=== PATIENT | female | born 1950 | race Hispanic/Latino ===

== ENCOUNTER 2019-07-20 01:46 | Inpatient (IN) | payer MEDICARE, SELFPAY ==
[2019-07-20] VITALS (17 sets, daily range): BP systolic 130–185; BP diastolic 57–102; PULSE 70–93; RESP 15–21; TEMP 36.7–37.7; O2SAT 92–99; BMI 36.1; BMI 34.7
--- NOTE | 2019-07-20 01:54 | ED.RN ---
CALLED FOR EKG PER RN REQUEST, PULLED OLD EKGS FOR
--- NOTE | 2019-07-20 01:58 | EKG12_ITS ---
Test Reason : SOB Blood Pressure : / mmHG Vent. Rate : 086 BPM Atrial Rate : 086 BPM P-R Int : 244 ms QRS Dur : 134 ms QT Int : 394 ms P-R-T Axes : 054 141 067 degrees QTc Int : 471 ms Sinus rhythm with 1st degree A-V block Right bundle branch block Left posterior fascicular block Bifascicular block ST elevation consider inferior injury or acute infarct Consider right ventricular involvement in acute inferior infarct Abnormal ECG Confirmed by SUHAS MACIEL, DANNA ([id number]), editor in chief newspaper SHY GRIFFIN ([id number]) on 07/24/2019 10:26:25 AM Referred By: LEIDY Confirmed By:DANNA DAI MD
--- NOTE | 2019-07-20 01:59 | RAD_ITS ---
STUDY: X-RAY CHEST REASON FOR EXAM: Female, 68 years old. SOB TECHNIQUE: Frontal and lateral views of the chest. COMPARISON: 04/14/2015 FINDINGS: Dual-chamber pacemaker on the left. Median sternotomy wires. 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 There is no demonstrated pleural abnormality. Normal size heart. Normal mediastinum and zakiya. Normal visualized pulmonary arteries. Normal visualized aortic arch and descending thoracic aorta. Normal visualized thoracic spine. Normal visualized ribs, clavicles, and shoulders. There is no demonstrated abnormality of the visualized soft tissue structures of the upper abdomen. 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 Electronically Signed: Juan Smith MD at 2:40 EDT Tel , Service support ,
[2019-07-20] MEDS: Ipratropium/Albuterol Sulfate 3 ML AMPUL.NEB INHALATION ×4 (02:04→19:10)
--- NOTE | 2019-07-20 02:06 | ED.DCSUM_ITS ---
History of Present Illness Chief Complaint: Shortness of Breath Informant: Patient Onset: Yesterday Context: Gradual Onset Timing: Continuous Narrative: Patient is a 68-year-old female presented with shortness of breath. She denies any associated chest pain. She states she has been feeling short of breath in the past 2 days. Is worse when she lies down or exerts herself. She feels that she has had the flu for the past few days as well with body aches and a cough. She denies any fever or rash. She denies any swelling of her extremities. She denies any abdominal pain, nausea or vomiting. Patient has a fistula but has not started dialysis yet. She still makes urine. She denies any other complaints at this time. She states she been compliant with her medications. She does not wear oxygen at baseline. Past Medical History - Allergies and Home Meds Allergies/Adverse Reactions: Allergies Penicillins Allergy (Verified 04/14/15 05:35) Rash Primary Care Physician: Ana Cristina Courtney [NON-STAFF] - Past Medical History: - - End-stage renal disease, congestive heart failure, coronary artery disease, hypertension, diabetes Surgical History: pacemaker implantation - Medtronic, - - Unclear Smoking Status: Former smoker - Family History Maternal Family History: Reports: Unknown, - Review of Systems All systems negative except as indicated General: Reports: Malaise Respiratory: Reports: Dyspnea, Cough, Dyspnea on exertion, Orthopnea Physical Exam Vital Signs/Narrative: Vital Signs Temp Pulse Resp BP Pulse Ox 07/20/19 01:47 99.2 F H 86 16 160/102 H 92 Inital Vital Signs reviewed: Yes General: Well nourished, Well developed, No Acute Distress Head: Normocephalic, Atraumatic Eyes: Perrl, EOMI ENT: Moist mucous membranes, No rhinorrhea Neck: Supple, Nontender, No JVD Cardiovascular: Regular rate, Regular rhythm, No murmurs Respiratory: No distress, CTA bilaterally, Chest nontender, Decreased Air Movement Abdomen: Soft, Nontender, Nondistended, Normal bowel sounds Back: Nontender, Normal Inspection Extremities: Nontender, No edema Skin: Normal color, No rash Neurological: Alert, Oriented x3, Cranial nerves II-XII grossly intact, Normal Strength, Normal Sensation Psychological: Normal affect, Normal Mood Diagnostic/Tx/Re-eval Chest X-Ray - ED: 2 View, Read by ED Physician, Read by Radiologist, Right Infiltrate Clinical Impression(s) from Imaging Studies Chest X-Ray 07/20/19 01:59 IMPRESSION: 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 Electronically Signed: Juan Smith MD at 2:40 EDT Tel , Service support , Laboratory Data 07/20/19 07/20/19 02:05 02:05 WBC 11.6 H RBC 4.00 L Hgb 10.9 L Hct 34.5 L MCV 86.3 MCH 27.3 MCHC 31.6 L RDW Std Deviation 43.4 RDW Coeff of Robyn 13.8 Plt Count 286 MPV 10.1 Immature Gran % (Auto) 0.400 Neut % (Auto) 76.6 H Lymph % (Auto) 12.9 L [place] % (Auto) 9.0 Eos % (Auto) 0.8 Baso % (Auto) 0.3 Absolute Neuts (auto) 8.9 H Absolute Lymphs (auto) 1.49 Nucleated RBC % 0 Sodium 136 Potassium 4.8 Chloride 103 Carbon Dioxide 24.0 Anion Gap 9 BUN 54 H Creatinine 3.42 H Estim Creat Clear Calc 18.65 Est GFR (MDRD) Af Amer 17 L Est GFR (MDRD) Non-Af 14 L BUN/Creatinine Ratio 15.8 Glucose 189 H Calcium 9.0 Troponin I < 0.015 - Rhythm Strip Rhythm Strip: Sinus Rhythm Rate: 86 Ectopy: None - EKG Initial EKG Interpretation: Sinus Rhythm, RBBB, - - Sinus rhythm with first-degree AV block at a rate of 86 VT interval 244 QRS 134 QT/QTc 394/471 Right axis deviation Right bundle branch block as well as left posterior fascicular block Nonspecific T wave inversions in V1 and V2 Compared to prior EKG on 04/14/2015 patient has new AV block, right bundle branch block and LPFB as well as new T wave inversions in V1 and V2 - Medical Decision Making Patient is evaluated for worsening shortness of breath as well as fatigue. Symptoms been worse over the past 4 days. Patient is requiring oxygen for EMS and is on 3 L upon arrival. She does not wear oxygen at baseline. Clinically patient does not have any signs or symptoms consistent with fluid overload. She does have some diminished breath sounds and she is given a DuoNeb. Chest x-ray does show right basilar and left midlung alveolar disease. Given patient's clinical presentation this is suspicious for acute pneumonia. Patient is acutely hypoxic and is a goes down to 87% with ambulation on room air. She is symptomatic during this. Patient's creatinine is elevated at 3.42. She does have end-stage renal disease and the most recent creatinine I have to compare to is from 2015 which is around 2. Is not clear if this is acute on chronic renal insufficiency or just a progression of her chronic renal insufficiency. Because of patient's history of CHF, she is not bolus to the emergency room but she will be started on maintenance fluids per medicine. Patient is admitted to the general medical floor for further treatment. She started on Rocephin and azithromycin for pneumonia. Her flu swab is negative. She has only a mild leukocytosis. I do not suspect sepsis at this time. ED Disposition - Plan for ED Patient: Disposition: Acute Care Hospital [facility] Diagnosis: Community acquired pneumonia, Acute respiratory failure with hypoxia, Chronic renal insufficiency Referrals: Ana Cristina Courtney [NON-STAFF] -
[2019-07-20 02:12] LABS: Absolute Lymphocyte Count 1.49 X10^3/uL (0.83-4.51); Absolute Neutrophil Count 8.9 X10^3/uL (2.0-7.7); Basophil# 0.04 X10^3/uL; Basophil% 0.3 % (0-1); Eosinophil# 0.09 X10^3/uL; Eosinophils% 0.8 % (0-5); Hematocrit 34.5 % (37-47); Hemoglobin 10.9 g/dL (12.0-15.0); Lymphocyte # 1.49 X10^3/ul (4.0); Lymphocyte % 12.9 % (19-41); Mean Corp Hgb Conc 31.6 g/dL (32-36); Mean Corpuscular Hgb 27.3 pg (27.0-32.0); Mean Corpuscular Volume 86.3 fL (81-99); Mean Platelet Vol. 10.1 fl (6.2-12.0); Monocyte# 1.04 X10^3/uL; NRBC Flagged by Analyzer 0 % (0-5); Neutrophil # 8.85 X10^3/uL (2.7-7.7); Neutrophil % 76.6 % (47-70); Platelet Count 286 K/mm3 (150-450); RBC Distribution Width CV 13.8 % (11.6-14.6); RBC Distribution Width SD 43.4 fl (35.1-43.9); White Blood Count 11.6 K/mm3 (4.4-11.0)
[2019-07-20 02:32] LABS: Anion Gap 9 (5-15); BUN 54 mg/dL (7-18); BUN/Creat Ratio 15.8 RATIO (10-20); Chloride 103 mmol/L (98-107); Creatinine, Serum 3.42 mg/dL (0.55-1.02); EST Glomerular Filtration Rate 14 mL/min (>60); Est Glom Filt Rate - Afr Amer 17 mL/min (>60); Estimated Creatinine Clearance 18.65 ml/min; Glucose 189 mg/dL (74-106); Potassium 4.8 mmol/L (3.5-5.1); Sodium Level 136 mmol/L (136-145)
--- NOTE | 2019-07-20 03:15 | HP.PCM_ITS ---
Problem List (1) Community acquired pneumonia Status: Acute (2) Diabetes mellitus Status: Chronic (3) Artificial cardiac pacemaker Status: Chronic (4) Leukocytosis Status: Acute (5) Diabetes mellitus 2 Status: Chronic (6) Hypertension Status: Chronic (7) CHF (congestive heart failure) Status: Chronic History of Present Illness Date of Admission: 07/20/19 Chief Complaint: short of breath The patient is a 68 year old F with a significant history of end-stage renal disease yet to begin dialysis; hypertension; diabetes mellitus; congestive heart failure; valvular repair; permanent pacemaker and who currently lives at a longterm presenting to the emergency department with 1 day history of shortness of breath. She describes her shortness of breath as unable to lie flat. Associated with her symptoms is paroxysmal nocturnal dyspnea. Also patient reports flulike symptoms that started 4 days ago. She describes flulike symptoms as productive cough; anorexia; malaise; weakness chills and rigor. Her cough is productive for green sputum. She reported that while at the emergency department she had some hemoptysis. The squad placed placed patient on 3 L oxygen by nasal cannula before bringing her to the emergency department. While at the emergency department and with the nasal cannula off patient's oxygen saturation was 86%. At the emergency department her troponin was negative. EKG showed right axis deviation; first-degree AV block and right bundle branch block. Chest x-ray was remarkable for right basilar and left midlung alveolar disease. Past Medical History Past Medical History (Chronic Problems): Chronic Problems Diabetes mellitus (Chronic) Artificial cardiac pacemaker (Chronic) Cardiac conduction disorder (Chronic) CHF (congestive heart failure) (Chronic) Diabetes mellitus 2 (Chronic) Hypertension (Chronic) Chronic renal insufficiency (Chronic) Chronic kidney disease stage III (Chronic) Allergies Penicillins Allergy (Verified 04/14/15 05:35) Rash Home Medications: Ambulatory Orders Medication Instructions Recorded Ferrous Sulfate 325 mg PO BIDCM 04/06/15 Glimepiride [Amaryl] 2 mg PO DAILY 04/06/15 Insulin Glargine,Hum.rec.anlog 15 unit SQ QHS 04/06/15 [Lantus] Losartan Potassium [Cozaar] 50 mg PO DAILY 04/06/15 Hydrochlorothiazide [Hctz] 25 mg PO DAILY 04/14/15 Surgical History: cholecystectomy, pacemaker implantation - Medtronic, - Lives: - - Lives at a longterm Smoking Status: Former smoker Alcohol: Occasional - *Family History Maternal History Items: Diabetes Paternal History Items: Heart Disease Review of Systems Constitutional: Reports: Chills, Fever - Subjective. Denies: Weight Change HEENT: Denies: Head Aches, Sinus Congestion, Sinus Drainage Cardiovascular: Reports: Orthopnea, Palpitations. Denies: Chest Pain Respiratory: Reports: Cough, Shortness of Breath, Sputum production Gastrointestinal: Denies: Abdominal Pain, Nausea, Vomiting Genitourinary: Denies: Dysuria Musculoskeletal: Denies: Joint Pain, Joint Tenderness Skin: Denies: Rash, Wounds Neurological: Denies: Numbness, Tingling, Focal weakness Psychiatric: Denies: Anxiety, Depression, Homicidal Ideations, Suicidal Ideations Hematologic/ Lymphatic: Denies: Easy Bruising, Easy Bleeding VTE Information - Inpt Only VTE Present on Admission: No VTE Mechan Device Prophylaxis: None VTE Pharm Prophylaxis ordered?: Yes Patient Problems: Active and Suspected Problems Community acquired pneumonia (Acute) - Physical Exam General: Alert, Oriented x3, Cooperative HEENT: Atraumatic, PERRLA, EOMI, Normocephalic Neck: Supple, No JVD, Negative Carotid Bruits, - - Bruit and thrill at dialysis access site of right antecubital area Lungs: Clear to auscultation, Normal air movement Cardiovascular: Regular rate, Normal S1, Normal S2, No murmurs Abdomen: Bowel Sounds Present, Soft, Non Tender Extremities: No edema, Capillary Refill Less than 3 Seconds Skin: No rashes, No breakdown Musculoskeletal: No Tenderness to Palpation of Joints or Extremities Neurological: Cranial nerves II-XII grossly intact Psych/Mental Status: Normal Affect, Appropriate Vital Signs Temp Pulse Resp BP Pulse Ox 99.2 F H 70 15 184/65 H 92 07/20/19 01:47 07/20/19 02:47 07/20/19 02:47 07/20/19 02:47 07/20/19 02:47 Oxygen Flow Rate (L/min) 3 Oxygen Delivery Method Room Air Weight: 73 kg Body Mass Index (BMI) 36.1 Finger Stick Blood Glucose 14 Microbiology Past 72 Hours 07/20/19 02:05 Influenza Types A,B Direct FA ([facility]) - Final Mucosa - Nasopharyngeal Laboratory Tests Past 24 Hrs 07/20/19 07/20/19 02:05 02:05 WBC 11.6 H RBC 4.00 L Hgb 10.9 L Hct 34.5 L MCV 86.3 MCH 27.3 MCHC 31.6 L RDW Std Deviation 43.4 RDW Coeff of Robyn 13.8 Plt Count 286 MPV 10.1 Immature Gran % (Auto) 0.400 Neut % (Auto) 76.6 H Lymph % (Auto) 12.9 L [place] % (Auto) 9.0 Eos % (Auto) 0.8 Baso % (Auto) 0.3 Absolute Neuts (auto) 8.9 H Absolute Lymphs (auto) 1.49 Nucleated RBC % 0 Sodium 136 Potassium 4.8 Chloride 103 Carbon Dioxide 24.0 Anion Gap 9 BUN 54 H Creatinine 3.42 H Estim Creat Clear Calc 18.65 Est GFR (MDRD) Af Amer 17 L Est GFR (MDRD) Non-Af 14 L BUN/Creatinine Ratio 15.8 Glucose 189 H Calcium 9.0 Troponin I < 0.015 Assessment/Plan All Active Problems Community acquired pneumonia (Acute) Leukocytosis (Acute) The patient is a 68 year old F with a significant history of end-stage renal disease yet to begin dialysis; hypertension; diabetes mellitus; congestive heart failure; valvular repair; permanent pacemaker and currently living at the longterm presenting to the emergency department with orthopnea; PND; subjective fever; chills; rigors; productive cough; hemoptysis; and found to be hypoxic; has mild leukocytosis and with radiographic evidence of lateral opacities consistent with probable community-acquired pneumonia. Community acquired pneumonia Heart failure is less likely as patient is not edematous. 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 Chest x-ray was independently reviewed. I agree with radiologist interpretation. Respiratory Gram stain and culture ordered Antibiotics: Ceftriaxone and azithromycin was ordered in the emergency department. We will continue patient on ceftriaxone 1 g every 12 hours; and azithromycin 500 mg IV daily. DuoNeb scheduled. Albuterol as needed Legionella antigen screen and Strep antigen ordered Chest physiotherapy ordered Mucinex ordered Trend CBC and BMP End-stage renal disease On presentation her creatinine was 3.42. Review of records from [facility] shows that this is within her baseline. Of notes within the last 6 months patient creatinine has ranged from 3.40-4.10. 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 Dialysis access Shunt/grafts is in her right antecubital fossa. However patient has not begun dialysis. Hypertension Patient reports that in the last 2 days she has not taken her Blood pressure medications because she has anorexia and typically she takes her medication with food. Since she is not in [facility] (but has stable CKD) we will continue patient on a home hydrochlorthiazide and Cozaar. Of note with her end-stage renal disease in the long-term her hydrochlorothiazide may have to be changed to probable chlorthalidone. PRN hydralazine ordered Trend blood pressure and adjust blood pressure medications. Diabetes mellitus On presentation her blood glucose was slightly outside goal. Continue correction scale insulin. De-escalate basal insulin for now. Accu-Chek QA CHS make necessary adjustments to blood glucose regimen as necessary. DVT Prophylaxis Subcutaneous Lovenox Code Visit Inpatient E&M: 21629 Init Hosp L3
[2019-07-20] MEDS: Ceftriaxone 1 GM/50 ML BAG IV ×3 (03:20→22:19)
[2019-07-20] MEDS: hydrALAZINE 20 MG/ML Vial 10 MG IV (05:28)
[2019-07-20] MEDS: Insulin Lispro 100 UNIT/ML INSULN.PEN SC ×4 (06:58→22:22)
[2019-07-20 07:06] LABS: Bedside Glucose 249 mg/dL (70-110)
[2019-07-20] MEDS: hydroCHLOROthiazide 25 MG Tablet PO (07:22)
[2019-07-20] MEDS: Ferrous Sulfate 325 MG Tablet PO ×2 (07:22→17:09)
[2019-07-20] MEDS: Losartan Potassium 50 MG Tablet PO (07:22)
[2019-07-20] MEDS: guaiFENesin 1,200 MG Tablet 1200 MG PO ×2 (07:23→22:19)
--- NOTE | 2019-07-20 09:40 | PN_ITS ---
Patient Problems: Active and Suspected Problems Community acquired pneumonia (Acute) Subjective: Patient has chronic heart disease with mitral valve regurgitation/prolapse status post valvular repair, cardiac conduction disorder status post pacemaker and congestive heart failure and CKD stage IV. Admitted with acute hypoxic resp iratory insufficiency secondary to pneumonia Patient has productive cough, chills and Rigor and weakness. Patient pulse ox was 86% on room air.. Vitals/I&O's: Vital Signs Temp Pulse Resp BP Pulse Ox 98.8 F 93 20 H 168/74 H 99 07/20/19 04:27 07/20/19 08:06 07/20/19 08:06 07/20/19 08:06 07/20/19 08:06 Oxygen Flow Rate (L/min) 3 Oxygen Delivery Method Nasal Cannula Weight: 154 lb 12.232 oz Body Mass Index (BMI) 34.7 Finger Stick Blood Glucose 14 Intake and Output for Last 24 Hours 07/18/19 07/19/19 07/20/19 23:59 23:59 23:59 Intake Total 305 / 305 Balance 305 / 305 General: Alert, Oriented x3, Cooperative HEENT: Atraumatic, PERRLA, EOMI, Normocephalic Neck: Supple, No JVD, Negative Carotid Bruits Lungs: No rhonchi, No rales, Diminished - Air entry diminished in bilateral lung bases., Wheezes Cardiovascular: Regular rate, Regular Rhythm, Normal S1, Normal S2, Murmur - Systolic murmur present over left lower sternal border and mitral region. Abdomen: Bowel Sounds Present, Soft, Non Tender, Non-Distended Extremities: No edema, Capillary Refill Less than 3 Seconds Skin: No rashes, No breakdown Musculoskeletal: No Tenderness to Palpation of Joints or Extremities, Arthritic Changes Neurological: Cranial nerves II-XII grossly intact Psych/Mental Status: Normal Affect, Appropriate Microbiology Past 72 Hours 07/20/19 02:05 Mucosa - Nasopharyngeal Influenza Types A,B Direct FA ([facility]) - Final Laboratory Results 07/20/19 02:05: WBC 11.6 H, RBC 4.00 L, Hgb 10.9 L, Hct 34.5 L, MCV 86.3, MCH 27.3, MCHC 31.6 L, RDW Std Deviation 43.4, RDW Coeff of Robyn 13.8, Plt Count 286, MPV 10.1, Immature Gran % (Auto) 0.400, Neut % (Auto) 76.6 H, Lymph % (Auto) 12.9 L, [place] % (Auto) 9.0, Eos % (Auto) 0.8, Baso % (Auto) 0.3, Absolute Neuts (auto) 8.9 H, Absolute Lymphs (auto) 1.49, Nucleated RBC % 0 07/20/19 02:05: Sodium 136, Potassium 4.8, Chloride 103, Carbon Dioxide 24.0, Anion Gap 9, BUN 54 H, Creatinine 3.42 H, Estim Creat Clear Calc 18.65, Est GFR (MDRD) Af Amer 17 L, Est GFR (MDRD) Non-Af 14 L, BUN/Creatinine Ratio 15.8, Glucose 189 H, Calcium 9.0, Troponin I < 0.015 07/20/19 06:35: POC Glucose 249 H Current Medications Acetaminophen (Tylenol) 650 mg PO Q6H PRN PRN PRN Reason: Mild Pain (1-3)/Temp > 100.7 F Albuterol Sulfate (Ventolin Aerosols) 2.5 mg INHALATION Q2H PRN PRN PRN Reason: SHORTNESS OF BREATH Albuterol/Ipratropium (Duoneb) 3 ml INHALATION Q6H.RT [facility] Last Admin: 07/20/19 07:25 Dose: 3 ml Documented by: Benzonatate (Tessalon Perle) 100 mg PO 4X/DAY PRN PRN PRN Reason: COUGH Dextrose (D50w Syringe) 0 gm IV X1 PRN; Protocol PRN Reason: Hypoglycemia Enoxaparin Sodium (Lovenox) 30 mg SC DAILY@1000 [facility] Ferrous Sulfate (Ferrous Sulfate) [facility] Last Admin: 07/20/19 07:22 Dose: 325 mg Documented by: Glucagon () 1 mg IM .X1 PRN PRN Reason: Hypoglycemia Guaifenesin (Mucinex) 1,200 mg PO BID [facility] Last Admin: 07/20/19 07:23 Dose: 1,200 mg Documented by: Hydralazine HCl (Apresoline Iv) 10 mg IV Q4H PRN PRN PRN Reason: SBP > 160 Last Admin: 07/20/19 05:28 Dose: 10 mg Documented by: Hydralazine HCl (Apresoline) 50 mg PO TID [facility] Hydrochlorothiazide (Hctz) 25 mg PO DAILY [facility] Last Admin: 07/20/19 07:22 Dose: 25 mg Documented by: Azithromycin 500 mg/ Dextrose 255 mls @ 250 mls/hr IV Q24@2200 [facility] Stop: 07/23/19 23:02 Ceftriaxone Sodium (Rocephin) 1 gm in 50 mls @ 100 mls/hr IV Q12 [facility] Insulin Glargine (Lantus (Bk)) 18 units SC QHS [facility] Insulin Human Lispro (Humalog Kwikpen ([facility])) 0 unit SC ACHS [facility]; Protocol Last Admin: 07/20/19 06:58 Dose: 4 u Documented by: Losartan Potassium (Cozaar) 50 mg PO DAILY [facility] Last Admin: 07/20/19 07:22 Dose: 50 mg Documented by: Melatonin (Melatonin) 3 mg PO QHS PRN PRN PRN Reason: INSOMNIA Ondansetron HCl (Zofran) 4 mg IV Q8H PRN PRN PRN Reason: NAUSEA/VOMITING STROKE Vital Signs/Narrative: Vital Signs Pulse Resp BP Pulse Ox 07/20/19 08:06 93 20 H 168/74 H 99 07/20/19 07:25 87 18 95 Medical Necessity - Tobacco Use Smoking Status: Former smoker Assessment/Plan All Active Problems Community acquired pneumonia (Acute) Leukocytosis (Acute) The patient is a 68 year old F with a significant history of hypertension; diabetes mellitus; congestive heart failure; mitral valve regurgitation status post valvular repair; permanent pacemaker and CKD stage IV was admitted with subjective fever; productive cough, postnasal drip; hemoptysis and found to be hypoxic; has mild leukocytosis and with radiographic evidence of lateral opacities consistent with probable community-acquired pneumonia. Community acquired pneumonia: Chest x-ray was remarkable for right basilar and left midlung alveolar disease. Patient is on IV Rocephin and Zithromax. blood cultures x2 ordered. Respiratory panel is pending. On DuoNeb, albuterol as needed, Mucinex and chest physiotherapy. Legionella and strep antigens are ordered. Cardiac disease: Valvular heart disease, MR/mitral valve repair, cardiac conduction disorder status post pacemaker, congestive heart failure: EKG showed right axis deviation; first-degree AV block and right bundle branch block. Patient follows instruction assistant principal in Dr. Kwaku Sánchez. Patient cardiac medications continued CKD stage IV On presentation her creatinine was 3.42. Review of records from [facility] shows that this is within her baseline. Of notes within the last 6 months patient creatinine has ranged from 3.40-4.10. 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 Dialysis access Shunt/grafts is in her right antecubital fossa. However patient has not begun dialysis. Hypertension Elevated: Blood pressure 185/80. Most probably due to noncompliance from anorexia. Home medications HCTZ and Cozaar continued as she is stable CKD. Hydrocephaly 50 mg p.o. 3 times daily and IV hydralazine as needed for systolic blood pressure more than 180. Trend blood pressure and adjust blood pressure medications. Diabetes mellitus, type II Glucose 249 in Accu-Chek and 189 BMP. Accu-Chek before meals and at bedtime and cover with Humalog sliding scale. 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 Code Visit Inpatient E&M: 44277 Subs Hosp L3
[2019-07-20] MEDS: Enoxaparin 30 MG/0.3 ML Syringe SC (10:24)
[2019-07-20 11:16] LABS: Bedside Glucose 173 mg/dL (70-110)
--- NOTE | 2019-07-20 11:40 | CASEMGMT ---
RN CM Assessment Introduced role of RN CM to patient.? Patient is alert, oriented and able?to participate in RN CM Assessment. ?Care providers, pharmacy, and demographics verified. Presentation: SOB. Alpha like she had Flu for past few days w/body aches and cough. Admit Dx: CAP Re-Admit: No Barriers/Issues: None. Patient appears short with responses during assessment. Patient lives at a nursing home called [facility]. Has a Fistula but has not started HD yet. PCP: Remigio Parks Specialists: Nephro- Dr Ford in [place] Preferred Pharmacy: [facility] Insurance: [employer] [facility] Rx Benefit:?Yes ?LNOK: Friend Adrienne Echavarria LW/HPOA: None on file at [facility] Living Arrangements:?Lives alone at a nursing home, no steps to enter. ADL?s: Independent with ambulation and ADLs Transportation: Patient drives DME: [employer] HHC: None SNF: None Goal: Home and does not think will have any needs. Denies any questions, concerns, or issues with DC planning at this time. Provided In Network List for DME if Home O2 is required at DC. Aware CM remains available for any emerging needs. DC PLAN: Home with possible Home O2. JHONY Sigala
[2019-07-20] MEDS: Nepro with Carbsteady 237 ML Liquid 120 ML PO ×2 (12:41→17:06)
--- NOTE | 2019-07-20 13:57 | CASEMGMT ---
Addendum entered by Paige Amaral 07/20/19 14:13: SW received message from Yudelka Harrell at [facility] requesting update on pt. SW placed a call to Yudelka and left her a message regarding pt's admission to [facility]. Original Note: Social Work Note SW updated by RN DREW Antonio that pt resides at [facility]. SW met with pt as pt is from retirement. SW introduced self and role at [facility]. Pt is alert and orientated x3. Pt confirms that she resides at [facility] and has been there for about a month. Pt states she is fine to return there once discharged from the hospital and denied additional needs or concerns at this time. Paige Amaral FULFILLMENT COORDINATOR, LOSS CLAIM CLERK
[2019-07-20] MEDS: hydrALAZINE 50 MG Tablet PO ×2 (14:00→22:27)
[2019-07-20 16:26] LABS: Bedside Glucose 181 mg/dL (70-110)
[2019-07-20] MEDS: Acetaminophen 325 MG Tablet 650 MG PO (19:07)
[2019-07-20] MEDS: 0.9% Saline Lock 10 ML Syringe IV ×2 (20:14→22:20)
[2019-07-20 22:31] LABS: Bedside Glucose 294 mg/dL (70-110)
[2019-07-21] VITALS (14 sets, daily range): BP systolic 135–157; BP diastolic 62–88; PULSE 74–105; RESP 18–20; TEMP 36.6–37; O2SAT 92–98
[2019-07-21] MEDS: Ipratropium/Albuterol Sulfate 3 ML AMPUL.NEB INHALATION ×4 (00:36→19:45)
[2019-07-21 06:04] LABS: Absolute Lymphocyte Count 1.85 X10^3/uL (0.83-4.51); Absolute Neutrophil Count 7.1 X10^3/uL (2.0-7.7); Basophil# 0.03 X10^3/uL; Basophil% 0.3 % (0-1); Eosinophil# 0.29 X10^3/uL; Eosinophils% 2.8 % (0-5); Hematocrit 30.5 % (37-47); Hemoglobin 9.6 g/dL (12.0-15.0); Lymphocyte # 1.85 X10^3/ul (4.0); Lymphocyte % 18.1 % (19-41); Mean Corp Hgb Conc 31.5 g/dL (32-36); Mean Corpuscular Hgb 27.1 pg (27.0-32.0); Mean Corpuscular Volume 86.2 fL (81-99); Mean Platelet Vol. 10.2 fl (6.2-12.0); Monocyte# 0.91 X10^3/uL; Monocyte% 8.9 % (0-10); NRBC Flagged by Analyzer 0 % (0-5); Neutrophil % 69.6 % (47-70); Platelet Count 239 K/mm3 (150-450); RBC Distribution Width CV 13.9 % (11.6-14.6); RBC Distribution Width SD 43.7 fl (35.1-43.9); Red Blood Count 3.54 M/mm3 (4.2-5.4); White Blood Count 10.2 K/mm3 (4.4-11.0)
[2019-07-21 06:23] LABS: Anion Gap 10 (5-15); BUN 63 mg/dL (7-18); BUN/Creat Ratio 17.2 RATIO (10-20); Calcium,Total 8.6 mg/dL (8.5-10.1); Chloride 102 mmol/L (98-107); Creatinine, Serum 3.67 mg/dL (0.55-1.02); EST Glomerular Filtration Rate 13 mL/min (>60); Est Glom Filt Rate - Afr Amer 16 mL/min (>60); Estimated Creatinine Clearance 16.71 ml/min; Glucose 96 mg/dL (74-106); Potassium 3.9 mmol/L (3.5-5.1); Sodium Level 136 mmol/L (136-145)
[2019-07-21] MEDS: hydrALAZINE 50 MG Tablet PO ×3 (07:02→22:04)
[2019-07-21 07:15] LABS: Bedside Glucose 87 mg/dL (70-110)
[2019-07-21] MEDS: hydroCHLOROthiazide 25 MG Tablet PO (07:59)
[2019-07-21] MEDS: Acetaminophen 325 MG Tablet 650 MG PO (07:59)
[2019-07-21] MEDS: Ferrous Sulfate 325 MG Tablet PO ×2 (07:59→16:27)
[2019-07-21] MEDS: guaiFENesin 1,200 MG Tablet 1200 MG PO ×2 (07:59→22:02)
--- NOTE | 2019-07-21 08:36 | PCM.PN.HOSP ---
Patient Problems: Active and Suspected Problems Community acquired pneumonia (Acute) Subjective: Seen and examined. Patient shortness of breath is better but still short of breath on exertion. No fever or chills. No tachycardia. Pulse ox 94% on room air. Vitals/I&O's: Vital Signs Temp Pulse Resp BP Pulse Ox 97.9 F 80 18 157/69 H 94 07/21/19 07:00 07/21/19 07:02 07/21/19 07:00 07/21/19 07:02 07/21/19 07:45 Oxygen Flow Rate (L/min) 1 Oxygen Delivery Method Room Air Weight: 154 lb 12.232 oz Body Mass Index (BMI) 34.7 Finger Stick Blood Glucose 14 Intake and Output for Last 24 Hours 07/19/19 07/20/19 07/21/19 23:59 23:59 23:59 Intake Total 355 / 835 930 / 930 Output Total 150 / 725 1200 / 1200 Balance 205 / 110 -270 / -270 General: Alert, Oriented x3, Cooperative HEENT: Atraumatic, PERRLA, EOMI, Normocephalic Neck: Supple, No JVD, Negative Carotid Bruits Lungs: No wheeze, No rales, Diminished, Rhonchi Cardiovascular: Regular rate, Regular Rhythm, Normal S1, Normal S2, No murmurs Abdomen: Bowel Sounds Present, Soft, Non Tender, Non-Distended Extremities: No edema, Capillary Refill Less than 3 Seconds Skin: No rashes, No breakdown Musculoskeletal: No Tenderness to Palpation of Joints or Extremities Neurological: Cranial nerves II-XII grossly intact Psych/Mental Status: Normal Affect, Appropriate Microbiology Past 72 Hours 07/20/19 09:30 Sputum, Expectorated/Coughed Gram Stain - Final 07/20/19 06:55 Urine, Clean Catch Streptococcus pneumoniae Antigen (M - Final 07/20/19 06:55 Urine, Clean Catch Legionella Antigen - Final 07/20/19 05:19 Mucosa - Nasopharyngeal Respiratory Panel (PCR) - Final Rhinovirus 07/20/19 02:05 Mucosa - Nasopharyngeal Influenza Types A,B Direct FA ([facility]) - Final Laboratory Results 07/20/19 11:05: POC Glucose 173 H 07/20/19 16:09: POC Glucose 181 H 07/20/19 22:17: POC Glucose 294 H 07/21/19 05:55: WBC 10.2, RBC 3.54 L, Hgb 9.6 L, Hct 30.5 L, MCV 86.2, MCH 27.1, MCHC 31.5 L, RDW Std Deviation 43.7, RDW Coeff of Robyn 13.9, Plt Count 239, MPV 10.2, Immature Gran % (Auto) 0.300, Neut % (Auto) 69.6, Lymph % (Auto) 18.1 L, Garvin % (Auto) 8.9, Eos % (Auto) 2.8, Baso % (Auto) 0.3, Absolute Neuts (auto) 7.1, Absolute Lymphs (auto) 1.85, Nucleated RBC % 0 07/21/19 05:55: Sodium 136, Potassium 3.9, Chloride 102, Carbon Dioxide 24.0, Anion Gap 10, BUN 63 H, Creatinine 3.67 H, Estim Creat Clear Calc 16.71, Est GFR (MDRD) Af Amer 16 L, Est GFR (MDRD) Non-Af 13 L, BUN/Creatinine Ratio 17.2, Glucose 96, Calcium 8.6 07/21/19 07:00: POC Glucose 87 Current Medications Acetaminophen (Tylenol) 650 mg PO Q6H PRN PRN PRN Reason: Mild Pain (1-3)/Temp > 100.7 F Last Admin: 07/21/19 07:59 Dose: 650 mg Documented by: Albuterol Sulfate (Ventolin Aerosols) 2.5 mg INHALATION Q2H PRN PRN PRN Reason: SHORTNESS OF BREATH Albuterol/Ipratropium (Duoneb) 3 ml INHALATION Q6H.RT [facility] Last Admin: 07/21/19 07:18 Dose: 3 ml Documented by: Benzonatate (Tessalon Perle) 100 mg PO 4X/DAY PRN PRN PRN Reason: COUGH Dextrose (D50w Syringe) 0 gm IV X1 PRN; Protocol PRN Reason: Hypoglycemia Enoxaparin Sodium (Lovenox) 30 mg SC DAILY@1000 [facility] Last Admin: 07/20/19 10:24 Dose: 30 mg Documented by: Ferrous Sulfate (Ferrous Sulfate) 325 mg PO BIDCM [facility] Last Admin: 07/21/19 07:59 Dose: 325 mg Documented by: Glucagon () 1 mg IM .X1 PRN PRN Reason: Hypoglycemia Guaifenesin (Mucinex) 1,200 mg PO BID [facility] Last Admin: 07/21/19 07:59 Dose: 1,200 mg Documented by: Hydralazine HCl (Apresoline Iv) 10 mg IV Q4H PRN PRN PRN Reason: SBP > 160 Last Admin: 07/20/19 05:28 Dose: 10 mg Documented by: Hydralazine HCl (Apresoline) 50 mg PO TID [facility] Last Admin: 07/21/19 07:02 Dose: 50 mg Documented by: Hydrochlorothiazide (Hctz) 25 mg PO DAILY [facility] Last Admin: 07/21/19 07:59 Dose: 25 mg Documented by: Azithromycin 500 mg/ Dextrose 255 mls @ 250 mls/hr IV Q24@2200 [facility] Stop: 07/23/19 23:02 Ceftriaxone Sodium (Rocephin) 1 gm in 50 mls @ 100 mls/hr IV Q12 [facility] Last Infusion: 07/21/19 00:16 Dose: Infused Documented by: Sodium Chloride () 250 mls @ 15 mls/hr IV .[id number] PRN PRN Reason: Saline Flush Insulin Glargine (Lantus (Bkc)) 18 units SC QHS [facility] Last Admin: 07/20/19 22:21 Dose: 18 units Documented by: Insulin Human Lispro (Humalog Kwikpen (Bkc)) 0 unit SC [facility]; Protocol Last Admin: 07/21/19 07:02 Dose: Not Given Documented by: Losartan Potassium (Cozaar) 50 mg PO DAILY [facility] Last Admin: 07/20/19 07:22 Dose: 50 mg Documented by: Melatonin (Melatonin) 3 mg PO QHS PRN PRN PRN Reason: INSOMNIA Ondansetron HCl (Zofran) 4 mg IV Q8H PRN PRN PRN Reason: NAUSEA/VOMITING Sodium Chloride () 5 - 15 ml IV UD PRN PRN Reason: SALINE FLUSH Last Admin: 07/20/19 22:20 Dose: 10 ml Documented by: STROKE Vital Signs/Narrative: Vital Signs Temp Pulse Resp BP Pulse Ox 07/21/19 07:45 94 07/21/19 07:02 80 157/69 H 07/21/19 07:00 97.9 F 80 18 157/69 H 98 Medical Necessity - Tobacco Use Smoking Status: Former smoker Assessment/Plan All Active Problems Community acquired pneumonia (Acute) Leukocytosis (Acute) The patient is a 68 year old F with a significant history of hypertension; diabetes mellitus; congestive heart failure; mitral valve regurgitation status post valvular repair; permanent pacemaker and CKD stage IV was admitted with subjective fever; productive cough, postnasal drip; hemoptysis and found to be hypoxic; has mild leukocytosis and with radiographic evidence of lateral opacities consistent with probable community-acquired pneumonia. Community acquired pneumonia possible bacterial superimposed on rhinovirus viral infection: Chest x-ray was remarkable for right basilar and left midlung alveolar disease. Patient is on IV Rocephin and Zithromax. blood cultures x2 ordered. Respiratory panel is pending. On DuoNeb, albuterol as needed, Mucinex and chest physiotherapy. Legionella and strep antigens are negative. Respiratory panel is positive for rhinovirus prelim Gram stain showed appears normal respiratory angela. Cardiac disease: Valvular heart disease, MR/mitral valve repair, cardiac conduction disorder status post pacemaker, congestive heart failure: EKG showed right axis deviation; first-degree AV block and right bundle branch block. Patient follows hydrometeorologist in [place], Dr. Ames. Patient cardiac medications continued CKD stage IV On presentation her creatinine was 3.42. BUN/creatinine 63/3.67. Review of records from [facility] shows that this is within her baseline. Of notes within the last 6 months patient creatinine has ranged from 3.40-4.10. She follows up with motion picture equipment machinist at [place]. Dialysis access Shunt/grafts is in her right antecubital fossa. However patient has not begun dialysis. Hold HCTZ and Cozaar. Repeat BMP tomorrow a.m. Hypertension Elevated: Blood pressure 185/80. Most probably due to noncompliance from anorexia. Home medications HCTZ and Cozaar continued as she is stable CKD. Hydrocephaly 50 mg p.o. 3 times daily and IV hydralazine as needed for systolic blood pressure more than 180. Trend blood pressure and adjust blood pressure medications. Diabetes mellitus, type II : Accu-Chek before meals and at bedtime and cover with Humalog sliding scale. Started on Humalog 8 units subcutaneous 3 times daily before meals. Morning glucose was 87 therefore Lantus insulin split to 10 units of cutaneous twice daily. 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 Microbiology Past 72 Hours 07/20/19 09:30 Sputum, Expectorated/Coughed Gram Stain - Final 07/20/19 09:30 Sputum, Expectorated/Coughed Respiratory Culture - Preliminary Appears to be normal respiratory angela. Further studies to follow. 07/20/19 06:55 Urine, Clean Catch Streptococcus pneumoniae Antigen (M - Final 07/20/19 06:55 Urine, Clean Catch Legionella Antigen - Final 07/20/19 05:19 Mucosa - Nasopharyngeal Respiratory Panel (PCR) - Final Rhinovirus 07/20/19 02:05 Mucosa - Nasopharyngeal Influenza Types A,B Direct FA ([facility]) - Final Laboratory Results 07/20/19 16:09: POC Glucose 181 H 07/20/19 22:17: POC Glucose 294 H 07/21/19 05:55: WBC 10.2, RBC 3.54 L, Hgb 9.6 L, Hct 30.5 L, MCV 86.2, MCH 27.1, MCHC 31.5 L, RDW Std Deviation 43.7, RDW Coeff of Robyn 13.9, Plt Count 239, MPV 10.2, Immature Gran % (Auto) 0.300, Neut % (Auto) 69.6, Lymph % (Auto) 18.1 L, Garvin % (Auto) 8.9, Eos % (Auto) 2.8, Baso % (Auto) 0.3, Absolute Neuts (auto) 7.1, Absolute Lymphs (auto) 1.85, Nucleated RBC % 0 07/21/19 05:55: Sodium 136, Potassium 3.9, Chloride 102, Carbon Dioxide 24.0, Anion Gap 10, BUN 63 H, Creatinine 3.67 H, Estim Creat Clear Calc 16.71, Est GFR (MDRD) Af Amer 16 L, Est GFR (MDRD) Non-Af 13 L, BUN/Creatinine Ratio 17.2, Glucose 96, Calcium 8.6 07/21/19 07:00: POC Glucose 87 07/21/19 10:27: POC Glucose 239 H Code Visit Inpatient E&M: 14875 Subs Hosp L3
[2019-07-21] MEDS: 0.9% Saline Lock 10 ML Syringe IV ×3 (10:16→22:02)
[2019-07-21] MEDS: Enoxaparin 30 MG/0.3 ML Syringe SC (10:17)
[2019-07-21] MEDS: Losartan Potassium 50 MG Tablet PO (10:19)
[2019-07-21] MEDS: Ceftriaxone 1 GM/50 ML BAG IV ×2 (10:20→23:03)
[2019-07-21] MEDS: Nepro with Carbsteady 237 ML Liquid 120 ML PO ×3 (10:21→16:28)
[2019-07-21] MEDS: Insulin Lispro 100 UNIT/ML INSULN.PEN SC ×3 (10:28→22:09)
[2019-07-21 10:36] LABS: Bedside Glucose 239 mg/dL (70-110)
[2019-07-21] MEDS: Insulin Lispro 100 UNIT/ML INSULN.PEN 8 UNIT SC (16:24)
[2019-07-21 16:25] LABS: Bedside Glucose 216 mg/dL (70-110)
[2019-07-21 22:15] LABS: Bedside Glucose 179 mg/dL (70-110)
[2019-07-22] VITALS (8 sets, daily range): BP systolic 139–151; BP diastolic 55–69; PULSE 90–98; RESP 18–20; TEMP 36.7–37; O2SAT 88–95
[2019-07-22] MEDS: Ipratropium/Albuterol Sulfate 3 ML AMPUL.NEB INHALATION ×3 (00:05→13:55)
--- NOTE | 2019-07-22 00:05 | CPS ---
placed pt on oxygen at 2 lpm nasal cannula
[2019-07-22] MEDS: hydrALAZINE 50 MG Tablet PO ×2 (05:26→14:20)
[2019-07-22] MEDS: Benzonatate 100 MG Capsule PO ×2 (06:29→14:20)
[2019-07-22 06:31] LABS: Bedside Glucose 126 mg/dL (70-110)
[2019-07-22] MEDS: Insulin Lispro 100 UNIT/ML INSULN.PEN 8 UNIT SC ×2 (06:35→11:27)
[2019-07-22 06:44] LABS: Anion Gap 10 (5-15); BUN 62 mg/dL (7-18); Calcium,Total 8.8 mg/dL (8.5-10.1); Chloride 101 mmol/L (98-107); Creatinine, Serum 3.65 mg/dL (0.55-1.02); EST Glomerular Filtration Rate 13 mL/min (>60); Est Glom Filt Rate - Afr Amer 16 mL/min (>60); Glucose 136 mg/dL (74-106); Potassium 3.9 mmol/L (3.5-5.1); Sodium Level 134 mmol/L (136-145)
[2019-07-22] MEDS: Ferrous Sulfate 325 MG Tablet PO (08:03)
[2019-07-22] MEDS: Nepro with Carbsteady 237 ML Liquid 120 ML PO ×2 (08:03→11:26)
[2019-07-22] MEDS: Enoxaparin 30 MG/0.3 ML Syringe SC (08:04)
[2019-07-22] MEDS: guaiFENesin 1,200 MG Tablet 1200 MG PO (08:04)
[2019-07-22] MEDS: Ceftriaxone 1 GM/50 ML BAG IV (09:45)
--- NOTE | 2019-07-22 10:06 | PCM.DC ---
- Discharge Diagnoses Current Active Problems: Current Active and Chronic Problems Community acquired pneumonia (Acute) Chronic renal insufficiency (Chronic) You will use the following diet at home:: Calorie/Carbohydrate Controlled (specify 1200, 1400, etc) - 1600 ADA diet, Cardiac Your food should be the consistency of: Regular Discharge Activity: May Not Drive Weight Bearing Status: Weight bearing as tolerated Call your doctor if you observe: Fever of 101 or Higher, Inability to urinate, Inability to have a bowel movement, Shortness of breath, Swelling in the ankles, Chest pain, Prolonged hiccoughing, Increased palpitations (irregular heartbeat), Calf discomfort, Uncontrolled pain Allergies/Adverse Reactions: Allergies Penicillins Allergy (Verified 04/14/15 05:35) Rash Medications to take at Discharge Losartan Potassium [Cozaar] 50 mg PO DAILY 04/06/15 Albuterol Sulfate [Albuterol Sulfate Hfa] 18 gm IH 4X/DAY PRN PRN #1 hfa.aer.ad 07/22/19 Benzonatate [Tessalon Perle] 100 mg PO TID PRN PRN #30 cap 07/22/19 Ferrous Sulfate 325 mg PO DAILY #30 tab 07/22/19 Guaifenesin [Mucinex] 1,200 mg PO BID #14 tab 07/22/19 Hydrochlorothiazide [Hctz] 12.5 mg PO DAILY #0 07/22/19 Insulin Aspart [Novolog Flexpen] 10 units SUBCUT TIDCM #0 07/22/19 Insulin Glargine,Hum.rec.anlog [Lantus] 22 unit SQ BREAKFAST #0 07/22/19 Insulin Lispro [Humalog KwikPen] See Protocol [facility] ACHS insuln.pen 07/22/19 Levofloxacin [Levaquin] 500 mg PO Q48H #3 tab 07/22/19 hydrALAZINE [Apresoline] 50 mg PO TID #120 tab 07/22/19 The following prescriptions were given: Albuterol Sulfate [Albuterol Sulfate Hfa] 18 gm IH 4X/DAY PRN PRN #1 hfa.aer.ad PRN Reason: Sob &/Or Wheezing Prescription Printed hydrALAZINE [Apresoline] 50 mg PO TID #120 tab Transmission Status: Pending to [facility]30 Ferrous Sulfate 325 mg PO DAILY #30 tab Transmission Status: Pending to [facility] #30 Levofloxacin [Levaquin] 500 mg PO Q48H #3 tab Transmission Status: Pending to [facility]30 Guaifenesin [Mucinex] 1,200 mg PO BID #14 tab Transmission Status: Pending to [facility]30 Benzonatate [Tessalon Perle] 100 mg PO TID PRN PRN #30 cap PRN Reason: COUGH Transmission Status: Pending to [facility]30 Primary Care Physician: Ana Cristina Courtney [NON-STAFF] - Please follow up with your Primary Care Physician in: in 1-2 week Test Results: Test results from this visit will be discussed in further detail at your follow-up appointment, if applicable.
--- NOTE | 2019-07-22 10:07 | DS.PCM_ITS ---
Discharge Date and Diagnosis - Problem List Patient Problems: Active and Suspected Problems Community acquired pneumonia (Acute) Date of Admission: 07/20/19 Date of Discharge: 07/22/19 - Primary Discharge Diagnosis Active and Suspected Problems Community acquired pneumonia (Acute) - Secondary Discharge Diagnosis Chronic Problems Diabetes mellitus (Chronic) Artificial cardiac pacemaker (Chronic) Cardiac conduction disorder (Chronic) CHF (congestive heart failure) (Chronic) Diabetes mellitus 2 (Chronic) Hypertension (Chronic) Chronic renal insufficiency (Chronic) Chronic kidney disease stage III (Chronic) Hospital Course and Treatment Summary of Care Provided: [] The patient is a 68 year old F with a significant history of hypertension; diabetes mellitus; congestive heart failure; mitral valve regurgitation status post valvular repair; permanent pacemaker and CKD stage IV was admitted with subjective fever; productive cough, postnasal drip; hemoptysis and found to be hypoxic; has mild leukocytosis and with radiographic evidence of lateral opacities consistent with probable community-acquired pneumonia. Community acquired pneumonia possible bacterial superimposed on rhinovirus viral infection: Chest x-ray was remarkable for right basilar and left midlung alveolar disease. Patient is on IV Rocephin and Zithromax. blood cultures x2 negative for more than 48 hours. On DuoNeb, albuterol as needed, Mucinex and chest physiotherapy. Legionella and strep antigens are negative. Respiratory panel is positive for rhinovirus prelim Gram stain showed appears normal respiratory angela. Patient is being discharged on Levaquin 500 mg every 48 hour for 6 more days. Prescription also given for Mucinex, Tessalon Perles, ferrous sulfate and albuterol inhaler as needed for shortness of breath. Cardiac disease: Valvular heart disease, MR/mitral valve repair, cardiac conduction disorder status post pacemaker, congestive heart failure: EKG showed right axis deviation; first-degree AV block and right bundle branch block. Patient follows clinical staff anesthesiologist in [place], Dr. Ames. Patient cardiac medications continued CKD stage IV On presentation her creatinine was 3.42. BUN/creatinine 63/3.67. Review of records from [facility] shows that this is within her baseline. Of notes within the last 6 months patient creatinine has ranged from 3.40-4.10. She follows up with golf club head inspector at [place]. Dialysis access Shunt/grafts is in her right antecubital fossa. However patient has not begun dialysis. Kidney function is stable. BUN/creatinine 62/3.65. Resume HCTZ on lower dose 12.5 mg daily as the patient has lower extremity edema and Cozaar 50 mill grams daily. Hypertension Elevated: Blood pressure 185/80. Most probably due to noncompliance from anorexia. Home medications HCTZ and Cozaar continued as she is stable CKD. Hydrocephaly 50 mg p.o. 3 times daily and IV hydralazine as needed for systolic blood pressure more than 180. Trend blood pressure and adjust blood pressure medications. Prescription given for hydralazine 50 mg 3 times daily. Diabetes mellitus, type II : Accu-Chek before meals and at bedtime and cover with Humalog sliding scale. Lantus insulin was changed to 22 units subcu at breakfast and Humalog insulin increased to 10 units grams 3 times meal. DVT Prophylaxis Subcutaneous Lovenox Discharge medication reconciliation done. Discharge follow-up instructions completed. Discharge process discussed with the patient and all questions were answered to patient's satisfaction. Patient to continue incentive spirometry and acapella at home, follow with PCP in 1 week; if needed, PCP can refer to logistics planner for PFT. Total time spent, exact 35 minutes on discharge meds reconciliation, examination, review of imaging and blood test and discussion with the patient on follow-up instructions. Patient Problems: Active and Suspected Problems Community acquired pneumonia (Acute) Subjective: Seen and examined. Patient shortness of breath is much better. No chest pain. No fever. - Physical Exam Vitals/I&O's: Vital Signs Temp Pulse Resp BP Pulse Ox 98.0 F 91 18 151/69 H 93 07/22/19 08:05 07/22/19 08:05 07/22/19 08:05 07/22/19 08:05 07/22/19 08:05 Oxygen Flow Rate (L/min) 1 Oxygen Delivery Method Room Air Weight: 154 lb 12.232 oz Body Mass Index (BMI) 34.7 Finger Stick Blood Glucose 14 Intake and Output for Last 24 Hours 07/20/19 07/21/19 07/22/19 23:59 23:59 23:59 Intake Total 355 / 835 1285 / 1535 450 / 450 Output Total 150 / 725 1400 / 1400 300 / 300 Balance 205 / 110 -115 / 135 150 / 150 General: Alert, Oriented x3, Cooperative HEENT: Atraumatic, PERRLA, EOMI, Normocephalic Neck: Supple, No JVD, Negative Carotid Bruits Lungs: No rhonchi, No rales, Diminished - Air entry diminished in bilateral lung bases, Wheezes - Mild expiratory wheezing present Cardiovascular: Regular rate, Regular Rhythm, Normal S1, Normal S2, No murmurs Abdomen: Bowel Sounds Present, Soft, Non Tender, Non-Distended Extremities: Capillary Refill Less than 3 Seconds, Edema Skin: No rashes, No breakdown Musculoskeletal: No Tenderness to Palpation of Joints or Extremities, Arthritic Changes Neurological: Cranial nerves II-XII grossly intact, Deep Tendon Reflexes 2+/4 and Symmetrical, Neuro grossly intact, Motor Exam 5/5 strength throughout Psych/Mental Status: Normal Affect, Appropriate Microbiology Past 72 Hours 07/20/19 09:30 Sputum, Expectorated/Coughed Gram Stain - Final 07/20/19 09:30 Sputum, Expectorated/Coughed Respiratory Culture - Final 07/20/19 06:55 Urine, Clean Catch Streptococcus pneumoniae Antigen (M - Final 07/20/19 06:55 Urine, Clean Catch Legionella Antigen - Final 07/20/19 05:19 Mucosa - Nasopharyngeal Respiratory Panel (PCR) - Final Rhinovirus 07/20/19 02:05 Mucosa - Nasopharyngeal Influenza Types A,B Direct FA ([facility]) - Final Laboratory Results 07/21/19 10:27: POC Glucose 239 H 07/21/19 16:20: POC Glucose 216 H 07/21/19 22:08: POC Glucose 179 H 07/22/19 05:50: Sodium 134 L, Potassium 3.9, Chloride 101, Carbon Dioxide 23.0, Anion Gap 10, BUN 62 H, Creatinine 3.65 H, Estim Creat Clear Calc 16.80, Est GFR (MDRD) Af Amer 16 L, Est GFR (MDRD) Non-Af 13 L, BUN/Creatinine Ratio 17.0, Glucose 136 H, Calcium 8.8 07/22/19 06:23: POC Glucose 126 H Current Medications Acetaminophen (Tylenol) 650 mg PO Q6H PRN PRN PRN Reason: Mild Pain (1-3)/Temp > 100.7 F Last Admin: 07/21/19 07:59 Dose: 650 mg Documented by: Albuterol Sulfate (Ventolin Aerosols) 2.5 mg INHALATION Q2H PRN PRN PRN Reason: SHORTNESS OF BREATH Albuterol/Ipratropium (Duoneb) 3 ml INHALATION Q6H.RT [facility] Last Admin: 07/22/19 00:05 Dose: 3 ml Documented by: Benzonatate (Tessalon Perle) 100 mg PO 4X/DAY PRN PRN PRN Reason: COUGH Last Admin: 07/22/19 06:29 Dose: 100 mg Documented by: Dextrose (D50w Syringe) 0 gm IV X1 PRN; Protocol PRN Reason: Hypoglycemia Enoxaparin Sodium (Lovenox) 30 mg SC DAILY@1000 [facility] Last Admin: 07/22/19 08:04 Dose: 30 mg Documented by: Ferrous Sulfate (Ferrous Sulfate) 325 mg PO BIDCM [facility] Last Admin: 07/22/19 08:03 Dose: 325 mg Documented by: Glucagon () 1 mg IM .X1 PRN PRN Reason: Hypoglycemia Guaifenesin (Mucinex) 1,200 mg PO BID [facility] Last Admin: 07/22/19 08:04 Dose: 1,200 mg Documented by: Hydralazine HCl (Apresoline Iv) 10 mg IV Q4H PRN PRN PRN Reason: SBP > 160 Last Admin: 07/20/19 05:28 Dose: 10 mg Documented by: Hydralazine HCl (Apresoline) 50 mg PO TID [facility] Last Admin: 07/22/19 05:26 Dose: 50 mg Documented by: Azithromycin 500 mg/ Dextrose 255 mls @ 250 mls/hr IV Q24@2200 [facility] Stop: 07/23/19 23:02 Last Infusion: 07/21/19 22:56 Dose: Infused Documented by: Ceftriaxone Sodium (Rocephin) 1 gm in 50 mls @ 100 mls/hr IV Q12 [facility] Last Admin: 07/22/19 09:45 Dose: 100 mls/hr Documented by: Sodium Chloride () 250 mls @ 15 mls/hr IV .[id number] PRN PRN Reason: Saline Flush Insulin Glargine (Lantus (Bkc)) 10 units SC BID [facility] Last Admin: 07/22/19 07:58 Dose: 10 u Documented by: Insulin Human Lispro (Humalog Kwikpen (Bkc)) 0 unit SC ACHS [facility]; Protocol Last Admin: 07/22/19 06:25 Dose: Not Given Documented by: Insulin Human Lispro (Humalog Kwikpen (Bkc)) 8 unit SC [facility] Last Admin: 07/22/19 06:35 Dose: 8 units Documented by: Melatonin (Melatonin) 3 mg PO QHS PRN PRN PRN Reason: INSOMNIA Ondansetron HCl (Zofran) 4 mg IV Q8H PRN PRN PRN Reason: NAUSEA/VOMITING Sodium Chloride () 5 - 15 ml IV UD PRN PRN Reason: SALINE FLUSH Last Admin: 07/21/19 22:02 Dose: 10 ml Documented by: Discharge Activity: May Not Drive Weight Bearing Status: Weight bearing as tolerated Call your doctor if you observe: Fever of 101 or Higher, Inability to urinate, Inability to have a bowel movement, Shortness of breath, Swelling in the ankles, Chest pain, Prolonged hiccoughing, Increased palpitations (irregular heartbeat), Calf discomfort, Uncontrolled pain Home Medications: Medications to take at Discharge Losartan Potassium [Cozaar] 50 mg PO DAILY 04/06/15 Albuterol Sulfate [Albuterol Sulfate Hfa] 18 gm IH 4X/DAY PRN PRN #1 hfa.aer.ad 07/22/19 Benzonatate [Tessalon Perle] 100 mg PO TID PRN PRN #30 cap 07/22/19 Ferrous Sulfate 325 mg PO DAILY #30 tab 07/22/19 Guaifenesin [Mucinex] 1,200 mg PO BID #14 tab 07/22/19 Hydrochlorothiazide [Hctz] 12.5 mg PO DAILY #0 07/22/19 Insulin Aspart [Novolog Flexpen] 10 units SUBCUT TIDCM #0 07/22/19 Insulin Glargine,Hum.rec.anlog [Lantus] 22 unit SQ BREAKFAST #0 07/22/19 Insulin Lispro [Humalog KwikPen] See Protocol [facility] ACHS insuln.pen 07/22/19 Levofloxacin [Levaquin] 500 mg PO Q48H #3 tab 07/22/19 hydrALAZINE [Apresoline] 50 mg PO TID #120 tab 07/22/19 Following Prescrptions Were Given to Patient: Albuterol Sulfate [Albuterol Sulfate Hfa] 18 gm IH 4X/DAY PRN PRN #1 hfa.aer.ad PRN Reason: Sob &/Or Wheezing Prescription Printed hydrALAZINE [Apresoline] 50 mg PO TID #120 tab Transmission Status: Pending to [facility]30 Ferrous Sulfate 325 mg PO DAILY #30 tab Transmission Status: Pending to [facility]30 Levofloxacin [Levaquin] 500 mg PO Q48H #3 tab Transmission Status: Pending to [facility]30 Guaifenesin [Mucinex] 1,200 mg PO BID #14 tab Transmission Status: Pending to [facility]30 Benzonatate [Tessalon Perle] 100 mg PO TID PRN PRN #30 cap PRN Reason: COUGH Transmission Status: Pending to [facility]30 Primary Care Physician: Ana Cristina Courtney [NON-STAFF] - Please follow up with your Primary Care Physician in: in 1-2 week Medical Necessity - Tobacco Use Smoking Status: Former smoker Meaningful Use Info Meaningful Use Diagnoses (Choose all that apply): None applicable Code Visit Inpatient E&M: 88761 Disch Hosp
--- NOTE | 2019-07-22 10:45 | CASEMGMT ---
Social Work Note Pt is discharging today. JACEK placed a call to Yudelka Harrell at [facility] and left her a message that pt is being discharged today. JACEK faxed discharge paperwork to Yudelka. Paige Amaral DRUG SAFETY SCIENTIST, TICKET PRINTER
[2019-07-22] MEDS: Insulin Lispro 100 UNIT/ML INSULN.PEN SC (11:26)
[2019-07-22 11:35] LABS: Bedside Glucose 192 mg/dL (70-110)
== END 2019-07-22 14:35 | disposition home or self-care (01) | DRG 194 ==
LOC: ED 03:51 → MS3 04:21
PROVIDERS: Admitting Provider Hospitalist; Emergency Provider Emergency Medicine; Family Provider Internal Medicine; PCP Internal Medicine; Visit Provider Internal Medicine
DX: J18.9 Pneumonia, unspecified organism (principal); I13.0 Hypertensive heart and chronic kidney disease with heart failure and stage 1 through stage 4 chronic kidney disease, or unspecified chronic kidney disease; R04.2 Hemoptysis; N18.4 Chronic kidney disease, stage 4 (severe); E11.22 Type 2 diabetes mellitus with diabetic chronic kidney disease; I50.9 Heart failure, unspecified; I45.9 Conduction disorder, unspecified; R06.89 Other abnormalities of breathing; R09.02 Hypoxemia; B97.89 Other viral agents as the cause of diseases classified elsewhere; Z87.891 Personal history of nicotine dependence; Z95.0 Presence of cardiac pacemaker; Z79.4 Long term (current) use of insulin
CPT/HCPCS: 36415; 71046; 80048; 82962; 84484; 85025; 87040; 87070; 87205; 87449; 87633; 87804; 93005; 94640; 94667; 94668; 97162; 97166; 97535; 97802; 99285; J7040; J7050; A4216

== ENCOUNTER 2019-09-10 04:17 | Emergency (ER) | payer MEDICARE, SELFPAY ==
[2019-07-20 04:26] VITALS: BMI 34.7
[2019-09-10 04:19] VITALS: BP 121/92; PULSE 67; RESP 20; TEMP 36.8; O2SAT 97; BMI 37.1
[2019-09-10 04:24] VITALS: O2SAT 97
--- NOTE | 2019-09-10 04:28 | RAD_ITS ---
STUDY: X-RAY CHEST REASON FOR EXAM: Female, 68 years old. Shortness of breath, history of COPD TECHNIQUE: PA and lateral views of the chest. COMPARISON: 07/20/2019 FINDINGS: There is a multilead permanent pacemaker. There are superimposed monitor leads. There is hyperinflation of the lungs consistent with chronic obstructive lung disease (COPD). Interval resolution of prior left perihilar platelike densities and opacification. Continued opacification in the right perihilar and basilar parenchyma. Stable blunting of the right costophrenic angle. Sternal cerclage wires are present from a prior sternotomy and valve repair. Normal mediastinum and zakiya. Normal visualized pulmonary arteries. Normal visualized aortic arch and descending thoracic aorta. There are diffuse degenerative changes of the visualized thoracic spine. Stable deformity left lower hemithorax. There is no demonstrated abnormality of the visualized soft tissue structures of the upper abdomen. RAD/Chest PA and Lateral IMPRESSION: Stable COPD, likely chronic opacification right costophrenic angle. Stable interstitial density and opacification in the right lung and perihilar parenchyma, recurrent acute or chronic changes possible. Resolution of previous left sided airspace disease. Electronically Signed: Lara De Paz MD at 5:38 EST , Service support ,
--- NOTE | 2019-09-10 04:29 | EKG12_ITS ---
Test Reason : SOB Blood Pressure : / mmHG Vent. Rate : 060 BPM Atrial Rate : 061 BPM P-R Int : 336 ms QRS Dur : 108 ms QT Int : 466 ms P-R-T Axes : 000 110 073 degrees QTc Int : 466 ms Atrial-paced rhythm with prolonged AV conduction Incomplete right bundle branch block Right ventricular hypertrophy Abnormal ECG Confirmed by HELEN MACIEL, KENYA ([id number]), editor index YAKOV JACOBSON ([id number]) on 09/16/2019 11:36:49 AM Referred By: HOSEA Confirmed By:ELEN CERVANTES MD
[2019-09-10] MEDS: Ipratropium/Albuterol Sulfate 3 ML AMPUL.NEB INHALATION (04:36)
[2019-09-10 04:37] VITALS: PULSE 60; RESP 19
[2019-09-10 04:37] LABS: Absolute Lymphocyte Count 2.14 X10^3/uL (0.83-4.51); Absolute Neutrophil Count 7.7 X10^3/uL (2.0-7.7); Basophil# 0.05 X10^3/uL; Basophil% 0.5 % (0-1); Eosinophil# 0.33 X10^3/uL; Hematocrit 30.9 % (37-47); Hemoglobin 9.8 g/dL (12.0-15.0); Lymphocyte # 2.14 X10^3/ul (4.0); Lymphocyte % 19.3 % (19-41); Mean Corp Hgb Conc 31.7 g/dL (32-36); Mean Corpuscular Hgb 26.9 pg (27.0-32.0); Mean Corpuscular Volume 84.9 fL (81-99); Mean Platelet Vol. 10.3 fl (6.2-12.0); Monocyte# 0.78 X10^3/uL; Monocyte% 7.1 % (0-10); NRBC Flagged by Analyzer 0 % (0-5); Neutrophil # 7.72 X10^3/uL (2.7-7.7); Neutrophil % 69.7 % (47-70); Platelet Count 279 K/mm3 (150-450); RBC Distribution Width CV 14.4 % (11.6-14.6); RBC Distribution Width SD 44.7 fl (35.1-43.9); Red Blood Count 3.64 M/mm3 (4.2-5.4); White Blood Count 11.1 K/mm3 (4.4-11.0)
[2019-09-10 04:43] LABS: International Normalized Ratio 1.1; Partial Thromboplast Time 30.9 Seconds (24.1-36.2); Prothrombin Time (Protime)PT. 14.1 SECONDS (11.7-14.9)
--- NOTE | 2019-09-10 04:44 | ED.DCSUM_ITS ---
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 Symptoms have been present for 2 days. She denies any constitutional symptoms such as fever cough myalgia rhinorrhea. She notes she has a history of end-stage renal disease and has a fistula but has not yet started dialysis. She had surgery approximately 2 weeks ago. She states that typically she is able to lay flat but has not been able to do so for the past 2 days. She states that in June she was admitted to the hospital with viral pneumonia and states that her symptoms today feel very similar. However at that time she endorsed cough fever etc. She denies any chest pain or new back pain. No leg swelling. She has a history of mitral valve repair, congestive heart failure, pacemaker, and a remote smoking history. Past Medical History - Allergies and Home Meds Allergies/Adverse Reactions: Allergies Penicillins Allergy (Verified 09/10/19 04:18) Rash Primary Care Physician: Remigio Parks MD [Primary Care Provider] - Surgical History: cholecystectomy, pacemaker implantation - [employer], - Smoking Status: Former smoker - Family History Paternal Family History: Reports: Heart Disease Maternal Family History: Reports: Diabetes Review of Systems General: Denies: Chills, Fever, Sweats Eyes: Denies: Visual changes - bilaterally, Diplopia ENT: Denies: Rhinorrhea, Sore throat Cardiovascular: Denies: Chest pain, Palpitations Respiratory: Reports: Dyspnea, Dyspnea on exertion, Orthopnea. Denies: Cough, Sputum, Paroxysmal nocturnal dyspnea Gastrointestinal: Denies: Abdominal pain, Nausea, Vomiting, Diarrhea, Melena, Hematochezia Genitourinary: Denies: Dysuria, Hematuria, Frequency Musculoskeletal: Denies: Back pain, Extremity Pain Skin: Denies: Rash, Wounds Neurological: Denies: Headache, Weakness, Numbness Physical Exam Vital Signs/Narrative: Vital Signs Temp Pulse Resp BP Pulse Ox 09/10/19 04:37 60 19 H 09/10/19 04:19 98.3 F 67 20 H 121/92 H 97 Inital Vital Signs reviewed: Yes General: Well nourished, Well developed, No Acute Distress Head: Normocephalic, Atraumatic Eyes: Perrl, EOMI ENT: Moist mucous membranes, No rhinorrhea Neck: Supple, Nontender Cardiovascular: Regular rate, Regular rhythm, No murmurs Respiratory: No distress, CTA bilaterally, Chest nontender, - - Patient appears tachypneic but lung sounds are clear Abdomen: Soft, Nontender, Nondistended, Normal bowel sounds Back: Nontender, Normal Inspection Extremities: Nontender, No edema Skin: Normal color, No rash Neurological: Alert, Oriented x3, Cranial nerves II-XII grossly intact, Normal Strength, Normal Sensation Psychological: Normal affect, Normal Mood Diagnostic/Tx/Re-eval - Medical Decision Making Basic labs showed a white count of 11. Slightly anemic which is chronic for her. Creatinine at 4 again chronic. Troponin is negative. Chest x-ray shows chronic changes. Patient received a DuoNeb. She was able to ambulate to the bathroom with a heart rate in the 60s pulse ox at 98 without stopping traveling approximately 30 feet. She was not dyspneic when she got to the bathroom. She was able to ambulate back. I went and reexamined the patient and she is laying flat on her back watching videos on her phone. She is no longer tachypneic. Patient states she does feel better after the breathing treatment. At this point I will write for the patient have an albuterol MDI with spacer. I do not believe this pulmonary embolism. She is not tachycardic, tachypeanic, hypoxic, or having any pain. There is no evidence of right heart strain. I do not believe this is ACS. Her EKG does not demonstrate it in her troponin despite 2 days of symptoms is negative. No evidence of a widened mediastinum. Strong pulses in the upper and lower extremities symmetrically equal. Patient will fo llow up with her doctors return if worsening or concerns she is comfortable with this plan. ED Disposition - Plan for ED Patient: Disposition: Home or Assisted Living Diagnosis: Dyspnea Instructions: ED Dyspnea Prescriptions: Albuterol Inhaler [Ventolin Hfa] 2 puff INHALATION Q4H PRN PRN #1 inhaler PRN Reason: Wheezing Transmission Status: Pending to [facility] Referrals: Remigio Parks MD [Primary Care Provider] - 3-5 Days if not improving
[2019-09-10 04:57] LABS: ALB/GLOB Ratio 0.7 RATIO (0.9-2.4); AST(SGOT) 11 U/L (15-37); Alanine Aminotransfer ALT/SGPT 13 U/L (13-56); Albumin, Serum 3.2 g/dL (3.2-5.0); Alkaline Phosphatase 70 U/L (45-117); Anion Gap 9 (5-15); BUN 75 mg/dL (7-18); BUN/Creat Ratio 18.5 RATIO (10-20); Calcium,Total 8.2 mg/dL (8.5-10.1); Chloride 103 mmol/L (98-107); Creatinine, Serum 4.05 mg/dL (0.55-1.02); EST Glomerular Filtration Rate 12 mL/min (>60); Est Glom Filt Rate - Afr Amer 14 mL/min (>60); Estimated Creatinine Clearance 16.22 ml/min; Globulin 4.3 g/dL (2.2-4.2); Glucose 198 mg/dL (74-106); Protein, Total 7.5 g/dL (6.4-8.2); Sodium Level 135 mmol/L (136-145)
[2019-09-10 04:58] LABS: Lactic Acid 0.9 mmol/L (0.4-1.9)
[2019-09-10 05:55] VITALS: O2SAT 98
[2019-09-10 05:56] VITALS: BP 141/86; PULSE 64; RESP 18; O2SAT 98
== END 2019-09-10 05:58 | disposition home or self-care (01) ==
PROVIDERS: Emergency Provider Emergency Medicine; Family Provider Internal Medicine; PCP Internal Medicine
DX: R06.02 Shortness of breath (principal); N18.6 End stage renal disease; I50.9 Heart failure, unspecified; Z95.0 Presence of cardiac pacemaker; Z79.899 Other long term (current) drug therapy; Z87.891 Personal history of nicotine dependence
CPT/HCPCS: 36415; 71046; 80053; 83605; 84484; 85025; 85610; 85730; 87040; 93005; 94640; 99285; A4216

== ENCOUNTER 2020-05-20 13:30 | Emergency (ER) | payer MEDICARE, MEDICAID, SELFPAY ==
[2020-05-20 13:31] VITALS: BP 184/78; PULSE 64; RESP 16; TEMP 37.3; O2SAT 99; BMI 32.5
--- NOTE | 2020-05-20 13:52 | RAD_ITS ---
STUDY: X-RAY CHEST REASON FOR EXAM: Female, 69 years old. FEVER, COUGH TECHNIQUE: Single AP portable view of the chest. COMPARISON: 09/10/2019 FINDINGS: Left subclavian dual-lead pacemaker which is unchanged. Status post median sternotomy. The lungs are clear and expanded. There is no demonstrated pleural abnormality. Normal size heart. Normal mediastinum and zakiya. Normal visualized pulmonary arteries. Normal visualized aortic arch and descending thoracic aorta. Normal visualized thoracic spine. Normal visualized ribs, clavicles, and shoulders. There is no demonstrated abnormality of the visualized soft tissue structures of the upper abdomen. RAD/Chest 1 View (Portable) IMPRESSION: No active disease. Electronically Signed: Xiang Miner MD at 15:07 EDT Tel , Service support ,
[2020-05-20 14:36] LABS: Absolute Lymphocyte Count 1.37 X10^3/uL (0.83-4.51); Absolute Neutrophil Count 3.7 X10^3/uL (2.0-7.7); Basophil# 0.01 X10^3/uL; Basophil% 0.2 % (0-1); Eosinophil# 0.03 X10^3/uL; Eosinophils% 0.5 % (0-5); Hematocrit 30.1 % (37-47); Hemoglobin 9.5 g/dL (12.0-15.0); Lymphocyte # 1.37 X10^3/ul (4.0); Lymphocyte % 24.7 % (19-41); Mean Corp Hgb Conc 31.6 g/dL (32-36); Mean Corpuscular Hgb 26.7 pg (27.0-32.0); Mean Corpuscular Volume 84.6 fL (81-99); Mean Platelet Vol. 10.9 fl (6.2-12.0); Monocyte# 0.47 X10^3/uL; Monocyte% 8.5 % (0-10); NRBC Flagged by Analyzer 0 % (0-5); Neutrophil # 3.65 X10^3/uL (2.7-7.7); Neutrophil % 65.7 % (47-70); Platelet Count 210 K/mm3 (150-450); RBC Distribution Width CV 14.5 % (11.6-14.6); Red Blood Count 3.56 M/mm3 (4.2-5.4); White Blood Count 5.6 K/mm3 (4.4-11.0)
[2020-05-20] MEDS: 0.9% Normal Saline 1,000 ML 150 ML IV (14:43)
[2020-05-20 15:27] VITALS: BP 202/83; PULSE 64; RESP 18; TEMP 36.9; O2SAT 99
[2020-05-20 16:04] LABS: Anion Gap 9 (5-15); BUN 71 mg/dL (7-18); BUN/Creat Ratio 15.1 RATIO (10-20); Calcium,Total 8.1 mg/dL (8.5-10.1); Chloride 105 mmol/L (98-107); Creatinine, Serum 4.69 mg/dL (0.55-1.02); EST Glomerular Filtration Rate 10 mL/min (>60); Est Glom Filt Rate - Afr Amer 12 mL/min (>60); Estimated Creatinine Clearance 12.11 ml/min; Glucose 183 mg/dL (74-106); Sodium Level 136 mmol/L (136-145)
[2020-05-20 17:10] LABS: Mucous, Urine 0 SEEN /hpf (<or=2+); Red Blood Cells-Urine 0 SEEN /hpf (0-5); Squamous Epithelial Cells - UA 0 SEEN /hpf (5-10)
[2020-05-20 17:27] LABS: Color, Urine Yellow (Yellow); Glucose, Dipstick 50 mg/dl (Normal); Ketone-Dipstick Negative (Negative); Leukocyte Esterase-Dipstick Negative /ul (Negative); Nitrite-Dipstick Negative (Negative); Occult Blood-Urine 10 /ul (Negative); Protein-Dipstick 500 mg/dl (Negative); Specific Gravity, Urine 1.015 (1.002-1.030); Urine Bilirubin Dipstick Negative (Negative); Urine Clarity Sl. Cloudy (Clear); Urine Urobilinogen Normal (Normal)
[2020-05-20 17:55] LABS: Bacteria 1+ /hpf (None Seen); White Blood Cells 0-5 SEEN /hpf (0-5)
--- NOTE | 2020-05-20 17:59 | ED.DCSUM_ITS ---
- ER Visit Summary Date of Service: 05/20/20 Chief Complaint: [Cough] History of Present Illness: The patient is a 69 F [presents to the emergency department with complaint of a cough about 3 days. Patient apparently had loss of taste and smell for short time though symptoms seem to have resolved. Patient did have some generalized weakness and some chills. States she has not been feeling well for about 5 or 6 days. She states that she was at a pool republican 6 days ago and then couple days later she started feeling poorly. She denies any sick contacts otherwise. She had subjective fever at home. She describes some urinary frequency. Patient has history of CHF, diabetes, hypertension, and mitral valve prolapse.] Physical Examination: [HEENT-PERRLA, EOMI. Cranial nerves II through XII grossly intact. TMs clear. Mucous membranes moist. No adenopathy. Cardiovascular-regular rate and rhythm without murmur or ectopy Lungs-clear to auscultation, chest wall stable without crepitus or subcu emphysema Abdomen-normoactive bowel sounds, soft, nontender, no rebound or rigidity, no peritoneal signs. Extremities-intact ?4, normal range of motion, normal pulses, atraumatic] Test Results: [CBC with differential obtained showed a white count 5.6, hem oglobin 9.5, hematocrit 30, placed 210. Chemistries unremarkable. BUN was 71 and creatinine was 4.69 which is a chronic finding. Urinalysis was unremarkable. Chest x-ray showed nothing acute. COVID-19 test ordered and results will be pending as it is a send out.] Emergency Department Course and Treatment: [] Treatment Plan: [Patient advised to self quarantine for 14 days. Patient advised to push fluids and use Tylenol for any discomfort.] Disposition: [Discharged home in stable condition. Patient advised to return if increasing shortness of breath or condition should worsen anyway.] Impression: [Viral URI-rule out COVID-19] This note was generated with [employer] dictation software. It may contain incorrect words, spelling, and punctuation that were not noted in review of the chart prior to signing ED Disposition - Plan for ED Patient: Referrals: Remigio Parks MD [Primary Care Provider] -
--- NOTE | 2020-05-20 18:01 | ED.DEP ---
ED Disposition - Plan for ED Patient: Instructions: ED URI Viral Referrals: Remigio Parks MD [Primary Care Provider] - 5-7 Days
== END 2020-05-20 18:54 | disposition home or self-care (01) ==
LOC: ED 14:56
PROVIDERS: Emergency Provider Emergency Medicine; PCP Internal Medicine
DX: U07.1 COVID-19 (principal); I11.0 Hypertensive heart disease with heart failure; I50.9 Heart failure, unspecified; I34.1 Nonrheumatic mitral (valve) prolapse; E11.9 Type 2 diabetes mellitus without complications; Z79.4 Long term (current) use of insulin
CPT/HCPCS: 71045; 80048; 81001; 85025; 87040; 87635; 94799; 96360; 96361; 99285; J7030; P9612; A4216; U0003

== ENCOUNTER 2020-10-04 10:09 | Emergency (ER) | payer MEDICARE, MEDICAID, SELFPAY ==
[2020-10-04 10:11] VITALS: BP 175/103; PULSE 70; RESP 18; TEMP 37; O2SAT 100; BMI 33.2
--- NOTE | 2020-10-04 10:25 | RAD_ITS ---
STUDY: X-RAY - LEFT FOOT CLINICAL: Female, 69 years old. pain to left heel -- NKI TECHNIQUE: 3 view(s) of the foot. COMPARISON: None. FINDINGS: Normal talus, calcaneus, and tarsal bones. Normal visualized subtalar, talonavicular, calcaneocuboid, tarsal and tarsometatarsal articulations. Normal metatarsi. Normal metatarsophalangeal joint of the great toe. Normal tibial and fibular sesamoid bones. Normal interphalangeal joint of the great toe. Normal phalanges of the great toe. Normal second through fifth metatarsophalangeal joints. Normal interphalangeal joints and phalanges of the lesser toes. The soft tissue structures are unremarkable. RAD/Foot min 3 Views IMPRESSION: Normal x-ray examination of the foot. Electronically Signed: Xiang Miner MD at 11:07 EST Tel , Service support ,
[2020-10-04 11:26] VITALS: BP 168/78; PULSE 68; RESP 16; TEMP 36.6; O2SAT 99
--- NOTE | 2020-10-04 11:26 | ED.DCSUM_ITS ---
- ER Visit Summary Date of Service: 10/04/20 Chief Complaint: [Left heel pain] History of Present Illness: The patient is a 69 F [presents to the emergency department complaint of pain to her left heel that she is had for about a week. Patient denies any trauma. Patient noticed a black area to the heel that became very painful. She is currently at an assisted living facility and presented via EMS. Patient denies any fevers or chills or sweats. She denies any other illness otherwise. Patient does have history of diabetes, hypertension, CHF, and chronic kidney disease.] Physical Examination: [HEENT-PERRLA, EOMI. Cranial nerves II through XII grossly intact. TMs clear. Mucous membranes moist. No adenopathy. Cardiovascular-regular rate and rhythm without murmur or ectopy Lungs-clear to auscultation, chest wall stable without crepitus or subcu emphysema Abdomen-normoactive bowel sounds, soft, nontender, no rebound or rigidity, no peritoneal signs. Extremities-intact ?4, normal range of motion, normal pulses, atraumatic. Left foot-to the posterior aspect of the heel there is an area measures approximately 8 mm in diameter that is excoriated clot-like material and when I compress the area small amount of purulent debris was expressed. Patient does have some mild surrounding erythema to the posterior aspect of the heel that is tender to palpation. No fluctuant abscess otherwise noted. She is neurovascular intact distally.] Test Results: [X-rays of the left foot obtained read by myself is normal and radiology in agreement.] Emergency Department Course and Treatment: [Patient was started on Keflex and Bactrim. I also had a wound culture ordered. Discussed case with podiatry who will be happy to see patient in follow-up later this week.] Treatment Plan: [We will be given a prescription for Keflex and Bactrim. Patient to follow-up with podiatry.] Disposition: [Discharged home in stable condition] Impression: [Left heel soft tissue abscess/cellulitis] This note was generated with [employer] software. It may contain incorrect words, spelling, and punctuation that were not noted in review of the chart p rior to signing ED Disposition - Plan for ED Patient: Referrals: Remigio Parks MD [Primary Care Provider] -
--- NOTE | 2020-10-04 11:28 | ED.DEP ---
ED Disposition - Plan for ED Patient: Instructions: ED Abscess Antibiotic Treatment Only, Cellulitis Prescriptions: Smz/Tmp Ds [Bactrim Ds] 1 tab PO BID #14 tab Transmission Status: Pending to [facility] Cephalexin [Keflex] 500 mg PO Q6 #40 cap Transmission Status: Pending to [id number] Referrals: Remigio Parks MD [Primary Care Provider] - Nilay Galdamez DPM [STAFF PHYSICIAN] - 3-5 Days
[2020-10-04] MEDS: Cephalexin 250 MG Capsule 500 MG PO (11:57)
[2020-10-04] MEDS: Smz/Tmp Ds Tablet 1 TABLET PO (11:57)
[2020-10-04 12:04] VITALS: BP 159/74; PULSE 71; RESP 20; O2SAT 97
--- NOTE | 2020-10-04 12:06 | ED.RN ---
THIS NURSE REVIEWED D/C INSTRUCTIONS WITH PT. PT VERBALIZED UNDERSTANDING OF INSTRUCTIONS. PT DENIES FURTHER NEEDS OR QUESTIONS AT THIS TIME
== END 2020-10-04 12:07 | disposition home or self-care (01) ==
LOC: ED 11:45
PROVIDERS: Emergency Provider Emergency Medicine; PCP Internal Medicine
DX: L02.612 Cutaneous abscess of left foot (principal); L03.116 Cellulitis of left lower limb; B96.89 Other specified bacterial agents as the cause of diseases classified elsewhere; I13.0 Hypertensive heart and chronic kidney disease with heart failure and stage 1 through stage 4 chronic kidney disease, or unspecified chronic kidney disease; I50.9 Heart failure, unspecified; E11.22 Type 2 diabetes mellitus with diabetic chronic kidney disease; N18.9 Chronic kidney disease, unspecified; Z79.4 Long term (current) use of insulin; Z79.899 Other long term (current) drug therapy
CPT/HCPCS: 73630; 87070; 87077; 87186; 87205; 99283

== ENCOUNTER 2020-10-25 09:46 | Outpatient (RCR) | payer MEDICARE, MEDICAID, SELFPAY ==
[2020-10-25 10:23] VITALS: BP 240/96; PULSE 82; RESP 18; TEMP 35.9; BMI 30.4
--- NOTE | 2020-10-25 11:32 | HP.PCM_ITS ---
(1) Ulcer of left heel and midfoot with fat layer exposed Status: Acute Code(s): L97.422 - Non-pressure chronic ulcer of left heel and midfoot with fat layer exposed (2) CHF (congestive heart failure) Status: Chronic Code(s): I50.9 - Heart failure, unspecified (3) Chronic kidney disease stage III Status: Chronic (4) Diabetes mellitus 2 Status: Chronic (5) Hypertension Status: Chronic (6) PVD (peripheral vascular disease) Status: Suspected Code(s): I73.9 - Peripheral vascular disease, unspecified History of Present Illness Date of Service: 10/25/20 Chief Complaint: Left heel ulceration. Foot pain left foot History of Wound: Patient is 69-year-old female who presents to the wound care center from Dr. Ybarra's office for a nonhealing left lateral heel ulceration. Patient has a history of congestive heart failure, chronic kidney disease of which the fistula just place for potential dialysis and was told her kidneys are working at 12%, diabetes, suspected blood flow problems. Patient has yet to have the blood flow issues worked up. Patient sees Dr. Francis as her PCP at [facility]. She relates that she had some blood work done but does not re call what her hemoglobin A1c was. Patient has had this wound that gives her severe pain. Patient is hypersensitive. Patient says that she cannot sleep in her bed because of how much pain she is and she has sleep on the couch. Patient was noted to have high blood pressure with measuring today of 240/96 and she states she has not taken her blood pressure meds in a couple days. Patient also has not been taking her gabapentin. Patient encouraged to take all medications as prescribed. Related to her how important this is. Also discussed that the gabapentin can help with the pain that she is having. Patient has been treated so far with a silver dressing covered with a Band-Aid. Patient is noted to externally rotate but does not do any form of offloading at this time. Patient lives alone but has a home health aide that comes out to help her but does not help with any dressing changes. Patient is very anxious about her foot and her pain level in the wound. Past Medical History Past Medical History: Chronic Problems Diabetes mellitus (Chronic) Artificial cardiac pacemaker (Chronic) Cardiac conduction disorder (Chronic) CHF (congestive heart failure) (Chronic) Diabetes mellitus 2 (Chronic) Hypertension (Chronic) Chronic renal insufficiency (Chronic) Chronic kidney disease stage III (Chronic) Surgical History: cholecystectomy, pacemaker implantation - [employer], - Allergies/Adverse Reactions: Allergies Penicillins Allergy (Verified 10/04/20 10:10) Rash Home Medications: Ambulatory Orders Medication Instructions Recorded Losartan Potassium [Cozaar] 50 mg PO DAILY 04/06/15 Hydrochlorothiazide [Hctz] 12.5 mg PO DAILY #0 07/22/19 hydrALAZINE [Apresoline] 50 mg PO TID #120 tab 07/22/19 Albuterol Inhaler [Ventolin Hfa] 2 puff INHALATION Q4H PRN PRN #1 09/10/19 inhaler Insulin Aspart [Novolog Flexpen] 0 units SUBCUT TIDCM 09/10/19 Insulin Glargine,Hum.rec.anlog 3 unit SQ QHS 09/10/19 [Lantus] Gabapentin [Neurontin] 100 mg PO QHS 10/25/20 - Family History Paternal Heart Disease Maternal Diabetes Smoking Status: Former smoker Review of Systems Constitutional: Denies: Chills, Fever HEENT: Denies: Hard of Hearing Cardiovascular: Denies: Chest Pain Musculoskeletal: Reports: Foot Pain - Left Skin: Reports: Wounds - Left lateral heel Neurological: Reports: Tingling, - - Hypersensitivity especially to lower extremities Subjective: Patient seen and examined bedside. Patient denies any other pedal complaints. Patient denies any nausea, fever, chills, chest pain, shortness of breath, cough, streaking, purulence, vomiting. - Physical Exam Vital Signs Temp Pulse Resp BP 96.7 F L 82 18 240/96 H 10/25/20 10:23 10/25/20 10:23 10/25/20 10:23 10/25/20 10:23 General: Alert, Oriented x3 HEENT: Atraumatic Extremities: No clubbing, No cyanosis, Capillary Refill Less than 3 Seconds, No Calf Tenderness, Cool, Diminished Peripheral Pulses - Monophasic on Doppler to bilateral DP and PT Skin: Ulcer/ Wound - Lateral left heel. No malodor, erythema, purulence, probing to bone, streaking, or other signs of infection. Skin is atrophic and hairless. Fibrotic base Wound Measurements and Assessment WC - Nurse 1 - General Ulcer Measurement Start: 10/25/20 10:21 Freq: Status: Active Protocol: Activity Type Activity Date Activity User E-Sign Co-Sign Detail Recorded Client Recorded Date Recorded By Document 10/25/20 10:23 MW [id number] 10/25/20 10:47 MW 10/25/20 10:23 Wound Center Nurse 1 [Ulcer Assessment] #1 left heel -Combined with other wound No -Current Size (cm) - Length 0.7 -Current Size (cm) - Width 1.0 -Current Size (cm) - Depth 0.2 -Total Square Cm 0.70 -Date of Last Picture (Recall this 10/25/20 field) -Photo Taken Yes -Epithelialization None Present -Tunneling No -Undermining/Tunneling No -Circular Undermining No -Exudate Amt Medium -Exudate Type Serosanguineous -Wound Margin Flat & Intact -Granulation Amt None Present (0 %) -Granulation Quality N/A -Slough/Fibrin Yes -Necrosis Amt Large (67-100%) -Necrotic Tissue Type Adherent Slough -Structure Exposed N/A -Texture (Anastasiya-wound Skin Appearance) Assessed, Localized Edema -Moisture (Anastasiya-wound Skin Appearance Assessed, ) Maceration -Color (Anastasiya-wound Skin Appearance) No Abnormality, Assessed -Temperature (Anastasiya-wound Skin No Abnormality Appearance) (Pt Warm) -Tenderness on Palpation (Anastasiya-wound Yes Skin Appearance) -Ulcer Cleansing Rinsed/ Irrigated with Saline -Foul Odor after Cleansing No -Anesthetic Used 5% Lidocaine Gel [Edema Assessment] -Lower Limb Edema Present Yes -Right Calf (cm) 41.5 -Right Ankle (cm) 22.6 -Left Calf (cm) 40.0 -Left Ankle (cm) 21.5 WC - Nurse 2 - General Ulcer CM Notes Start: 10/25/20 10:21 Freq: Status: Active Protocol: Activity Type Activity Date Activity User E-Sign Co-Sign Detail Recorded Client Recorded Date Recorded By Document 10/25/20 11:20 JF [id number] 10/25/20 11:26 JF 10/25/20 11:20 Wound Center Nurse 2 [Procedure/Treatment] #1 left heel -Time 11:25 -Correct Patient Yes -Correct Side, Site, Position Yes -Correct Procedure Yes -Procedure Performed Yes -Type of Procedure Debridement -Clinical Debridement Subcutaneous -Tissue Removed Subcutaneous -Post Debridement (cm) - Length 0.7 -Post Debridement (cm) - Width 0.8 -Post Debridement (cm) - Depth 0.4 -Total Square (Post) (cm) 0.56 -Area of Debridement (cm) - Length 0.7 -Area of Debridement (cm) - Width 0.8 -Total Square (Area) (cm) 0.56 -Tunneling No -Undermining/Tunneling No -Circular Undermining No -Wound/Ulcer Outcome Not Healed -Ulcer Cleansing Rinsed/ Irrigated with Saline -Foul Odor after Cleansing No -Bioengineered Tissue No -Bleeding Controlled with Pressure -Offloading No -Treatment Response Procedure Tolerated Well -Debridement - Subq, 1st 20sq cm Yes [See Physician Procedure note for Specifics] Pain Scale: 0-10 Numeric [Pain] -Is Patient Pain Free? Yes Musculoskeletal: Tenderness, - - Externally rotates lower extremities Neurological: Sensory exam intact to light touch and pain, - - Hypersensitive to light touch Psych/Mental Status: Normal Affect, Appropriate, Alert and oriented to time, place, person, mood and affect Debridement Note Post-Debridement Measurements/Treatment WC - Nurse 2 - General Ulcer CM Notes Start: 10/25/20 10:21 Freq: Status: Active Protocol: Activity Type Activity Date Activity User E-Sign Co-Sign Detail Recorded Client Recorded Date Recorded By Document 10/25/20 11:20 HANNAH [id number] 10/25/20 11:26 HANNAH 10/25/20 11:20 Wound Center Nurse 2 #1 left heel -Time 11:25 -Correct Patient Yes -Correct Side, Site, Position Yes -Correct Procedure Yes -Procedure Performed Yes -Type of Procedure Debridement -Clinical Debridement Subcutaneous -Tissue Removed Subcutaneous -Post Debridement (cm) - Length 0.7 -Post Debridement (cm) - Width 0.8 -Post Debridement (cm) - Depth 0.4 -Total Square (Post) (cm) 0.56 -Area of Debridement (cm) - Length 0.7 -Area of Debridement (cm) - Width 0.8 -Total Square (Area) (cm) 0.56 -Tunneling No -Undermining/Tunneling No -Circular Undermining No -Wound/Ulcer Outcome Not Healed -Ulcer Cleansing Rinsed/ Irrigated with Saline -Foul Odor after Cleansing No -Bioengineered Tissue No -Bleeding Controlled with Pressure -Offloading No -Treatment Response Procedure Tolerated Well -Debridement - Subq, 1st 20sq cm Yes Pain Scale: 0-10 Numeric Is Patient Pain Free? Yes Wound debrided: lateral heel Laterality: Left Wound Grade/Stage: Sen 2 Type of Debridement: Excisional debridement Anesthesia Used: 4% Lidocaine Solution Depth: in the subcutaneous layer Percentage of wound debrided: 100 Instrument Used: 3mm curette Tissue Removed: Tissue removed includes fibrous, devitalized, biofilm, and slough tissue Severity: Fat Layer Exposed Amount of bleeding with debridement: Mild Bleeding Controlled with: Pressure Patient tolerated procedure well Assessment/Plan Active Problems Ulcer of left heel and midfoot with fat layer exposed (Acute) CHF (congestive heart failure) (Chronic) Diabetes mellitus 2 (Chronic) Hypertension (Chronic) Chronic kidney disease stage III (Chronic) Assessment: Left lateral foot ulceration, Sen 2. Diabetes. Chronic kidney disease. Peripheral vascular disease. Hypertension Plan: Patient seen and examined, patient noted to be anxious on exam. Left foot XR from 10/04/20 reviewed which showed a grossly normal foot XR without fracture. Left heel ulcer sharply debrided without incident. Patient noted to be hypertensive. She states she hasn't taken her blood pressure meds in days. Patient encouraged to take all her medications as prescribed. She also states she was recently prescribed gabapentin but hasn't taken any as she wasn't sure what it was for. Discussed with the patient that the gabapentin is to help with the foot pain she is having. Encouraged patient to take this medication as prescribed as well. Patient had recent fistula placement as she may be starting dialysis soon as her kidney function is 12%. Discussed with patient importance of proper blood sugar control, offloading, proper diet, and blood supply in wound healing. Reviewed proper wound care. atient to cintinue daily dressing changes. Supplies ordered. All questions answered. Follow up in 1 week
== END 2020-10-30 23:59 ==
LOC: WC 09:46
PROVIDERS: PCP Internal Medicine; Referring Provider Podiatrist; Visit Provider Podiatrist Foot & Ankle Surgery
DX: E11.621 Type 2 diabetes mellitus with foot ulcer (principal); E11.51 Type 2 diabetes mellitus with diabetic peripheral angiopathy without gangrene; N18.30 Chronic kidney disease, stage 3 unspecified; E11.22 Type 2 diabetes mellitus with diabetic chronic kidney disease; I50.9 Heart failure, unspecified; L97.422 Non-pressure chronic ulcer of left heel and midfoot with fat layer exposed; I13.0 Hypertensive heart and chronic kidney disease with heart failure and stage 1 through stage 4 chronic kidney disease, or unspecified chronic kidney disease; Z95.0 Presence of cardiac pacemaker; Z79.899 Other long term (current) drug therapy; Z79.4 Long term (current) use of insulin; Z87.891 Personal history of nicotine dependence
CPT/HCPCS: 11042; 99213; G0463

== ENCOUNTER 2020-11-22 13:45 | Outpatient (RCR) | payer MEDICARE, MEDICAID, SELFPAY ==
[2020-10-31 00:40] VITALS: BP 240/96; PULSE 82; RESP 18; TEMP 35.9
[2020-11-22 13:24] VITALS: BP 165/113; PULSE 74; RESP 16; TEMP 35.9; BMI 30.4
--- NOTE | 2020-11-22 16:31 | PN.PCM_ITS ---
(1) Stage 5 chronic kidney disease Status: Chronic Code(s): N18.5 - Chronic kidney disease, stage 5 (2) Anemia of chronic renal failure, stage 5 Status: Chronic Code(s): N18.5 - Chronic kidney disease, stage 5; D63.1 - Anemia in chronic kidney disease (3) Anxiety and depression Status: Chronic Code(s): F41.9 - Anxiety disorder, unspecified; F32.9 - Major depressive disorder, single episode, unspecified (4) Community acquired pneumonia Status: Resolved Code(s): J18.9 - Pneumonia, unspecified organism (5) Leukocytosis Status: Resolved Code(s): D72.829 - Elevated white blood cell count, unspecified (6) Ulcer of left heel and midfoot with fat layer exposed Status: Acute Code(s): L97.422 - Non-pressure chronic ulcer of left heel and midfoot with fat layer exposed Comment: I suspect this is a arterial ischemia ulcer (7) Artificial cardiac pacemaker Status: Chronic Code(s): Z95.0 - Presence of cardiac pacemaker (8) CHF (congestive heart failure) Status: Chronic Code(s): I50.9 - Heart failure, unspecified (9) Cardiac conduction disorder Status: Chronic Code(s): I45.9 - Conduction disorder, unspecified (10) Chronic renal insufficiency Status: Chronic Code(s): N18.9 - Chronic kidney disease, unspecified (11) Diabetes mellitus Status: Chronic Qualifiers: Diabetes mellitus type: type 2 Diabetes mellitus superintendent container terminal insulin use: with superintendent container terminal use Diabetes mellitus complication status: with circulatory complication Diabetes mellitus complication detail: with peripheral angiopathy without gangrene Qualified Code(s): E11.51 - Type 2 diabetes mellitus with diabetic peripheral angiopathy without gangrene; Z79.4 - halfway (current) use of insulin Code(s): E11.9 - Type 2 diabetes mellitus without complications (12) Hypertension Status: Chronic (13) PVD (peripheral vascular disease) Status: Suspected Code(s): I73.9 - Peripheral vascular disease, unspecified (14) Acute respiratory failure with hypoxia Status: Resolved Code(s): J96.01 - Acute respiratory failure with hypoxia (15) Metabolic acidosis Status: Inactive Code(s): E87.2 - Acidosis (16) Mitral valve prolapse Status: Inactive Code(s): I34.1 - Nonrheumatic mitral (valve) prolapse (17) Mitral valve regurgitation Status: Inactive Code(s): I34.0 - Nonrheumatic mitral (valve) insufficiency (18) Left ventricular hypertrophy Status: Chronic Code(s): I51.7 - Cardiomegaly Comment: Severe (19) Left atrial enlargement Status: Chronic Code(s): I51.7 - Cardiomegaly (20) Pulmonary hypertension Status: Chronic Code(s): I27.20 - Pulmonary hypertension, unspecified (21) Noncompliance Status: Chronic Code(s): Z91.19 - Patient's noncompliance with other medical treatment and regimen Comment: with medications, with physician follow up and with diet (22) Tobacco dependence in remission Status: Chronic Code(s): F17.201 - Nicotine dependence, unspecified, in remission Comment: She quit smoking at 36 years of age (23) Tinea pedis Status: Acute Qualifiers: Laterality: left Qualified Code(s): B35.3 - Tinea pedis Code(s): B35.3 - Tinea pedis Type of Wound Date of Service: 11/22/20 Chief Complaint: Left heel ulceration. Foot pain left foot History of Wound: Patient is 69-year-old female who presents to the wound care center from Dr. Ybarra's office for a nonhealing left lateral heel ulceration. Patient has a history of congestive heart failure, chronic kidney disease of which the fistula just place for potential dialysis and was told her kidneys are working at 12%, diabetes, suspected blood flow problems. Patient has yet to have the blood flow issues worked up. Patient sees Dr. Francis as her PCP at [facility]. She relates that she had some blood work done but does not recall what her hemoglobin A1c was. Patient has had this wound that gives her severe pain. Patient is hypersensitive. Patient says that she cannot sleep in her bed because of how much pain she is and she has sleep on the couch. Patient was noted to have high blood pressure with measuring today of 240/96 and she states she has not taken her blood pressure meds in a couple days. Patient also has not been taking her gabapentin. Patient encouraged to take all medications as prescribed. Related to her how important this is. Also discussed that the gabapentin can help with the pain that she is having. Patient has been treated so far with a silver dressing covered with a Band-Aid. Patient is noted to externally rotate but does not do any form of offloading at this time. Patient lives alone but has a home health aide that comes out to help her but does not help with any dressing changes. Patient is very anxious about her foot and her pain level in the wound. Progress of Wound: Cindi does not take her medications as prescribed and and she frequently does not take her medications at all. She is on Lantus at bedtime and mealtime regular insulin however she is not checking her blood sugars more than 1-2 times a day. She does not know her last hemoglobin A1c. She has not been taking her antihypertensives. She sleeps sitting in her chair with her legs dependent because when she elevates her legs she gets terrible pain in the left lower extremity. She gets claudication with ambulation and can only walk 5 to 10 yards. She did not show up for her arterial studies. She states the gabapentin does help with the pain when she takes it. She says it has been quite sometime since she has seen her embedded firmware developer. She cannot tell me when the last time she saw Dr. Francis, her PCP, is. She is very tearful and requesting lidocaine injection for pain control. The blood pressure is quite elevated today at 165/113. The heart rate is 74. Temp is 96.6. She is very tearful and admits to feeling depressed - Physical Exam Vital Signs Temp Pulse Resp BP 96.6 F L 74 16 165/113 H 11/22/20 13:24 11/22/20 13:24 11/22/20 13:24 11/22/20 13:24 General: Alert, Cooperative, No apparent distress, Well developed, Well nourished, - - tearful HEENT: Atraumatic, Normocephalic Oral: - - no uremic haddad and no odor of urine to her breath Neck: Supple, Negative Carotid Bruits, Trachea Midline Lungs: Clear to auscultation, No rhonchi, No wheeze, No rales Cardiovascular: Regular rate, Regular Rhythm, Normal S1, Normal S2, No murmurs, - - having premature beats Abdomen: Bowel Sounds Present, Soft, Non Tender, Non-Distended Extremities: No clubbing, No cyanosis, Edema - of both feet L>R Skin: No rashes, Ulcer/ Wound - Left lateral heel Wound Measurements and Assessment WC - Nurse 1 - General Ulcer Measurement Start: 11/22/20 13:24 Freq: Status: Active Protocol: Activity Type Activity Date Activity User E-Sign Co-Sign Detail Recorded Client Recorded Date Recorded By Document 11/22/20 13:24 [facility] [id number] 11/22/20 13:39 [facility] 11/22/20 13:24 Wound Center Nurse 1 [Ulcer Assessment] #1 left heel -Combined with other wound No -Current Size (cm) - Length 0.7 -Current Size (cm) - Width 1.1 -Current Size (cm) - Depth 0.3 -Total Square Cm 0.77 -Photo Taken No -Epithelialization None Present -Tunneling No -Undermining/Tunneling No -Circular Undermining No -Exudate Amt Small -Exudate Type Serosanguineous -Wound Margin Distinct, Outline Attached -Granulation Amt None Present (0 %) -Slough/Fibrin Yes -Necrosis Amt Large (67-100%) -Necrotic Tissue Type Adherent Slough -Texture (Anastasiya-wound Skin Appearance) Assessed,Callus ,Scarring -Moisture (Anastasiya-wound Skin Appearance Assessed,Dry/ ) Scaly -Color (Anastasiya-wound Skin Appearance) Assessed -Temperature (Anastasiya-wound Skin No Abnormality Appearance) (Pt Warm) -Tenderness on Palpation (Anastasiya-wound No Skin Appearance) -Ulcer Cleansing SOAPY WATER -Foul Odor after Cleansing No -Anesthetic Used 5% Lidocaine Gel WC - Nurse 2 - General Ulcer CM Notes Start: 11/22/20 13:24 Freq: Status: Active Protocol: Activity Type Activity Date Activity User E-Sign Co-Sign Detail Recorded Client Recorded Date Recorded By Document 11/22/20 14:44 MW [id number] 11/22/20 15:03 MW 11/22/20 14:44 Wound Center Nurse 2 [Procedure/Treatment] -Time 14:51 -Correct Patient Yes -Correct Side, Site, Position Yes -Correct Procedure Yes -Procedure Performed Yes -Type of Procedure Debridement -Clinical Debridement Subcutaneous -Tissue Removed Subcutaneous -Post Debridement (cm) - Length 1.0 -Post Debridement (cm) - Width 1.4 -Post Debridement (cm) - Depth 0.2 -Total Square (Post) (cm) 1.40 -Area of Debridement (cm) - Length 1.0 -Area of Debridement (cm) - Width 1.4 -Total Square (Area) (cm) 1.40 -Tunneling No -Undermining/Tunneling No -Circular Undermining No -Wound/Ulcer Outcome Not Healed -Ulcer Cleansing Rinsed/ Irrigated with Saline -Foul Odor after Cleansing No -Bioengineered Tissue No -Injectable Lidocaine (%) 2 -Lidocaine (ml) 5 -Bleeding Controlled with Pressure -Offloading No -Treatment Response Procedure Tolerated Well -Debridement - Subq, 1st 20sq cm Yes [See Physician Procedure note for Specifics] Pain Scale: 0-10 Numeric [Pain] -Is Patient Pain Free? Yes - Nurse 3 - General Ulcer D/C NN Start: 11/22/20 13:24 Freq: Status: Active Protocol: Activity Type Activity Date Activity User E-Sign Co-Sign Detail Recorded Client Recorded Date Recorded By Document 11/22/20 15:23 DL [id number] 11/22/20 15:24 DL 11/22/20 15:23 Wound Care Nurse 3 [Wound Dressing] #1 left heel -Ulcer Cleansing Rinsed/ Irrigated with Saline -Foul Odor after Cleansing No -Primary Dressing Applied NonAdherent Contact Layer -Other Dressing hydrogel -Primary Dressing Covered/Secured Dry Gauze & with Roll Gauze, Secured with Tape [Post Procedure Tolerated] -Treatment Response Procedure Tolerated Well Pain Scale: 0-10 Numeric [Pain] -Is Patient Pain Free? Yes - Visit Discharge [Visit Discharge Information] -Discharge Condition Stable -Ambulatory Status Ambulatory, Wheelchair -Notes: Blood work ordered. The wound today prior to debridement was 0.77 centimeters squared which is increased from 0.7 cm? on 10/25/[address] Li saw her. The base of the wound is 100% slough. There is no periwound erythema, no odor and no purulent discharge. There is scab/eschar seen at the margin closest to the sole of the foot. There is no tunneling and no undermining. It is down to the fascia. Im was unable to palpate the DP or PT pulse on the left. DP on the R was 2/3. the wound was injected with 2% lidocaine without prior to debridement and she tolerated the debridement well. Debridement Note Post-Debridement Measurements/Treatment WC - Nurse 2 - General Ulcer CM Notes Start: 11/22/20 13:24 Freq: Status: Active Protocol: Activity Type Activity Date Activity User E-Sign Co-Sign Detail Recorded Client Recorded Date Recorded By Document 11/22/20 14:44 MW [id number] 11/22/20 15:03 MW 11/22/20 14:44 Wound Center Nurse 2 #1 left heel -Time 14:51 -Correct Patient Yes -Correct Side, Site, Position Yes -Correct Procedure Yes -Procedure Performed Yes -Type of Procedure Debridement -Clinical Debridement Subcutaneous -Tissue Removed Subcutaneous -Post Debridement (cm) - Length 1.0 -Post Debridement (cm) - Width 1.4 -Post Debridement (cm) - Depth 0.2 -Total Square (Post) (cm) 1.40 -Area of Debridement (cm) - Length 1.0 -Area of Debridement (cm) - Width 1.4 -Total Square (Area) (cm) 1.40 -Tunneling No -Undermining/Tunneling No -Circular Undermining No -Wound/Ulcer Outcome Not Healed -Ulcer Cleansing Rinsed/ Irrigated with Saline -Foul Odor after Cleansing No -Bioengineered Tissue No -Injectable Lidocaine (%) 2 -Lidocaine (ml) 5 -Bleeding Controlled with Pressure -Offloading No -Treatment Response Procedure Tolerated Well -Debridement - Subq, 1st 20sq cm Yes Pain Scale: 0-10 Numeric Is Patient Pain Free? Yes - Nurse 3 - General Ulcer D/C NN Start: 11/22/20 13:24 Freq: Status: Active Protocol: Activity Type Activity Date Activity User E-Sign Co-Sign Detail Recorded Client Recorded Date Recorded By Document 11/22/20 15:23 DL [id number] 11/22/20 15:24 DL 11/22/20 15:23 Wound Care Nurse 3 #1 left heel -Ulcer Cleansing Rinsed/ Irrigated with Saline -Foul Odor after Cleansing No -Primary Dressing Applied NonAdherent Contact Layer -Other Dressing hydrogel -Primary Dressing Covered/Secured with Dry Gauze & Roll Gauze, Secured with Tape Treatment Response Procedure Tolerated Well Pain Scale: 0-10 Numeric Is Patient Pain Free? Yes WC - Visit Discharge Discharge Condition Stable Ambulatory Status Ambulatory, Wheelchair Notes: Blood work ordered. Wound debrided: L lateral heel ulcer Laterality: Left Type of Debridement: Excisional debridement Anesthesia Used: 4% Lidocaine Solution, - - injected with 2% lidocaine without Percentage of wound debrided: 100 Instrument Used: 5mm curette, #15 blade, Forceps Severity: Fat Layer Exposed Amount of bleeding with debridement: Mild Bleeding Controlled with: Pressure Patient tolerated procedure well Assessment/Plan Active Problems Ulcer of left heel and midfoot with fat layer exposed (Acute) I suspect this is a arterial ischemia ulcer Stage 5 chronic kidney disease (Chronic) Anemia of chronic renal failure, stage 5 (Chronic) Anxiety and depression (Chronic) Left ventricular hypertrophy (Chronic) Severe Left atrial enlargement (Chronic) Pulmonary hypertension (Chronic) Noncompliance (Chronic) with medications, with physician follow up and with diet Tobacco dependence in remission (Chronic) She quit smoking at 36 years of age Diabetes mellitus (Chronic) Artificial cardiac pacemaker (Chronic) Cardiac conduction disorder (Chronic) CHF (congestive heart failure) (Chronic) Hypertension (Chronic) Chronic renal insufficiency (Chronic) Assessment: Left lateral foot ulceration, Sen 2 - suspect this ulcer is ischemic. Diabetes II - likely not well controlled. Chronic kidney disease- stage V. Peripheral vascular disease. Hypertension-uncontrolled secondary to noncompliance with medication. Obesity. History of pacemaker implantation. Pulmonary hypertension. Severe left ventricular concentric hypertrophy. Stage I enlargement. Anemia of chronic renal failure. Anxiety/depression. Chronic noncompliance with medication and physician follow-up Plan: 1. Patient seen and examined, patient noted to be anxious on exam. The EMR was reviewed including lab, notes and ECHO. No arterial studies in the EMR. 2. Left foot XR from 10/04/20 reviewed which showed a grossly normal foot XR without fracture. 3. Left heel 100% debrided. 4. Get CBC with diff, CMP, phosphorus, magnesium, hemoglobin A1c, vitamin D level. 5. Arrange venous and arterial studies of the left lower extremity. 6. Home health care consult for medication management, education and wound care. 7. Continue Santyl with dressing change once daily. 8. Chlortrimazole cream twice daily to the sole and dorsum of the left foot and in between the toes. 9. Start sertraline 25 mg p.o. every morning. 10. Return to clinic in 1 week. Left heel ulcer sharply debrided without incident. Patient noted to be hypertensive. She states she hasn't taken her blood pressure meds in days. Patient encouraged to take all her medications as prescribed. She also states she was recently prescribed gabapentin but hasn't taken any as she wasn't sure what it was for. Discussed with the patient that the gabapentin is to help with the foot pain she is having. Encouraged patient to take this medication as prescribed as well. Patient had recent fistula placement as she may be starting dialysis soon as her kidney function is 12%. Discussed with patient importance of proper blood sugar control, offloading, proper diet, and blood supply in wound healing. Reviewed proper wound care. atient to cintinue daily dressing changes. Supplies ordered. All questions answered. Follow up in 1 week Office Visits / Consults: [id number] OP Consult L3 [id number]: [id number] Pilar subq tissue 20 sq cm/<
--- NOTE | 2020-11-23 16:29 | WC ---
Spoke to Patient regarding starting the need for HHS to assist and educate patient on dressing changes and medication knowledge. [facility] can go out 2x/week to see patient and start instructing her on dressing changes. I encouraged her to stay positive knowing she is capable of learning how to do her dressings. She verbalized understanding and is willing to accept HH in the home. I advised her to kkep her phone near by so she can receive a call from to get setup soon. She again verbalized understanding.
== END 2020-11-27 23:59 ==
LOC: WC 13:45
PROVIDERS: PCP Internal Medicine; Referring Provider Podiatrist; Visit Provider Podiatrist Foot & Ankle Surgery
DX: E11.621 Type 2 diabetes mellitus with foot ulcer (principal); E11.51 Type 2 diabetes mellitus with diabetic peripheral angiopathy without gangrene; E11.22 Type 2 diabetes mellitus with diabetic chronic kidney disease; N18.5 Chronic kidney disease, stage 5; L97.422 Non-pressure chronic ulcer of left heel and midfoot with fat layer exposed; Z95.0 Presence of cardiac pacemaker; I13.2 Hypertensive heart and chronic kidney disease with heart failure and with stage 5 chronic kidney disease, or end stage renal disease; I50.9 Heart failure, unspecified; I27.20 Pulmonary hypertension, unspecified; Z91.19 Patient's noncompliance with other medical treatment and regimen; B35.3 Tinea pedis; Z87.891 Personal history of nicotine dependence; Z79.4 Long term (current) use of insulin; Z91.14 Patient's other noncompliance with medication regimen; E66.9 Obesity, unspecified
CPT/HCPCS: 11042

== ENCOUNTER 2020-12-27 15:00 | Outpatient (RCR) | payer MEDICARE, MEDICAID, SELFPAY ==
[2020-11-28 00:33] VITALS: BP 165/113; PULSE 74; RESP 16; TEMP 35.9
--- NOTE | 2020-12-07 09:56 | PCM.PN.BLA ---
Progress Note Cindi was a no show on 12/06/20. she has done this in the past with other providers and I will let her know that she needs to call 24 hours in advance if she is going to miss and appt. If she no shows for a total of 3 visits will have to let her know that I will no longer be able to care for her.
[2020-12-13 14:36] VITALS: BP 160/96; PULSE 74; RESP 18; TEMP 36.7; BMI 30.4
--- NOTE | 2020-12-13 16:38 | PN.PCM_ITS ---
(1) Pressure ulcer of left heel, unstageable Status: Chronic Code(s): L89.620 - Pressure ulcer of left heel, unstageable Comment: it is covered with an eschar and I can not stage at this time. (2) Noncompliance Status: Chronic Code(s): Z91.19 - Patient's noncompliance with other medical treatment and regimen Comment: with medications, with physician follow up and with diet (3) PVD (peripheral vascular disease) Status: Suspected Code(s): I73.9 - Peripheral vascular disease, unspecified Type of Wound Date of Service: 12/15/20 Chief Complaint: Left heel ulceration. Foot pain left foot History of Wound: Patient is 69-year-old female who presents to the wound care center from Dr. Ybarra's office for a nonhealing left lateral heel ulceration. Patient has a history of congestive heart failure, chronic kidney disease of which the fistula just place for potential dialysis and was told her kidneys are working at 12%, diabetes, suspected blood flow problems. Patient has yet to have the blood flow issues worked up. Patient sees Dr. Francis as her PCP at [facility]. She relates that she had some blood work done but does not recall what her hemoglobin A1c was. Patient has had this wound that gives her severe pain. Patient is hypersensitive. Patient says that she cannot sleep in her bed because of how much pain she is and she has sleep on the couch. Patient was noted to have high blood pressure with measuring today of 240/96 and she states she has not taken her blood pressure meds in a couple days. Patient also has not been taking her gabapentin. Patient encouraged to take all medications as prescribed. Related to her how important this is. Also discussed that the gabapentin can help with the pain that she is having. Patient has been treated so far with a silver dressing covered with a Band-Aid. Patient is noted to externally rotate but does not do any form of offloading at this time. Patient lives alone but has a home health aide that comes out to help her but does not help with any dressing changes. Patient is very anxious about her foot and her pain level in the wound. Progress of Wound: Cindi does not take her medications as prescribed and and she frequently does not take her medications at all. She is on Lantus at bedtime and mealtime regular insulin however she is not checking her blood sugars more than 1-2 times a day. She does not know her last hemoglobin A1c. She has not been taking her antihypertensives. She sleeps sitting in her chair with her legs dependent because when she elevates her legs she gets terrible pain in the left lower extremity. She gets claudication with ambulation and can only walk 5 to 10 yards. She did not show up for her arterial studies. She states the gabapentin does help with the pain when she takes it. She says it has been quite sometime since she has seen her thread separator. She cannot tell me when the last time she saw Dr. Francis, her PCP, is. She is very tearful and requesting again lidocaine injection for pain control during debridement. The blood pressure is quite elevated today at 160/96. The heart rate is 74. Temp is 98.1. She is very tearful and admits to feeling depressed. She has no f amily to help her and the [facility] nurse can only change the dressing 3 times a week so the dressing was changed to an alginate (she was to be getting Santyl). she was a no show for her appt last week and said that her ride cancelled. She has had a problem with no shows in the past and has been dropped by some providers for this. She once again (for the second time) did not show up for the vascular studies that have been ordered. - Physical Exam Vital Signs Temp Pulse Resp BP 98.1 F 74 18 160/96 H 12/13/20 14:36 12/13/20 14:36 12/13/20 14:36 12/13/20 14:36 General: - - She is very anxious. She is ill kempt and she has dirty clothes on and her hair is dirty and uncombed. Wound Measurements and Assessment WC - Nurse 1 - General Ulcer Measurement Start: 12/13/20 14:36 Freq: Status: Active Protocol: Activity Type Activity Date Activity User E-Sign Co-Sign Detail Recorded Client Recorded Date Recorded By Document 12/13/20 14:36 [facility] [id number] 12/13/20 14:39 BM 12/13/20 14:36 Wound Center Nurse 1 [Ulcer Assessment] #1 left heel -Combined with other wound No -Current Size (cm) - Length 1.3 -Current Size (cm) - Width 1.3 -Current Size (cm) - Depth 0.2 -Total Square Cm 1.69 -Photo Taken No -Epithelialization None Present -Tunneling No -Undermining/Tunneling No -Circular Undermining No -Exudate Amt None Present -Wound Margin Distinct, Outline Attached -Granulation Amt None Present (0 %) -Slough/Fibrin Yes -Necrosis Amt Large (67-100%) -Necrotic Tissue Type Adherent Slough -Texture (Anastasiya-wound Skin Appearance) Assessed,Callus ,Scarring -Moisture (Anastasiya-wound Skin Appearance Assessed,Dry/ ) Scaly -Color (Anastasiya-wound Skin Appearance) Assessed -Temperature (Anastasiya-wound Skin No Abnormality Appearance) (Pt Warm) -Tenderness on Palpation (Anastasiya-wound No Skin Appearance) -Ulcer Cleansing Rinsed/ Irrigated with Saline -Foul Odor after Cleansing No -Anesthetic Used 4% Lidocaine Solution WC - Nurse 2 - General Ulcer CM Notes Start: 12/13/20 14:36 Freq: Status: Active Protocol: Activity Type Activity Date Activity User E-Sign Co-Sign Detail Recorded Client Recorded Date Recorded By Document 12/13/20 14:57 MW [id number] 12/13/20 15:11 MW 12/13/20 14:57 Wound Center Nurse 2 [Procedure/Treatment] -Time 14:58 -Correct Patient Yes -Correct Side, Site, Position Yes -Correct Procedure Yes -Procedure Performed Yes -Type of Procedure Debridement -Clinical Debridement Subcutaneous -Tissue Removed Subcutaneous -Post Debridement (cm) - Length 1.3 -Post Debridement (cm) - Width 1.4 -Post Debridement (cm) - Depth 0.2 -Total Square (Post) (cm) 1.82 -Area of Debridement (cm) - Length 1.3 -Area of Debridement (cm) - Width 1.4 -Total Square (Area) (cm) 1.82 -Tunneling No -Undermining/Tunneling No -Circular Undermining No -Wound/Ulcer Outcome Not Healed -Ulcer Cleansing Rinsed/ Irrigated with Saline -Foul Odor after Cleansing No -Bioengineered Tissue No -Injectable Lidocaine (%) 2 -Lidocaine (ml) 5 -Bleeding Controlled with Pressure -Offloading No -Treatment Response Procedure Tolerated Well -Debridement - Subq, 1st 20sq cm Yes [See Physician Procedure note for Specifics] Pain Scale: 0-10 Numeric [Pain] -Is Patient Pain Free? Yes - Nurse 3 - General Ulcer D/C NN Start: 12/13/20 14:36 Freq: Status: Active Protocol: Activity Type Activity Date Activity User E-Sign Co-Sign Detail Recorded Client Recorded Date Recorded By Document 12/13/20 15:11 MW [id number] 12/13/20 15:12 MW 12/13/20 15:11 Wound Care Nurse 3 [Wound Dressing] #1 left heel -Ulcer Cleansing Rinsed/ Irrigated with Saline -Foul Odor after Cleansing No -Negative Pressure Wound Therapy N/A -Primary Dressing Applied NonAdherent Contact Layer -Other Dressing C. HYDROGEL -Primary Dressing Covered/Secured Dry Gauze & with Roll Gauze, Secured with Tape -Other Covering ABD PAD [Post Procedure Tolerated] -Treatment Response Procedure Tolerated Well Pain Scale: 0-10 Numeric [Pain] -Is Patient Pain Free? Yes Teaching: Wound Center [Wound Center Education] (Items with an * have Printed Materials Available- Please identify what is given to patient under the Teaching materials given to patient and caregiver Section. Dressing Your Wound -Person Taught Patient -Teaching Method Discussion, Demonstration -Response to teaching Verbalize understanding - Visit Discharge [Visit Discharge Information] -Discharge Condition Stable -Ambulatory Status Ambulatory -Transportation [facility] -Accompanied by SELF -Medication Reconcilliation completed No & provided to patient/care provider -Clinical Summary of Care Provided Yes Cindi requested I inject the wound with Lidocaine and I used 2% Lido without. The wound is covered with a thick dry eschar. The skin surrounding the heel ulcer is dry and peeling with many cracks in the skin. There is thick yellow adherent scale on the dorsum of the foot. There is tinea pedis present. There are no openings in the skin in addition to the left heel wound. Debridement Note Post-Debridement Measurements/Treatment - Nurse 2 - General Ulcer CM Notes Start: 12/13/20 14:36 Freq: Status: Active Protocol: Activity Type Activity Date Activity User E-Sign Co-Sign Detail Recorded Client Recorded Date Recorded By Document 12/13/20 14:57 MW [id number] 12/13/20 15:11 MW 12/13/20 14:57 Wound Center Nurse 2 #1 left heel -Time 14:58 -Correct Patient Yes -Correct Side, Site, Position Yes -Correct Procedure Yes -Procedure Performed Yes -Type of Procedure Debridement -Clinical Debridement Subcutaneous -Tissue Removed Subcutaneous -Post Debridement (cm) - Length 1.3 -Post Debridement (cm) - Width 1.4 -Post Debridement (cm) - Depth 0.2 -Total Square (Post) (cm) 1.82 -Area of Debridement (cm) - Length 1.3 -Area of Debridement (cm) - Width 1.4 -Total Square (Area) (cm) 1.82 -Tunneling No -Undermining/Tunneling No -Circular Undermining No -Wound/Ulcer Outcome Not Healed -Ulcer Cleansing Rinsed/ Irrigated with Saline -Foul Odor after Cleansing No -Bioengineered Tissue No -Injectable Lidocaine (%) 2 -Lidocaine (ml) 5 -Bleeding Controlled with Pressure -Offloading No -Treatment Response Procedure Tolerated Well -Debridement - Subq, 1st 20sq cm Yes Pain Scale: 0-10 Numeric Is Patient Pain Free? Yes - Nurse 3 - General Ulcer D/C NN Start: 12/13/20 14:36 Freq: Status: Active Protocol: Activity Type Activity Date Activity User E-Sign Co-Sign Detail Recorded Client Recorded Date Recorded By Document 12/13/20 15:11 MW [id number] 12/13/20 15:12 MW 12/13/20 15:11 Wound Care Nurse 3 #1 left heel -Ulcer Cleansing Rinsed/ Irrigated with Saline -Foul Odor after Cleansing No -Negative Pressure Wound Therapy N/A -Primary Dressing Applied NonAdherent Contact Layer -Other Dressing C. HYDROGEL -Primary Dressing Covered/Secured with Dry Gauze & Roll Gauze, Secured with Tape -Other Covering ABD PAD Treatment Response Procedure Tolerated Well Pain Scale: 0-10 Numeric Is Patient Pain Free? Yes Teaching: Wound Center Dressing Your Wound -Person Taught Patient -Teaching Method Discussion, Demonstration -Response to teaching Verbalize understanding WC - Visit Discharge Discharge Condition Stable Ambulatory Status Ambulatory Transportation [facility] Accompanied by SELF Medication Reconcilliation completed & No provided to patient/care provider Clinical Summary of Care Provided Yes Wound debrided: left heel pressure ulcer Laterality: Left - heel Wound Grade/Stage: unstageable due to eschar Type of Debridement: Excisional debridement Anesthesia Used: 4% Lidocaine Solution, - - I injected the wound with 2% Lidocaine without EPI. She c/o pain with the injection and also while I am try ing to debride despite the Lidocaine. The eschar is very thick and I was unable to get it off.....I scored the eschar with a 15 blade so that the Santyl could be more effective. Depth: - - the eschar was scored and there was a small amount of blood which was easily controlled with pressure. A lot of thick yellow callous araound the wound was debrided. Percentage of wound debrided: 20 Instrument Used: #15 blade, Forceps Amount of bleeding with debridement: Mild Bleeding Controlled with: Pressure - - She ws tearful but, she is tearful whenI am not even touching her. 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 Assessment/Plan Active Problems Noncompliance (Chronic) with medications, with physician follow up and with diet Pressure ulcer of left heel, unstageable (Chronic) it is covered with an eschar and I can not stage at this time. Assessment: 1. Left heel pressure ulcer, non-healing and likely ischemic due to PVD. 2. Diabetes II - likely not well controlled. 3. Chronic kidney disease- stage V - not on HD and admits to not having seen her thread separator in a long time. 4. non-compliant with medication and follow up with physicians in the past. Has been scheduled for arterial studies twice and has not shown up for either appt. 5. Peripheral vascular disease. 6. Hypertension-uncontrolled secondary to noncompliance with medication. 7. Obesity. 8. History of pacemaker implantation. 9. Pulmonary hypertension. 10. Severe left ventricular concentric hypertrophy. 11. severe LAE with MV prolapse and MR. 12. Anemia of chronic renal failure. 13. Anxiety/depression Plan: 1. Patient seen and examined, patient noted to be anxious on exam. The EMR was reviewed including lab, notes and ECHO. No arterial studies in the EMR....she has had 2 appts and did not show up either time. 2. Left foot XR from 10/04/20 reviewed which showed a grossly normal foot XR without fracture. 3. could not debride the eschar today.....it is thick, dry and adherent. the eschar was scored and we are going back to Santyl. Between [facility] and [facility] she can have the dressing changed at least 4 times a week. 4. Get CBC with diff, CMP, phosphorus, magnesium, hemoglobin A1c, vitamin D level - she still has not had her lab done. 5. Arrange venous and arterial studies of the left lower extre mity for the third time. 6. Home health care consult for medication management, education and wound care. 7. Continue Santyl with dressing change once daily. 8. Chlortrimazole cream twice daily to the sole and dorsum of the left foot and in between the toes - she has not been compliant with this. 9. Follow up in 1 week. She was told that if she continues to no show for appts and does not have lab done I will be unable to care for her going forward. Will get records from Dr. Francis. Encouraged her to follow up with her thread separator and to take her meds as prescribed. I am not sure Cindi is capable of caring for herself and if she takes no action will refer to adult protective services. Office Visits / Consults: [id number] OV L3 Est
[2020-12-20 14:26] VITALS: RESP 16; TEMP 36.2; BMI 30.4
--- NOTE | 2020-12-20 14:42 | WC ---
BP LUE PER MONITOR #1- 212/75 PULSE 68, RECHK PER MONITOR LUE 216/172 PULSE 74. RECHK MANUALLY 220/90 LUE W/ APICAL PULSE 70. PT NERVOUS AND ANXIOUS PER HER USUAL W/ WOUND CENTER VISITS. WILL UPDATE DR MARRERO.
--- NOTE | 2020-12-20 16:52 | PCM.WC.PN ---
(1) Pressure ulcer of left heel, unstageable Status: Chronic Code(s): L89.620 - Pressure ulcer of left heel, unstageable Comment: it is covered with an eschar and I can not stage at this time. (2) Noncompliance Status: Chronic Code(s): Z91.19 - Patient's noncompliance with other medical treatment and regimen Comment: with medications, with physician follow up and with diet (3) PVD (peripheral vascular disease) Status: Chronic Code(s): I73.9 - Peripheral vascular disease, unspecified Comment: severe BL LE's (4) End stage renal disease Status: Acute Code(s): N18.6 - End stage renal disease (5) Blisters of multiple sites Status: Acute Code(s): R23.8 - Other skin changes Comment: due to uncontrolled LE edema (6) Anemia of chronic renal failure, stage 5 Status: Chronic Code(s): N18.5 - Chronic kidney disease, stage 5; D63.1 - Anemia in chronic kidney disease (7) Anxiety and depression Status: Chronic Code(s): F41.9 - Anxiety disorder, unspecified; F32.9 - Major depressive disorder, single episode, unspecified (8) Artificial cardiac pacemaker Status: Chronic Code(s): Z95.0 - Presence of cardiac pacemaker (9) CHF (congestive heart failure) Status: Chronic Code(s): I50.9 - Heart failure, unspecified (10) Cardiac conduction disorder Status: Chronic Code(s): I45.9 - Conduction disorder, unspecified (11) Chronic renal insufficiency Status: Chronic Qualifiers: Chronic kidney disease stage: stage 5 Qualified Code(s): N18.5 - Chronic kidney disease, stage 5 Code(s): N18.9 - Chronic kidney disease, unspecified (12) Diabetes mellitus Status: Chronic Qualifiers: Diabetes mellitus type: type 2 Diabetes mellitus watermaster insulin use: with care home use Diabetes mellitus complication status: with circulatory complication Diabetes mellitus complication detail: with peripheral angiopathy without gangrene Qualified Code(s): E11.51 - Type 2 diabetes mellitus with diabetic peripheral angiopathy without gangrene; Z79.4 - custodial (current) use of insulin Code(s): E11.9 - Type 2 diabetes mellitus without complications Comment: Also with end-stage renal disease (13) Hypertension Status: Chronic (14) Left atrial enlargement Status: Chronic Code(s): I51.7 - Cardiomegaly (15) Left ventricular hypertrophy Status: Chronic Code(s): I51.7 - Cardiomegaly Comment: Severe (16) Obesity Status: Chronic Code(s): E66.9 - Obesity, unspecified (17) Pulmonary hypertension Status: Chronic Code(s): I27.20 - Pulmonary hypertension, unspecified (18) Tobacco dependence in remission Status: Chronic Code(s): F17.201 - Nicotine dependence, unspecified, in remission Comment: She quit smoking at 36 years of age (19) Tinea pedis Status: Resolved Qualifiers: Laterality: left Qualified Code(s): B35.3 - Tinea pedis Code(s): B35.3 - Tinea pedis (20) Metabolic acidosis Status: Inactive Code(s): E87.2 - Acidosis (21) Mitral valve prolapse Status: Inactive Code(s): I34.1 - Nonrheumatic mitral (valve) prolapse (22) Mitral valve regurgitation Status: Inactive Code(s): I34.0 - Nonrheumatic mitral (valve) insufficiency (23) Claudication Status: Chronic Code(s): I73.9 - Peripheral vascular disease, unspecified Comment: MAGDALENA PERALTA'belkys Type of Wound Date of Service: 12/28/20 Chief Complaint: Left heel ulceration. Foot pain left foot History of Wound: Patient is 69-year-old female who presents to the wound care center from Dr. Ybarra's office for a nonhealing left lateral heel ulceration. Patient has a history of congestive heart failure, chronic kidney disease of which the fistula just place for potential dialysis and was told her kidneys are working at 12%, diabetes, suspected blood flow problems. Patient has yet to have the blood flow issues worked up. Patient sees Dr. Francis as her PCP at [facility]. She relates that she had some blood work done but does not recall what her hemoglobin A1c was. Patient has had this wound that gives her severe pain. Patient is hypersensitive. Patient says that she cannot sleep in her bed because of how much pain she is and she has sleep on the couch. Patient was noted to have high blood pressure with measuring today of 240/96 and she states she has not taken her blood pressure meds in a couple days. Patient also has not been taking her gabapentin. Patient encouraged to take all medications as prescribed. Related to her how important this is. Also discussed that the gabapentin can help with the pain that she is having. Patient has been treated so far with a silver dressing covered with a Band-Aid. Patient is noted to externally rotate but does not do any form of offloading at this time. Patient lives alone but has a home health aide that comes out to help her but does not help with any dressing changes. Patient is very anxious about her foot and her pain level in the wound. Progress of Wound: Cindi does not take her medications as prescribed and and she frequently does not take her medications at all. She is on Lantus at bedtime and mealtime regular insulin however she is not checking her blood sugars. She does not know her last hemoglobin A1c. She has not been taking her antihypertensives. She sleeps sitting in her chair with her legs dependent because when she elevates her legs she gets terrible pain in the left lower extremity. She gets claudication with ambulation and can only walk 5 to 10 yards. She did not show up for her arterial studies. She states the gabapentin does help with the pain when she takes it. She says it has been quite sometime since she has seen her animal control officer. She cannot tell me when the last time she saw Dr. Francis, her PCP, is. She is very tearful and requesting again lidocaine injection for pain control during debridement. The blood pressure is quite elevated today at 160/96. The heart rate is 74. Temp is 98.1. She is very tearful and admits to feeling depressed. She has no family to help her and the [facility] nurse can only change the dressing 3 times a week so the dressing was changed to an alginate (she was to be getting Santyl). she was a no show for her appt last week and said that her ride cancelled. She has had a problem with no shows in the past and has been dropped by some providers for this. She once again (for the second time) did not show up for the vascular studies that have been ordered. 12/20/20 cindi came to her appt today. She tells me that she made and appt with her animal control officer. She has had a fistula placed in the past but, it clotted off. She has stage 5 CRF. She tells me that she took her BP medicaine today but, the BP is very elevated. she has been scheduled for vascular studies of the LE's for the third time next Saturday and she will follow up at the [facility] after the vascular studies have been done. She denies fevers, chills, sweats. She had slippers with no no heel and no toes on today. she is c/o severe pain in both LE's in a stocking distribution and she is requesting I give her a prescription for medical marijuan to control the pain. She has been taking Gabapentin once a day and it has not helped with the pain. It does not make her sleepy. - Physical Exam Vital Signs Temp Pulse Resp BP 97.1 F L 74 16 160/96 H 12/20/20 14:26 12/13/20 14:36 12/20/20 14:26 12/13/20 14:36 General: Alert, Oriented x3, - - tearful and emotional HEENT: Atraumatic, PERRLA, EOMI, Normocephalic Oral: Dry Mucosa Lungs: Clear to auscultation, Diminished Cardiovascular: Regular rate, Regular Rhythm, Normal S1, Normal S2, No rub noted, No Gallop Abdomen: Bowel Sounds Present, Non Tender, Non-Distended, Obese Extremities: No clubbing, No cyanosis, Edema - pitting of BL LE's Skin: Ulcer/ Wound Wound Measurements and Assessment WC - Nurse 1 - General Ulcer Measurement Start: 12/13/20 14:36 Freq: Status: Active Protocol: Activity Type Activity Date Activity User E-Sign Co-Sign Detail Recorded Client Recorded Date Recorded By Document 12/20/20 14:26 [facility] [id number] 12/20/20 14:36 [facility] 12/20/20 14:26 Wound Center Nurse 1 [Ulcer Assessment] #2- L MED LE -Combined with other wound No -Current Size (cm) - Length 0.7 -Current Size (cm) - Width 0.8 -Current Size (cm) - Depth 0.1 -Total Square Cm 0.56 -Date of Last Picture (Recall this 12/20/20 field) -Photo Taken Yes -Epithelialization None Present -Tunneling No -Undermining/Tunneling No -Circular Undermining No -Exudate Amt Small -Exudate Type Serosanguineous -Wound Margin Distinct, Outline Attached -Granulation Amt None Present (0 %) -Slough/Fibrin Yes -Necrosis Amt Large (67-100%) -Necrotic Tissue Type Adherent Slough -Texture (Anastasiya-wound Skin Appearance) Assessed, Scarring -Moisture (Anastasiya-wound Skin Appearance Assessed ) -Color (Anastasiya-wound Skin Appearance) Assessed -Temperature (Anastasiya-wound Skin No Abnormality Appearance) (Pt Warm) -Tenderness on Palpation (Anastasiya-wound No Skin Appearance) -Ulcer Cleansing Rinsed/ Irrigated with Saline -Foul Odor after Cleansing No -Anesthetic Used 5% Lidocaine Gel #1 left heel -Combined with other wound No -Current Size (cm) - Length 1.4 -Current Size (cm) - Width 1.8 -Current Size (cm) - Depth 0.2 -Total Square Cm 2.52 -Photo Taken No -Epithelialization None Present -Tunneling No -Undermining/Tunneling No -Circular Undermining No -Wound Margin Distinct, Outline Attached -Granulation Amt None Present (0 %) -Slough/Fibrin Yes -Necrosis Amt Large (67-100%) -Necrotic Tissue Type Adherent Slough -Texture (Anastasiya-wound Skin Appearance) Assessed, Scarring -Moisture (Anastasiya-wound Skin Appearance Assessed ) -Color (Anastasiya-wound Skin Appearance) Assessed -Temperature (Anastasiya-wound Skin No Abnormality Appearance) (Pt Warm) -Tenderness on Palpation (Anastasiya-wound Yes Skin Appearance) -Ulcer Cleansing Rinsed/ Irrigated with Saline -Foul Odor after Cleansing No -Anesthetic Used 5% Lidocaine Gel WC - Nurse 3 - General Ulcer D/C NN Start: 12/13/20 14:36 Freq: Status: Active Protocol: Activity Type Activity Date Activity User E-Sign Co-Sign Detail Recorded Client Recorded Date Recorded By Document 12/20/20 15:27 HANNAH [id number] 12/20/20 15:31 HANNAH 12/20/20 15:27 Wound Care Nurse 3 [Wound Dressing] #2- L MED LE -Ulcer Cleansing Rinsed/ Irrigated with Saline -Foul Odor after Cleansing No -Primary Dressing Applied C Hydrogel ($), NonAdherent Contact Layer -Primary Dressing Covered/Secured Dry Gauze & with Roll Gauze, Secured with Tape #1 left heel -Ulcer Cleansing Rinsed/ Irrigated with Saline -Foul Odor after Cleansing No -Primary Dressing Applied C Hydrogel ($), NonAdherent Contact Layer -Primary Dressing Covered/Secured Dry Gauze & with Roll Gauze, Secured with Tape Pain Scale: 0-10 Numeric [Pain] -Is Patient Pain Free? Yes WC - Visit Discharge [Visit Discharge Information] -Discharge Condition Stable -Ambulatory Status Wheelchair -Transportation [facility] transport -Medication Reconcilliation completed Yes & provided to patient/care provider -Clinical Summary of Care Provided Yes The wound base is 100% hu adherent slough that could not be removed with a curette. there is no obvious tunnelling and no no undermining. no anastasiya-wound erythema and no increased warmth to touch. There is edema in the BL feet. There is no hair growth on the toes. There is no odor to the wound and there was hair in the wound. Debridement Note Post-Debridement Measurements/Treatment - Nurse 2 - General Ulcer CM Notes Start: 12/13/20 14:36 Freq: Status: Active Protocol: Activity Type Activity Date Activity User E-Sign Co-Sign Detail Recorded Client Recorded Date Recorded By Document 12/13/20 14:57 MW [id number] 12/13/20 15:11 MW 12/13/20 14:57 Wound Center Nurse 2 #1 left heel -Time 14:58 -Correct Patient Yes -Correct Side, Site, Position Yes -Correct Procedure Yes -Procedure Performed Yes -Type of Procedure Debridement -Clinical Debridement Subcutaneous -Tissue Removed Subcutaneous -Post Debridement (cm) - Length 1.3 -Post Debridement (cm) - Width 1.4 -Post Debridement (cm) - Depth 0.2 -Total Square (Post) (cm) 1.82 -Area of Debridement (cm) - Length 1.3 -Area of Debridement (cm) - Width 1.4 -Total Square (Area) (cm) 1.82 -Tunneling No -Undermining/Tunneling No -Circular Undermining No -Wound/Ulcer Outcome Not Healed -Ulcer Cleansing Rinsed/ Irrigated with Saline -Foul Odor after Cleansing No -Bioengineered Tissue No -Injectable Lidocaine (%) 2 -Lidocaine (ml) 5 -Bleeding Controlled with Pressure -Offloading No -Treatment Response Procedure Tolerated Well -Debridement - Subq, 1st 20sq cm Yes Pain Scale: 0-10 Numeric Is Patient Pain Free? Yes - Nurse 3 - General Ulcer D/C NN Start: 12/13/20 14:36 Freq: Status: Active Protocol: Activity Type Activity Date Activity User E-Sign Co-Sign Detail Recorded Client Recorded Date Recorded By Document 12/13/20 15:11 MW [id number] 12/13/20 15:12 MW Document 12/20/20 15:27 JF [id number] 12/20/20 15:31 JF 12/13/20 12/20/20 15:11 15:27 Wound Care Nurse 3 #2- L MED LE -Ulcer Cleansing Rinsed/ Irrigated with Saline -Foul Odor after Cleansing No -Primary Dressing Applied C Hydrogel ($), NonAdherent Contact Layer -Primary Dressing Covered/Secured with Dry Gauze & Roll Gauze, Secured with Tape #1 left heel -Ulcer Cleansing Rinsed/ Rinsed/ Irrigated with Irrigated with Saline Saline -Foul Odor after Cleansing No No -Negative Pressure Wound Therapy N/A -Primary Dressing Applied NonAdherent C Hydrogel ($), Contact Layer NonAdherent Contact Layer -Other Dressing C. HYDROGEL -Primary Dressing Covered/Secured with Dry Gauze & Dry Gauze & Roll Gauze, Roll Gauze, Secured with Secured with Tape Tape -Other Covering ABD PAD Treatment Response Procedure Tolerated Well Pain Scale: 0-10 Numeric Is Patient Pain Free? Yes Yes Teaching: Wound Center Dressing Your Wound -Person Taught Patient -Teaching Method Discussion, Demonstration -Response to teaching Verbalize understanding WC - Visit Discharge Discharge Condition Stable Stable Ambulatory Status Ambulatory Wheelchair [place] [facility] [place] Accompanied by SELF Medication Reconcilliation completed & No Yes provided to patient/care provider Clinical Summary of Care Provided Yes Yes Laterality: Left Anesthesia Used: 4% Lidocaine Solution, 5% Lidocaine Gel Depth: in the subcutaneous layer Percentage of wound debrided: 100, - - also debrided the hyperkeratotic callous around the wound and on the plantar surface of the heel Severity: Fat Layer Exposed - could not get all the necrotic slough off the wound. will treat with Santyl and debride again next week. Amount of bleeding with debridement: None Patient did not tolerate procedure well - She complains of pain with even light touch over the BL legs in areas without wounds. she gets very anxious and she always requests injectable Lidocaine but, can not tolerate the injections into the area around the wound Assessment/Plan Active Problems PVD (peripheral vascular disease) (Chronic) severe BL LE's Anemia of chronic renal failure, stage 5 (Chronic) Anxiety and depression (Chronic) Left ventricular hypertrophy (Chronic) Severe Left atrial enlargement (Chronic) Pulmonary hypertension (Chronic) Noncompliance (Chronic) with medications, with physician follow up and with diet Tobacco dependence in remission (Chronic) She quit smoking at 36 years of age Pressure ulcer of left heel, unstageable (Chronic) it is covered with an eschar and I can not stage at this time. Blisters of multiple sites (Acute) due to uncontrolled LE edema Obesity (Chronic) End stage renal disease (Acute) Diabetes mellitus (Chronic) Also with end-stage renal disease Artificial cardiac pacemaker (Chronic) Cardiac conduction disorder (Chronic) CHF (congestive heart failure) (Chronic) Hypertension (Chronic) Chronic renal insufficiency (Chronic) Assessment: 1. Left heel pressure ulcer, non-healing and likely ischemic due to PVD. 2. Diabetes II - likely not well controlled. 3. Chronic kidney disease-stage V - not on HD and admits to not having seen her animal control officer in a long time. 4. non-compliant with medication and follow up with physicians in the past. Has been scheduled for arterial studies twice and has not shown up for either appt. 5. Peripheral vascular disease. 6. Hypertension-uncontrolled secondary to noncompliance with medication. 7. Obesity. 8. History of pacemaker implantation. 9. Pulmonary hypertension. 10. Severe left ventricular concentric hypertrophy. 11. severe LAE with MV prolapse and MR. 12. Anemia of chronic renal failure. 13. Anxiety/depression. 14. suspect that enceophalopathy due to ESRD contributes to apathy, poor compliance with medications and chronic fatigue. Plan: 1. Patient seen and examined, patient noted to be anxious on exam. The EMR was reviewed including lab, notes and ECHO. No arterial studies in the EMR....she has had 2 appts and did not show up either time. 2. Left foot XR from 10/04/20 reviewed which showed a grossly normal foot XR without fracture. 3. could not debride the eschar today.....it is thick, dry and adherent. the eschar was scored [facility] and [facility] she can have the dressing changed at least 4 times a week. 4. Get CBC with diff, CMP, phosphorus, magnesium, hemoglobin A1c, vitamin D level - she still has not had her lab done. 5. Arrange venous and arterial studies of the left lower extremity for the third time. 6. Home health care consult for medication management, education and wound care. 7. Continue Santyl with dressing change once daily. 8. Chlortrimazole cream twice daily to the sole and dorsum of the left foot and in between the toes - she has not been compliant with this. 9. Follow up in 1 week. She was told that if she continues to no show for appts and does not have lab done I will be unable to care for her going forward. Will get records from Dr. Francis. Encouraged her to follow up with her animal control officer and to take her meds as prescribed. I am not sure Cindi is capable of caring for herself and if she takes no action will refer to adult protective services. Inpatient E&M: [id number] [facility] L3
--- NOTE | 2020-12-27 12:50 | ART_ITS ---
Reason For Study: Lt heel ulcer Procedure A bilateral lower extremity continuous wave Doppler with analog waveform analysis,segmental pressures,and ankle brachial indexes without exercise. Left Segmental Pressures Left brachial= 179mmHg. Left thigh = >254mmHg. Left calf = 91mmHg. Left dorsalis pedis artery = 94mmHg. Left digit = 32 mmHg. The left dorsalis pedis waveforms are monophasic. Right Segmental Pressures Right calf = >254mmHg. Right posterior tibial artery = 79mmHg. Right dorsalis pedis artery = 102mmHg. Right digit = 44 mmHg. The right dorsalis pedis waveforms are monophasic. The right posterior tibial artery waveforms are monophasic. Indices The right ankle brachial index by the dorsalis pedis is 0.57. The right ankle brachial index by the posterior tibial artery is 0.44. The right digital-brachial index is 0.25. The left ankle brachial index by the dorsalis pedis is 0.53. The left digital-brachial index is 0.18. VL/Lower Ext Art Exam w/o Exercis Interpretation Summary Monophasic Doppler waveforms are noted at ankle level bilaterally. Pulse-volume recording waveform amplitudes are diminished at digital level bilaterally, but satisfactory at all other levels bilaterally. Resting ankle-brachial indices are moderately diminished bilateral ly. Digital-brachial indices are [id number] diminished bilaterally. There is moderate impairment of arterial flow at ankle level bilaterally. There is moderate-to- severe impairment of arterial flow at digital level biaterally. Ordering Physician: Stephanie Li Referring Physician: Remigio Parks Performed By: Paige White RVT
--- NOTE | 2020-12-27 12:50 | VDLE_ITS ---
Reason For Study: Lt heel ulcer RIGHT LEFT CFV is compressible, spontaneous, competent CFV is compressible, spontaneous, competent, and demonstrates pulsatile venous flow. and demonstrates pulsatile venous flow. FV is compressible, spontaneous, competent FV is compressible, spontaneous, competent and demonstrates pulsatile venous flow. and demonstrates pulsatile venous flow. POP V is compressible, spontaneous, POP V is compressible, spontaneous, competent competent and demonstrates pulsatile venous and demonstrates pulsatile venous flow. flow. T/P Trunk is compressible. T/P Trunk is compressible. PTV is compressible. PTV is compressible. LT PerV is compressible. RT PerV is compressible. Nonvascularized structure noted in the left SFJ is competent and measures 0.74 x 0.82 popliteal fossa measuring approximently 1.38 cm. x 3.03 x 4.47 cm. GSV proximal thigh measures 0.44 x 0.43 cm. SFJ is competent and measures 0.91 x 0.94 cm. GSV above knee is competent. GSV proximal thigh measures 0.43 x 0.43 cm. GSV at knee measures 0.36 x 0.31 cm. GSV at knee measures 0.41 x 0.44 cm. GSV below knee is INCOMPETENT for greater GSV is competent throughout. than 0.5 seconds. SSV at junction is competent and measures SSV at junction is INCOMPETENT for greater 0.20 x 0.22 cm. than 0.5 seconds and measures 0.17 x 0.20 cm. Procedure This is a venous duplex using B-mode, color flow and spectral Doppler. Exam performed in department. A preliminary report was called and/or faxed to [facility]. VL/Venous Duplex US - [place] Extrem Interpretation Summary Deep veins of the lower extremities are bilaterally patent and compressible seg mentally. There is no evidence of deep vein thrombosis on either side. Valvular competence appears in tact within the proximal deep venous systems bilaterally. The great saphenous veins appear bila terally patent and compressible segmentally. Sapheno-femoral junctions are bilaterally competent . The right great saphenous vein appears competent above the knee. The right great saphenous vein appears incompetent below the knee. The left great saphenous vein appears segmentally competent. Th e right small saphenous vein is patent and incompetent. The left small saphenous vein is chan nt and competent. A non-vascular structure is noted in the left popliteal space, measuring 1.38 cm x 3.03 cm x 4.47 cm. This probably represents a popliteal cyst. Clinical correlation is advised. Pus atile flow is noted in the deep venous system bilaterally, which may be indicative of elevated cent ral venous pressure (i.e. congestive heart failure, tricuspid valve insufficiency, etc.). Clinical correlation is advised. Ordering Physician: Stephanie Li Referring Physician: Remigio Parks Performed By: Paige White RVT
[2020-12-27 14:11] VITALS: BP 179/70; PULSE 74; RESP 24; TEMP 37
--- NOTE | 2020-12-27 15:34 | PN.PCM_ITS ---
(1) Pressure ulcer of left heel, unstageable Status: Chronic Code(s): L89.620 - Pressure ulcer of left heel, unstageable Comment: it is covered with an eschar and I can not stage at this time. (2) Noncompliance Status: Chronic Code(s): Z91.19 - Patient's noncompliance with other medical treatment and regimen Comment: with medications, with physician follow up and with diet (3) PVD (peripheral vascular disease) Status: Chronic Code(s): I73.9 - Peripheral vascular disease, unspecified Comment: severe BL LE's (4) Blisters of multiple sites Status: Acute Code(s): R23.8 - Other skin changes Comment: due to uncontrolled LE edema (5) Tinea pedis Status: Resolved Qualifiers: Laterality: left Qualified Code(s): B35.3 - Tinea pedis Code(s): B35.3 - Tinea pedis (6) Ulcer of left heel and midfoot with fat layer exposed Status: Acute Code(s): L97.422 - Non-pressure chronic ulcer of left heel and midfoot with fat layer exposed Comment: I suspect this is a arterial ischemia ulcer (7) Anemia of chronic renal failure, stage 5 Status: Chronic Code(s): N18.5 - Chronic kidney disease, stage 5; D63.1 - Anemia in chronic kidney disease (8) Anxiety and depression Status: Chronic Code(s): F41.9 - Anxiety disorder, unspecified; F32.9 - Major depressive disorder, single episode, unspecified (9) Artificial cardiac pacemaker Status: Chronic Code(s): Z95.0 - Presence of cardiac pacemaker (10) CHF (congestive heart failure) Status: Chronic Code(s): I50.9 - Heart failure, unspecified (11) Cardiac conduction disorder Status: Chronic Code(s): I45.9 - Conduction disorder, unspecified (12) Chronic renal insufficiency Status: Chronic Qualifiers: Chronic kidney disease stage: stage 5 Qualified Code(s): N18.5 - Chronic kidney disease, stage 5 Code(s): N18.9 - Chronic kidney disease, unspecified (13) Diabetes mellitus Status: Chronic Qualifiers: Diabetes mellitus type: type 2 Diabetes mellitus emt intermediate insulin use: with emt intermediate use Diabetes mellitus complication status: with circulatory complication Diabetes mellitus complication detail: with peripheral angiopathy without gangrene Qualified Code(s): E11.51 - Type 2 diabetes mellitus with diabetic peripheral angiopathy without gangrene; 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 Code(s): E11.9 - Type 2 diabetes mellitus without complications (14) Hypertension Status: Chronic (15) Left atrial enlargement Status: Chronic Code(s): I51.7 - Cardiomegaly (16) Left ventricular hypertrophy Status: Chronic Code(s): I51.7 - Cardiomegaly Comment: Severe (17) Pulmonary hypertension Status: Chronic Code(s): I27.20 - Pulmonary hypertension, unspecified (18) Tobacco dependence in remission Status: Chronic Code(s): F17.201 - Nicotine dependence, unspecified, in remission Comment: She quit smoking at 36 years of age (19) Metabolic acidosis Status: Inactive Code(s): E87.2 - Acidosis (20) Mitral valve prolapse Status: Inactive Code(s): I34.1 - Nonrheumatic mitral (valve) prolapse (21) Mitral valve regurgitation Status: Inactive Code(s): I34.0 - Nonrheumatic mitral (valve) insufficiency (22) Obesity Status: Chronic Code(s): E66.9 - Obesity, unspecified Type of Wound Date of Service: 12/27/20 Chief Complaint: Left heel ulceration. Foot pain left foot History of Wound: Patient is 69-year-old female who presents to the wound care center from Dr. Galdamez's office for a nonhealing left lateral heel ulceration. Patient has a history of congestive heart failure, chronic kidney disease of which the fistula just place for potential dialysis and was told her kidneys are working at 12%, diabetes, suspected blood flow problems. Patient has yet to have the blood flow issues worked up. Patient sees Dr. Francis as her PCP at [facility]. She relates that she had some blood work done but does not recall what her hemoglobin A1c was. Patient has had this wound that gives her severe pain. Patient is hypersensitive. Patient says that she cannot sleep in her bed because of how much pain she is and she has sleep on the couch. Patient was noted to have high blood pressure with measuring today of 240/96 and she states she has not taken her blood pressure meds in a couple days. Patient also has not been taking her gabapentin. Patient encouraged to take all medications as prescribed. Related to her how important this is. Also discussed that the gabapentin can help with the pain that she is having. Patient has been treated so far with a silver dressing covered with a Band-Aid. Patient is noted to externally rotate but does not do any form of offloading at this time. Patient lives alone but has a home health aide that comes out to help her but does not help with any dressing changes. Patient is very anxious about her foot and her pain level in the wound. Progress of Wound: Cindi does not take her medications as prescribed and and she frequently does not take her medications at all. She is on Lantus at bedtime and mealtime regular insulin however she is not checking her blood sugars more than 1-2 times a day, if at all. She does not know her last hemoglobin A1c. She has not been taking her antihypertensives. She sleeps sitting in her chair with her legs dependent because when she elevates her legs she gets terrible pain in the left lower extremity. She gets claudication with ambulation and can only walk 5 to 10 yards. She did not show up for her arterial studies on 2 occasions. She states the gabapentin does help with the pain when she takes it. She says it has been quite sometime since she has seen her concrete pump operator. She cannot tell me when the last time she saw Dr. Francis, her PCP, is. Both of these doctors are in [facility] and she has no transportation. She is very tearful and requesting again lidocaine injection for pain control during debridement. She is very tearful and admits to feeling depressed. She has no family to help her (although her dtr lives only 10 minutes away). The [facility] nurse can only change the dressing 3 times a week so the dressing was changed to an alginate (she was to be getting Santyl). She no shows for appts regularly. She has had a problem with no shows in the past and has been dropped by some providers for this. She once again (for the second time) did not show up for the vascular studies that have been ordered. 12/20/20 cindi came to her appt today. She tells me that she made and appt with her concrete pump operator. She has had a fistula placed in the past but, it clotted off. She has stage 5 CRF. She tells me that she took her BP medicaine today but, the BP is very elevated. she has been scheduled for vascular studies of the LE's for the third time next Saturday and she will follow up at the [facility] after the vascular studies have been done. She denies fevers, chills, sweats. She had slippers with no no heel and no toes on today. she is c/o severe pain in both LE's in a stocking distribution and she is requesting I give her a prescription for medical marijuan to control the pain. She has been taking Gabapentin once a day and it has not helped with the pain. It does not make her sleepy. 12/27/20 She had her arterial studies done today and at the ankle she has monophasic wave forms BL. The JABARI ranges from 0.5-0.6 in both legs distal to the knees......report is pending. She now has 2 additional openings in the skin due to rupture of fluid filled blisters due to peripheral edema. She does not weigh herself at home. She is not on a loop diuretic. - Physical Exam Vital Signs Temp Pulse Resp BP 98.6 F 74 24 H 179/70 H 12/27/20 14:11 12/27/20 14:11 12/27/20 14:11 12/27/20 14:11 General: Alert, Oriented x3, Cooperative, - - tearful HEENT: Atraumatic, EOMI, Normocephalic, - - pupils are pinpoint - denies any narcotic use Oral: Dry Mucosa Neck: Supple, Negative Carotid Bruits, Trachea Midline Lungs: Clear to auscultation, Diminished Cardiovascular: Regular rate, Regular Rhythm, Normal S1, Normal S2, No murmurs, No rub noted, No Gallop Abdomen: Bowel Sounds Present, Soft, Non Tender, Non-Distended Extremities: No clubbing, No cyanosis, Diminished Peripheral Pulses, Edema - pitting of both feet and legs to above the knee Skin: No rashes, Ulcer/ Wound, - - She has hair growing on her face and neck. Wound Measurements and Assessment WC - Nurse 1 - General Ulcer Measurement Start: 12/13/20 14:36 Freq: Status: Active Protocol: Activity Type Activity Date Activity User E-Sign Co-Sign Detail Recorded Client Recorded Date Recorded By Document 12/27/20 14:11 DL [id number] 12/27/20 14:22 DL 12/27/20 14:11 Wound Center Nurse 1 [Ulcer Assessment] #2- L MED LE -Current Size (cm) - Length 1 -Current Size (cm) - Width 1 -Current Size (cm) - Depth 0.1 -Total Square Cm 1 -Photo Taken No -Exudate Amt Small -Wound Margin Distinct, Outline Attached -Granulation Amt Medium (34-66%) -Granulation Quality Pale,Americus -Necrosis Amt Medium (34-66%) -Necrotic Tissue Type Adherent Slough -Structure Exposed N/A -Texture (Anastasiya-wound Skin Appearance) Scarring -Moisture (Anastasiya-wound Skin Appearance Weeping ) -Color (Anastasiya-wound Skin Appearance) Hemosiderin Staining -Temperature (Anastasiya-wound Skin No Abnormality Appearance) (Pt Warm) -Tenderness on Palpation (Anastasiya-wound Yes Skin Appearance) -Ulcer Cleansing Wound Cleanser -Foul Odor after Cleansing No -Anesthetic Used 4% Lidocaine Solution,5% Lidocaine Gel #1 left heel -Current Size (cm) - Length 1.8 -Current Size (cm) - Width 2.2 -Current Size (cm) - Depth 0.1 -Total Square Cm 3.96 -Photo Taken No -Exudate Amt Medium -Wound Margin Distinct, Outline Attached -Granulation Amt None Present (0 %) -Necrosis Amt Large (67-100%) -Necrotic Tissue Type Adherent Slough -Structure Exposed N/A -Texture (Anastasiya-wound Skin Appearance) Localized Edema ,Scarring -Moisture (Anastasiya-wound Skin Appearance Weeping ) -Color (Anastasiya-wound Skin Appearance) Hemosiderin Staining -Temperature (Anastasiya-wound Skin No Abnormality Appearance) (Pt Warm) -Tenderness on Palpation (Anastasiya-wound Yes Skin Appearance) -Ulcer Cleansing Rinsed/ Irrigated with Saline -Foul Odor after Cleansing No -Anesthetic Used 4% Lidocaine Solution,5% Lidocaine Gel WC - Nurse 2 - General Ulcer CM Notes Start: 12/13/20 14:36 Freq: Status: Active Protocol: Activity Type Activity Date Activity User E-Sign Co-Sign Detail Recorded Client Recorded Date Recorded By Document 12/27/20 14:47 MW [id number] 12/27/20 15:15 MW 12/27/20 14:47 Wound Center Nurse 2 [Procedure/Treatment] #3 right medial LE -Time 15:10 -Correct Patient Yes -Correct Side, Site, Position Yes -Correct Procedure Yes -Procedure Performed Yes -Type of Procedure Debridement -Clinical Debridement Subcutaneous -Tissue Removed Subcutaneous -Post Debridement (cm) - Length 1.5 -Post Debridement (cm) - Width 1.0 -Post Debridement (cm) - Depth 0.1 -Total Square (Post) (cm) 1.50 -Area of Debridement (cm) - Length 1.5 -Area of Debridement (cm) - Width 1.0 -Total Square (Area) (cm) 1.50 -Tunneling No -Undermining/Tunneling No -Circular Undermining No -Wound/Ulcer Outcome Not Healed -Ulcer Cleansing Rinsed/ Irrigated with Saline -Foul Odor after Cleansing No -Bioengineered Tissue No -Bleeding Controlled with Pressure -Offloading No -Treatment Response Procedure Tolerated Well -Debridement - Subq, 1st 20sq cm No #2- L MED LE -Time 14:49 -Correct Patient Yes -Correct Side, Site, Position Yes -Correct Procedure Yes -Procedure Performed No -Post Debridement (cm) - Length 1.0 -Post Debridement (cm) - Width 1.0 -Post Debridement (cm) - Depth 0.1 -Total Square (Post) (cm) 1.00 -Tunneling No -Undermining/Tunneling No -Circular Undermining No -Wound/Ulcer Outcome Not Healed -Ulcer Cleansing Not Cleansed -Foul Odor after Cleansing No -Bioengineered Tissue No -Bleeding Controlled with NA -Offloading No #1 left heel -Time 14:49 -Correct Patient Yes -Correct Side, Site, Position Yes -Correct Procedure Yes -Procedure Performed Yes -Type of Procedure Debridement -Clinical Debridement Subcutaneous -Tissue Removed Subcutaneous -Post Debridement (cm) - Length 1.5 -Post Debridement (cm) - Width 2.0 -Post Debridement (cm) - Depth 0.2 -Total Square (Post) (cm) 3.00 -Area of Debridement (cm) - Length 1.5 -Area of Debridement (cm) - Width 2.0 -Total Square (Area) (cm) 3.00 -Tunneling No -Undermining/Tunneling No -Circular Undermining No -Wound/Ulcer Outcome Not Healed -Ulcer Cleansing Rinsed/ Irrigated with Saline -Foul Odor after Cleansing No -Bioengineered Tissue No -Bleeding Controlled with Pressure -Offloading No -Treatment Response Procedure Tolerated Well -Debridement - Subq, 1st 20sq cm Yes [See Physician Procedure note for Specifics] Pain Scale: 0-10 Numeric [Pain] -Is Patient Pain Free? Yes WC - Nurse 3 - General Ulcer D/C NN Start: 12/13/20 14:36 Freq: Status: Active Protocol: Activity Type Activity Date Activity User E-Sign Co-Sign Detail Recorded Client Recorded Date Recorded By Document 12/27/20 15:22 MW [id number] 12/27/20 15:31 MW 12/27/20 15:22 Wound Care Nurse 3 [Wound Dressing] #3 right medial LE -Ulcer Cleansing Rinsed/ Irrigated with Saline -Foul Odor after Cleansing No -Negative Pressure Wound Therapy N/A -Primary Dressing Applied NonAdherent Contact Layer -Primary Dressing Covered/Secured Dry Gauze, with Secured with Tape #2- L MED LE -Ulcer Cleansing Rinsed/ Irrigated with Saline -Foul Odor after Cleansing No -Negative Pressure Wound Therapy N/A -Primary Dressing Applied NonAdherent Contact Layer -Primary Dressing Covered/Secured Dry Gauze, with Secured with Tape #1 left heel -Ulcer Cleansing Rinsed/ Irrigated with Saline -Foul Odor after Cleansing No -Negative Pressure Wound Therapy N/A -Primary Dressing Applied NonAdherent Contact Layer -Other Dressing c.hydrogel -Primary Dressing Covered/Secured Dry Gauze & with Roll Gauze, Secured with Tape -Other Covering abd nurse hat [Post Procedure Tolerated] -Treatment Response Procedure Tolerated Well Pain Scale: 0-10 Numeric [Pain] -Is Patient Pain Free? Yes Teaching: Wound Center [Wound Center Education] (Items with an * have Printed Materials Available- Please identify what is given to patient under the Teaching materials given to patient and caregiver Section. Dressing Your Wound -Person Taught Patient -Teaching Method Discussion -Response to teaching Verbalize understanding WC - Visit Discharge [Visit Discharge Information] -Discharge Condition Stable -Ambulatory Status Wheelchair -Transportation [place] -Medication Reconcilliation completed No & provided to patient/care provider -Clinical Summary of Care Provided Yes She now has an opening in the skin on the LLE medially above the ankle and anteriorly over the mcdowell on the R and these are due to swelling of the LE's with fluid filled blister formation. There is no erythema and no increased warmth to touch. There is no purulent DC. The left heel ulcer is 100% necrotic with a yellow adherent film. There was minimal bleeding with debridement due to severe PVD. The feet are unclean and there is dog hair adherent to the bottoms of both feet. There is non odor to the left heel. Debridement Note Post-Debridement Measurements/Treatment WC - Nurse 2 - General Ulcer CM Notes Start: 12/13/20 14:36 Freq: Status: Active Protocol: Activity Type Activity Date Activity User E-Sign Co-Sign Detail Recorded Client Recorded Date Recorded By Document 12/13/20 14:57 MW [id number] 12/13/20 15:11 MW Document 12/20/20 17:08 PL [id number] 12/20/20 17:15 PL Document 12/27/20 14:47 MW [id number] 12/27/20 15:15 MW 12/13/20 12/20/20 12/27/20 14:57 17:08 14:47 Wound Center Nurse 2 #3 right [facility] LE -Time 15:10 -Correct Patient Yes -Correct Side, Site, Position Yes -Correct Procedure Yes -Procedure Performed Yes -Type of Procedure Debridement -Clinical Debridement Subcutaneous -Tissue Removed Subcutaneous -Post Debridement (cm) - Length 1.5 -Post Debridement (cm) - Width 1.0 -Post Debridement (cm) - Depth 0.1 -Total Square (Post) (cm) 1.50 -Area of Debridement (cm) - Length 1.5 -Area of Debridement (cm) - Width 1.0 -Total Square (Area) (cm) 1.50 -Tunneling No -Undermining/Tunneling No -Circular Undermining No -Wound/Ulcer Outcome Not Healed -Ulcer Cleansing Rinsed/ Irrigated with Saline -Foul Odor after Cleansing No -Bioengineered Tissue No -Bleeding Controlled with Pressure -Offloading No -Treatment Response Procedure Tolerated Well -Debridement - Subq, 1st 20sq cm No #2- L MED LE -Time 15:00 14:49 -Correct Patient Yes Yes -Correct Side, Site, Position Yes Yes -Correct Procedure Yes Yes -Procedure Performed Yes No -Type of Procedure Debridement -Clinical Debridement Subcutaneous -Tissue Removed Subcutaneous -Post Debridement (cm) - Length 0.7 1.0 -Post Debridement (cm) - Width 0.8 1.0 -Post Debridement (cm) - Depth 0.1 0.1 -Total Square (Post) (cm) 0.56 1.00 -Area of Debridement (cm) - Length 0.7 -Area of Debridement (cm) - Width 0.8 -Total Square (Area) (cm) 0.56 -Tunneling No No -Undermining/Tunneling No No -Circular Undermining No No -Wound/Ulcer Outcome Not Healed Not Healed -Ulcer Cleansing Rinsed/ Not Cleansed Irrigated with Saline -Foul Odor after Cleansing No No -Bioengineered Tissue No No -Bleeding Controlled with NA -Offloading No -Debridement - Subq, 1st 20sq cm Yes #1 left heel -Time 14:58 15:00 14:49 -Correct Patient Yes Yes Yes -Correct Side, Site, Position Yes Yes Yes -Correct Procedure Yes Yes Yes -Procedure Performed Yes Yes Yes -Type of Procedure Debridement Debridement Debridement -Clinical Debridement Subcutaneous Subcutaneous Subcutaneous -Tissue Removed Subcutaneous Subcutaneous Subcutaneous -Post Debridement (cm) - Length 1.3 1.4 1.5 -Post Debridement (cm) - Width 1.4 1.8 2.0 -Post Debridement (cm) - Depth 0.2 0.2 0.2 -Total Square (Post) (cm) 1.82 2.52 3.00 -Area of Debridement (cm) - Length 1.3 1.4 1.5 -Area of Debridement (cm) - Width 1.4 1.8 2.0 -Total Square (Area) (cm) 1.82 2.52 3.00 -Tunneling No No No -Undermining/Tunneling No No No -Circular Undermining No No No -Wound/Ulcer Outcome Not Healed Not Healed Not Healed -Ulcer Cleansing Rinsed/ Rinsed/ Rinsed/ Irrigated with Irrigated with Irrigated with Saline Saline Saline -Foul Odor after Cleansing No No No -Bioengineered Tissue No No No -Injectable Lidocaine (%) 2 -Lidocaine (ml) 5 -Bleeding Controlled with Pressure Pressure -Offloading No No -Treatment Response Procedure Procedure Tolerated Well Tolerated Well -Debridement - Subq, 1st 20sq cm Yes No Yes Pain Scale: 0-10 Numeric Is Patient Pain Free? Yes Yes Yes WC - Nurse 3 - General Ulcer D/C NN Start: 12/13/20 14:36 Freq: Status: Active Protocol: Activity Type Activity Date Activity User E-Sign Co-Sign Detail Recorded Client Recorded Date Recorded By Document 12/13/20 15:11 MW [id number] 12/13/20 15:12 MW Document 12/20/20 15:27 JF [id number] 12/20/20 15:31 JF Document 12/27/20 15:22 MW [id number] 12/27/20 15:31 MW 12/13/20 12/20/20 12/27/20 15:11 15:27 15:22 Wound Care Nurse 3 #3 right medial LE -Ulcer Cleansing Rinsed/ Irrigated with Saline -Foul Odor after Cleansing No -Negative Pressure Wound Therapy N/A -Primary Dressing Applied NonAdherent Contact Layer -Primary Dressing Covered/Secured with Dry Gauze, Secured with Tape #2- L MED LE -Ulcer Cleansing Rinsed/ Rinsed/ Irrigated with Irrigated with Saline Saline -Foul Odor after Cleansing No No -Negative Pressure Wound Therapy N/A -Primary Dressing Applied C Hydrogel ($), NonAdherent NonAdherent Contact Layer Contact Layer -Primary Dressing Covered/Secured with Dry Gauze & Dry Gauze, Roll Gauze, Secured with Secured with Tape Tape #1 left heel -Ulcer Cleansing Rinsed/ Rinsed/ Rinsed/ Irrigated with Irrigated with Irrigated with Saline Saline Saline -Foul Odor after Cleansing No No No -Negative Pressure Wound Therapy N/A N/A -Primary Dressing Applied NonAdherent C Hydrogel ($), NonAdherent Contact Layer NonAdherent Contact Layer Contact Layer -Other Dressing C. HYDROGEL c.hydrogel -Primary Dressing Covered/Secured with Dry Gauze & Dry Gauze & Dry Gauze & Roll Gauze, Roll Gauze, Roll Gauze, Secured with Secured with Secured with Tape Tape Tape -Other Covering ABD PAD abd nurse hat Treatment Response Procedure Procedure Tolerated Well Tolerated Well Pain Scale: 0-10 Numeric Is Patient Pain Free? Yes Yes Yes Teaching: Wound Center Dressing Your Wound -Person Taught Patient Patient -Teaching Method Discussion, Discussion Demonstration -Response to teaching Verbalize Verbalize understanding understanding WC - Visit Discharge Discharge Condition Stable Stable Stable Ambulatory Status Ambulatory Wheelchair Wheelchair Transportation [facility] Accompanied by SELF Medication Reconcilliation completed & No Yes No provided to patient/care provider Clinical Summary of Care Provided Yes Yes Yes Laterality: Left Wound Grade/Stage: unstageable Type of Debridement: Excisional debridement Anesthesia Used: 4% Lidocaine Solution, 5% Lidocaine Gel Depth: - - I debrided down as far as she could tolerate and there is still mostly necrotic tissue. the portion of the muscle that is visible is very pale. I also debrided the hard, hyperkeratotic rim around the wound. Percentage of wound debrided: 100 Instrument Used: #15 blade, Forceps Severity: Necrosis of Muscle Amount of bleeding with debridement: trace bleeding indicative of severe PVD Bleeding Controlled with: Pressure Patient tolerated procedure well Operative Diagnosis: Unstageable ulcer of the left heel due to pressure/ischemia/PVD - Additional Wound Laterality: Right Wound Grade/Stage: fluid dilled blister RLE over the mcdowell - Additional Wound Wound debrided: L medial calf proximal to the ankle - it was a fluid filled blister that ru Laterality: Left Operative Diagnosis: not debrided Assessment/Plan Active Problems Ulcer of left heel and midfoot with fat layer exposed (Acute) I suspect this is a arterial ischemia ulcer PVD (peripheral vascular disease) (Chronic) severe BL LE's Anemia of chronic renal failure, stage 5 (Chronic) Anxiety and depression (Chronic) Left ventricular hypertrophy (Chronic) Severe Left atrial enlargement (Chronic) Pulmonary hypertension (Chronic) Noncompliance (Chronic) with medications, with physician follow up and with diet Tobacco dependence in remission (Chronic) She quit smoking at 36 years of age Pressure ulcer of left heel, unstageable (Chronic) it is covered with an eschar and I can not stage at this time. Blisters of multiple sites (Acute) due to uncontrolled LE edema Diabetes mellitus (Chronic) Artificial cardiac pacemaker (Chronic) Cardiac conduction disorder (Chronic) CHF (congestive heart failure) (Chronic) Hypertension (Chronic) Chronic renal insufficiency (Chronic) Assessment: 1. Left heel pressure ulcer, non-healing and likely ischemic due to PVD. 2. Diabetes II - likely not well controlled. 3. ESRD - not on HD and admits to not having seen her concrete pump operator in a long time. 4. non-compliant with medication and follow up with physicians. Has not seen her PCP in a very long time and in fact she can not remember when she last saw Dr. Parks. 5. Peripheral vascular disease - severe. 6. Hypertension-uncontrolled secondary to noncompliance with medication. 7. Obesity. 8. History of pacemaker implantation. 9. Pulmonary hypertension. 10. Severe left ventricular concentric hypertrophy. 11. severe LAE with MV prolapse and MR. 12. Anemia of chronic renal failure. 13. Anxiety/depression Plan: 1. Order placed for a SW to evaluate cindi and her situation. She is not able to take care of herself and she has ESRD. she has a dtr who lives 10 minutes away from her but she is not involved with Cindi's care/life. cindi admits that she has not been able to bathe herself. 2. She should be on HD. she had an AVF placed in the [facility] but it clotted off and is not usable. Her concrete pump operator and PCP are in [place] and she has not seen either of these doctors in a long time. Will arrange for her to follow up with nephrology in [place]. She will likely need a tunnelled dialysis catheter. 3. Start Lasix 80 mg once a day [facility] 4. CBC, CMP, Phos, iron studies, lipid panel HGBA1C today - The nurses wheeled her over the the lab and I will call her tomorrow regarding the lab. I would not be surprised if she needs admitted to the hospital. 5. Elevate legs when sitting. 6. Take all medications as prescribed. 7. Continue the Santyl. 8. Will need to see a vascular surgeon but, she will need to be on HD prior to angiograms due to the ESRD. 9. She should not be living by herself. 10. RTC in 1 week if she is not admitted to the hospital. We had a long discussion about her inability to adequately care for herself. She is chronically fatigued and not motivated to take care of herself. I explained that she needs to get on HD and then she will need to see a vascular surgeon and have angiograms to see if there is anything that can be done to restore circulation to the distal LE's. Will have her follow up with Dr. De Anda. She will get lab done today.......she has been given lab slips in the past but, she has not had them done yet. Office Visits / Consults: [id number] OV L3 Est
[2020-12-27 17:01] LABS: Hematocrit 29.9 % (37-47); Hemoglobin 8.8 g/dL (12.0-15.0); Mean Corp Hgb Conc 29.4 g/dL (32-36); Mean Corpuscular Hgb 26.8 pg (27.0-32.0); Mean Corpuscular Volume 91.2 fL (81-99); Mean Platelet Vol. 10.6 fl (6.2-12.0); Platelet Count 338 K/mm3 (150-450); RBC Distribution Width CV 16.3 % (11.6-14.6); RBC Distribution Width SD 55.1 fl (35.1-43.9); Red Blood Count 3.28 M/mm3 (4.2-5.4); White Blood Count 11.2 K/mm3 (4.4-11.0)
[2020-12-27 17:31] LABS: ALB/GLOB Ratio 0.6 RATIO (0.9-2.4); AST(SGOT) 11 U/L (15-37); Alanine Aminotransfer ALT/SGPT 15 U/L (13-56); Albumin, Serum 2.9 g/dL (3.2-5.0); Alkaline Phosphatase 60 U/L (45-117); Anion Gap 10 (5-15); BUN 85 mg/dL (7-18); BUN/Creat Ratio 15.5 RATIO (10-20); Calcium,Total 8.3 mg/dL (8.5-10.1); Chloride 105 mmol/L (98-107); Cholesterol 98 mg/dL (200); Creatinine, Serum 5.49 mg/dL (0.55-1.02); EST Glomerular Filtration Rate 8 mL/min (>60); Est Glom Filt Rate - Afr Amer 10 mL/min (>60); Estimated Creatinine Clearance 11.29 ml/min; Ferritin 82 ng/mL (8-252); Globulin 4.5 g/dL (2.2-4.2); Glucose 166 mg/dL (74-106); High Density Lipoprotein 48 mg/dL; Iron Binding Capacity,Total 278 ug/dL (250-450); Phosphorus 7.1 mg/dL (2.5-4.9); Potassium 4.8 mmol/L (3.5-5.1); Protein, Total 7.4 g/dL (6.4-8.2); Sodium Level 136 mmol/L (136-145); Triglycerides 72 mg/dL; Very Low Density Lipoprotein 14 mg/dL (5-40)
--- NOTE | 2020-12-28 10:36 | PN_ITS ---
Progress Note All lab drawn on 12/27/2020 was reviewed personally. The white blood cell count is elevated at 11.2. Hemoglobin is 8.8 and platelets are 338,000. MCV is 91.2 and the RDW standard deviation is elevated. Potassium is 4.8 and the serum bicarb is 21. The BUN is 85 with a creatinine of 5.49 and a creatinine clearance of 11.29. Random blood sugar was 166. Calcium is low at 83. Phosphorus is high at 7.1. LFTs are unremarkable. The TIBC is 278 and the ferritin 82 but no serum iron was done. LDL is 36 with an HDL of 48 and the triglycerides are 72. HGBA1C and iron will be run today. The arterial studies show monophasic waveforms at the ankle. Resting ankle- brachial indices are moderately diminished bilaterally distal to the knee and there is moderate to severe impairment of arterial flow at the digital level bilaterally. The venous study was negative for DVT. I received a call from [facility] nurse and Cindi left her coffee pot on all night. She had not taken any medications from yesterday. She is very fatigued and unkempt. She has not been bathing. Direct admission to the hospital was arranged. She is calling the ambulance to come and take her to the hospital. She will need a tunnelled HD catheter placed and started on HD. I am hoping her mentation will improve. Currently she is not able to care for herself and she has no family to help. Her dtr lives 10 minutes from her but apparently is not involved with Cindi....I do not know why. Inpatient E&M: [id number] [facility] L1
[2020-12-28 11:54] LABS: Iron 25 ug/dL (50-170)
[2020-12-28 12:02] LABS: Hemoglobin A1c 7.1 % (3.8-5.6)
== END 2020-12-28 23:59 ==
LOC: WC 15:00
PROVIDERS: PCP Internal Medicine; Referring Provider Podiatrist; Visit Provider Internal Medicine
DX: E11.621 Type 2 diabetes mellitus with foot ulcer (principal); L89.620 Pressure ulcer of left heel, unstageable; Z91.19 Patient's noncompliance with other medical treatment and regimen; E11.51 Type 2 diabetes mellitus with diabetic peripheral angiopathy without gangrene; E11.22 Type 2 diabetes mellitus with diabetic chronic kidney disease; M79.672 Pain in left foot; I50.9 Heart failure, unspecified; I13.2 Hypertensive heart and chronic kidney disease with heart failure and with stage 5 chronic kidney disease, or end stage renal disease; Z91.14 Patient's other noncompliance with medication regimen; I27.20 Pulmonary hypertension, unspecified; E66.9 Obesity, unspecified; Z95.0 Presence of cardiac pacemaker; N18.6 End stage renal disease
CPT/HCPCS: 11042; 36415; 80053; 80061; 82728; 83036; 83540; 83550; 84100; 85027; 93923; 93970

== ENCOUNTER 2020-12-28 11:23 | Inpatient (IN) | payer MEDICARE, MEDICAID, SELFPAY ==
[2020-12-20 14:26] VITALS: BMI 30.4
[2020-12-28] VITALS (9 sets, daily range): BP systolic 129–142; BP diastolic 53–64; PULSE 59–68; RESP 16–20; TEMP 36.7–37.1; O2SAT 93; BMI 37.0; BMI 37.1
[2020-12-28 11:51] LABS: Hematocrit 26.5 % (37-47); Hemoglobin 7.9 g/dL (12.0-15.0); Mean Corp Hgb Conc 29.8 g/dL (32-36); Mean Corpuscular Hgb 27.4 pg (27.0-32.0); Mean Platelet Vol. 10.3 fl (6.2-12.0); Platelet Count 236 K/mm3 (150-450); RBC Distribution Width CV 16.2 % (11.6-14.6); RBC Distribution Width SD 55.3 fl (35.1-43.9); Red Blood Count 2.88 M/mm3 (4.2-5.4); White Blood Count 10.6 K/mm3 (4.4-11.0)
[2020-12-28 12:13] LABS: ALB/GLOB Ratio 0.7 RATIO (0.9-2.4); AST(SGOT) 8 U/L (15-37); Alanine Aminotransfer ALT/SGPT 14 U/L (13-56); Albumin, Serum 2.7 g/dL (3.2-5.0); Alkaline Phosphatase 52 U/L (45-117); Anion Gap 7 (5-15); BUN 84 mg/dL (7-18); BUN/Creat Ratio 15.4 RATIO (10-20); Calcium,Total 8.4 mg/dL (8.5-10.1); Chloride 107 mmol/L (98-107); Creatinine, Serum 5.46 mg/dL (0.55-1.02); EST Glomerular Filtration Rate 8 mL/min (>60); Est Glom Filt Rate - Afr Amer 10 mL/min (>60); Estimated Creatinine Clearance 11.68 ml/min; Globulin 4.1 g/dL (2.2-4.2); Glucose 225 mg/dL (74-106); Potassium 4.8 mmol/L (3.5-5.1); Protein, Total 6.8 g/dL (6.4-8.2); Sodium Level 135 mmol/L (136-145)
[2020-12-28 12:36] LABS: Bedside Glucose 224 mg/dL (70-110)
--- NOTE | 2020-12-28 14:37 | NURSING ---
wound photo: right medial lower leg
--- NOTE | 2020-12-28 14:38 | NURSING ---
wound photo: left medial lower leg
--- NOTE | 2020-12-28 14:39 | NURSING ---
wound photo: left heel
--- NOTE | 2020-12-28 14:52 | PCM.HP.STD ---
History of Present Illness Date of Admission: 12/28/20 Chief Complaint: Lower extremity The patient is a 70 year old F with PMH as below who presents to the hospital advice of her PCP secondary to what was believed to be confusion as well as abnormal labs. She had labs done yesterday which demonstrated elevated creatinine with an elevated BUN into the 80s. She also has bilateral lower extremity wounds that she is being seen at the wound center for. They do currently look clean but she seems to have difficulty managing at home on her own and has difficulty managing her ADLs. On arrival as a direct admission she was alert and oriented and answered all of her questions appropriately. She knows what medication she is taking and states that she is here to have her wounds better managed. She states that she does still make urine and she has a clotted off fistula in her right upper extremity because they placed that in anticipation of needing dialysis but she has not needed dialysis. Past Medical History Past Medical History (Chronic Problems): Chronic Problems PVD (peripheral vascular disease) (Chronic) severe BL LE's Anemia of chronic renal failure, stage 5 (Chronic) Anxiety and depression (Chronic) Left ventricular hypertrophy (Chronic) Severe Left atrial enlargement (Chronic) Pulmonary hypertension (Chronic) Noncompliance (Chronic) with medications, with physician follow up and with diet Tobacco dependence in remission (Chronic) She quit smoking at 36 years of age Pressure ulcer of left heel, unstageable (Chronic) it is covered with an eschar and I can not stage at this time. Obesity (Chronic) Claudication (Chronic) BL LE's Diabetes mellitus (Chronic) Also with end-stage renal disease Artificial cardiac pacemaker (Chronic) Cardiac conduction disorder (Chronic) CHF (congestive heart failure) (Chronic) Hypertension (Chronic) Chronic renal insufficiency (Chronic) Allergies Penicillins Allergy (Verified 10/04/20 10:10) Rash Home Medications: Ambulatory Orders Medication Instructions Recorded Losartan Potassium [Cozaar] 50 mg PO DAILY 04/06/15 Hydrochlorothiazide [Hctz] 12.5 mg PO DAILY #0 07/22/19 hydrALAZINE [Apresoline] 50 mg PO TID #120 tab 07/22/19 Albuterol Inhaler [Ventolin Hfa] 2 puff INHALATION Q4H PRN PRN #1 09/10/19 inhaler Insulin Aspart [Novolog Flexpen] 0 units SUBCUT TIDCM 09/10/19 Sertraline HCl 25 mg PO DAILY #30 tab 11/22/20 Gabapentin [Neurontin] 200 mg PO TIDCM #180 capsule 12/20/20 Furosemide [Lasix] 80 mg PO DAILY #30 tab 12/27/20 Surgical History: cholecystectomy, pacemaker implantation - [employer]tr[employer], - Smoking Status: Former smoker Tobacco Use: Cigarettes Alcohol: None Drugs: None - *Family History Paternal History Items: Heart Disease Maternal History Items: Diabetes Review of Systems Constitutional: Reports: Weakness. Denies: Chills, Fever, Weight Change HEENT: Denies: Head Aches, Sinus Congestion, Sinus Drainage Cardiovascular: Denies: Chest Pain, Palpitations Respiratory: Denies: Cough, Shortness of breath at rest, Sputum production Gastrointestinal: Denies: Abdominal Pain, Nausea, Vomiting Genitourinary: Denies: Dysuria Musculoskeletal: Denies: Joint Pain, Joint Tenderness Skin: Reports: Wounds - Bilateral lower extremities. Denies: Rash Neurological: Denies: Numbness, Tingling, Focal weakness Psychiatric: Denies: Anxiety, Depression Hematologic/ Lymphatic: Denies: Easy Bruising, Easy Bleeding VTE Information - Inpt Only VTE Present on Admission: No - Physical Exam Vitals/I&O's: Vital Signs Temp Pulse Resp BP Pulse Ox 98.3 F 61 16 129/53 H 93 12/28/20 11:33 12/28/20 11:40 12/28/20 11:33 12/28/20 11:33 12/28/20 11:33 Oxygen Delivery Method Room Air Weight: 165 lb 5.547 oz Body Mass Index (BMI) 37.0 Finger Stick Blood Glucose 14 General: Alert, Oriented x3, Cooperative, No apparent distress HEENT: Atraumatic, PERRLA, EOMI, Normocephalic Oral: Moist Mucosa Neck: Supple, No JVD Lungs: Clear to auscultation, Normal air movement, No rhonchi, No wheeze, No rales, Diminished Cardiovascular: Regular rate, Regular Rhythm, Normal S1, Normal S2, No murmurs Abdomen: Soft, Non Tender, Non-Distended, No Hepato-splenomegaly Extremities: Capillary Refill Less than 3 Seconds, Edema Skin: No rashes, No breakdown, Ulcer/ Wound - Posterior heel wound on the left heel with an left anterior medial superficial wound, Skin Tear - Right medial ankle with an intact blister underneath Neurological: Neuro grossly intact, Sensory exam intact to light touch and pain Psych/Mental Status: Normal Affect, Appropriate Laboratory Results 12/28/20 11:38: WBC 10.6, RBC 2.88 L, Hgb 7.9 L, Hct 26.5 L, MCV 92.0, MCH 27.4, MCHC 29.8 L, RDW Std Deviation 55.3 H, RDW Coeff of Robyn 16.2 H, Plt Count 236, MPV 10.3 12/28/20 11:38: Sodium 135 L, Potassium 4.8, Chloride 107, Carbon Dioxide 21.0, Anion Gap 7, BUN 84 H, Creatinine 5.46 H, Estim Creat Clear Calc 11.68, Est GFR (MDRD) Af Amer 10 L, Est GFR (MDRD) Non-Af 8 L, BUN/Creatinine Ratio 15.4, Glucose 225 H, Calcium 8.4 L, Total Bilirubin 0.40, AST 8 L, ALT 14, Alkaline Phosphatase 52, Total Protein 6.8, Albumin 2.7 L, Globulin 4.1, Albumin/Globulin Ratio 0.7 L 12/28/20 12:32: POC Glucose 224 H Current Medications Collagenase (Collagenase 30gm Tube) 1 applic TOPICAL DAILY HUI; Protocol Dextrose (Dextrose 50%-Water 25 Gm/50 Ml Disp.Syrin) 0 gm IV X1 PRN; Protocol PRN Reason: Hypoglycemia Glucagon (Glucagon 1 Mg/Ml Syringe) 1 mg IM .X1 PRN PRN Reason: Hypoglycemia Heparin Sodium (Porcine) (Heparin Injection (Vial) 5,000 Unit/Ml Vial) 5,000 unit SC Q8 HUI Sodium Chloride () 250 mls @ 15 mls/hr IV .[id number] PRN PRN Reason: Saline Flush Sodium Chloride () 250 mls @ 15 mls/hr IV .[id number] PRN PRN Reason: Additional IVPB Infusion Insulin Human Lispro (Insulin Lispro 100 Unit/Ml Insuln.Pen) 0 unit SC Q6 HUI; Protocol Last Admin: 12/28/20 12:46 Dose: Not Given Documented by: Ondansetron HCl (Ondansetron 4 Mg/2 Ml Vial) 4 mg IV Q8H PRN PRN PRN Reason: NAUSEA/VOMITING Sodium Chloride (0.9% Saline Lock 10 Ml Syringe) 10 - 40 ml IV UD PRN PRN Reason: SALINE FLUSH Assessment/Plan All Active Problems Tinea pedis (Resolved) Blisters of multiple sites (Acute) End stage renal disease (Acute) Acute respiratory failure with hypoxia (Resolved) Community acquired pneumonia (Resolved) Leukocytosis (Resolved) 1. Bilateral lower extremity wounds with inability to complete ADLs -We will obtain wound wound care consult while here in the hospital, the wounds do look clean and she does not need antibiotics. She is afebrile without leukocytosis -We will consult PT/OT as well as case management for possible discharge planning and placement in a prison facility if necessary -She does have ischemic issues, she did have a vascular study yesterday which demonstrated moderate impairment of the arterial flow at the ankle level bilaterally as well as severe impairment at the digital level bilaterally. -There is no evidence of DVTs bilaterally under Doppler yesterday either. 2. Acute on chronic end-stage renal disease/anemia of chronic disease -She denies any dark stools however will obtain a school stool sample -We will consult nephrology for evaluation and possible dialysis -She is uremic with an elevated BUN but she does not appear to be lethargic or confused -Most of her care is done in [place] however her creatinine in our system has steadily been rising since 2015 -States she still makes urine, however given the rise in her creatinine we will hold off on any Lasix at this time -Hemoglobin today 7.9, she averages around 9, will monitor and transfuse if necessary 3. HTN -Blood pressures currently are stable -Given her increase in her creatinine, will hold her Lasix, hydrochlorothiazide, losartan -Can continue with her hydralazine 4. DM 2 -We will place her on a sliding scale insulin -Accu-Cheks AC at bedtime, make adjustments as necessary 5. Anxiety/depression -Stable -Continue with Zoloft DVT: Heparin
[2020-12-28] MEDS: Heparin Injection (Vial) 5,000 UNIT/ML VIAL 5000 UNIT SC ×2 (15:05→21:48)
[2020-12-28 16:26] LABS: Bedside Glucose 204 mg/dL (70-110)
[2020-12-28] MEDS: Insulin Lispro 100 UNIT/ML INSULN.PEN SC (16:29)
[2020-12-28] MEDS: Acetaminophen 325 MG Tablet 650 MG PO (16:31)
[2020-12-28] MEDS: Albuterol 2.5 MG/3 ML VIAL.NEB. INHALATION (17:47)
--- NOTE | 2020-12-28 18:33 | PCM.PN.BLA ---
Progress Note The patient has known CKD stage 5 from DKD and HTN. She is followed in our [place] office by my partner, Dr. Avila. Last office appointment was in 10/05/20. SCr was 4.37 mg/dL at that time. Preparation has been made for dialysis, but unfortunately, her R arm AVF has thrombosed. Suspect the rise in SCr is due to progression of CKD to ESRD. No immediate need to start HD tonight. Will discuss need for shelter HD and access with her in am. Sharad Nunez MD STROKE Vital Signs/Narrative: Vital Signs Temp Pulse Resp BP Pulse Ox 12/28/20 17:48 62 20 H 12/28/20 17:27 93 12/28/20 16:35 98.1 F 65 16 139/55 H 93 12/28/20 16:00 68
[2020-12-28] MEDS: oxyCODONE 5 MG Tablet PO (21:47)
[2020-12-28] MEDS: hydrALAZINE 50 MG Tablet PO (21:48)
[2020-12-28 22:31] LABS: Bedside Glucose 143 mg/dL (70-110)
[2020-12-28 23:19] LABS: Mucous, Urine 0 SEEN /hpf (<or=2+)
[2020-12-28 23:30] LABS: Bacteria 1+ /hpf (None Seen); Color, Urine Yellow (Yellow); Glucose, Dipstick 100 mg/dl (Normal); Ketone-Dipstick Negative (Negative); Leukocyte Esterase-Dipstick 100 /ul (Negative); Nitrite-Dipstick Negative (Negative); Occult Blood-Urine Negative /ul (Negative); Protein-Dipstick 500 mg/dl (Negative); Red Blood Cells-Urine 0-5 SEEN /hpf (0-5); Squamous Epithelial Cells - UA 0-5 SEEN /hpf (5-10); Urine Bilirubin Dipstick Negative (Negative); Urine Clarity Clear (Clear); Urine Urobilinogen Normal (Normal); White Blood Cells 5-10 SEEN /hpf (0-5)
[2020-12-29] VITALS (11 sets, daily range): BP systolic 123–153; BP diastolic 57–80; PULSE 60–77; RESP 14–18; TEMP 36.6–37.1; O2SAT 92–94
[2020-12-29] MEDS: oxyCODONE 5 MG Tablet PO ×3 (04:22→18:21)
[2020-12-29] MEDS: Acetaminophen 325 MG Tablet 650 MG PO ×3 (04:22→18:20)
[2020-12-29] MEDS: hydrALAZINE 50 MG Tablet PO ×3 (04:29→21:59)
[2020-12-29] MEDS: Heparin Injection (Vial) 5,000 UNIT/ML VIAL 5000 UNIT SC ×2 (04:29→13:31)
[2020-12-29 06:37] LABS: Absolute Lymphocyte Count 1.21 X10^3/uL (0.83-4.51); Basophil# 0.03 X10^3/uL; Basophil% 0.3 % (0-1); Eosinophil# 0.14 X10^3/uL; Eosinophils% 1.5 % (0-5); Hematocrit 26.4 % (37-47); Hemoglobin 7.6 g/dL (12.0-15.0); Lymphocyte # 1.21 X10^3/ul (4.0); Lymphocyte % 12.9 % (19-41); Mean Corp Hgb Conc 28.8 g/dL (32-36); Mean Platelet Vol. 10.1 fl (6.2-12.0); Monocyte# 0.95 X10^3/uL; Monocyte% 10.1 % (0-10); NRBC Flagged by Analyzer 0 % (0-5); Neutrophil # 7.02 X10^3/uL (2.7-7.7); Platelet Count 261 K/mm3 (150-450); RBC Distribution Width CV 16.3 % (11.6-14.6); Red Blood Count 2.81 M/mm3 (4.2-5.4); White Blood Count 9.4 K/mm3 (4.4-11.0)
[2020-12-29 06:40] LABS: Bedside Glucose 125 mg/dL (70-110)
[2020-12-29 06:56] LABS: ALB/GLOB Ratio 0.7 RATIO (0.9-2.4); AST(SGOT) 10 U/L (15-37); Alanine Aminotransfer ALT/SGPT 13 U/L (13-56); Albumin, Serum 2.7 g/dL (3.2-5.0); Alkaline Phosphatase 55 U/L (45-117); Anion Gap 12 (5-15); BUN 85 mg/dL (7-18); Calcium,Total 7.9 mg/dL (8.5-10.1); Chloride 105 mmol/L (98-107); Creatinine, Serum 5.66 mg/dL (0.55-1.02); EST Glomerular Filtration Rate 8 mL/min (>60); Est Glom Filt Rate - Afr Amer 10 mL/min (>60); Estimated Creatinine Clearance 11.26 ml/min; Globulin 3.7 g/dL (2.2-4.2); Glucose 129 mg/dL (74-106); Potassium 4.8 mmol/L (3.5-5.1); Protein, Total 6.4 g/dL (6.4-8.2); Sodium Level 137 mmol/L (136-145)
[2020-12-29] MEDS: Sertraline 50 MG Tablet 25 MG PO (08:52)
[2020-12-29] MEDS: Collagenase 30gm Tube 1 APPLIC TOPICAL (08:57)
--- NOTE | 2020-12-29 10:03 | PCM.CONS.R ---
Consultation - Renal 12/29/20 PCP/ Referring MD: Requesting physician: Dr. Olmstead Primary care physician: Dr. Remigio Parks MD Reason for Consultation:: ESRD - History of Present Illness History of Present Illness: The patient is a 70-year-old woman with past history of CKD stage V secondary to diabetic kidney disease. The patient is followed by my partner, Dr. Avila, our [place] office. The patient was last seen in the office on 10/05/2020. The patient was sent in from wound clinic because of altered mental status. Patient was found to have a creatinine of 5.66 mg/dL, estimated GFR 8 mL/min. Her serum creatinine was 4.37 g/dL in May 2020. The patient denies current chest pain or shortness of breath. She does have increasing edema of the lower extremity. She has occasional hallucination, and she has been more fatigued recently. Appetite has been poor, and she complains of dysgeusia. Serum albumin is low at 2.7 g/dL. The patient complains of bilateral feet pain. She has heel ulcer which is being followed by the wound center. - Allergies Allergies: Allergies Penicillins Allergy (Verified 10/04/20 10:10) Rash - Current Medications Current Medications: Current Medications Acetaminophen (Acetaminophen 325 Mg Tablet) 650 mg PO Q6H PRN PRN PRN Reason: Pain 1-10 or Fever Last Admin: 12/29/20 04:22 Dose: 650 mg Documented by: Albuterol Sulfate (Albuterol 2.5 Mg/3 Ml Vial.Neb.) 2.5 mg INHALATION Q4H PRN PRN PRN Reason: sob/wheezing Last Admin: 12/28/20 17:47 Dose: 2.5 mg Documented by: Collagenase (Collagenase 30gm Tube) 1 applic TOPICAL DAILY HUI; Protocol Last Admin: 12/29/20 08:57 Dose: 1 applic Documented by: Dextrose (Dextrose 50%-Water 25 Gm/50 Ml Disp.Syrin) 0 gm IV X1 PRN; Protocol PRN Reason: Hypoglycemia Glucagon (Glucagon 1 Mg/Ml Syringe) 1 mg IM .X1 PRN PRN Reason: Hypoglycemia Heparin Sodium (Porcine) (Heparin Injection (Vial) 5,000 Unit/Ml Vial) 5,000 unit SC Q8 HUI Last Admin: 12/29/20 04:29 Dose: 5,000 unit Documented by: Hydralazine HCl (Hydralazine 50 Mg Tablet) 50 mg PO TID [facility] Last Admin: 12/29/20 04:29 Dose: 50 mg Documented by: Sodium Chloride () 250 mls @ 15 mls/hr IV .[id number] PRN PRN Reason: Saline Flush Sodium Chloride () 250 mls @ 15 mls/hr IV .[id number] PRN PRN Reason: Additional IVPB Infusion Insulin Human Lispro (Insulin Lispro 100 Unit/Ml Insuln.Pen) 0 unit SC ACHS [facility]; Protocol Last Admin: 12/29/20 06:40 Dose: Not Given Documented by: Ondansetron HCl (Ondansetron 4 Mg/2 Ml Vial) 4 mg IV Q8H PRN PRN PRN Reason: NAUSEA/VOMITING Oxycodone HCl (Oxycodone 5 Mg Tablet) 5 mg PO Q4H PRN PRN PRN Reason: Pain Score 6-10 Last Admin: 12/29/20 08:52 Dose: 5 mg Documented by: Sertraline HCl (Sertraline 50 Mg Tablet) 25 mg PO DAILY [facility] Last Admin: 12/29/20 08:52 Dose: 25 mg Documented by: Sodium Chloride (0.9% Saline Lock 10 Ml Syringe) 10 - 40 ml IV UD PRN PRN Reason: SALINE FLUSH - Past Medical History Past Medical History (Chronic Problems): Chronic Problems PVD (peripheral vascular disease) (Chronic) severe BL LE's Anemia of chronic renal failure, stage 5 (Chronic) Anxiety and depression (Chronic) Left ventricular hypertrophy (Chronic) Severe Left atrial enlargement (Chronic) Pulmonary hypertension (Chronic) Noncompliance (Chronic) with medications, with physician follow up and with diet Tobacco dependence in remission (Chronic) She quit smoking at 36 years of age Pressure ulcer of left heel, unstageable (Chronic) it is covered with an eschar and I can not stage at this time. Obesity (Chronic) Claudication (Chronic) BL LE's Diabetes mellitus (Chronic) Also with end-stage renal disease Artificial cardiac pacemaker (Chronic) Cardiac conduction disorder (Chronic) CHF (congestive heart failure) (Chronic) Hypertension (Chronic) Chronic renal insufficiency (Chronic) - Past Surgical History Surgical History: cholecystectomy, pacemaker implantation - [employer], - - Social History Smoking Status: Former smoker Alcohol: None Drugs: None - Family History Paternal History Items: Heart Disease Maternal History Items: Diabetes Review of Systems Constitutional: Reports: Anorexia. Denies: Chills, Fever Eyes: Denies: Blurred vision, Pain, Redness, Vision Change HEENT: Denies: Head Aches, Sinus Congestion, Sinus Drainage Cardiovascular: Reports: Edema. Denies: Chest Pain, Palpitations, Syncope Respiratory: Denies: Cough, Shortness of breath at rest, Sputum production Gastrointestinal: Reports: -. Denies: Abdominal Pain, Vomiting Genitourinary: Denies: Dysuria, Frequency, Incontinence Musculoskeletal: Reports: Foot Pain. Denies: Joint Pain, Joint Tenderness Skin: Reports: Wounds - Bilateral heel wound. Denies: Rash Neurological: Denies: Numbness, Tingling, Focal weakness Psychiatric: Reports: Anxiety. Denies: Homicidal Ideations, Suicidal Ideations Hematologic/ Lymphatic: Denies: Easy Bruising, Easy Bleeding - Physical Exam Vitals/I&O's: Vital Signs Temp Pulse Resp BP Pulse Ox 97.9 F 70 18 153/80 H 93 12/29/20 08:59 12/29/20 08:59 12/29/20 08:59 12/29/20 08:59 12/29/20 08:59 Oxygen Delivery Method Room Air Weight: 75 kg Body Mass Index (BMI) 37.0 Finger Stick Blood Glucose 14 Intake and Output for Last 24 Hours 12/27/20 12/28/20 12/29/20 23:59 23:59 23:59 Intake Total 560 / 560 320 / 320 Output Total 0 / 0 Balance 560 / 560 320 / 320 General: Alert, Oriented x3, Cooperative HEENT: Atraumatic, PERRLA, EOMI, Normocephalic Oral: Moist Mucosa Neck: Supple Lungs: Clear to auscultation Cardiovascular: Regular rate, Regular Rhythm, Normal S1, Normal S2 Abdomen: Bowel Sounds Present, Soft, Non Tender, Non-Distended Extremities: No clubbing, No cyanosis, No edema Skin: Ulcer/ Wound Musculoskeletal: Tenderness - Lower extremity at feet bilaterally Neurological: Cranial nerves II-XII grossly intact Psych/Mental Status: Normal Affect Laboratory Results 12/28/20 11:38: WBC 10.6, RBC 2.88 L, Hgb 7.9 L, Hct 26.5 L, MCV 92.0, MCH 27.4, MCHC 29.8 L, RDW Std Deviation 55.3 H, RDW Coeff of Robyn 16.2 H, Plt Count 236, MPV 10.3 12/28/20 11:38: Sodium 135 L, Potassium 4.8, Chloride 107, Carbon Dioxide 21.0, Anion Gap 7, BUN 84 H, Creatinine 5.46 H, Estim Creat Clear Calc 11.68, Est GFR (MDRD) Af Amer 10 L, Est GFR (MDRD) Non-Af 8 L, BUN/Creatinine Ratio 15.4, Glucose 225 H, Calcium 8.4 L, Total Bilirubin 0.40, AST 8 L, ALT 14, Alkaline Phosphatase 52, Total Protein 6.8, Albumin 2.7 L, Globulin 4.1, Albumin/Globulin Ratio 0.7 L 12/28/20 12:32: POC Glucose 224 H 12/28/20 16:11: POC Glucose 204 H 12/28/20 21:54: POC Glucose 143 H 12/28/20 : Urine Color Yellow, Urine Clarity Clear, Urine pH 5.0, Ur Specific [place] 1.020, Urine Protein 500 H, Urine Glucose (UA) 100 H, Urine Ketones Negative, Urine Occult Blood Negative, Urine Nitrite Negative, Urine Bilirubin Negative, Urine Urobilinogen Normal, Ur Leukocyte Esterase 100 H, Urine RBC 0-5 SEEN, Urine WBC 5-10 SEEN, Ur Squamous Epith Cells 0-5 SEEN, Urine Bacteria 1+, Urine Mucus 0 SEEN 12/29/20 06:10: Hep B Core Total Ab Pending 12/29/20 06:10: Hep Bs Antigen Pending 12/29/20 06:20: WBC 9.4, RBC 2.81 L, Hgb 7.6 L, Hct 26.4 L, MCV 94.0, MCH 27.0, MCHC 28.8 L, RDW Std Deviation 57.0 H, RDW Coeff of Robyn 16.3 H, Plt Count 261, MPV 10.1, Immature Gran % (Auto) 0.200, Neut % (Auto) 75.0 H, Lymph % (Auto) 12.9 L, [place] % (Auto) 10.1 H, Eos % (Auto) 1.5, Baso % (Auto) 0.3, Absolute Neuts (auto) 7.0, Absolute Lymphs (auto) 1.21, Nucleated RBC % 0 12/29/20 06:20: Sodium 137, Potassium 4.8, Chloride 105, Carbon Dioxide 20.0 L, Anion Gap 12, BUN 85 H, Creatinine 5.66 H, Estim Creat Clear Calc 11.26, Est GFR (MDRD) Af Amer 10 L, Est GFR (MDRD) Non-Af 8 L, BUN/Creatinine Ratio 15.0, Glucose 129 H, Calcium 7.9 L, Total Bilirubin 0.30, AST 10 L, ALT 13, Alkaline Phosphatase 55, Total Protein 6.4, Albumin 2.7 L, Globulin 3.7, Albumin/Globulin Ratio 0.7 L 12/29/20 06:37: POC Glucose 125 H Current Medications Acetaminophen (Acetaminophen 325 Mg Tablet) 650 mg PO Q6H PRN PRN PRN Reason: Pain 1-10 or Fever Last Admin: 12/29/20 04:22 Dose: 650 mg Documented by: Albuterol Sulfate (Albuterol 2.5 Mg/3 Ml Vial.Neb.) 2.5 mg INHALATION Q4H PRN PRN PRN Reason: sob/wheezing Last Admin: 12/28/20 17:47 Dose: 2.5 mg Documented by: Collagenase (Collagenase 30gm Tube) 1 applic TOPICAL DAILY HUI; Protocol Last Admin: 12/29/20 08:57 Dose: 1 applic Documented by: Dextrose (Dextrose 50%-Water 25 Gm/50 Ml Disp.Syrin) 0 gm IV X1 PRN; Protocol PRN Reason: Hypoglycemia Glucagon (Glucagon 1 Mg/Ml Syringe) 1 mg IM .X1 PRN PRN Reason: Hypoglycemia Heparin Sodium (Porcine) (Heparin Injection (Vial) 5,000 Unit/Ml Vial) 5,000 unit SC Q8 HUI Last Admin: 12/29/20 04:29 Dose: 5,000 unit Documented by: Hydralazine HCl (Hydralazine 50 Mg Tablet) 50 mg PO TID HUI Last Admin: 12/29/20 04:29 Dose: 50 mg Documented by: Sodium Chloride () 250 mls @ 15 mls/hr IV .[id number] PRN PRN Reason: Saline Flush Sodium Chloride () 250 mls @ 15 mls/hr IV .[id number] PRN PRN Reason: Additional IVPB Infusion Insulin Human Lispro (Insulin Lispro 100 Unit/Ml Insuln.Pen) 0 unit SC ACHS [facility]; Protocol Last Admin: 12/29/20 06:40 Dose: Not Given Documented by: Ondansetron HCl (Ondansetron 4 Mg/2 Ml Vial) 4 mg IV Q8H PRN PRN PRN Reason: NAUSEA/VOMITING Oxycodone HCl (Oxycodone 5 Mg Tablet) 5 mg PO Q4H PRN PRN PRN Reason: Pain Score 6-10 Last Admin: 12/29/20 08:52 Dose: 5 mg Documented by: Sertraline HCl (Sertraline 50 Mg Tablet) 25 mg PO DAILY [facility] Last Admin: 12/29/20 08:52 Dose: 25 mg Documented by: Sodium Chloride (0.9% Saline Lock 10 Ml Syringe) 10 - 40 ml IV UD PRN PRN Reason: SALINE FLUSH Assessment/Plan All Active Problems Tinea pedis (Resolved) Blisters of multiple sites (Acute) End stage renal disease (Acute) Acute respiratory failure with hypoxia (Resolved) Community acquired pneumonia (Resolved) Leukocytosis (Resolved) 1. ESRD. The patient has been losing her renal function over time for the past few years. Her creatinine has increased from 4.7 in May 2020 up to 5.66 mg/dL today. The patient is displaying signs of uremia such as dysgeusia, fatigue and anorexia. Her serum albumin is already low at 2.7 g/dL. Therefore, we should start hemodialysis to prevent further symptoms of uremia and to prevent malnutrition. I will ask surgery to place tunneled dialysis catheter as her right upper arm AV fistula has thrombosed. We will be working on outpatient dialysis placement, hopefully at [facility]. 2. Anemia in chronic kidney disease. We will check iron stores. If iron is adequate, I will start the patient on EZEQUIEL with dialysis. 3. Hypertension. Goal blood pressure is less than 140/90 eventually. She is on hydralazine only at this point. We will see what her blood pressure is after dialysis. If further antihypertensive is needed, we can start the patient on CHET inhibitor now that she is on dialysis. 4. CKD?mineral bone disease. Corrected calcium level is 8.9 mg/dL. I will check phosphorus level tomorrow to see whether she will need phosphorus binders. We will check PTH as outpatient.
--- NOTE | 2020-12-29 10:08 | CASEMGMT ---
Addendum entered by Paige Gilbert 12/29/20 13:34: This RN CM received a call back from Gloria Ganga at [facility] [phone] and she states that they are not in-network with [facility] but she is willing to speak with pt if she would like to speak with her about options for changing insurance to be in-network. renal care in [place] [phone] is closest facility and pt is updated, voices understanding. Pt does state she thinks she need SNF at discharge. Pt would like referral faxed to renal care and SW is working on SNF's closer to [place]. Pt does state that family is here in [place] and pt is aware that she can use [id number] for transportation. Referral faxed to renal care and CM to follow. Pt does answer all questions appropriately at this time but does fall back to sleep when not stimulated verbally. Cristiana LE CM Original Note: Per Dr. Nunez, nephro, pt to have tunnel cath placed and needs set up for OP HD for ESRD. Per [facility] website, the only in-network OP dialysis center is [facility] in [place]. This RN CM placed call to [facility] provider line and per Yohana, she states that is the closest in-network dialysis center and is aware that it's 20 miles away. Per Yohana at [facility], pt can just utilize [id number]. REF# for call [phone] Per [address] Jones, pt is likely going to need SNF placement at discharge. Dr. Nunez updated on all and placed call to [facility] at this time. CM to follow. Ilda READ updated on all, voices understanding. Cristiana LE CM
[2020-12-29 10:46] LABS: Hepatitis B Surface Antigen Non-Reactive (Nonreactive)
--- NOTE | 2020-12-29 10:54 | CASEMGMT ---
SW received a voice mail from [employer] with [employer]. She said patient is active with them and her telehealth case manager is Yudelka Harrell. Patient has aide services M,W, and F through [facility] and she gets meals delivered from [employer]. Margie Perez TEXTILE FINISHER NARCISO
[2020-12-29 11:10] LABS: Bedside Glucose 148 mg/dL (70-110)
--- NOTE | 2020-12-29 11:17 | PCM.PN.HOSP ---
Subjective: Doing well overnight, no new issues. She is complaining of mild pain of her lower extremities and she was started on oxycodone. Vitals/I&O's: Vital Signs Temp Pulse Resp BP Pulse Ox 97.9 F 70 18 153/80 H 93 12/29/20 08:59 12/29/20 08:59 12/29/20 08:59 12/29/20 08:59 12/29/20 08:59 Oxygen Delivery Method Room Air Weight: 165 lb 5.547 oz Body Mass Index (BMI) 37.0 Finger Stick Blood Glucose 14 Intake and Output for Last 24 Hours 12/27/20 12/28/20 12/29/20 23:59 23:59 23:59 Intake Total 560 / 560 320 / 320 Output Total 0 / 0 Balance 560 / 560 320 / 320 General: Alert, Oriented x3, Cooperative, No apparent distress HEENT: Atraumatic, PERRLA, EOMI, Normocephalic Oral: Moist Mucosa Neck: Supple, No JVD Lungs: Clear to auscultation, Normal air movement, No rhonchi, No wheeze, No rales, Diminished Cardiovascular: Regular rate, Regular Rhythm, Normal S1, Normal S2, No murmurs Abdomen: Soft, Non Tender, Non-Distended, No Hepato-splenomegaly Extremities: Capillary Refill Less than 3 Seconds, Edema Skin: No rashes, No breakdown, Ulcer/ Wound - Posterior heel wound on the left heel with an left anterior medial superficial wound, Skin Tear - Right medial ankle with an intact blister underneath Neurological: Neuro grossly intact, Sensory exam intact to light touch and pain Psych/Mental Status: Normal Affect, Appropriate Laboratory Results 12/28/20 11:38: WBC 10.6, RBC 2.88 L, Hgb 7.9 L, Hct 26.5 L, MCV 92.0, MCH 27.4, MCHC 29.8 L, RDW Std Deviation 55.3 H, RDW Coeff of Robyn 16.2 H, Plt Count 236, MPV 10.3 12/28/20 11:38: Sodium 135 L, Potassium 4.8, Chloride 107, Carbon Dioxide 21.0, Anion Gap 7, BUN 84 H, Creatinine 5.46 H, Estim Creat Clear Calc 11.68, Est GFR (MDRD) Af Amer 10 L, Est GFR (MDRD) Non-Af 8 L, BUN/Creatinine Ratio 15.4, Glucose 225 H, Calcium 8.4 L, Total Bilirubin 0.40, AST 8 L, ALT 14, Alkaline Phosphatase 52, Total Protein 6.8, Albumin 2.7 L, Globulin 4.1, Albumin/Globulin Ratio 0.7 L 12/28/20 12:32: POC Glucose 224 H 12/28/20 16:11: POC Glucose 204 H 12/28/20 21:54: POC Glucose 143 H 12/28/20 : Urine Color Yellow, Urine Clarity Clear, Urine pH 5.0, Ur Specific [place] 1.020, Urine Protein 500 H, Urine Glucose (UA) 100 H, Urine Ketones Negative, Urine Occult Blood Negative, Urine Nitrite Negative, Urine Bilirubin Negative, Urine Urobilinogen Normal, Ur Leukocyte Esterase 100 H, Urine RBC 0-5 SEEN, Urine WBC 5-10 SEEN, Ur Squamous Epith Cells 0-5 SEEN, Urine Bacteria 1+, Urine Mucus 0 SEEN 12/29/20 06:10: Hep B Core Total Ab Pending 12/29/20 06:10: Hep Bs Antigen Non-Reactive 12/29/20 06:20: WBC 9.4, RBC 2.81 L, Hgb 7.6 L, Hct 26.4 L, MCV 94.0, MCH 27.0, MCHC 28.8 L, RDW Std Deviation 57.0 H, RDW Coeff of Robyn 16.3 H, Plt Count 261, MPV 10.1, Immature Gran % (Auto) 0.200, Neut % (Auto) 75.0 H, Lymph % (Auto) 12.9 L, [place] % (Auto) 10.1 H, Eos % (Auto) 1.5, Baso % (Auto) 0.3, Absolute Neuts (auto) 7.0, Absolute Lymphs (auto) 1.21, Nucleated RBC % 0 12/29/20 06:20: Sodium 137, Potassium 4.8, Chloride 105, Carbon Dioxide 20.0 L, Anion Gap 12, BUN 85 H, Creatinine 5.66 H, Estim Creat Clear Calc 11.26, Est GFR (MDRD) Af Amer 10 L, Est GFR (MDRD) Non-Af 8 L, BUN/Creatinine Ratio 15.0, Glucose 129 H, Calcium 7.9 L, Total Bilirubin 0.30, AST 10 L, ALT 13, Alkaline Phosphatase 55, Total Protein 6.4, Albumin 2.7 L, Globulin 3.7, Albumin/Globulin Ratio 0.7 L 12/29/20 06:37: POC Glucose 125 H 12/29/20 11:05: POC Glucose 148 H Current Medications Acetaminophen (Acetaminophen 325 Mg Tablet) 650 mg PO Q6H PRN PRN PRN Reason: Pain 1-10 or Fever Last Admin: 12/29/20 11:08 Dose: 650 mg Documented by: Albuterol Sulfate (Albuterol 2.5 Mg/3 Ml Vial.Neb.) 2.5 mg INHALATION Q4H PRN PRN PRN Reason: sob/wheezing Last Admin: 12/28/20 17:47 Dose: 2.5 mg Documented by: Collagenase (Collagenase 30gm Tube) 1 applic TOPICAL DAILY [facility]; Protocol Last Admin: 12/29/20 08:57 Dose: 1 applic Documented by: Dextrose (Dextrose 50%-Water 25 Gm/50 Ml Disp.Syrin) 0 gm IV X1 PRN; Protocol PRN Reason: Hypoglycemia Glucagon (Glucagon 1 Mg/Ml Syringe) 1 mg IM .X1 PRN PRN Reason: Hypoglycemia Heparin Sodium (Porcine) (Heparin Injection (Vial) 5,000 Unit/Ml Vial) 5,000 unit SC Q8 HUI Last Admin: 12/29/20 04:29 Dose: 5,000 unit Documented by: Hydralazine HCl (Hydralazine 50 Mg Tablet) 50 mg PO TID HUI Last Admin: 12/29/20 04:29 Dose: 50 mg Documented by: Sodium Chloride () 250 mls @ 15 mls/hr IV .[id number] PRN PRN Reason: Saline Flush Sodium Chloride () 250 mls @ 15 mls/hr IV .[id number] PRN PRN Reason: Additional IVPB Infusion Insulin Human Lispro (Insulin Lispro 100 Unit/Ml Insuln.Pen) 0 unit SC ACHS [facility]; Protocol Last Admin: 12/29/20 06:40 Dose: Not Given Documented by: Ondansetron HCl (Ondansetron 4 Mg/2 Ml Vial) 4 mg IV Q8H PRN PRN PRN Reason: NAUSEA/VOMITING Oxycodone HCl (Oxycodone 5 Mg Tablet) 5 mg PO Q4H PRN PRN PRN Reason: Pain Score 6-10 Last Admin: 12/29/20 08:52 Dose: 5 mg Documented by: Sertraline HCl (Sertraline 50 Mg Tablet) 25 mg PO DAILY HUI Last Admin: 12/29/20 08:52 Dose: 25 mg Documented by: Sodium Chloride (0.9% Saline Lock 10 Ml Syringe) 10 - 40 ml IV UD PRN PRN Reason: SALINE FLUSH STROKE Vital Signs/Narrative: Vital Signs Temp Pulse Resp BP Pulse Ox 12/29/20 08:59 97.9 F 70 18 153/80 H 93 Medical Necessity - Tobacco Use Smoking Status: Former smoker Tobacco Use: Cigarettes Assessment/Plan All Active Problems Tinea pedis (Resolved) Blisters of multiple sites (Acute) End stage renal disease (Acute) Acute respiratory failure with hypoxia (Resolved) Community acquired pneumonia (Resolved) Leukocytosis (Resolved) 1. Bilateral lower extremity wounds with inability to complete ADLs -We will obtain wound wound care consult while here in the hospital, the wounds do look clean and she does not need antibiotics. She is afebrile without leukocytosis -We will consult PT/OT as well as case management for possible discharge planning and placement in a chcf facility if necessary -She does have ischemic issues, she did have a vascular study yesterday which demonstrated moderate impairment of the arterial flow at the ankle level bilaterally as well as severe impairment at the digital level bilaterally. -There is no evidence of DVTs bilaterally under Doppler yesterday either. 2. Acute on chronic end-stage renal disease/anemia of chronic disease -She denies any dark stools however will obtain a school stool sample -Plan for dialysis catheter today to initiate dialysis nephrology -She is uremic with an elevated BUN but she does not appear to be lethargic or confused -Most of her care is done in [place] however her creatinine in our system has steadily been rising since 2015 -States she still makes urine, however given the rise in her creatinine we will hold off on any Lasix at this time -Hemoglobin today 7.9, she averages around 9, will monitor and transfuse if necessary 3. HTN -Blood pressures currently are stable -Given her increase in her creatinine, will hold her Lasix, hydrochlorothiazide, losartan -Can continue with her hydralazine 4. DM 2 -We will place her on a sliding scale insulin -Accu-Cheks AC at bedtime, make adjustments as necessary 5. Anxiety/depression -Stable -Continue with Zoloft DVT: Heparin Inpatient E&M: 79211 Subs Hosp L2
--- NOTE | 2020-12-29 11:41 | CON.PCM_ITS ---
Problem List (1) Chronic renal insufficiency Status: Chronic Qualifiers: Chronic kidney disease stage: stage 5 Qualified Code(s): N18.5 - Chronic kidney disease, stage 5 Reason for Consult Date of Consultation: 12/29/20 Reason for Consultation: Need for tunneled dialysis catheter History of Present Illness: The patient is a 70 year old F here with lower extremity wounds and chronic kidney disease. The patient had a fistula in the past and now requires dialysis but the fistula has clotted off. Patient does not note any abdominal pain or upper extremity pain. Past Medical History Past Medical History (Chronic Problems): Chronic Problems PVD (peripheral vascular disease) (Chronic) severe BL LE's Anemia of chronic renal failure, stage 5 (Chronic) Anxiety and depression (Chronic) Left ventricular hypertrophy (Chronic) Severe Left atrial enlargement (Chronic) Pulmonary hypertension (Chronic) Noncompliance (Chronic) with medications, with physician follow up and with diet Tobacco dependence in remission (Chronic) She quit smoking at 36 years of age Pressure ulcer of left heel, unstageable (Chronic) it is covered with an eschar and I can not stage at this time. Obesity (Chronic) Claudication (Chronic) BL LE's Diabetes mellitus (Chronic) Also with end-stage renal disease Artificial cardiac pacemaker (Chronic) Cardiac conduction disorder (Chronic) CHF (congestive heart failure) (Chronic) Hypertension (Chronic) Chronic renal insufficiency (Chronic) Allergies Penicillins Allergy (Verified 10/04/20 10:10) Rash Home Medications: Ambulatory Orders Medication Instructions Recorded Losartan Potassium [Cozaar] 50 mg PO DAILY 04/06/15 Hydrochlorothiazide [Hctz] 12.5 mg PO DAILY #0 07/22/19 hydrALAZINE [Apresoline] 50 mg PO TID #120 tab 07/22/19 Albuterol Inhaler [Ventolin Hfa] 2 puff INHALATION Q4H PRN PRN #1 09/10/19 inhaler Insulin Aspart [Novolog Flexpen] 0 units SUBCUT TIDCM 09/10/19 Sertraline HCl 25 mg PO DAILY #30 tab 11/22/20 Gabapentin [Neurontin] 200 mg PO TIDCM #180 capsule 12/20/20 Furosemide [Lasix] 80 mg PO DAILY #30 tab 12/27/20 Surgical History: cholecystectomy, pacemaker implantation - [employer], - Smoking Status: Former smoker Tobacco Use: Cigarettes Alcohol: None Drugs: None - *Family History Paternal History Items: Heart Disease Maternal History Items: Diabetes Review of Systems Constitutional: Denies: Anorexia, Fever HEENT: Denies: Difficulty Hearing, Difficulty Swallowing Respiratory: Denies: Cough, Shortness of Breath Gastrointestinal: Denies: Abdominal Pain, Nausea, Vomiting Musculoskeletal: Reports: Foot Pain Skin: Denies: Jaundice Hematologic/ Lymphatic: Reports: Anemia - Physical Exam Vitals/I&O's: Vital Signs Temp Pulse Resp BP Pulse Ox 97.9 F 70 18 153/80 H 93 12/29/20 08:59 12/29/20 08:59 12/29/20 08:59 12/29/20 08:59 12/29/20 08:59 Oxygen Delivery Method Room Air Weight: 165 lb 5.547 oz Body Mass Index (BMI) 37.0 Finger Stick Blood Glucose 14 Intake and Output for Last 24 Hours 12/27/20 12/28/20 12/29/20 23:59 23:59 23:59 Intake Total 560 / 560 320 / 320 Output Total 0 / 0 Balance 560 / 560 320 / 320 General: Alert, Cooperative HEENT: Atraumatic Neck: No JVD Lungs: Normal air movement Cardiovascular: Regular rate, Regular Rhythm Abdomen: Soft, Non Tender, Non-Distended Extremities: No clubbing, - - Lower extremity wounds of both feet Skin: No rashes Musculoskeletal: No Tenderness to Palpation of Joints or Extremities Laboratory Results 12/28/20 11:38: WBC 10.6, RBC 2.88 L, Hgb 7.9 L, Hct 26.5 L, MCV 92.0, MCH 27.4, MCHC 29.8 L, RDW Std Deviation 55.3 H, RDW Coeff of Robyn 16.2 H, Plt Count 236, MPV 10.3 12/28/20 11:38: Sodium 135 L, Potassium 4.8, Chloride 107, Carbon Dioxide 21.0, Anion Gap 7, BUN 84 H, Creatinine 5.46 H, Estim Creat Clear Calc 11.68, Est GFR (MDRD) Af Amer 10 L, Est GFR (MDRD) Non-Af 8 L, BUN/Creatinine Ratio 15.4, Glucose 225 H, Calcium 8.4 L, Total Bilirubin 0.40, AST 8 L, ALT 14, Alkaline Phosphatase 52, Total Protein 6.8, Albumin 2.7 L, Globulin 4.1, Albumin/Globulin Ratio 0.7 L 12/28/20 12:32: POC Glucose 224 H 12/28/20 16:11: POC Glucose 204 H 12/28/20 21:54: POC Glucose 143 H 12/28/20 : Urine Color Yellow, Urine Clarity Clear, Urine pH 5.0, Ur Specific [place] 1.020, Urine Protein 500 H, Urine Glucose (UA) 100 H, Urine Ketones Negative, Urine Occult Blood Negative, Urine Nitrite Negative, Urine Bilirubin Negative, Urine Urobilinogen Normal, Ur Leukocyte Esterase 100 H, Urine RBC 0-5 SEEN, Urine WBC 5-10 SEEN, Ur Squamous Epith Cells 0-5 SEEN, Urine Bacteria 1+, Urine Mucus 0 SEEN 12/29/20 06:10: Hep B Core Total Ab Pending 12/29/20 06:10: Hep Bs Antigen Non-Reactive 12/29/20 06:20: WBC 9.4, RBC 2.81 L, Hgb 7.6 L, Hct 26.4 L, MCV 94.0, MCH 27.0, MCHC 28.8 L, RDW Std Deviation 57.0 H, RDW Coeff of Robyn 16.3 H, Plt Count 261, MPV 10.1, Immature Gran % (Auto) 0.200, Neut % (Auto) 75.0 H, Lymph % (Auto) 12.9 L, [place] % (Auto) 10.1 H, Eos % (Auto) 1.5, Baso % (Auto) 0.3, Absolute Neuts (auto) 7.0, Absolute Lymphs (auto) 1.21, Nucleated RBC % 0 12/29/20 06:20: Sodium 137, Potassium 4.8, Chloride 105, Carbon Dioxide 20.0 L, Anion Gap 12, BUN 85 H, Creatinine 5.66 H, Estim Creat Clear Calc 11.26, Est GFR (MDRD) Af Amer 10 L, Est GFR (MDRD) Non-Af 8 L, BUN/Creatinine Ratio 15.0, Glucose 129 H, Calcium 7.9 L, Total Bilirubin 0.30, AST 10 L, ALT 13, Alkaline Phosphatase 55, Total Protein 6.4, Albumin 2.7 L, Globulin 3.7, Albumin/Globulin Ratio 0.7 L 12/29/20 06:37: POC Glucose 125 H 12/29/20 11:05: POC Glucose 148 H Current Medications Acetaminophen (Acetaminophen 325 Mg Tablet) 650 mg PO Q6H PRN PRN PRN Reason: Pain 1-10 or Fever Last Admin: 12/29/20 11:08 Dose: 650 mg Documented by: Albuterol Sulfate (Albuterol 2.5 Mg/3 Ml Vial.Neb.) 2.5 mg INHALATION Q4H PRN PRN PRN Reason: sob/wheezing Last Admin: 12/28/20 17:47 Dose: 2.5 mg Documented by: Collagenase (Collagenase 30gm Tube) 1 applic TOPICAL DAILY [facility]; Protocol Last Admin: 12/29/20 08:57 Dose: 1 applic Documented by: Dextrose (Dextrose 50%-Water 25 Gm/50 Ml Disp.Syrin) 0 gm IV X1 PRN; Protocol PRN Reason: Hypoglycemia Glucagon (Glucagon 1 Mg/Ml Syringe) 1 mg IM .X1 PRN PRN Reason: Hypoglycemia Heparin Sodium (Porcine) (Heparin Injection (Vial) 5,000 Unit/Ml Vial) 5,000 unit SC Q8 HUI Last Admin: 12/29/20 04:29 Dose: 5,000 unit Documented by: Hydralazine HCl (Hydralazine 50 Mg Tablet) 50 mg PO TID [facility] Last Admin: 12/29/20 04:29 Dose: 50 mg Documented by: Sodium Chloride () 250 mls @ 15 mls/hr IV .[id number] PRN PRN Reason: Saline Flush Sodium Chloride () 250 mls @ 15 mls/hr IV .[id number] PRN PRN Reason: Additional IVPB Infusion Insulin Human Lispro (Insulin Lispro 100 Unit/Ml Insuln.Pen) 0 unit SC ACHS [facility]; Protocol Last Admin: 12/29/20 11:26 Dose: Not Given Documented by: Ondansetron HCl (Ondansetron 4 Mg/2 Ml Vial) 4 mg IV Q8H PRN PRN PRN Reason: NAUSEA/VOMITING Oxycodone HCl (Oxycodone 5 Mg Tablet) 5 mg PO Q4H PRN PRN PRN Reason: Pain Score 6-10 Last Admin: 12/29/20 08:52 Dose: 5 mg Documented by: Sertraline HCl (Sertraline 50 Mg Tablet) 25 mg PO DAILY [facility] Last Admin: 12/29/20 08:52 Dose: 25 mg Documented by: Sodium Chloride (0.9% Saline Lock 10 Ml Syringe) 10 - 40 ml IV UD PRN PRN Reason: SALINE FLUSH Assessment/Plan All Active Problems Tinea pedis (Resolved) Blisters of multiple sites (Acute) End stage renal disease (Acute) Acute respiratory failure with hypoxia (Resolved) Community acquired pneumonia (Resolved) Leukocytosis (Resolved) 70-year-old female with chronic kidney disease 1. I was consulted by nephrology for placement of a tunneled dialysis catheter. I discussed this with the patient in detail. I discussed the risks including but not limited to bleeding, infection, pneumothorax, line infection or DVT. The patient understands the risks and is when to proceed. I have made her n.p.o. after midnight and held her heparin and ordered a Covid test. Plan for tunneled dialysis catheter on the right side utilizing right IJ tomorrow morning at 1045. Benji Clayton MD Pager: [facility] [address] [place] [address] [address] [place] [address] Office:
--- NOTE | 2020-12-29 12:24 | CASEMGMT ---
SW met with patient, introduced self and role at [facility]. SW spoke with patient about a discharge plan. She was sleepy and could barely stay awake. SW told her it sounds like she is going to need to go to a group home facility at discharge. She nodded her head. SW provided patient with a list of SNF providers including quality and resource use data and consistent with the patient?s preferred geographic region, medical needs, and insurance network. SW told patient that the facilities that are highlighted in pink are the ones she has to choose from. SW told her SW will follow up with her tomorrow. Plan: Likely SNF. SW to talk with patient again about her SNF choices. Margie Perez MEDICAL SCRIBE NARCISO
--- NOTE | 2020-12-29 14:00 | CASEMGMT ---
The closest dialysis center that is in network with patient's insurance is [facility] in [place]. They are not located in any nursing homes. JACEK printed a list of SNF's from Medicare's website that are in network with patient's insurance and are close to the dialysis facility. JACEK also called a couple local facilities to see if they would consider a patient that would have to go back and forth to dialysis in [place]. Two facilities said they would consider it. SW will talk with patient when she is more awake about what she would like to do. Plan: Likely placement. However, there are some kinks that need to be worked out regarding which SNF and dialysis. Margie Perez OPEN SOURCE DEVELOPER NARCISO
--- NOTE | 2020-12-29 15:57 | CHAPLAIN ---
Type of Pastoral Visit _x__ Initial Visit ___ Follow-up Visit ___ On-call Visit ___ General Patient Visit ___ Spiritual Assessment ___ Family Conference ___ Bereavement ___ Rapid Response ___ Code Blue ___ Other (describe below) Pastoral Care Referral From ___ Patient ___ Family _x__ Nurse ___ Physician ___ Import Dispatcher ___ [place] Weaver ___ Other (describe below) Sacrament/Intervention ___ Active listening ___ Anointing ___ Mormon ___ Bereavement ___ Communion ___ Kaylie exploration ___ ___ Life review _x__ Prayer ___ Reconciliation ___ Sacrament of Sick _x__ Supportive presence ___ Wedding ___ Other (describe below) Pastoral Comments patient is awake but appears very sleepy; pt states that she just needs to sleep but would welcome a prayer; prayer given
[2020-12-29 16:40] LABS: Bedside Glucose 145 mg/dL (70-110)
[2020-12-29] MEDS: Insulin Lispro 100 UNIT/ML INSULN.PEN SC (21:59)
[2020-12-29 22:10] LABS: Bedside Glucose 174 mg/dL (70-110)
[2020-12-30] VITALS (22 sets, daily range): BP systolic 121–161; BP diastolic 51–81; PULSE 63–82; RESP 16–19; TEMP 36.2–37.3; O2SAT 92–94; BMI 37.0; BMI 37.1
[2020-12-30] MEDS: oxyCODONE 5 MG Tablet PO ×4 (02:27→19:43)
[2020-12-30] MEDS: Acetaminophen 325 MG Tablet 650 MG PO ×3 (02:28→19:42)
--- NOTE | 2020-12-30 05:55 | EKG12_ITS ---
Test Reason : AM EKG Blood Pressure : / mmHG Vent. Rate : 076 BPM Atrial Rate : 076 BPM P-R Int : 282 ms QRS Dur : 150 ms QT Int : 426 ms P-R-T Axes : 106 126 041 degrees QTc Int : 479 ms Suspect arm lead reversal, interpretation assumes no reversal Sinus rhythm with 1st degree A-V block with Premature atrial complexes Right bundle branch block Left posterior fascicular block Bifascicular block Abnormal ECG Confirmed by SUHAS MACIEL, DANNA ([id number]), editor managing newspaper CHIDI CASTELLANOS ([id number]) on 01/06/2021 3:08:39 PM Referred By: CHINMAY Confirmed By:DANNA DAI MD
[2020-12-30 06:07] LABS: Absolute Lymphocyte Count 1.15 X10^3/uL (0.83-4.51); Absolute Neutrophil Count 10.9 X10^3/uL (2.0-7.7); Basophil# 0.03 X10^3/uL; Basophil% 0.2 % (0-1); Eosinophil# 0.12 X10^3/uL; Eosinophils% 0.9 % (0-5); Hematocrit 26.8 % (37-47); Hemoglobin 7.9 g/dL (12.0-15.0); Lymphocyte # 1.15 X10^3/ul (4.0); Lymphocyte % 8.5 % (19-41); Mean Corp Hgb Conc 29.5 g/dL (32-36); Mean Corpuscular Hgb 27.2 pg (27.0-32.0); Mean Corpuscular Volume 92.4 fL (81-99); Mean Platelet Vol. 10.5 fl (6.2-12.0); Monocyte# 1.23 X10^3/uL; Monocyte% 9.1 % (0-10); NRBC Flagged by Analyzer 0 % (0-5); Neutrophil # 10.91 X10^3/uL (2.7-7.7); Neutrophil % 80.8 % (47-70); Platelet Count 280 K/mm3 (150-450); RBC Distribution Width CV 16.2 % (11.6-14.6); RBC Distribution Width SD 55.8 fl (35.1-43.9); White Blood Count 13.5 K/mm3 (4.4-11.0)
[2020-12-30 06:16] LABS: International Normalized Ratio 1.2; Prothrombin Time (Protime)PT. 14.5 SECONDS (11.7-14.9)
[2020-12-30 06:17] LABS: Partial Thromboplast Time 30.9 Seconds (24.1-36.2)
[2020-12-30 06:50] LABS: Bedside Glucose 149 mg/dL (70-110)
[2020-12-30 06:55] LABS: Albumin, Serum 2.8 g/dL (3.2-5.0); BUN 92 mg/dL (7-18); BUN/Creat Ratio 14.7 RATIO (10-20); Calcium,Total 8.3 mg/dL (8.5-10.1); Chloride 103 mmol/L (98-107); Creatinine, Serum 6.26 mg/dL (0.55-1.02); EST Glomerular Filtration Rate 7 mL/min (>60); Est Glom Filt Rate - Afr Amer 9 mL/min (>60); Estimated Creatinine Clearance 10.18 ml/min; Ferritin 75 ng/mL (8-252); Glucose 139 mg/dL (74-106); Iron 25 ug/dL (50-170); Iron Binding Capacity,Total 317 ug/dL (250-450); PERCENT IRON SATURATION 7.9 % (15.0-55.0); Phosphorus 8.4 mg/dL (2.5-4.9); Potassium 5.2 mmol/L (3.5-5.1); Sodium Level 132 mmol/L (136-145)
[2020-12-30] MEDS: hydrALAZINE 50 MG Tablet PO ×3 (07:31→21:23)
[2020-12-30 08:09] LABS: Hepatitis B Core Ab Total Negative (Negative)
--- NOTE | 2020-12-30 10:40 | PCM.PN.HOSP ---
Subjective: Plan for tunneled catheter today, no issues overnight. Vitals/I&O's: Vital Signs Temp Pulse Resp BP Pulse Ox 98.6 F 75 16 148/76 H 94 12/30/20 07:27 12/30/20 07:31 12/30/20 07:27 12/30/20 07:31 12/30/20 07:27 Oxygen Delivery Method Room Air Weight: 165 lb 5.547 oz Body Mass Index (BMI) 37.0 Finger Stick Blood Glucose 14 Intake and Output for Last 24 Hours 12/28/20 12/29/20 12/30/20 23:59 23:59 23:59 Intake Total 560 / 560 1320 / 1520 250 / 250 Output Total 300 / 300 Balance 560 / 560 1020 / 1220 250 / 250 General: Alert, Oriented x3, Cooperative, No apparent distress HEENT: Atraumatic, PERRLA, EOMI, Normocephalic Oral: Moist Mucosa Neck: Supple, No JVD Lungs: Clear to auscultation, Normal air movement, No rhonchi, No wheeze, No rales, Diminished Cardiovascular: Regular rate, Regular Rhythm, Normal S1, Normal S2, No murmurs Abdomen: Soft, Non Tender, Non-Distended, No Hepato-splenomegaly Extremities: Capillary Refill Less than 3 Seconds, Edema Skin: No rashes, No breakdown, Ulcer/ Wound - Posterior heel wound on the left heel with an left anterior medial superficial wound, Skin Tear - Right medial ankle with an intact blister underneath Neurological: Neuro grossly intact, Sensory exam intact to light touch and pain Psych/Mental Status: Normal Affect, Appropriate Microbiology Past 72 Hours 12/29/20 11:40 Mucosa - Nose SARS-CoV-2 Antigen (Rapid) - Final Laboratory Results 12/29/20 06:10: Hep B Core Total Ab Negative 12/29/20 06:10: Hep Bs Antigen Non-Reactive 12/29/20 11:05: POC Glucose 148 H 12/29/20 16:31: POC Glucose 145 H 12/29/20 21:57: POC Glucose 174 H 12/30/20 05:40: Sodium 132 L, Potassium 5.2 H, Chloride 103, Carbon Dioxide 18.0 L, BUN 92 H, Creatinine 6.26 H, Estim Creat Clear Calc 10.18, Est GFR (MDRD) Af Amer 9 L, Est GFR (MDRD) Non-Af 7 L, BUN/Creatinine Ratio 14.7, Glucose 139 H, Calcium 8.3 L, Phosphorus 8.4 H, Iron 25 L, TIBC 317, Iron Saturation 7.9 L, Ferritin 75, Albumin 2.8 L 12/30/20 05:40: WBC 13.5 H, RBC 2.90 L, Hgb 7.9 L, Hct 26.8 L, MCV 92.4, MCH 27.2, MCHC 29.5 L, RDW Std Deviation 55.8 H, RDW Coeff of Robyn 16.2 H, Plt Count 280, MPV 10.5, Immature Gran % (Auto) 0.500, Neut % (Auto) 80.8 H, Lymph % (Auto) 8.5 L, [place] % (Auto) 9.1, Eos % (Auto) 0.9, Baso % (Auto) 0.2, Absolute Neuts (auto) 10.9 H, Absolute Lymphs (auto) 1.15, Nucleated RBC % 0 12/30/20 05:40: PT 14.5, INR 1.2, APTT 30.9 12/30/20 06:47: POC Glucose 149 H Current Medications Acetaminophen (Acetaminophen 325 Mg Tablet) 650 mg PO Q6H PRN PRN PRN Reason: Pain 1-10 or Fever Last Admin: 12/30/20 02:28 Dose: 650 mg Documented by: Albuterol Sulfate (Albuterol 2.5 Mg/3 Ml Vial.Neb.) 2.5 mg INHALATION Q4H PRN PRN PRN Reason: sob/wheezing Last Admin: 12/28/20 17:47 Dose: 2.5 mg Documented by: Aspirin (Aspirin 81 Mg Tab.Chew) 81 mg PO DAILY@0800 [facility] Atorvastatin Calcium (Atorvastatin Calcium 40 Mg Tablet) 40 mg PO QHS [facility] Collagenase (Collagenase 30gm Tube) 1 applic TOPICAL DAILY [facility]; Protocol Last Admin: 12/29/20 08:57 Dose: 1 applic Documented by: Dextrose (Dextrose 50%-Water 25 Gm/50 Ml Disp.Syrin) 0 gm IV X1 PRN; Protocol PRN Reason: Hypoglycemia Glucagon (Glucagon 1 Mg/Ml Syringe) 1 mg IM .X1 PRN PRN Reason: Hypoglycemia Heparin Sodium (Porcine) (Heparin Injection (Vial) 5,000 Unit/Ml Vial) 5,000 unit SC Q8 [facility] Last Admin: 12/29/20 13:31 Dose: 5,000 unit Documented by: Hydralazine HCl (Hydralazine 50 Mg Tablet) 50 mg PO TID [facility] Last Admin: 12/30/20 07:31 Dose: 50 mg Documented by: Sodium Chloride () 250 mls @ 15 mls/hr IV .[id number] PRN PRN Reason: Saline Flush Sodium Chloride () 250 mls @ 15 mls/hr IV .[id number] PRN PRN Reason: Additional IVPB Infusion Clindamycin Phosphate 900 mg/ (Dextrose) 106 mls @ 150 mls/hr IV X1 ONE Stop: 12/30/20 10:50 Insulin Human Lispro (Insulin Lispro 100 Unit/Ml Insuln.Pen) 0 unit SC ACHS [facility]; Protocol Last Admin: 12/30/20 06:48 Dose: Not Given Documented by: Ondansetron HCl (Ondansetron 4 Mg/2 Ml Vial) 4 mg IV Q8H PRN PRN PRN Reason: NAUSEA/VOMITING Oxycodone HCl (Oxycodone 5 Mg Tablet) 5 mg PO Q4H PRN PRN PRN Reason: Pain Score 6-10 Last Admin: 12/30/20 07:31 Dose: 5 mg Documented by: Sertraline HCl (Sertraline 50 Mg Tablet) 25 mg PO DAILY [facility] Last Admin: 12/29/20 08:52 Dose: 25 mg Documented by: Sevelamer Carbonate (Sevelamer Carbonate 800 Mg Tablet) 1,600 mg PO TIDCM [facility] Last Admin: 12/30/20 08:15 Dose: Not Given Documented by: Sodium Chloride (0.9% Saline Lock 10 Ml Syringe) 10 - 40 ml IV UD PRN PRN Reason: SALINE FLUSH STROKE Vital Signs/Narrative: Vital Signs Temp Pulse Resp BP Pulse Ox 12/30/20 07:31 75 148/76 H 12/30/20 07:27 98.6 F 75 16 148/76 H 94 12/30/20 06:41 74 Medical Necessity - Tobacco Use Smoking Status: Former smoker Tobacco Use: Cigarettes Assessment/Plan All Active Problems Tinea pedis (Resolved) Blisters of multiple sites (Acute) End stage renal disease (Acute) Acute respiratory failure with hypoxia (Resolved) Community acquired pneumonia (Resolved) Leukocytosis (Resolved) 1. Bilateral lower extremity wounds with inability to complete ADLs/peripheral vascular disease -We will obtain wound wound care consult while here in the hospital, the wounds do look clean and she does not need antibiotics. She is afebrile without leukocytosis -We will consult PT/OT as well as case management for possible discharge planning and placement in a penitentiary facility if necessary -She does have ischemic issues, she did have a vascular study yesterday which demonstrated moderate impairment of the arterial flow at the ankle level bilaterally as well as severe impairment at the digital level bilaterally. -There is no evidence of DVTs bilaterally under Doppler yesterday either. -I discussed the case with Dr. Feliz who will see her as an outpatient -We will start her on aspirin and statins for her ABIs, she will also need to be instituted on an exercise program once her wounds are healed for her claudication 2. Acute on chronic end-stage renal disease/anemia of chronic disease with iron deficiency -She denies any dark stools however will obtain a school stool sample -Plan for dialysis catheter today to initiate dialysis nephrology -She is uremic with an elevated BUN but she does not appear to be lethargic or confused -Most of her care is done in [place] however her creatinine in our system has steadily been rising since 2015 -States she still makes urine, however given the rise in her creatinine we will hold off on any Lasix at this time -Hemoglobin today 7.9, she averages around 9, will monitor and transfuse if necessary -She is iron deficient and will start her iron replacement 3. HTN -Blood pressures currently are stable -Given her increase in her creatinine, will hold her Lasix, hydrochlorothiazide, losartan -Can continue with her hydralazine 4. DM 2 -We will place her on a sliding scale insulin -Accu-Cheks AC at bedtime, make adjustments as necessary 5. Anxiety/depression -Stable -Continue with Zoloft DVT: Heparin Inpatient E&M: [id number] Subs Hosp L2
[2020-12-30] MEDS: Lidocaine 1% /Epi 1:100 (20ml) 20 ML Vial (10:56)
[2020-12-30] MEDS: Heparin 10,000 UNITS/10 ML Vial 10000 UNITS (11:02)
--- NOTE | 2020-12-30 11:20 | CASEMGMT ---
Addendum entered by Paige Gilbert 12/30/20 13:02: [facility] fax# [phone]. Cristiana LE CM Original Note: Call to [facility] to check on referral and per rep, she is awaiting call back from their intake dept. She states she will then call this RN DREW back. Cristiana LE CM
--- NOTE | 2020-12-30 11:22 | RAD_ITS ---
STUDY: X-RAY CHEST REASON FOR EXAM: Female, 70 years old. Hemodialysis catheter placement. TECHNIQUE: Single AP portable view of the chest. COMPARISON: Comparison is made with prior study dated 05/20/2020. FINDINGS: A right-sided hemodialysis catheter in place with the tip at the junction of the superior vena cava and right atrium. EKG electrodes are seen. Small left pleural effusion with left basilar atelectasis and/or infiltrate. Blunting of the right costophrenic angle. Sternal cerclage wires are present from a prior sternotomy. Prior mitral valve placement. Left-sided dual-chamber pacemaker is seen. Normal mediastinum and zakiya. Normal visualized pulmonary arteries. There is atherosclerotic calcification of the aortic arch with tortuosity. There are degenerative changes of the visualized thoracic spine. Normal visualized ribs, clavicles, and shoulders. There is no demonstrated abnormality of the visualized soft tissue structures of the upper abdomen. RAD/CXR for Line Placement IMPRESSION: Small left pleural effusion with left basilar infiltration and/or atelectasis. The tip of the right-sided hemodialysis catheter is at the junction of the superior vena cava and right atrium. Electronically Signed: Jered Duque MD at 12:07 EDT , Service support ,
--- NOTE | 2020-12-30 11:23 | OP.PCM_ITS ---
Problem List (1) Chronic renal insufficiency Status: Chronic Qualifiers: Chronic kidney disease stage: stage 5 Qualified Code(s): N18.5 - Chronic kidney disease, stage 5 Report of Operation Date of Procedure: 12/30/20 Pre-Operative Diagnosis: Chronic kidney disease need for dialysis access Post-Operative Diagnosis: Same Surgery/Procedure Performed:: Ultrasound and fluoroscopy guided right tunneled temporary dialysis catheter placement utilizing right IJ Estimated Blood Loss (mL): 10 Description of Procedure: Patient was brought to the operating room and MAC anesthesia was used. The right neck and chest were prepped in usual sterile fashion. Ultrasound was used to localize the right IJ. Skin overlying the right IJ was anesthetized with local anesthetic. Skin overlying the right chest wall was also injected with local anesthetic. A small incision was made over the right neck and the right chest wall with scalpel. Using ultrasound guidance the right IJ was accessed with a needle and a guidewire was placed. Fluoroscopy confirmed the guidewire was in the superior vena cava. The needle was removed over the guidewire and serial dilators were placed over the guidewire under fluoroscopic guidance. Peel-away sheath was placed over the guidewire and the guidewire was removed. The peel-away sheath was capped. The catheter was then placed through the lower incision and tunneled under the skin to the superior incision. The tunneler was removed and the catheter was placed through the peel-away sheath. The peel-away sheath was then removed leaving the catheter in place. Placement was confirmed with fluoroscopy. The catheters were each drawn back and flushed. They both darlene and flushed easily. The upper skin incision was closed with interrupted 3- 0 Vicryl suture. The catheter was sutured to the skin using interrupted 3-0 nylon sutures. Both catheters were then injected with 1.6 cc of heparinized saline and then capped. Dressing was then applied. Patient was then taken to PACU in stable condition. She tolerated the procedure well. Grafts/Implants Used: Curved palindrome temporary dialysis catheter
[2020-12-30] MEDS: Sertraline 50 MG Tablet 25 MG PO (12:32)
[2020-12-30] MEDS: Collagenase 30gm Tube 1 APPLIC TOPICAL (12:33)
[2020-12-30 12:45] LABS: Bedside Glucose 131 mg/dL (70-110)
--- NOTE | 2020-12-30 15:08 | CASEMGMT ---
This RN CM has still not heard back from [facility]. Dr. Nunez to floor and states BÁRBARA from [facility] is calling him regarding pt at this time. This RN CM spoke with BÁRBARA Muller, and she states to submit referral to [facility] and they will work on getting a contract with [facility] as it is a hardship for pt to travel to [place] for OP dialysis. Pt is agreeable to all this at this time and states she would like to go to [facility] as this is close to home and where her physicians recommend. Referral placed in [facility] portal and faxed to [facility] and [facility] admissions. Call to [facility] to cancel referral with them, voice understanding. Yamilet READ updated, voices understanding. Aminah at [facility] aware of pt referral, voices understanding. Cristiana RN CM
--- NOTE | 2020-12-30 15:40 | PN.RENAL_ITS ---
Subjective: Following for ESRD. The patient is status post right IJ tunneled dialysis catheter placement. She is sleepy but awakens with voice. The patient denies chest pain or shortness of breath. There is no nausea. - Physical Exam Vitals/I&O's: Vital Signs Temp Pulse Resp BP Pulse Ox 98.3 F 71 16 147/81 H 92 12/30/20 14:20 12/30/20 15:14 12/30/20 14:20 12/30/20 14:20 12/30/20 14:20 Oxygen Delivery Method Room Air Weight: 75 kg Body Mass Index (BMI) 37.0 Finger Stick Blood Glucose 14 Intake and Output for Last 24 Hours 12/28/20 12/29/20 12/30/20 23:59 23:59 23:59 Intake Total 560 / 560 1320 / 1520 406 / 406 Output Total 300 / 300 Balance 560 / 560 1020 / 1220 406 / 406 General: Alert, Oriented x3 HEENT: Atraumatic, Normocephalic Oral: Moist Mucosa Neck: Supple Lungs: Clear to auscultation - Anteriorly Cardiovascular: Normal S1, Normal S2, No murmurs Abdomen: Bowel Sounds Present, Soft, Non Tender Extremities: No edema Psych/Mental Status: Normal Affect Microbiology Past 72 Hours 12/29/20 11:40 Mucosa - Nose SARS-CoV-2 Antigen (Rapid) - Final Laboratory Results 12/29/20 06:10: Hep B Core Total Ab Negative 12/29/20 16:31: POC Glucose 145 H 12/29/20 21:57: POC Glucose 174 H 12/30/20 05:40: Sodium 132 L, Potassium 5.2 H, Chloride 103, Carbon Dioxide 18.0 L, BUN 92 H, Creatinine 6.26 H, Estim Creat Clear Calc 10.18, Est GFR (MDRD) Af Amer 9 L, Est GFR (MDRD) Non-Af 7 L, BUN/Creatinine Ratio 14.7, Glucose 139 H, Calcium 8.3 L, Phosphorus 8.4 H, Iron 25 L, TIBC 317, Iron Saturation 7.9 L, Ferritin 75, Albumin 2.8 L 12/30/20 05:40: WBC 13.5 H, RBC 2.90 L, Hgb 7.9 L, Hct 26.8 L, MCV 92.4, MCH 27.2, MCHC 29.5 L, RDW Std Deviation 55.8 H, RDW Coeff of Robyn 16.2 H, Plt Count 280, MPV 10.5, Immature Gran % (Auto) 0.500, Neut % (Auto) 80.8 H, Lymph % (Auto) 8.5 L, [place] % (Auto) 9.1, Eos % (Auto) 0.9, Baso % (Auto) 0.2, Absolute Neuts (auto) 10.9 H, Absolute Lymphs (auto) 1.15, Nucleated RBC % 0 12/30/20 05:40: PT 14.5, INR 1.2, APTT 30.9 12/30/20 06:47: POC Glucose 149 H 12/30/20 12:37: POC Glucose 131 H Current Medications Acetaminophen (Acetaminophen 325 Mg Tablet) 650 mg PO Q6H PRN PRN PRN Reason: Pain 1-10 or Fever Last Admin: 12/30/20 12:34 Dose: 650 mg Documented by: Albuterol Sulfate (Albuterol 2.5 Mg/3 Ml Vial.Neb.) 2.5 mg INHALATION Q4H PRN PRN PRN Reason: sob/wheezing Last Admin: 12/28/20 17:47 Dose: 2.5 mg Documented by: Aspirin (Aspirin 81 Mg Tab.Chew) 81 mg PO DAILY@0800 [facility] Atorvastatin Calcium (Atorvastatin Calcium 40 Mg Tablet) 40 mg PO QHS [facility]UI Collagenase (Collagenase 30gm Tube) 1 applic TOPICAL DAILY [facility]; Protocol Last Admin: 12/30/20 12:33 Dose: 1 applic Documented by: Dextrose (Dextrose 50%-Water 25 Gm/50 Ml Disp.Syrin) 0 gm IV X1 PRN; Protocol PRN Reason: Hypoglycemia Glucagon (Glucagon 1 Mg/Ml Syringe) 1 mg IM .X1 PRN PRN Reason: Hypoglycemia Heparin Sodium (Porcine) (Heparin Injection (Vial) 5,000 Unit/Ml Vial) 5,000 unit SC Q8 [facility] Last Admin: 12/29/20 13:31 Dose: 5,000 unit Documented by: Hydralazine HCl (Hydralazine 50 Mg Tablet) 50 mg PO TID [facility] Last Admin: 12/30/20 07:31 Dose: 50 mg Documented by: Sodium Chloride () 250 mls @ 15 mls/hr IV .[id number] PRN PRN Reason: Saline Flush Sodium Chloride () 250 mls @ 15 mls/hr IV .[id number] PRN PRN Reason: Additional IVPB Infusion Ferric Sodium Gluconate Complex 125 mg/ Sodium Chloride 110 mls @ 110 mls/hr IV DAILY [facility] Stop: 01/07/21 11:00 Insulin Human Lispro (Insulin Lispro 100 Unit/Ml Insuln.Pen) 0 unit SC ACHS [facility]; Protocol Last Admin: 12/30/20 11:10 Dose: Not Given Documented by: Ondansetron HCl (Ondansetron 4 Mg/2 Ml Vial) 4 mg IV Q8H PRN PRN PRN Reason: NAUSEA/VOMITING Oxycodone HCl (Oxycodone 5 Mg Tablet) 5 mg PO Q4H PRN PRN PRN Reason: Pain Score 6-10 Last Admin: 12/30/20 12:33 Dose: 5 mg Documented by: Sertraline HCl (Sertraline 50 Mg Tablet) 25 mg PO DAILY [facility] Last Admin: 12/30/20 12:32 Dose: 25 mg Documented by: Sevelamer Carbonate (Sevelamer Carbonate 800 Mg Tablet) 1,600 mg PO TIDCM [facility] Last Admin: 12/30/20 11:11 Dose: Not Given Documented by: Sodium Chloride (0.9% Saline Lock 10 Ml Syringe) 10 - 40 ml IV UD PRN PRN Reason: SALINE FLUSH Medical Necessity - Tobacco Use Smoking Status: Former smoker Tobacco Use: Cigarettes Assessment/Plan All Active Problems Tinea pedis (Resolved) Blisters of multiple sites (Acute) End stage renal disease (Acute) Acute respiratory failure with hypoxia (Resolved) Community acquired pneumonia (Resolved) Leukocytosis (Resolved) 1. ESRD. The patient has been losing her renal function over time for the past few years. Her creatinine has increased from 4.7 in May 2020 up to 6.26 mg/dL today. The patient is displaying signs of uremia such as dysgeusia, fatigue and anorexia. Her serum albumin is already low at 2.8 g/dL. Tunneled dialysis catheter has been placed by Dr. Clayton-appreciate his help. Start dialysis today. The patient was seen during dialysis. We are using blood flow of 250 and dialysate flow of 500. 2K dialysate will be used. Patient will be dialyzed for 2-1/2 hours today. Plan on dialysis again tomorrow and Saturday. Work on patient dialysis placement at [facility]. We are running into some problem with insurance coverage, but hopefully this will be worked out in the next few days. 2. Anemia in chronic kidney disease. Ferritin is only 75. Iron saturation is 7.9%. I will load her with 1 g of ferric gluconate IV over the next 8 days. Once the patient is iron loaded, we can start EZEQUIEL after that. If the patient is discharged before iron load is done, this can be continued at dialysis as well. Follow hemoglobin which is low but stable. 3. Hypertension. Goal blood pressure is less than 140/90 eventually. She is on hydralazine only at this point. We will see what her blood pressure is after dialysis. If further antihypertensive is needed, we can start the patient on CHET inhibitor now that she is on dialysis. 4. CKD?mineral bone disease. Calcium level is 8.3 and phosphorus level is 8.4. I will start the patient on sevelamer with meals. Goal is to get phosphorus level below 5.5. PTH will be checked at dialysis unit as outpatient.
[2020-12-30 16:45] LABS: Bedside Glucose 116 mg/dL (70-110)
--- NOTE | 2020-12-30 16:50 | CASEMGMT ---
Social Work SW met with pt to discuss SNF placement. Pt is agreeable to SNF placement and SW reviewed list of SNF's with pt that are in network with insurance. Pt preferred provider is [facility] [place]. Per JHONY Gibson [facility] can obtain a one time contract so pt can stay in [place] for Dialysis. Referral faxed to [facility]. Magui states they can accept pt as long as they can arrange for transport to dialysis. Magui will need notified when chair time is obtained so she can work out transport details. LORNA Cardozo
--- NOTE | 2020-12-30 17:11 | DIALYSIS ---
Hemodialysis x2.5 hours completed at 1645 on a 2K bath, first treatment, tolerated well, UF 500mL, accessed via new right chest tunneled dialysis catheter, worked well, circuit changed shelter through due to clotting of venous chamber, next tx planned for tomorrow
[2020-12-30] MEDS: SEVELAMER CARBONATE 800 MG TABLET 1600 MG PO (17:22)
[2020-12-30] MEDS: Atorvastatin Calcium 40 MG Tablet PO (21:24)
[2020-12-30 21:36] LABS: Bedside Glucose 125 mg/dL (70-110)
[2020-12-31] VITALS (12 sets, daily range): BP systolic 136–154; BP diastolic 54–79; PULSE 75–86; RESP 14–18; TEMP 37–38; O2SAT 91–95; BMI 37.1
[2020-12-31] MEDS: oxyCODONE 5 MG Tablet PO ×4 (01:55→22:10)
[2020-12-31] MEDS: Acetaminophen 325 MG Tablet 650 MG PO ×4 (01:55→22:42)
[2020-12-31 06:23] LABS: Absolute Lymphocyte Count 0.92 X10^3/uL (0.83-4.51); Absolute Neutrophil Count 8.8 X10^3/uL (2.0-7.7); Basophil# 0.03 X10^3/uL; Basophil% 0.3 % (0-1); Eosinophil# 0.13 X10^3/uL; Eosinophils% 1.1 % (0-5); Hematocrit 24.9 % (37-47); Hemoglobin 7.5 g/dL (12.0-15.0); Lymphocyte # 0.92 X10^3/ul (4.0); Mean Corp Hgb Conc 30.1 g/dL (32-36); Mean Corpuscular Hgb 27.3 pg (27.0-32.0); Mean Corpuscular Volume 90.5 fL (81-99); Mean Platelet Vol. 10.3 fl (6.2-12.0); Monocyte# 1.52 X10^3/uL; Monocyte% 13.3 % (0-10); NRBC Flagged by Analyzer 0 % (0-5); Neutrophil # 8.81 X10^3/uL (2.7-7.7); Neutrophil % 76.9 % (47-70); POSITIVE DIFFERENTIAL YES; Platelet Count 218 K/mm3 (150-450); RBC Distribution Width CV 16.2 % (11.6-14.6); RBC Distribution Width SD 53.3 fl (35.1-43.9); Red Blood Count 2.75 M/mm3 (4.2-5.4); White Blood Count 11.5 K/mm3 (4.4-11.0)
[2020-12-31] MEDS: hydrALAZINE 50 MG Tablet PO ×2 (06:32→22:11)
[2020-12-31 06:40] LABS: Bedside Glucose 133 mg/dL (70-110)
[2020-12-31 06:44] LABS: Differential Indicated SCAN CRITERIA MET
[2020-12-31 06:59] LABS: Anion Gap 8 (5-15); BUN 54 mg/dL (7-18); BUN/Creat Ratio 12.4 RATIO (10-20); Calcium,Total 8.1 mg/dL (8.5-10.1); Chloride 99 mmol/L (98-107); Creatinine, Serum 4.34 mg/dL (0.55-1.02); Differential Comment SCANNED; EST Glomerular Filtration Rate 11 mL/min (>60); Est Glom Filt Rate - Afr Amer 13 mL/min (>60); Estimated Creatinine Clearance 14.69 ml/min; Glucose 91 mg/dL (74-106); Potassium 4.1 mmol/L (3.5-5.1); Sodium Level 132 mmol/L (136-145)
--- NOTE | 2020-12-31 08:48 | PN.SURG_ITS ---
Subjective: Patient tolerated dialysis well yesterday. Tunneled dialysis catheter functioning well. - Physical Exam Vitals/I&O's: Vital Signs Temp Pulse Resp BP Pulse Ox 98.6 F 75 16 154/54 H 92 12/31/20 06:23 12/31/20 07:04 12/31/20 06:23 12/31/20 06:32 12/31/20 06:23 Oxygen Delivery Method Room Air Weight: 165 lb 5.547 oz Body Mass Index (BMI) 37.0 Finger Stick Blood Glucose 14 Intake and Output for Last 24 Hours 12/29/20 12/30/20 12/31/20 23:59 23:59 23:59 Intake Total 1320 / 1520 806 / 1006 300 / 300 Output Total 300 / 300 500 / 500 Balance 1020 / 1220 306 / 506 300 / 300 General: Alert, Oriented x3, Cooperative, No apparent distress Neck: - - Right tunneled dialysis catheter in place and dressed. Microbiology Past 72 Hours 12/29/20 11:40 Mucosa - Nose SARS-CoV-2 Antigen (Rapid) - Final Laboratory Results 12/30/20 12:37: POC Glucose 131 H 12/30/20 16:41: POC Glucose 116 H 12/30/20 21:12: POC Glucose 125 H 12/31/20 06:12: WBC 11.5 H, RBC 2.75 L, Hgb 7.5 L, Hct 24.9 L, MCV 90.5, MCH 27.3, MCHC 30.1 L, RDW Std Deviation 53.3 H, RDW Coeff of Robyn 16.2 H, Plt Count 218, MPV 10.3, Immature Gran % (Auto) 0.400, Neut % (Auto) 76.9 H, Lymph % (Auto) 8.0 L, [place] % (Auto) 13.3 H, Eos % (Auto) 1.1, Baso % (Auto) 0.3, Absolute Neuts (auto) 8.8 H, Absolute Lymphs (auto) 0.92, Nucleated RBC % 0, Differential Comment SCANNED, Diff Path Review January12/31/20 06:12: Sodium 132 L, Potassium 4.1, Chloride 99, Carbon Dioxide 25.0, Anion Gap 8, BUN 54 H, Creatinine 4.34 H, Estim Creat Clear Calc 14.69, Est GFR (MDRD) Af Amer 13 L, Est GFR (MDRD) Non-Af 11 L, BUN/Creatinine Ratio 12.4, Glucose 91, Calcium 8.1 L 12/31/20 06:28: POC Glucose 133 H Current Medications Acetaminophen (Acetaminophen 325 Mg Tablet) 650 mg PO Q6H PRN PRN PRN Reason: Pain 1-10 or Fever Last Admin: 12/31/20 01:55 Dose: 650 mg Documented by: Albuterol Sulfate (Albuterol 2.5 Mg/3 Ml Vial.Neb.) 2.5 mg INHALATION Q4H PRN PRN PRN Reason: sob/wheezing Last Admin: 12/28/20 17:47 Dose: 2.5 mg Documented by: Aspirin (Aspirin 81 Mg Tab.Chew) 81 mg PO DAILY@0800 REPLACED BY [facility] Atorvastatin Calcium (Atorvastatin Calcium 40 Mg Tablet) 40 mg PO QHS REPLACED BY [facility] Last Admin: 12/30/20 21:24 Dose: 40 mg Documented by: Collagenase (Collagenase 30gm Tube) 1 applic TOPICAL DAILY REPLACED BY [facility]; Protocol Last Admin: 12/30/20 12:33 Dose: 1 applic Documented by: Dextrose (Dextrose 50%-Water 25 Gm/50 Ml Disp.Syrin) 0 gm IV X1 PRN; Protocol PRN Reason: Hypoglycemia Glucagon (Glucagon 1 Mg/Ml Syringe) 1 mg IM .X1 PRN PRN Reason: Hypoglycemia Heparin Sodium (Porcine) (Heparin Injection (Vial) 5,000 Unit/Ml Vial) 5,000 unit SC Q8 [facility] Last Admin: 12/29/20 13:31 Dose: 5,000 unit Documented by: Heparin Sodium (Porcine) (Heparin 10,000 Units/10 Ml Vial) 3,500 units IV X1 PRN PRN Reason: at start of dialysis treatment Hydralazine HCl (Hydralazine 50 Mg Tablet) 50 mg PO TID REPLACED BY [facility] Last Admin: 12/31/20 06:32 Dose: 50 mg Documented by: Sodium Chloride () 250 mls @ 15 mls/hr IV .[id number] PRN PRN Reason: Saline Flush Sodium Chloride () 250 mls @ 15 mls/hr IV .[id number] PRN PRN Reason: Additional IVPB Infusion Ferric Sodium Gluconate Complex 125 mg/ Sodium Chloride 110 mls @ 110 mls/hr IV DAILY REPLACED BY [facility] Stop: 01/07/21 11:00 Insulin Human Lispro (Insulin Lispro 100 Unit/Ml Insuln.Pen) 0 unit SC ACHS REPLACED BY [facility]; Protocol Last Admin: 12/31/20 06:33 Dose: Not Given Documented by: Ondansetron HCl (Ondansetron 4 Mg/2 Ml Vial) 4 mg IV Q8H PRN PRN PRN Reason: NAUSEA/VOMITING Oxycodone HCl (Oxycodone 5 Mg Tablet) 5 mg PO Q4H PRN PRN PRN Reason: Pain Score 6-10 Last Admin: 12/31/20 01:55 Dose: 5 mg Documented by: Sertraline HCl (Sertraline 50 Mg Tablet) 25 mg PO DAILY REPLACED BY [facility] Last Admin: 12/30/20 12:32 Dose: 25 mg Documented by: Sevelamer Carbonate (Sevelamer Carbonate 800 Mg Tablet) 1,600 mg PO TIDCM REPLACED BY [facility] Last Admin: 12/30/20 17:22 Dose: 1,600 mg Documented by: Sodium Chloride (0.9% Saline Lock 10 Ml Syringe) 10 - 40 ml IV UD PRN PRN Reason: SALINE FLUSH Medical Necessity - Tobacco Use Smoking Status: Former smoker Tobacco Use: Cigarettes Assessment/Plan All Active Problems Tinea pedis (Resolved) Blisters of multiple sites (Acute) End stage renal disease (Acute) Acute respiratory failure with hypoxia (Resolved) Community acquired pneumonia (Resolved) Leukocytosis (Resolved) 70-year-old female status post right tunneled dialysis catheter. Tolerated dialysis well yesterday. Will sign off call with questions. Serina Leggett M.D. Pager: [phone] [facility] [address] [place] [address], [address], [address] [place] [id number] Office: [phone]
[2020-12-31 09:59] LABS: Hepatitis B Surface Antibody Non-Reactive
[2020-12-31] MEDS: SEVELAMER CARBONATE 800 MG TABLET 1600 MG PO ×2 (10:00→16:39)
[2020-12-31] MEDS: Aspirin 81 MG TAB.CHEW PO (10:00)
[2020-12-31] MEDS: Sertraline 50 MG Tablet 25 MG PO (10:00)
--- NOTE | 2020-12-31 11:08 | PN_ITS ---
Subjective: She was dialyzed 500 cc yesterday. Doing well today still with lower extremity pain Vitals/I&O's: Vital Signs Temp Pulse Resp BP Pulse Ox 100.1 F H 85 15 153/73 H 91 12/31/20 09:49 12/31/20 09:49 12/31/20 09:49 12/31/20 09:49 12/31/20 09:49 Oxygen Delivery Method Room Air Weight: 165 lb 5.547 oz Body Mass Index (BMI) 37.0 Finger Stick Blood Glucose 14 Intake and Output for Last 24 Hours 12/29/20 12/30/20 12/31/20 23:59 23:59 23:59 Intake Total 1320 / 1520 806 / 1006 300 / 300 Output Total 300 / 300 500 / 500 Balance 1020 / 1220 306 / 506 300 / 300 General: Alert, Oriented x3, Cooperative, No apparent distress HEENT: Atraumatic, PERRLA, EOMI, Normocephalic Oral: Moist Mucosa Neck: Supple, No JVD Lungs: Clear to auscultation, Normal air movement, No rhonchi, No wheeze, No rales, Diminished Cardiovascular: Regular rate, Regular Rhythm, Normal S1, Normal S2, No murmurs Abdomen: Soft, Non Tender, Non-Distended, No Hepato-splenomegaly Extremities: Capillary Refill Less than 3 Seconds, Edema Skin: No rashes, No breakdown, Ulcer/ Wound - Posterior heel wound on the left heel with an left anterior medial superficial wound, Skin Tear - Right medial ankle with an intact blister underneath Neurological: Neuro grossly intact, Sensory exam intact to light touch and pain Psych/Mental Status: Normal Affect, Appropriate Microbiology Past 72 Hours 12/29/20 11:40 Mucosa - Nose SARS-CoV-2 Antigen (Rapid) - Final Laboratory Results 12/30/20 12:37: POC Glucose 131 H 12/30/20 16:41: POC Glucose 116 H 12/30/20 21:12: POC Glucose 125 H 12/31/20 06:05: Hep Bs Antibody Non-Reactive 12/31/20 06:12: WBC 11.5 H, RBC 2.75 L, Hgb 7.5 L, Hct 24.9 L, MCV 90.5, MCH 27.3, MCHC 30.1 L, RDW Std Deviation 53.3 H, RDW Coeff of Robyn 16.2 H, Plt Count 218, MPV 10.3, Immature Gran % (Auto) 0.400, Neut % (Auto) 76.9 H, Lymph % (Auto) 8.0 L, [place] % (Auto) 13.3 H, Eos % (Auto) 1.1, Baso % (Auto) 0.3, Absolute Neuts (auto) 8.8 H, Absolute Lymphs (auto) 0.92, Nucleated RBC % 0, Differential Comment SCANNED, Diff Path Review May foll 12/31/20 06:12: Sodium 132 L, Potassium 4.1, Chloride 99, Carbon Dioxide 25.0, Anion Gap 8, BUN 54 H, Creatinine 4.34 H, Estim Creat Clear Calc 14.69, Est GFR (MDRD) Af Amer 13 L, Est GFR (MDRD) Non-Af 11 L, BUN/Creatinine Ratio 12.4, Glucose 91, Calcium 8.1 L 12/31/20 06:28: POC Glucose 133 H Current Medications Acetaminophen (Acetaminophen 325 Mg Tablet) 650 mg PO Q6H PRN PRN PRN Reason: Pain 1-10 or Fever Last Admin: 12/31/20 09:58 Dose: 650 mg Documented by: Albuterol Sulfate (Albuterol 2.5 Mg/3 Ml Vial.Neb.) 2.5 mg INHALATION Q4H PRN PRN PRN Reason: sob/wheezing Last Admin: 12/28/20 17:47 Dose: 2.5 mg Documented by: Aspirin (Aspirin 81 Mg Tab.Chew) 81 mg PO DAILY@0800 [facility] Last Admin: 12/31/20 10:00 Dose: 81 mg Documented by: Atorvastatin Calcium (Atorvastatin Calcium 40 Mg Tablet) 40 mg PO QHS [facility] Last Admin: 12/30/20 21:24 Dose: 40 mg Documented by: Collagenase (Collagenase 30gm Tube) 1 applic TOPICAL DAILY [facility]; Protocol Last Admin: 12/30/20 12:33 Dose: 1 applic Documented by: Dextrose (Dextrose 50%-Water 25 Gm/50 Ml Disp.Syrin) 0 gm IV X1 PRN; Protocol PRN Reason: Hypoglycemia Glucagon (Glucagon 1 Mg/Ml Syringe) 1 mg IM .X1 PRN PRN Reason: Hypoglycemia Heparin Sodium (Porcine) (Heparin Injection (Vial) 5,000 Unit/Ml Vial) 5,000 unit SC Q8 [facility] Last Admin: 12/29/20 13:31 Dose: 5,000 unit Documented by: Heparin Sodium (Porcine) (Heparin 10,000 Units/10 Ml Vial) 3,500 units IV X1 PRN PRN Reason: at start of dialysis treatment Hydralazine HCl (Hydralazine 50 Mg Tablet) 50 mg PO TID [facility] Last Admin: 12/31/20 06:32 Dose: 50 mg Documented by: Sodium Chloride () 250 mls @ 15 mls/hr IV .[id number] PRN PRN Reason: Saline Flush Sodium Chloride () 250 mls @ 15 mls/hr IV .[id number] PRN PRN Reason: Additional IVPB Infusion Ferric Sodium Gluconate Complex 125 mg/ Sodium Chloride 110 mls @ 110 mls/hr IV DAILY [facility] Stop: 01/07/21 11:00 Insulin Human Lispro (Insulin Lispro 100 Unit/Ml Insuln.Pen) 0 unit SC ACHS [facility]; Protocol Last Admin: 12/31/20 06:33 Dose: Not Given Documented by: Ondansetron HCl (Ondansetron 4 Mg/2 Ml Vial) 4 mg IV Q8H PRN PRN PRN Reason: NAUSEA/VOMITING Oxycodone HCl (Oxycodone 5 Mg Tablet) 5 mg PO Q4H PRN PRN PRN Reason: Pain Score 6-10 Last Admin: 12/31/20 09:59 Dose: 5 mg Documented by: Sertraline HCl (Sertraline 50 Mg Tablet) 25 mg PO DAILY [facility] Last Admin: 12/31/20 10:00 Dose: 25 mg Documented by: Sevelamer Carbonate (Sevelamer Carbonate 800 Mg Tablet) 1,600 mg PO TIDCM [facility] Last Admin: 12/31/20 10:00 Dose: 1,600 mg Documented by: Sodium Chloride (0.9% Saline Lock 10 Ml Syringe) 10 - 40 ml IV UD PRN PRN Reason: SALINE FLUSH STROKE Vital Signs/Narrative: Vital Signs Temp Pulse Resp BP Pulse Ox 12/31/20 09:49 100.1 F H 85 15 153/73 H 91 Medical Necessity - Tobacco Use Smoking Status: Former smoker Tobacco Use: Cigarettes Assessment/Plan All Active Problems Tinea pedis (Resolved) Blisters of multiple sites (Acute) End stage renal disease (Acute) Acute respiratory failure with hypoxia (Resolved) Community acquired pneumonia (Resolved) Leukocytosis (Resolved) 1. Bilateral lower extremity wounds with inability to complete ADLs/peripheral vascular disease -We will obtain wound wound care consult while here in the hospital, the wounds do look clean and she does not need antibiotics. She is afebrile without leukocytosis -We will consult PT/OT as well as case management for possible discharge planning and placement in a [place] [facility] [place] facility if necessary -She does have ischemic issues, she did have a vascular study prior to admission which demonstrated moderate impairment of the arterial flow at the ankle level bilaterally as well as severe impairment at the digital level bilaterally. -There is no evidence of DVTs bilaterally under Doppler either. -I discussed the case with Dr. Feliz who will see her as an outpatient -We will start her on aspirin and statins for her ABIs, she will also need to be instituted on an exercise program once her wounds are healed for her claudication 2. Acute on chronic end-stage renal disease/anemia of chronic disease with iron deficiency -She denies any dark stools however will obtain a school stool sample -Tunneled catheter placed for 221, she underwent dialysis with 500 cc -She is uremic with an elevated BUN but she does not appear to be lethargic or confused -Most of her care is done in [place] however her creatinine in our system has steadily been rising since 2015 -States she still makes urine, however given the rise in her creatinine we will hold off on any Lasix at this time -Hemoglobin today 7.5, she averages around 9 -She is iron deficient and will start her iron replacement 3. HTN -Blood pressures currently are stable -Given her increase in her creatinine, will hold her Lasix, hydrochlorothiazide, losartan -Can continue with her hydralazine 4. DM 2 -We will place her on a sliding scale insulin -Accu-Cheks AC at bedtime, make adjustments as necessary 5. Anxiety/depression -Stable -Continue with Zoloft DVT: Heparin Inpatient E&M: 89192 Subs Hosp L2
[2020-12-31 13:21] LABS: Bedside Glucose 93 mg/dL (70-110)
--- NOTE | 2020-12-31 17:00 | DIALYSIS ---
2ND HD TODAY X 2.5 HOURS [id number] TOLERATED WELL. RIJ WITH GOOD FLOWS FERRICLET GIVEN IV NEXT TX TO BE ON Saturday01-02-21 VITALS STABLE POST TX REPORT TO ELLIOTT LE
[2020-12-31] MEDS: Heparin 10,000 UNITS/10 ML Vial 3500 UNITS IV (17:17)
[2020-12-31 17:20] LABS: Bedside Glucose 86 mg/dL (70-110)
[2020-12-31] MEDS: Atorvastatin Calcium 40 MG Tablet PO (22:11)
[2020-12-31] MEDS: Heparin Injection (Vial) 5,000 UNIT/ML VIAL 5000 UNIT SC (22:13)
[2020-12-31 22:21] LABS: Bedside Glucose 79 mg/dL (70-110)
[2021-01-01] VITALS (14 sets, daily range): BP systolic 144–166; BP diastolic 67–83; PULSE 72–85; RESP 14–18; TEMP 36.7–37.4; O2SAT 92–97
[2021-01-01] MEDS: oxyCODONE 5 MG Tablet PO ×3 (03:58→22:58)
[2021-01-01 05:11] LABS: Absolute Lymphocyte Count 1.02 X10^3/uL (0.83-4.51); Absolute Neutrophil Count 9.6 X10^3/uL (2.0-7.7); Basophil# 0.03 X10^3/uL; Basophil% 0.2 % (0-1); Eosinophils% 0.8 % (0-5); Hematocrit 25.5 % (37-47); Hemoglobin 7.7 g/dL (12.0-15.0); Lymphocyte # 1.02 X10^3/ul (4.0); Lymphocyte % 8.4 % (19-41); Mean Corp Hgb Conc 30.2 g/dL (32-36); Mean Corpuscular Hgb 27.1 pg (27.0-32.0); Mean Corpuscular Volume 89.8 fL (81-99); Mean Platelet Vol. 9.8 fl (6.2-12.0); Monocyte# 1.38 X10^3/uL; Monocyte% 11.3 % (0-10); NRBC Flagged by Analyzer 0 % (0-5); Neutrophil # 9.58 X10^3/uL (2.7-7.7); Neutrophil % 78.9 % (47-70); Platelet Count 224 K/mm3 (150-450); RBC Distribution Width CV 15.9 % (11.6-14.6); RBC Distribution Width SD 52.7 fl (35.1-43.9); Red Blood Count 2.84 M/mm3 (4.2-5.4); White Blood Count 12.2 K/mm3 (4.4-11.0)
[2021-01-01 05:29] LABS: Anion Gap 8 (5-15); BUN 28 mg/dL (7-18); BUN/Creat Ratio 9.4 RATIO (10-20); Calcium,Total 8.4 mg/dL (8.5-10.1); Chloride 99 mmol/L (98-107); Creatinine, Serum 2.99 mg/dL (0.55-1.02); EST Glomerular Filtration Rate 17 mL/min (>60); Est Glom Filt Rate - Afr Amer 20 mL/min (>60); Estimated Creatinine Clearance 20.18 ml/min; Glucose 86 mg/dL (74-106); Potassium 3.6 mmol/L (3.5-5.1); Sodium Level 134 mmol/L (136-145)
[2021-01-01] MEDS: Acetaminophen 325 MG Tablet 650 MG PO (05:35)
[2021-01-01] MEDS: hydrALAZINE 50 MG Tablet PO ×3 (05:40→21:39)
[2021-01-01] MEDS: Heparin Injection (Vial) 5,000 UNIT/ML VIAL 5000 UNIT SC ×3 (05:41→21:39)
[2021-01-01 06:40] LABS: Bedside Glucose 82 mg/dL (70-110)
--- NOTE | 2021-01-01 09:23 | PCM.PN.HOSP ---
Subjective: Doing well, no issues overnight. Vitals/I&O's: Vital Signs Temp Pulse Resp BP Pulse Ox 98.3 F 77 18 166/83 H 93 01/01/21 05:37 01/01/21 07:12 01/01/21 05:37 01/01/21 05:40 01/01/21 05:37 Oxygen Delivery Method Room Air Weight: 156 lb 8.451 oz Body Mass Index (BMI) 37.0 Finger Stick Blood Glucose 14 Intake and Output for Last 24 Hours 12/30/20 12/31/20 01/01/21 23:59 23:59 23:59 Intake Total 806 / 1006 1075 / 1075 75 / 75 Output Total 500 / 500 1999 / 1999 Balance 306 / 506 -925 / -925 75 / 75 General: Alert, Oriented x3, Cooperative, No apparent distress HEENT: Atraumatic, PERRLA, EOMI, Normocephalic Oral: Moist Mucosa Neck: Supple, No JVD Lungs: Normal air movement, No rhonchi, No wheeze, No rales, Diminished Cardiovascular: Regular rate, Regular Rhythm, Normal S1, Normal S2, No murmurs Abdomen: Soft, Non Tender, Non-Distended, No Hepato-splenomegaly Extremities: Capillary Refill Less than 3 Seconds, Edema Skin: No rashes, No breakdown, Ulcer/ Wound - Posterior heel wound on the left heel with an left anterior medial superficial wound, Skin Tear - Right medial ankle with an intact blister underneath Neurological: Neuro grossly intact, Sensory exam intact to light touch and pain Psych/Mental Status: Normal Affect, Appropriate Microbiology Past 72 Hours 12/29/20 11:40 Mucosa - Nose SARS-CoV-2 Antigen (Rapid) - Final Laboratory Results 12/31/20 06:05: Hep Bs Antibody Non-Reactive 12/31/20 13:12: POC Glucose 93 12/31/20 17:14: POC Glucose 86 12/31/20 22:03: POC Glucose 79 01/01/21 05:04: WBC 12.2 H, RBC 2.84 L, Hgb 7.7 L, Hct 25.5 L, MCV 89.8, MCH 27.1, MCHC 30.2 L, RDW Std Deviation 52.7 H, RDW Coeff of Robyn 15.9 H, Plt Count 224, MPV 9.8, Immature Gran % (Auto) 0.400, Neut % (Auto) 78.9 H, Lymph % (Auto) 8.4 L, [place] % (Auto) 11.3 H, Eos % (Auto) 0.8, Baso % (Auto) 0.2, Absolute Neuts (auto) 9.6 H, Absolute Lymphs (auto) 1.02, Nucleated RBC % 0 01/01/21 05:04: Sodium 134 L, Potassium 3.6, Chloride 99, Carbon Dioxide 27.0, Anion Gap 8, BUN 28 H, Creatinine 2.99 H, Estim Creat Clear Calc 20.18, Est GFR (MDRD) Af Amer 20 L, Est GFR (MDRD) Non-Af 17 L, BUN/Creatinine Ratio 9.4 L, Glucose 86, Calcium 8.4 L 01/01/21 06:32: POC Glucose 82 Current Medications Acetaminophen (Acetaminophen 325 Mg Tablet) 650 mg PO Q6H PRN PRN PRN Reason: Pain 1-10 or Fever Last Admin: 01/01/21 05:35 Dose: 650 mg Documented by: Albuterol Sulfate (Albuterol 2.5 Mg/3 Ml Vial.Neb.) 2.5 mg INHALATION Q4H PRN PRN PRN Reason: sob/wheezing Last Admin: 12/28/20 17:47 Dose: 2.5 mg Documented by: Aspirin (Aspirin 81 Mg Tab.Chew) 81 mg PO DAILY@0800 [facility] Last Admin: 12/31/20 10:00 Dose: 81 mg Documented by: Atorvastatin Calcium (Atorvastatin Calcium 40 Mg Tablet) 40 mg PO QHS [facility] Last Admin: 12/31/20 22:11 Dose: 40 mg Documented by: Collagenase (Collagenase 30gm Tube) 1 applic TOPICAL DAILY [facility]; Protocol Last Admin: 12/31/20 22:08 Dose: Not Given Documented by: Dextrose (Dextrose 50%-Water 25 Gm/50 Ml Disp.Syrin) 0 gm IV X1 PRN; Protocol PRN Reason: Hypoglycemia Glucagon (Glucagon 1 Mg/Ml Syringe) 1 mg IM .X1 PRN PRN Reason: Hypoglycemia Heparin Sodium (Porcine) (Heparin Injection (Vial) 5,000 Unit/Ml Vial) 5,000 unit SC Q8 [facility] Last Admin: 01/01/21 05:41 Dose: 5,000 unit Documented by: Hydralazine HCl (Hydralazine 50 Mg Tablet) 50 mg PO TID [facility] Last Admin: 01/01/21 05:40 Dose: 50 mg Documented by: Sodium Chloride () 250 mls @ 15 mls/hr IV .[id number] PRN PRN Reason: Saline Flush Sodium Chloride () 250 mls @ 15 mls/hr IV .[id number] PRN PRN Reason: Additional IVPB Infusion Ferric Sodium Gluconate Complex 125 mg/ Sodium Chloride 110 mls @ 110 mls/hr IV DAILY [facility] Stop: 01/07/21 11:00 Last Infusion: 12/31/20 15:55 Dose: Infused Documented by: Insulin Human Lispro (Insulin Lispro 100 Unit/Ml Insuln.Pen) 0 unit SC ACHS [facility]; Protocol Last Admin: 01/01/21 06:33 Dose: Not Given Documented by: Ondansetron HCl (Ondansetron 4 Mg/2 Ml Vial) 4 mg IV Q8H PRN PRN PRN Reason: NAUSEA/VOMITING Oxycodone HCl (Oxycodone 5 Mg Tablet) 5 mg PO Q4H PRN PRN PRN Reason: Pain Score 6-10 Last Admin: 01/01/21 03:58 Dose: 5 mg Documented by: Sertraline HCl (Sertraline 50 Mg Tablet) 25 mg PO DAILY [facility] Last Admin: 12/31/20 10:00 Dose: 25 mg Documented by: Sevelamer Carbonate (Sevelamer Carbonate 800 Mg Tablet) 1,600 mg PO TIDCM [facility] Last Admin: 12/31/20 16:39 Dose: 1,600 mg Documented by: Sodium Chloride (0.9% Saline Lock 10 Ml Syringe) 10 - 40 ml IV UD PRN PRN Reason: SALINE FLUSH STROKE Vital Signs/Narrative: Vital Signs Temp Pulse Resp BP Pulse Ox 01/01/21 07:12 77 01/01/21 05:40 73 166/83 H 01/01/21 05:37 98.3 F 73 18 166/83 H 93 Medical Necessity - Tobacco Use Smoking Status: Former smoker Tobacco Use: Cigarettes Assessment/Plan All Active Problems Tinea pedis (Resolved) Blisters of multiple sites (Acute) End stage renal disease (Acute) Acute respiratory failure with hypoxia (Resolved) Community acquired pneumonia (Resolved) Leukocytosis (Resolved) 1. Bilateral lower extremity wounds with inability to complete ADLs/peripheral vascular disease -We will obtain wound wound care consult while here in the hospital, the wounds do look clean and she does not need antibiotics. She is afebrile without leukocytosis -We will consult PT/OT as well as case management for possible discharge planning and placement in a intermediate facility if necessary -She does have ischemic issues, she did have a vascular study prior to admission which demonstrated moderate impairment of the arterial flow at the ankle level bilaterally as well as severe impairment at the digital level bilaterally. -There is no evidence of DVTs bilaterally under Doppler either. -I discussed the case with Dr. Feliz who will see her as an outpatient -We will start her on aspirin and statins for her ABIs, she will also need to be instituted on an exercise program once her wounds are healed for her claudication 2. Acute on chronic end-stage renal disease/anemia of chronic disease with iron deficiency -She denies any dark stools however will obtain a school stool sample -Tunneled catheter placed for 12/30/2020 -BUN and creatinine are normalizing with dialysis -Most of her care is done in [place] however her creatinine in our system has steadily been rising since 2015 -States she still makes urine, however given the rise in her creatinine we will hold off on any Lasix at this time -Hemoglobin today 7.7, she averages around 9 -She is iron deficient and will start her iron replacement 3. HTN -Blood pressures currently are stable -Given her increase in her creatinine, will hold her Lasix, hydrochlorothiazide, losartan -Can continue with her hydralazine 4. DM 2 -We will place her on a sliding scale insulin -Accu-Cheks AC at bedtime, make adjustments as necessary 5. Anxiety/depression -Stable -Continue with Zoloft DVT: Heparin Inpatient E&M: [id number] Subs Hosp L2
[2021-01-01] MEDS: Sertraline 50 MG Tablet 25 MG PO (10:00)
[2021-01-01] MEDS: SEVELAMER CARBONATE 800 MG TABLET 1600 MG PO ×3 (10:00→17:06)
[2021-01-01] MEDS: Collagenase 30gm Tube 1 APPLIC TOPICAL (10:01)
[2021-01-01] MEDS: Aspirin 81 MG TAB.CHEW PO (10:01)
[2021-01-01 11:26] LABS: Bedside Glucose 88 mg/dL (70-110)
--- NOTE | 2021-01-01 14:37 | PN.RENAL_ITS ---
Subjective: c/o generalized pain breathing is ok - Physical Exam Vitals/I&O's: Vital Signs Temp Pulse Resp BP Pulse Ox 98.4 F 77 15 144/69 H 92 01/01/21 14:16 01/01/21 14:16 01/01/21 14:16 01/01/21 14:16 01/01/21 14:16 Oxygen Delivery Method Room Air Weight: 71 kg Body Mass Index (BMI) 37.0 Finger Stick Blood Glucose 14 Intake and Output for Last 24 Hours 12/30/20 12/31/20 01/01/21 23:59 23:59 23:59 Intake Total 806 / 1006 1075 / 1075 605 / 605 Output Total 500 / 500 1999 / 1999 Balance 306 / 506 -925 / -925 605 / 605 General: Alert, Oriented x3, Cooperative HEENT: Atraumatic, PERRLA, EOMI, Normocephalic Neck: Supple, No JVD, Negative Carotid Bruits Lungs: Clear to auscultation, Normal air movement Cardiovascular: Regular rate, No murmurs Abdomen: Bowel Sounds Present, Soft, Non Tender Extremities: No edema, Capillary Refill Less than 3 Seconds Skin: No rashes, No breakdown Musculoskeletal: No Tenderness to Palpation of Joints or Extremities Neurological: Cranial nerves II-XII grossly intact Psych/Mental Status: Normal Affect, Appropriate Microbiology Past 72 Hours 12/29/20 11:40 Mucosa - Nose SARS-CoV-2 Antigen (Rapid) - Final Laboratory Results 12/31/20 17:14: POC Glucose 86 12/31/20 22:03: POC Glucose 79 01/01/21 05:04: WBC 12.2 H, RBC 2.84 L, Hgb 7.7 L, Hct 25.5 L, MCV 89.8, MCH 27.1, MCHC 30.2 L, RDW Std Deviation 52.7 H, RDW Coeff of Robyn 15.9 H, Plt Count 224, MPV 9.8, Immature Gran % (Auto) 0.400, Neut % (Auto) 78.9 H, Lymph % (Auto) 8.4 L, [place] % (Auto) 11.3 H, Eos % (Auto) 0.8, Baso % (Auto) 0.2, Absolute Neuts (auto) 9.6 H, Absolute Lymphs (auto) 1.02, Nucleated RBC % 0 01/01/21 05:04: Sodium 134 L, Potassium 3.6, Chloride 99, Carbon Dioxide 27.0, Anion Gap 8, BUN 28 H, Creatinine 2.99 H, Estim Creat Clear Calc 20.18, Est GFR (MDRD) Af Amer 20 L, Est GFR (MDRD) Non-Af 17 L, BUN/Creatinine Ratio 9.4 L, Glucose 86, Calcium 8.4 L 01/01/21 06:32: POC Glucose 82 01/01/21 11:06: POC Glucose 88 Current Medications Acetaminophen (Acetaminophen 325 Mg Tablet) 650 mg PO Q6H PRN PRN PRN Reason: Pain 1-10 or Fever Last Admin: 01/01/21 05:35 Dose: 650 mg Documented by: Albuterol Sulfate (Albuterol 2.5 Mg/3 Ml Vial.Neb.) 2.5 mg INHALATION Q4H PRN PRN PRN Reason: sob/wheezing Last Admin: 12/28/20 17:47 Dose: 2.5 mg Documented by: Aspirin (Aspirin 81 Mg Tab.Chew) 81 mg PO DAILY@0800 [facility] Last Admin: 01/01/21 10:01 Dose: 81 mg Documented by: Atorvastatin Calcium (Atorvastatin Calcium 40 Mg Tablet) 40 mg PO QHS [facility] Last Admin: 12/31/20 22:11 Dose: 40 mg Documented by: Collagenase (Collagenase 30gm Tube) 1 applic TOPICAL DAILY [facility]; Protocol Last Admin: 01/01/21 10:01 Dose: 1 applic Documented by: Dextrose (Dextrose 50%-Water 25 Gm/50 Ml Disp.Syrin) 0 gm IV X1 PRN; Protocol PRN Reason: Hypoglycemia Glucagon (Glucagon 1 Mg/Ml Syringe) 1 mg IM .X1 PRN PRN Reason: Hypoglycemia Heparin Sodium (Porcine) (Heparin Injection (Vial) 5,000 Unit/Ml Vial) 5,000 unit SC Q8 [facility] Last Admin: 01/01/21 14:10 Dose: 5,000 unit Documented by: Hydralazine HCl (Hydralazine 50 Mg Tablet) 50 mg PO TID [facility] Last Admin: 01/01/21 14:09 Dose: 50 mg Documented by: Sodium Chloride () 250 mls @ 15 mls/hr IV .[id number] PRN PRN Reason: Saline Flush Sodium Chloride () 250 mls @ 15 mls/hr IV .[id number] PRN PRN Reason: Additional IVPB Infusion Ferric Sodium Gluconate Complex 125 mg/ Sodium Chloride 110 mls @ 110 mls/hr IV DAILY [facility] Stop: 01/07/21 11:00 Last Infusion: 01/01/21 11:42 Dose: Infused Documented by: Insulin Human Lispro (Insulin Lispro 100 Unit/Ml Insuln.Pen) 0 unit SC ACHS [facility]; Protocol Last Admin: 01/01/21 11:08 Dose: Not Given Documented by: Ondansetron HCl (Ondansetron 4 Mg/2 Ml Vial) 4 mg IV Q8H PRN PRN PRN Reason: NAUSEA/VOMITING Oxycodone HCl (Oxycodone 5 Mg Tablet) 5 mg PO Q4H PRN PRN PRN Reason: Pain Score 6-10 Last Admin: 01/01/21 10:33 Dose: 5 mg Documented by: Sertraline HCl (Sertraline 50 Mg Tablet) 25 mg PO DAILY [facility] Last Admin: 01/01/21 10:00 Dose: 25 mg Documented by: Sevelamer Carbonate (Sevelamer Carbonate 800 Mg Tablet) 1,600 mg PO TIDCM [facility] Last Admin: 01/01/21 14:09 Dose: 1,600 mg Documented by: Sodium Chloride (0.9% Saline Lock 10 Ml Syringe) 10 - 40 ml IV UD PRN PRN Reason: SALINE FLUSH Medical Necessity - Tobacco Use Smoking Status: Former smoker Tobacco Use: Cigarettes Assessment/Plan All Active Problems Tinea pedis (Resolved) Blisters of multiple sites (Acute) End stage renal disease (Acute) Acute respiratory failure with hypoxia (Resolved) Community acquired pneumonia (Resolved) Leukocytosis (Resolved) 1. ESRD. The patient has been losing her renal function over time for the past few years. Her creatinine has increased from 4.7 in May 2020 up to 6.26 mg/dL The patient is displaying signs of uremia such as dysgeusia, fatigue and anorexia. Her serum albumin is already low at 2.8 g/dL. Tunneled dialysis catheter has been placed by Dr. Matilde NICHOLAS yesterday next HD tomorrow 2. Anemia in chronic kidney disease. Ferritin is only 75. Iron saturation is 7.9%. iron load ordered. 3. Hypertension. Goal blood pressure is less than 140/90 eventually 4. CKD?mineral bone disease. Calcium level is 8.3 and phosphorus level is 8.4. continue sevelamer with meals. Goal is to get phosphorus level below 5.5. PTH will be checked at dialysis unit as outpatient placement in progress
[2021-01-01 17:40] LABS: Bedside Glucose 136 mg/dL (70-110)
[2021-01-01] MEDS: Atorvastatin Calcium 40 MG Tablet PO (21:39)
[2021-01-01 21:50] LABS: Bedside Glucose 109 mg/dL (70-110)
[2021-01-02] VITALS (13 sets, daily range): BP systolic 135–190; BP diastolic 63–82; PULSE 68–85; RESP 16–18; TEMP 36.4–37.1; O2SAT 92–95
[2021-01-02 05:53] LABS: Absolute Lymphocyte Count 1.14 X10^3/uL (0.83-4.51); Absolute Neutrophil Count 11.5 X10^3/uL (2.0-7.7); Basophil# 0.03 X10^3/uL; Basophil% 0.2 % (0-1); Eosinophils% 0.7 % (0-5); Hematocrit 25.5 % (37-47); Hemoglobin 7.8 g/dL (12.0-15.0); Lymphocyte # 1.14 X10^3/ul (4.0); Lymphocyte % 8.1 % (19-41); Mean Corp Hgb Conc 30.6 g/dL (32-36); Mean Corpuscular Hgb 27.6 pg (27.0-32.0); Mean Corpuscular Volume 90.1 fL (81-99); Mean Platelet Vol. 10.2 fl (6.2-12.0); Monocyte% 9.2 % (0-10); NRBC Flagged by Analyzer 0 % (0-5); Neutrophil # 11.52 X10^3/uL (2.7-7.7); Neutrophil % 81.4 % (47-70); Platelet Count 240 K/mm3 (150-450); RBC Distribution Width CV 16.2 % (11.6-14.6); RBC Distribution Width SD 53.2 fl (35.1-43.9); Red Blood Count 2.83 M/mm3 (4.2-5.4); White Blood Count 14.2 K/mm3 (4.4-11.0)
[2021-01-02 06:21] LABS: Anion Gap 11 (5-15); BUN 33 mg/dL (7-18); Calcium,Total 8.6 mg/dL (8.5-10.1); Chloride 99 mmol/L (98-107); Creatinine, Serum 3.67 mg/dL (0.55-1.02); EST Glomerular Filtration Rate 13 mL/min (>60); Est Glom Filt Rate - Afr Amer 16 mL/min (>60); Estimated Creatinine Clearance 16.44 ml/min; Glucose 100 mg/dL (74-106); Potassium 3.9 mmol/L (3.5-5.1); Sodium Level 135 mmol/L (136-145)
[2021-01-02] MEDS: oxyCODONE 5 MG Tablet PO ×3 (06:35→19:01)
[2021-01-02] MEDS: hydrALAZINE 50 MG Tablet PO ×3 (06:35→22:38)
[2021-01-02 06:36] LABS: Bedside Glucose 102 mg/dL (70-110)
[2021-01-02] MEDS: Heparin Injection (Vial) 5,000 UNIT/ML VIAL 5000 UNIT SC ×3 (06:36→22:40)
[2021-01-02] MEDS: Acetaminophen 325 MG Tablet 650 MG PO ×2 (06:36→13:34)
[2021-01-02] MEDS: Aspirin 81 MG TAB.CHEW PO (07:42)
[2021-01-02] MEDS: SEVELAMER CARBONATE 800 MG TABLET 1600 MG PO ×3 (07:42→16:47)
--- NOTE | 2021-01-02 09:00 | CASEMGMT ---
This RN DREW had message on phone from Shanita at [facility] in regards to pt. Call back and message left for her to call this RN DREW back. Contact info: [phone] ext. [phone]. SStnicolasa LE CM
--- NOTE | 2021-01-02 09:00 | CASEMGMT ---
Addendum entered by Margie Perez 01/02/21 10:20: Per RN CM patient's chair time will be T,TH, and Sat at 6:50a. JACEK called Paris at [facility] and let her know. Margie STUART Original Note: JACEK spoke with Paris at [facility] and let her know patient will be going to [facility] for her dialysis not [facility]. Paris said she did hear this and asked if we have a time yet. JACEK told her we do not, but JACEK will let her know as soon as JACEK hears something. She will start the pre-cert. JACEK faxed her updated information. Plan: [facility] [place] pending pre-cert. Margie STUART
[2021-01-02] MEDS: Collagenase 30gm Tube 1 APPLIC TOPICAL (09:11)
--- NOTE | 2021-01-02 09:59 | CASEMGMT ---
Addendum entered by Paige Gilbert 01/02/21 10:42: Call from Shanita at [facility] admissions and she states we are still waiting on financial clearance from pt but pt has chair time of TTS 0650 with start date of 01/05/21 at [facility]. Ilda READ aware, voices understanding. Cristiana LE CM Original Note: This REY RUSSELL spoke with Aminah at [facility] and she gave a tentative chair time for pt TTS at 0650 so that SNF can work on transportation. Ilda READ aware, voices understanding. Cristiana LE CM
[2021-01-02] MEDS: Sertraline 50 MG Tablet 25 MG PO (10:07)
--- NOTE | 2021-01-02 10:13 | NURSING ---
wound photo: right medial lower leg
--- NOTE | 2021-01-02 10:14 | NURSING ---
wound photo: left medial lower leg
--- NOTE | 2021-01-02 10:15 | NURSING ---
wound photo: left heel
[2021-01-02 11:41] LABS: Bedside Glucose 107 mg/dL (70-110)
--- NOTE | 2021-01-02 12:05 | CASEMGMT ---
JACEK spoke with patient. Introduced self and role at [facility]. JACEK let her know that [facility] said they can take her and they will take her back and forth to dialysis. JACEK told her we are waiting on insurance to approve. Plan: d/c to [facility] at [place] pending insurance approval. Margie Perez GUN PERFORATOR NARCISO
[2021-01-02 12:18] LABS: Pathologist Review Reviewed
[2021-01-02] MEDS: Heparin 10,000 UNITS/10 ML Vial 3500 UNITS IV (13:33)
--- NOTE | 2021-01-02 13:37 | CASEMGMT ---
SW receive a call from Yudelka with [facility]. JACEK updated her on patient's discharge plan. She asked that d/c instructions be faxed when the time comes. JACEK told her SW will do this. Plan: d/c to [facility] pending pre-cert. Margie Perez MSW NARCISO
--- NOTE | 2021-01-02 14:00 | PCM.PN.REN ---
Subjective: no new complaints - Physical Exam Vitals/I&O's: Vital Signs Temp Pulse Resp BP Pulse Ox 98.2 F 76 18 143/63 H 93 01/02/21 10:06 01/02/21 10:06 01/02/21 10:06 01/02/21 10:06 01/02/21 10:06 Oxygen Flow Rate (L/min) 2 Oxygen Delivery Method Nasal Cannula Weight: 71 kg Body Mass Index (BMI) 37.0 Finger Stick Blood Glucose 14 Intake and Output for Last 24 Hours 12/31/20 01/01/21 01/02/21 23:59 23:59 23:59 Intake Total 1075 / 1075 975 / 975 560 / 560 Output Total 1999 / 1999 800 / 800 Balance -925 / -925 175 / 175 560 / 560 General: Alert, Oriented x3, Cooperative HEENT: Atraumatic, PERRLA, EOMI, Normocephalic Neck: Supple, No JVD, Negative Carotid Bruits Lungs: Clear to auscultation, Normal air movement Cardiovascular: Regular rate, No murmurs Abdomen: Bowel Sounds Present, Soft, Non Tender Extremities: No edema, Capillary Refill Less than 3 Seconds Skin: No rashes, No breakdown Musculoskeletal: No Tenderness to Palpation of Joints or Extremities Neurological: Cranial nerves II-XII grossly intact Psych/Mental Status: Normal Affect, Appropriate Laboratory Results 12/31/20 06:12: Diff Path Review Reviewed 01/01/21 17:05: POC Glucose 136 H 01/01/21 21:38: POC Glucose 109 01/02/21 05:36: WBC 14.2 H, RBC 2.83 L, Hgb 7.8 L, Hct 25.5 L, MCV 90.1, MCH 27.6, MCHC 30.6 L, RDW Std Deviation 53.2 H, RDW Coeff of Robyn 16.2 H, Plt Count 240, MPV 10.2, Immature Gran % (Auto) 0.400, Neut % (Auto) 81.4 H, Lymph % (Auto) 8.1 L, [place] % (Auto) 9.2, Eos % (Auto) 0.7, Baso % (Auto) 0.2, Absolute Neuts (auto) 11.5 H, Absolute Lymphs (auto) 1.14, Nucleated RBC % 0 01/02/21 05:36: Sodium 135 L, Potassium 3.9, Chloride 99, Carbon Dioxide 25.0, Anion Gap 11, BUN 33 H, Creatinine 3.67 H, Estim Creat Clear Calc 16.44, Est GFR (MDRD) Af Amer 16 L, Est GFR (MDRD) Non-Af 13 L, BUN/Creatinine Ratio 9.0 L, Glucose 100, Calcium 8.6 01/02/21 06:32: POC Glucose 102 01/02/21 11:34: POC Glucose 107 Current Medications Acetaminophen (Acetaminophen 325 Mg Tablet) 650 mg PO Q6H PRN PRN PRN Reason: Pain 1-10 or Fever Last Admin: 01/02/21 13:34 Dose: 650 mg Documented by: Albuterol Sulfate (Albuterol 2.5 Mg/3 Ml Vial.Neb.) 2.5 mg INHALATION Q4H PRN PRN PRN Reason: sob/wheezing Last Admin: 12/28/20 17:47 Dose: 2.5 mg Documented by: Aspirin (Aspirin 81 Mg Tab.Chew) 81 mg PO DAILY@0800 [facility] Last Admin: 01/02/21 07:42 Dose: 81 mg Documented by: Atorvastatin Calcium (Atorvastatin Calcium 40 Mg Tablet) 40 mg PO QHS [facility] Last Admin: 01/01/21 21:39 Dose: 40 mg Documented by: Collagenase (Collagenase 30gm Tube) 1 applic TOPICAL DAILY [facility]; Protocol Last Admin: 01/02/21 09:11 Dose: 1 applic Documented by: Dextrose (Dextrose 50%-Water 25 Gm/50 Ml Disp.Syrin) 0 gm IV X1 PRN; Protocol PRN Reason: Hypoglycemia Glucagon (Glucagon 1 Mg/Ml Syringe) 1 mg IM .X1 PRN PRN Reason: Hypoglycemia Heparin Sodium (Porcine) (Heparin Injection (Vial) 5,000 Unit/Ml Vial) 5,000 unit SC Q8 [facility] Last Admin: 01/02/21 13:33 Dose: 5,000 unit Documented by: Hydralazine HCl (Hydralazine 50 Mg Tablet) 50 mg PO TID [facility] Last Admin: 01/02/21 06:35 Dose: 50 mg Documented by: Sodium Chloride () 250 mls @ 15 mls/hr IV .[id number] PRN PRN Reason: Saline Flush Sodium Chloride () 250 mls @ 15 mls/hr IV .[id number] PRN PRN Reason: Additional IVPB Infusion Ferric Sodium Gluconate Complex 125 mg/ Sodium Chloride 110 mls @ 110 mls/hr IV DAILY [facility] Stop: 01/07/21 11:00 Last Infusion: 01/02/21 11:12 Dose: Infused Documented by: Insulin Human Lispro (Insulin Lispro 100 Unit/Ml Insuln.Pen) 0 unit SC ACHS [facility]; Protocol Last Admin: 01/02/21 11:35 Dose: Not Given Documented by: Ondansetron HCl (Ondansetron 4 Mg/2 Ml Vial) 4 mg IV Q8H PRN PRN PRN Reason: NAUSEA/VOMITING Oxycodone HCl (Oxycodone 5 Mg Tablet) 5 mg PO Q4H PRN PRN PRN Reason: Pain Score 6-10 Last Admin: 01/02/21 13:33 Dose: 5 mg Documented by: Sertraline HCl (Sertraline 50 Mg Tablet) 25 mg PO DAILY [facility] Last Admin: 01/02/21 10:07 Dose: 25 mg Documented by: Sevelamer Carbonate (Sevelamer Carbonate 800 Mg Tablet) 1,600 mg PO TIDCM [facility] Last Admin: 01/02/21 11:35 Dose: 1,600 mg Documented by: Sodium Chloride (0.9% Saline Lock 10 Ml Syringe) 10 - 40 ml IV UD PRN PRN Reason: SALINE FLUSH Medical Necessity - Tobacco Use Smoking Status: Former smoker Tobacco Use: Cigarettes Assessment/Plan All Active Problems Tinea pedis (Resolved) Blisters of multiple sites (Acute) End stage renal disease (Acute) Acute respiratory failure with hypoxia (Resolved) Community acquired pneumonia (Resolved) Leukocytosis (Resolved) 1. ESRD. The patient has been losing her renal function over time for the past few years. Her creatinine has increased from 4.7 in May 2020 up to 6.26 mg/dL The patient is displaying signs of uremia such as dysgeusia, fatigue and anorexia. Her serum albumin is already low at 2.8 g/dL. Tunneled dialysis catheter has been placed by Dr. Clayton today 2. Anemia in chronic kidney disease. Ferritin is only 75. Iron saturation is 7.9%. iron load ordered. 3. Hypertension. Goal blood pressure is less than 140/90 eventually 4. CKD?mineral bone disease. Calcium level is 8.3 and phosphorus level is 8.4. continue sevelamer with meals. Goal is to get phosphorus level below 5.5. PTH will be checked at dialysis unit as outpatient placement in progress
--- NOTE | 2021-01-02 15:14 | PCM.PN.HOSP ---
Reason for Visit: Follow-up for end-stage kidney disease on recent start of hemodialysis. Peripheral neuropathy and recurrent fall Objective: Patient complain of pain on both lower legs mainly on foot, plantar aspect and lower legs numbness and tingling suggestive of diabetic neuropathy. On hemodialysis being followed by community health nurse. Heart rate and blood pressure in acceptable limit. General: Alert, Oriented x3, Cooperative HEENT: Atraumatic, PERRLA, EOMI, Normocephalic Oral: No Gingival or Mucosal Lesions/ Ulcerations Neck: Supple, No JVD, Negative Carotid Bruits Lungs: Air entry diminished in bilateral lung bases. No crepitation/rhonchi Cardiovascular: Regular rate, Regular Rhythm, Normal S1, Normal S2, No murmurs. Peripheral pulses diminished. Abdomen: Bowel Sounds Present, Soft, Non Tender, Non-Distended : No renal angle tenderness. No suprapubic tenderness. Extremities: No edema, Capillary Refill Less than 3 Seconds Skin: Pressure ulcer, unstageable, left heel and nonhealing wound on left medial and right medial lower leg. Musculoskeletal: Tenderness present on both lower legs. Paresthesia Neurological: Paresthesia in both lower leg, cranial nerves II-XII grossly intact, Deep Tendon Reflexes 2+/4 Psych/Mental Status: Normal Affect, Appropriate. Vitals/I&O's: Vital Signs Temp Pulse Resp BP Pulse Ox 98.1 F 77 18 154/81 H 92 01/02/21 15:09 01/02/21 15:09 01/02/21 15:09 01/02/21 15:09 01/02/21 15:09 Oxygen Flow Rate (L/min) 2 Oxygen Delivery Method Room Air Weight: 156 lb 8.451 oz Body Mass Index (BMI) 37.0 Finger Stick Blood Glucose 14 Intake and Output for Last 24 Hours 12/31/20 01/01/21 01/02/21 23:59 23:59 23:59 Intake Total 1075 / 1075 975 / 975 560 / 560 Output Total 1999 800 / 800 Balance -925 / -925 175 / 175 560 / 560 Laboratory Results 12/31/20 06:12: Diff Path Review Reviewed 01/01/21 17:05: POC Glucose 136 H 01/01/21 21:38: POC Glucose 109 01/02/21 05:36: WBC 14.2 H, RBC 2.83 L, Hgb 7.8 L, Hct 25.5 L, MCV 90.1, MCH 27.6, MCHC 30.6 L, RDW Std Deviation 53.2 H, RDW Coeff of Robyn 16.2 H, Plt Count 240, MPV 10.2, Immature Gran % (Auto) 0.400, Neut % (Auto) 81.4 H, Lymph % (Auto) 8.1 L, [place] % (Auto) 9.2, Eos % (Auto) 0.7, Baso % (Auto) 0.2, Absolute Neuts (auto) 11.5 H, Absolute Lymphs (auto) 1.14, Nucleated RBC % 0 01/02/21 05:36: Sodium 135 L, Potassium 3.9, Chloride 99, Carbon Dioxide 25.0, Anion Gap 11, BUN 33 H, Creatinine 3.67 H, Estim Creat Clear Calc 16.44, Est GFR (MDRD) Af Amer 16 L, Est GFR (MDRD) Non-Af 13 L, BUN/Creatinine Ratio 9.0 L, Glucose 100, Calcium 8.6 01/02/21 06:32: POC Glucose 102 01/02/21 11:34: POC Glucose 107 Current Medications Acetaminophen (Acetaminophen 325 Mg Tablet) 650 mg PO Q6H PRN PRN PRN Reason: Pain 1-10 or Fever Last Admin: 01/02/21 13:34 Dose: 650 mg Documented by: Albuterol Sulfate (Albuterol 2.5 Mg/3 Ml Vial.Neb.) 2.5 mg INHALATION Q4H PRN PRN PRN Reason: sob/wheezing Last Admin: 12/28/20 17:47 Dose: 2.5 mg Documented by: Aspirin (Aspirin 81 Mg Tab.Chew) 81 mg PO DAILY@0800 [facility] Last Admin: 01/02/21 07:42 Dose: 81 mg Documented by: Atorvastatin Calcium (Atorvastatin Calcium 40 Mg Tablet) 40 mg PO QHS [facility] Last Admin: 01/01/21 21:39 Dose: 40 mg Documented by: Collagenase (Collagenase 30gm Tube) 1 applic TOPICAL DAILY [facility]; Protocol Last Admin: 01/02/21 09:11 Dose: 1 applic Documented by: Dextrose (Dextrose 50%-Water 25 Gm/50 Ml Disp.Syrin) 0 gm IV X1 PRN; Protocol PRN Reason: Hypoglycemia Glucagon (Glucagon 1 Mg/Ml Syringe) 1 mg IM .X1 PRN PRN Reason: Hypoglycemia Heparin Sodium (Porcine) (Heparin Injection (Vial) 5,000 Unit/Ml Vial) 5,000 unit SC Q8 [facility] Last Admin: 01/02/21 13:33 Dose: 5,000 unit Documented by: Hydralazine HCl (Hydralazine 50 Mg Tablet) 50 mg PO TID [facility] Last Admin: 01/02/21 06:35 Dose: 50 mg Documented by: Sodium Chloride () 250 mls @ 15 mls/hr IV .[id number] PRN PRN Reason: Saline Flush Sodium Chloride () 250 mls @ 15 mls/hr IV .[id number] PRN PRN Reason: Additional IVPB Infusion Ferric Sodium Gluconate Complex 125 mg/ Sodium Chloride 110 mls @ 110 mls/hr IV DAILY [facility] Stop: 01/07/21 11:00 Last Infusion: 01/02/21 11:12 Dose: Infused Documented by: Insulin Human Lispro (Insulin Lispro 100 Unit/Ml Insuln.Pen) 0 unit SC ACHS [facility]; Protocol Last Admin: 01/02/21 11:35 Dose: Not Given Documented by: Ondansetron HCl (Ondansetron 4 Mg/2 Ml Vial) 4 mg IV Q8H PRN PRN PRN Reason: NAUSEA/VOMITING Oxycodone HCl (Oxycodone 5 Mg Tablet) 5 mg PO Q4H PRN PRN PRN Reason: Pain Score 6-10 Last Admin: 01/02/21 13:33 Dose: 5 mg Documented by: Sertraline HCl (Sertraline 50 Mg Tablet) 25 mg PO DAILY [facility] Last Admin: 01/02/21 10:07 Dose: 25 mg Documented by: Sevelamer Carbonate (Sevelamer Carbonate 800 Mg Tablet) 1,600 mg PO TIDCM [facility] Last Admin: 01/02/21 11:35 Dose: 1,600 mg Documented by: Sodium Chloride (0.9% Saline Lock 10 Ml Syringe) 10 - 40 ml IV UD PRN PRN Reason: SALINE FLUSH STROKE Vital Signs/Narrative: Vital Signs Temp Pulse Resp BP Pulse Ox 01/02/21 15:09 98.1 F 77 18 154/81 H 92 Medical Necessity - Tobacco Use Smoking Status: Former smoker Tobacco Use: Cigarettes Assessment/Plan All Active Problems Tinea pedis (Resolved) Blisters of multiple sites (Acute) End stage renal disease (Acute) Acute respiratory failure with hypoxia (Resolved) Community acquired pneumonia (Resolved) Leukocytosis (Resolved) 70-year-old female was admitted for abnormal lab and confusion bilateral lower leg wounds. 1. Left heel pressure ulcer, unstageable in bilateral medial lower leg, nonhealing ulcer due to end-stage kidney disease and peripheral arterial disease: Patient seen by wound nurse. Wound photo and wound nurse note reviewed. Dressing applied. PT and OT. Patient not febrile or acute change in status, hypoxia or tachypnea to warrant systemic antibiotic but local wound dressing to continue. PT and OT. Noninvasive vascular study shows moderate impairment of the arterial flow at the ankle level bilaterally as well as severe impairment at the digital level bilaterally. No evidence of DVT on venous duplex scan. My hospitalist colleague discussed with vascular surgeon Dr. Jhony Feliz who will see the patient as an outpatient. Patient on aspirin and statin for chronic peripheral arterial disease. 2. ESKD with new start of hemodialysis: This has been gradual loss of kidney function over the past few years. Patient has signs of uremia including fatigue anuric CF and chronic peripheral arterial disease evaluation. Patient has terminal dialysis catheter on hemodialysis. 3. Chronic anemia secondary to CKD/ESKD patient has not had any dark stool. Stool for occult blood ordered. Patient had tunneled Alysis catheter on 12/30. H&H is stable between 7 to 8 g over last 5 days. Serum iron 25, iron saturation 7.9% but normal is ferritin 75 mg. IV iron therapy ordered by community health nurse. . HTN: Blood pressure is controlled. Lasix HCTZ and losartan are on hold. Continue hydralazine. 4. DM 2, complicated diabetic nephropathy, neuropathy and peripheral arterial disease on a sliding scale insulin -Accu-Cheks AC at bedtime, make adjustments as necessary 5. Anxiety/depression -Stable -Continue with Zoloft DVT: Heparin 500 subcutaneous twice daily Inpatient E&M: [id number] [facility] Hosp L2
[2021-01-02 16:56] LABS: Bedside Glucose 87 mg/dL (70-110)
--- NOTE | 2021-01-02 17:58 | DIALYSIS ---
Hd x 3 hours complete. Tolerated tx well. Used 3k bath. UF of 3500ml. Used right chest wall dialysis catheter. Lumens closed with heparin. Caps placed. Dressing is intact. Report was given to REY Mercado.
[2021-01-02] MEDS: Atorvastatin Calcium 40 MG Tablet PO (22:38)
[2021-01-02] MEDS: 0.9% Saline Lock 10 ML Syringe IV (22:42)
[2021-01-02 22:46] LABS: Bedside Glucose 97 mg/dL (70-110)
[2021-01-03] VITALS (12 sets, daily range): BP systolic 129–179; BP diastolic 52–84; PULSE 76–88; RESP 16–18; TEMP 36.6–37.7; O2SAT 94–97
[2021-01-03] MEDS: Acetaminophen 325 MG Tablet 650 MG PO ×3 (04:26→21:31)
[2021-01-03] MEDS: oxyCODONE 5 MG Tablet PO ×4 (04:28→21:31)
[2021-01-03 05:00] LABS: Absolute Lymphocyte Count 1.19 X10^3/uL (0.83-4.51); Basophil# 0.04 X10^3/uL; Basophil% 0.3 % (0-1); Eosinophils% 1.3 % (0-5); Hematocrit 27.5 % (37-47); Hemoglobin 8.3 g/dL (12.0-15.0); Lymphocyte # 1.19 X10^3/ul (4.0); Mean Corp Hgb Conc 30.2 g/dL (32-36); Mean Corpuscular Hgb 27.7 pg (27.0-32.0); Mean Corpuscular Volume 91.7 fL (81-99); Mean Platelet Vol. 10.5 fl (6.2-12.0); Monocyte# 1.35 X10^3/uL; Monocyte% 9.1 % (0-10); NRBC Flagged by Analyzer 0 % (0-5); Neutrophil # 12.02 X10^3/uL (2.7-7.7); Neutrophil % 80.6 % (47-70); Platelet Count 294 K/mm3 (150-450); RBC Distribution Width CV 15.9 % (11.6-14.6); RBC Distribution Width SD 52.9 fl (35.1-43.9); White Blood Count 14.9 K/mm3 (4.4-11.0)
[2021-01-03 05:19] LABS: Anion Gap 7 (5-15); BUN 18 mg/dL (7-18); Calcium,Total 8.7 mg/dL (8.5-10.1); Chloride 102 mmol/L (98-107); Creatinine, Serum 2.57 mg/dL (0.55-1.02); EST Glomerular Filtration Rate 20 mL/min (>60); Est Glom Filt Rate - Afr Amer 24 mL/min (>60); Estimated Creatinine Clearance 23.48 ml/min; Glucose 93 mg/dL (74-106); Phosphorus 3.3 mg/dL (2.5-4.9); Potassium 3.8 mmol/L (3.5-5.1); Sodium Level 135 mmol/L (136-145)
[2021-01-03] MEDS: hydrALAZINE 50 MG Tablet PO ×3 (06:46→21:30)
[2021-01-03 07:11] LABS: Bedside Glucose 96 mg/dL (70-110)
[2021-01-03] MEDS: Sertraline 50 MG Tablet 25 MG PO (08:16)
[2021-01-03] MEDS: SEVELAMER CARBONATE 800 MG TABLET 1600 MG PO ×3 (08:16→15:49)
[2021-01-03] MEDS: Heparin Injection (Vial) 5,000 UNIT/ML VIAL 5000 UNIT SC ×2 (08:16→21:30)
[2021-01-03] MEDS: Aspirin 81 MG TAB.CHEW PO (08:16)
[2021-01-03] MEDS: Collagenase 30gm Tube 1 APPLIC TOPICAL (08:18)
--- NOTE | 2021-01-03 10:23 | PCM.PN.REN ---
Subjective: no new complaints - Physical Exam Vitals/I&O's: Vital Signs Temp Pulse Resp BP Pulse Ox 98.1 F 76 18 144/68 H 97 01/03/21 08:25 01/03/21 08:25 01/03/21 08:25 01/03/21 08:25 01/03/21 08:25 Oxygen Flow Rate (L/min) 2 Oxygen Delivery Method Room Air Weight: 71.6 kg Body Mass Index (BMI) 37.0 Finger Stick Blood Glucose 14 Intake and Output for Last 24 Hours 01/01/21 01/02/21 01/03/21 23:59 23:59 23:59 Intake Total 975 / 975 660 / 660 150 / 150 Output Total 800 / 800 Balance 175 / 175 660 / 660 150 / 150 General: Alert, Oriented x3, Cooperative HEENT: Atraumatic, PERRLA, EOMI, Normocephalic Neck: Supple, No JVD, Negative Carotid Bruits Lungs: Clear to auscultation, Normal air movement Cardiovascular: Regular rate, No murmurs Abdomen: Bowel Sounds Present, Soft, Non Tender Extremities: No edema, Capillary Refill Less than 3 Seconds Skin: No rashes, No breakdown Musculoskeletal: No Tenderness to Palpation of Joints or Extremities Neurological: Cranial nerves II-XII grossly intact Psych/Mental Status: Normal Affect, Appropriate Laboratory Results 12/31/20 06:12: Diff Path Review Reviewed 01/02/21 11:34: POC Glucose 107 01/02/21 16:45: POC Glucose 87 01/02/21 22:33: POC Glucose 97 01/03/21 04:46: WBC 14.9 H, RBC 3.00 L, Hgb 8.3 L, Hct 27.5 L, MCV 91.7, MCH 27.7, MCHC 30.2 L, RDW Std Deviation 52.9 H, RDW Coeff of Robyn 15.9 H, Plt Count 294, MPV 10.5, Immature Gran % (Auto) 0.700, Neut % (Auto) 80.6 H, Lymph % (Auto) 8.0 L, Ritchie % (Auto) 9.1, Eos % (Auto) 1.3, Baso % (Auto) 0.3, Absolute Neuts (auto) 12.0 H, Absolute Lymphs (auto) 1.19, Nucleated RBC % 0 01/03/21 04:46: Sodium 135 L, Potassium 3.8, Chloride 102, Carbon Dioxide 26.0, Anion Gap 7, BUN 18, Creatinine 2.57 H, Estim Creat Clear Calc 23.48, Est GFR (MDRD) Af Amer 24 L, Est GFR (MDRD) Non-Af 20 L, BUN/Creatinine Ratio 7.0 L, Glucose 93, Calcium 8.7, Phosphorus 3.3 01/03/21 06:48: POC Glucose 96 Current Medications Acetaminophen (Acetaminophen 325 Mg Tablet) 650 mg PO Q6H PRN PRN PRN Reason: Pain 1-10 or Fever Last Admin: 01/03/21 04:26 Dose: 650 mg Documented by: Albuterol Sulfate (Albuterol 2.5 Mg/3 Ml Vial.Neb.) 2.5 mg INHALATION Q4H PRN PRN PRN Reason: sob/wheezing Last Admin: 12/28/20 17:47 Dose: 2.5 mg Documented by: Aspirin (Aspirin 81 Mg Tab.Chew) 81 mg PO DAILY@0800 [facility] Last Admin: 01/03/21 08:16 Dose: 81 mg Documented by: Atorvastatin Calcium (Atorvastatin Calcium 40 Mg Tablet) 40 mg PO QHS [facility] Last Admin: 01/02/21 22:38 Dose: 40 mg Documented by: Collagenase (Collagenase 30gm Tube) 1 applic TOPICAL DAILY [facility]; Protocol Last Admin: 01/03/21 08:18 Dose: 1 applic Documented by: Dextrose (Dextrose 50%-Water 25 Gm/50 Ml Disp.Syrin) 0 gm IV X1 PRN; Protocol PRN Reason: Hypoglycemia Glucagon (Glucagon 1 Mg/Ml Syringe) 1 mg IM .X1 PRN PRN Reason: Hypoglycemia Heparin Sodium (Porcine) (Heparin Injection (Vial) 5,000 Unit/Ml Vial) 5,000 unit SC Q12 [facility] Last Admin: 01/03/21 08:16 Dose: 5,000 unit Documented by: Hydralazine HCl (Hydralazine 50 Mg Tablet) 50 mg PO TID [facility] Last Admin: 01/03/21 06:46 Dose: 50 mg Documented by: Sodium Chloride () 250 mls @ 15 mls/hr IV .[id number] PRN PRN Reason: Saline Flush Sodium Chloride () 250 mls @ 15 mls/hr IV .[id number] PRN PRN Reason: Additional IVPB Infusion Ferric Sodium Gluconate Complex 125 mg/ Sodium Chloride 110 mls @ 110 mls/hr IV DAILY [facility] Stop: 01/07/21 11:00 Last Infusion: 01/02/21 11:12 Dose: Infused Documented by: Insulin Human Lispro (Insulin Lispro 100 Unit/Ml Insuln.Pen) 0 unit SC ACHS [facility]; Protocol Last Admin: 01/03/21 06:48 Dose: Not Given Documented by: Ondansetron HCl (Ondansetron 4 Mg/2 Ml Vial) 4 mg IV Q8H PRN PRN PRN Reason: NAUSEA/VOMITING Oxycodone HCl (Oxycodone 5 Mg Tablet) 5 mg PO Q4H PRN PRN PRN Reason: Pain Score 6-10 Last Admin: 01/03/21 08:16 Dose: 5 mg Documented by: Sertraline HCl (Sertraline 50 Mg Tablet) 25 mg PO DAILY [facility] Last Admin: 01/03/21 08:16 Dose: 25 mg Documented by: Sevelamer Carbonate (Sevelamer Carbonate 800 Mg Tablet) 1,600 mg PO TIDCM [facility] Last Admin: 01/03/21 08:16 Dose: 1,600 mg Documented by: Sodium Chloride (0.9% Saline Lock 10 Ml Syringe) 10 - 40 ml IV UD PRN PRN Reason: SALINE FLUSH Last Admin: 01/02/21 22:42 Dose: 10 ml Documented by: Medical Necessity - Tobacco Use Smoking Status: Former smoker Tobacco Use: Cigarettes Assessment/Plan All Active Problems Tinea pedis (Resolved) Blisters of multiple sites (Acute) End stage renal disease (Acute) Acute respiratory failure with hypoxia (Resolved) Community acquired pneumonia (Resolved) Leukocytosis (Resolved) 1. ESRD. The patient has been losing her renal function over time for the past few years. Her creatinine has increased from 4.7 in May 2020 up to 6.26 mg/dL The patient is displaying signs of uremia such as dysgeusia, fatigue and anorexia. Her serum albumin is already low at 2.8 g/dL. Tunneled dialysis catheter has been placed by Dr. Matilde NICHOLAS tomorrow 2. Anemia in chronic kidney disease. Ferritin is only 75. Iron saturation is 7.9%. iron load ordered. 3. Hypertension. Goal blood pressure is less than 140/90 eventually 4. CKD?mineral bone disease. Calcium level is 8.3 and phosphorus level is 8.4. continue sevelamer with meals. Goal is to get phosphorus level below 5.5. PTH will be checked at dialysis unit as outpatient placement in progress
[2021-01-03 12:10] LABS: Bedside Glucose 129 mg/dL (70-110)
--- NOTE | 2021-01-03 15:07 | CASEMGMT ---
This RN DREW spoke with Coleman at [facility] and Shanita at [facility] regarding financial approval for OP HD. Per both, this has been escalated to a higher priority. Referral was faxed on Saturday12/30/20. Message was also left with Yohana Wilkes, [facility] studio operations manager, regarding same as this RN DREW discussed pt with her last week. SStnicolasa LE CM
--- NOTE | 2021-01-03 15:42 | PCM.PN.HOSP ---
Reason for Visit: Follow-up for recent start of hemodialysis. Intermittent one-time temperature T-max 100 Fahrenheit. No associated tachycardia. No hypoxia or tachypnea. Blood pressure is in normal range. Chronic pain over both legs mainly on plantar aspect of feet General: Alert, Oriented x3, Cooperative HEENT: Atraumatic, PERRLA, EOMI, Normocephalic Oral: No Gingival or Mucosal Lesions/ Ulcerations Neck: Supple, No JVD, Negative Carotid Bruits Lungs: Air entry diminished in bilateral lung bases. No crepitation/rhonchi Cardiovascular: Regular rate, Regular Rhythm, Normal S1, Normal S2, No murmurs. Peripheral pulses diminished. Abdomen: Bowel Sounds Present, Soft, Non Tender, Non-Distended : No renal angle tenderness. No suprapubic tenderness. Extremities: No edema, Capillary Refill Less than 3 Seconds Skin: Pressure ulcer, unstageable, left heel and nonhealing wound on left medial and right medial lower leg. Musculoskeletal: Tenderness present on both lower legs. Neurological: Paresthesia in both lower leg, cranial nerves II-XII grossly intact, Deep Tendon Reflexes 2+/4 Psych/Mental Status: Flat affect. Vitals/I&O's: Vital Signs Temp Pulse Resp BP Pulse Ox 97.9 F 77 18 129/62 H 94 01/03/21 14:21 01/03/21 14:21 01/03/21 14:21 01/03/21 14:21 01/03/21 14:21 Oxygen Flow Rate (L/min) 2 Oxygen Delivery Method Room Air Weight: 157 lb 13.616 oz Body Mass Index (BMI) 37.0 Finger Stick Blood Glucose 14 Intake and Output for Last 24 Hours 01/01/21 01/02/21 01/03/21 23:59 23:59 23:59 Intake Total 975 / 975 660 / 660 260 / 260 Output Total 800 / 800 Balance 175 / 175 660 / 660 260 / 260 Laboratory Results 01/02/21 16:45: POC Glucose 87 01/02/21 22:33: POC Glucose 97 01/03/21 04:46: WBC 14.9 H, RBC 3.00 L, Hgb 8.3 L, Hct 27.5 L, MCV 91.7, MCH 27.7, MCHC 30.2 L, RDW Std Deviation 52.9 H, RDW Coeff of Robyn 15.9 H, Plt Count 294, MPV 10.5, Immature Gran % (Auto) 0.700, Neut % (Auto) 80.6 H, Lymph % (Auto) 8.0 L, [place] % (Auto) 9.1, Eos % (Auto) 1.3, Baso % (Auto) 0.3, Absolute Neuts (auto) 12.0 H, Absolute Lymphs (auto) 1.19, Nucleated RBC % 0 01/03/21 04:46: Sodium 135 L, Potassium 3.8, Chloride 102, Carbon Dioxide 26.0, Anion Gap 7, BUN 18, Creatinine 2.57 H, Estim Creat Clear Calc 23.48, Est GFR (MDRD) Af Amer 24 L, Est GFR (MDRD) Non-Af 20 L, BUN/Creatinine Ratio 7.0 L, Glucose 93, Calcium 8.7, Phosphorus 3.3 01/03/21 06:48: POC Glucose 96 01/03/21 11:41: POC Glucose 129 H Current Medications Acetaminophen (Acetaminophen 325 Mg Tablet) 650 mg PO Q6H PRN PRN PRN Reason: Pain 1-10 or Fever Last Admin: 01/03/21 10:33 Dose: 650 mg Documented by: Albuterol Sulfate (Albuterol 2.5 Mg/3 Ml Vial.Neb.) 2.5 mg INHALATION Q4H PRN PRN PRN Reason: sob/wheezing Last Admin: 12/28/20 17:47 Dose: 2.5 mg Documented by: Aspirin (Aspirin 81 Mg Tab.Chew) 81 mg PO DAILY@0800 [facility] Last Admin: 01/03/21 08:16 Dose: 81 mg Documented by: Atorvastatin Calcium (Atorvastatin Calcium 40 Mg Tablet) 40 mg PO QHS [facility] Last Admin: 01/02/21 22:38 Dose: 40 mg Documented by: Collagenase (Collagenase 30gm Tube) 1 applic TOPICAL DAILY [facility]; Protocol Last Admin: 01/03/21 08:18 Dose: 1 applic Documented by: Dextrose (Dextrose 50%-Water 25 Gm/50 Ml Disp.Syrin) 0 gm IV X1 PRN; Protocol PRN Reason: Hypoglycemia Glucagon (Glucagon 1 Mg/Ml Syringe) 1 mg IM .X1 PRN PRN Reason: Hypoglycemia Heparin Sodium (Porcine) (Heparin Injection (Vial) 5,000 Unit/Ml Vial) 5,000 unit SC Q12 [facility] Last Admin: 01/03/21 08:16 Dose: 5,000 unit Documented by: Hydralazine HCl (Hydralazine 50 Mg Tablet) 50 mg PO TID [facility] Last Admin: 01/03/21 06:46 Dose: 50 mg Documented by: Sodium Chloride () 250 mls @ 15 mls/hr IV .[id number] PRN PRN Reason: Saline Flush Sodium Chloride () 250 mls @ 15 mls/hr IV .[id number] PRN PRN Reason: Additional IVPB Infusion Ferric Sodium Gluconate Complex 125 mg/ Sodium Chloride 110 mls @ 110 mls/hr IV DAILY [facility] Stop: 01/07/21 11:00 Last Infusion: 01/03/21 11:45 Dose: Infused Documented by: Insulin Human Lispro (Insulin Lispro 100 Unit/Ml Insuln.Pen) 0 unit SC ACHS [facility]; Protocol Last Admin: 01/03/21 11:41 Dose: Not Given Documented by: Ondansetron HCl (Ondansetron 4 Mg/2 Ml Vial) 4 mg IV Q8H PRN PRN PRN Reason: NAUSEA/VOMITING Oxycodone HCl (Oxycodone 5 Mg Tablet) 5 mg PO Q4H PRN PRN PRN Reason: Pain Score 6-10 Last Admin: 01/03/21 08:16 Dose: 5 mg Documented by: Sertraline HCl (Sertraline 50 Mg Tablet) 25 mg PO DAILY [facility] Last Admin: 01/03/21 08:16 Dose: 25 mg Documented by: Sevelamer Carbonate (Sevelamer Carbonate 800 Mg Tablet) 1,600 mg PO TIDCM [facility] Last Admin: 01/03/21 11:42 Dose: 1,600 mg Documented by: Sodium Chloride (0.9% Saline Lock 10 Ml Syringe) 10 - 40 ml IV UD PRN PRN Reason: SALINE FLUSH Last Admin: 01/02/21 22:42 Dose: 10 ml Documented by: STROKE Vital Signs/Narrative: Vital Signs Temp Pulse Resp BP Pulse Ox 01/03/21 14:21 97.9 F 77 18 129/62 H 94 01/03/21 12:13 77 Medical Necessity - Tobacco Use Smoking Status: Former smoker Tobacco Use: Cigarettes Assessment/Plan All Active Problems Tinea pedis (Resolved) Blisters of multiple sites (Acute) End stage renal disease (Acute) Acute respiratory failure with hypoxia (Resolved) Community acquired pneumonia (Resolved) Leukocytosis (Resolved) 70-year-old female was admitted for abnormal lab and confusion bilateral lower leg wounds. 1. Left heel pressure ulcer, unstageable in bilateral medial lower leg, nonhealing ulcer due to end-stage kidney disease and peripheral arterial disease: Patient seen by wound nurse. Wound photo and wound nurse note reviewed. Dressing applied. PT and OT. Patient not febrile or acute change in status, hypoxia or tachypnea to warrant systemic antibiotic but local wound dressing to continue. PT and OT. Noninvasive vascular study shows moderate impairment of the arterial flow at the ankle level bilaterally as well as severe impairment at the digital level bilaterally. No evidence of DVT on venous duplex scan. My hospitalist colleague discussed with vascular surgeon Dr. Jhony Feliz who will see the patient as an outpatient. Patient on aspirin and statin for chronic peripheral arterial disease. 01/03: Dressing is being done. Discussed with the home health care case manager regarding precertification. 2. ESKD with new start of hemodialysis: This has been gradual loss of kidney function over the past few years. Patient has signs of uremia including fatigue anuric CF and chronic peripheral arterial disease evaluation. 3. Chronic anemia secondary to CKD/ESKD patient has not had any dark stool. Stool for occult blood ordered. Patient had tunneled dialysis catheter on 12/30. H&H is stable between 7 to 8 g over last 5 days. Serum iron 25, iron saturation 7.9% but normal is ferritin 75 mg. IV iron therapy ordered by entry level installation technician. . HTN: Blood pressure is controlled. Lasix HCTZ and losartan are on hold. Continue hydralazine. 4. DM 2, complicated diabetic nephropathy, neuropathy and peripheral arterial disease on a sliding scale insulin -Accu-Cheks AC at bedtime, make adjustments as necessary 5. Anxiety/depression -Stable -Continue with Zoloft DVT: Heparin 500 subcutaneous twice daily Awaiting precertification for placement. Inpatient E&M: 09010 [facility] Hosp L2
--- NOTE | 2021-01-03 15:47 | NURSING ---
Took a phone call from Yohana from [facility]. In reference to patient Jorge. She is still trying authorization for dialysis in the [place] area. They can not accept her there until they get approval or else insurance sends a letter to the patient that they are being billed for it. Approval can take 7-10 days for this to happen. Yohana is requesting that patients with the same insurance and will be dialysis should have the referral sent in as soon as possible since the authorization takes so long. She left me with her number [phone] for Paige RUSSELL to call her back tomorrow with any questions.
--- NOTE | 2021-01-03 15:56 | CHAPLAIN ---
Type of Pastoral Visit ___ Initial Visit _x__ Follow-up Visit ___ On-call Visit ___ General Patient Visit ___ Spiritual Assessment ___ Family Conference ___ Bereavement ___ Rapid Response ___ Code Blue ___ Other (describe below) Pastoral Care Referral From _x__ Patient ___ Family ___ Nurse ___ Physician ___ Metal Machinist ___ Automatic Fabric Cutter ___ Other (describe below) Sacrament/Intervention _x__ Active listening ___ Anointing ___ Taoism ___ Bereavement ___ Communion ___ Kaylie exploration ___ ___ Life review _x__ Prayer ___ Reconciliation ___ Sacrament of Sick _x__ Supportive presence ___ Wedding ___ Other (describe below) Pastoral Comments patient is sitting up in chair with lunch tray in front of her; pt is alert but states I am so tired; pt has a Bible with her on the bedside tray and says I am not able to focus enough to read it; patient states that she would just like a prayer; pt says she has no family available to her and that her only daughter is estranged which is an emotional heartache
[2021-01-03 16:06] LABS: Bedside Glucose 144 mg/dL (70-110)
[2021-01-03] MEDS: Atorvastatin Calcium 40 MG Tablet PO (21:30)
[2021-01-03 22:10] LABS: Bedside Glucose 128 mg/dL (70-110)
[2021-01-03] MEDS: Polyethylene Glycol 3350 17 GM PACKET PO (23:33)
[2021-01-04] VITALS (13 sets, daily range): BP systolic 122–198; BP diastolic 58–88; PULSE 73–90; RESP 16–18; TEMP 2.6–37.1; O2SAT 93–96
[2021-01-04] MEDS: hydrALAZINE 50 MG Tablet PO ×3 (05:14→21:06)
[2021-01-04] MEDS: oxyCODONE 5 MG Tablet PO ×3 (05:15→14:18)
[2021-01-04] MEDS: Acetaminophen 325 MG Tablet 650 MG PO ×2 (05:16→11:41)
[2021-01-04 06:34] LABS: Anion Gap 9 (5-15); BUN 27 mg/dL (7-18); BUN/Creat Ratio 7.4 RATIO (10-20); Calcium,Total 8.6 mg/dL (8.5-10.1); Chloride 102 mmol/L (98-107); Creatinine, Serum 3.65 mg/dL (0.55-1.02); EST Glomerular Filtration Rate 13 mL/min (>60); Est Glom Filt Rate - Afr Amer 16 mL/min (>60); Estimated Creatinine Clearance 15.88 ml/min; Glucose 96 mg/dL (74-106); Potassium 4.1 mmol/L (3.5-5.1); Sodium Level 136 mmol/L (136-145)
[2021-01-04 06:35] LABS: Bedside Glucose 101 mg/dL (70-110)
[2021-01-04] MEDS: Collagenase 30gm Tube 1 APPLIC TOPICAL (08:13)
[2021-01-04] MEDS: Sertraline 50 MG Tablet 25 MG PO (09:17)
[2021-01-04] MEDS: SEVELAMER CARBONATE 800 MG TABLET 1600 MG PO ×2 (09:17→16:18)
[2021-01-04] MEDS: Aspirin 81 MG TAB.CHEW PO (09:17)
[2021-01-04] MEDS: Polyethylene Glycol 3350 17 GM PACKET PO (09:18)
[2021-01-04] MEDS: Heparin Injection (Vial) 5,000 UNIT/ML VIAL 5000 UNIT SC ×2 (09:19→21:07)
[2021-01-04] MEDS: Docusate Sodium 100 MG Capsule PO ×2 (09:22→21:06)
--- NOTE | 2021-01-04 10:34 | PCM.PN.REN ---
Subjective: no new complaints - Physical Exam Vitals/I&O's: Vital Signs Temp Pulse Resp BP Pulse Ox 98.5 F 78 18 157/66 H 96 01/04/21 09:32 01/04/21 09:32 01/04/21 09:32 01/04/21 09:32 01/04/21 09:32 Oxygen Flow Rate (L/min) 2 Oxygen Delivery Method Room Air Weight: 68.2 kg Body Mass Index (BMI) 37.0 Finger Stick Blood Glucose 14 Intake and Output for Last 24 Hours 01/02/21 01/03/21 01/04/21 23:59 23:59 23:59 Intake Total 660 / 660 380 / 380 100 / 100 Output Total 0 / 0 100 / 100 Balance 660 / 660 380 / 380 0 / 0 General: Alert, Oriented x3, Cooperative HEENT: Atraumatic, PERRLA, EOMI, Normocephalic Neck: Supple, No JVD, Negative Carotid Bruits Lungs: Clear to auscultation, Normal air movement Cardiovascular: Regular rate, No murmurs Abdomen: Bowel Sounds Present, Soft, Non Tender Extremities: No edema, Capillary Refill Less than 3 Seconds Skin: No rashes, No breakdown Musculoskeletal: No Tenderness to Palpation of Joints or Extremities Neurological: Cranial nerves II-XII grossly intact Psych/Mental Status: Normal Affect, Appropriate Laboratory Results 01/03/21 11:41: POC Glucose 129 H 01/03/21 15:48: POC Glucose 144 H 01/03/21 21:26: POC Glucose 128 H 01/04/21 05:40: Sodium 136, Potassium 4.1, Chloride 102, Carbon Dioxide 25.0, Anion Gap 9, BUN 27 H, Creatinine 3.65 H, Estim Creat Clear Calc 15.88, Est GFR (MDRD) Af Amer 16 L, Est GFR (MDRD) Non-Af 13 L, BUN/Creatinine Ratio 7.4 L, Glucose 96, Calcium 8.6 01/04/21 06:32: POC Glucose 101 Current Medications Acetaminophen (Acetaminophen 325 Mg Tablet) 650 mg PO Q6H PRN PRN PRN Reason: Pain 1-10 or Fever Last Admin: 01/04/21 05:16 Dose: 650 mg Documented by: Albuterol Sulfate (Albuterol 2.5 Mg/3 Ml Vial.Neb.) 2.5 mg INHALATION Q4H PRN PRN PRN Reason: sob/wheezing Last Admin: 12/28/20 17:47 Dose: 2.5 mg Documented by: Aspirin (Aspirin 81 Mg Tab.Chew) 81 mg PO DAILY@0800 [facility] Last Admin: 01/04/21 09:17 Dose: 81 mg Documented by: Atorvastatin Calcium (Atorvastatin Calcium 40 Mg Tablet) 40 mg PO QHS [facility] Last Admin: 01/03/21 21:30 Dose: 40 mg Documented by: Collagenase (Collagenase 30gm Tube) 1 applic TOPICAL DAILY [facility]; Protocol Last Admin: 01/04/21 08:13 Dose: 1 applic Documented by: Dextrose (Dextrose 50%-Water 25 Gm/50 Ml Disp.Syrin) 0 gm IV X1 PRN; Protocol PRN Reason: Hypoglycemia Docusate Sodium (Docusate Sodium 100 Mg Capsule) 100 mg PO BID [facility] Last Admin: 01/04/21 09:22 Dose: 100 mg Documented by: Glucagon (Glucagon 1 Mg/Ml Syringe) 1 mg IM .X1 PRN PRN Reason: Hypoglycemia Heparin Sodium (Porcine) (Heparin Injection (Vial) 5,000 Unit/Ml Vial) 5,000 unit SC Q12 [facility] Last Admin: 01/04/21 09:19 Dose: 5,000 unit Documented by: Hydralazine HCl (Hydralazine 50 Mg Tablet) 50 mg PO TID [facility] Last Admin: 01/04/21 05:14 Dose: 50 mg Documented by: Sodium Chloride () 250 mls @ 15 mls/hr IV .[id number] PRN PRN Reason: Saline Flush Sodium Chloride () 250 mls @ 15 mls/hr IV .[id number] PRN PRN Reason: Additional IVPB Infusion Ferric Sodium Gluconate Complex 125 mg/ Sodium Chloride 110 mls @ 110 mls/hr IV DAILY [facility] Stop: 01/07/21 11:00 Last Infusion: 01/03/21 11:45 Dose: Infused Documented by: Insulin Human Lispro (Insulin Lispro 100 Unit/Ml Insuln.Pen) 0 unit SC ACHS [facility]; Protocol Last Admin: 01/04/21 06:34 Dose: Not Given Documented by: Ondansetron HCl (Ondansetron 4 Mg/2 Ml Vial) 4 mg IV Q8H PRN PRN PRN Reason: NAUSEA/VOMITING Oxycodone HCl (Oxycodone 5 Mg Tablet) 5 mg PO Q4H PRN PRN PRN Reason: Pain Score 6-10 Last Admin: 01/04/21 09:40 Dose: 5 mg Documented by: Polyethylene Glycol (Polyethylene Glycol 3350 17 Gm Packet) 17 gm PO DAILY [facility] Last Admin: 01/04/21 09:18 Dose: 17 gm Documented by: Sertraline HCl (Sertraline 50 Mg Tablet) 25 mg PO DAILY [facility] Last Admin: 01/04/21 09:17 Dose: 25 mg Documented by: Sevelamer Carbonate (Sevelamer Carbonate 800 Mg Tablet) 1,600 mg PO TIDCM [facility] Last Admin: 01/04/21 09:17 Dose: 1,600 mg Documented by: Sodium Chloride (0.9% Saline Lock 10 Ml Syringe) 10 - 40 ml IV UD PRN PRN Reason: SALINE FLUSH Last Admin: 01/02/21 22:42 Dose: 10 ml Documented by: Medical Necessity - Tobacco Use Smoking Status: Former smoker Tobacco Use: Cigarettes Assessment/Plan All Active Problems Tinea pedis (Resolved) Blisters of multiple sites (Acute) End stage renal disease (Acute) Acute respiratory failure with hypoxia (Resolved) Community acquired pneumonia (Resolved) Leukocytosis (Resolved) 1. ESRD. The patient has been losing her renal function over time for the past few years. Her creatinine has increased from 4.7 in May 2020 up to 6.26 mg/dL The patient is displaying signs of uremia such as dysgeusia, fatigue and anorexia. Her serum albumin is already low at 2.8 g/dL. Tunneled dialysis catheter has been placed by Dr. Clayton HD today. staff 2. Anemia in chronic kidney disease. Ferritin is only 75. Iron saturation is 7.9%. iron load 3. Hypertension. Goal blood pressure is less than 140/90 eventually 4. CKD?mineral bone disease. Calcium level is 8.3 and phosphorus level is 8.4. continue sevelamer with meals. Goal is to get phosphorus level below 5.5. pending placement due to insurance issues. ok to dc when cleared
[2021-01-04] MEDS: Heparin 10,000 UNITS/10 ML Vial 3500 UNITS IV (10:44)
[2021-01-04 11:51] LABS: Bedside Glucose 99 mg/dL (70-110)
[2021-01-04] MEDS: Heparin 10,000 UNITS/10 ML Vial IV (13:40)
--- NOTE | 2021-01-04 14:14 | CASEMGMT ---
JACEK faxed updated clinicals to [facility]. JACEK also called Paris at [facility] and let her know JACEK faxed updates. JACEK also let her know we are still waiting on financial clearance for dialysis. Plan: [facility] pending pre-cert and financial clearance for dialysis. Margie Perez ENGROSSER NARCISO
--- NOTE | 2021-01-04 14:17 | DIALYSIS ---
Hemodialysis completed x 3 hours, -2000ml UF. Stable t/o. See HD flowsheet. Verbal report to Tamela at bedside
--- NOTE | 2021-01-04 14:26 | CASEMGMT ---
Pt does qualify for palliative c/s per [facility] palliative screening tool and Dr. Madsen is agreeable to c/s. Referral faxed and called to palliative. Cristiana LE CM
[2021-01-04 16:25] LABS: Bedside Glucose 141 mg/dL (70-110)
--- NOTE | 2021-01-04 16:54 | PCM.PN.HOSP ---
Reason for Visit: Follow-up for end-stage kidney disease on new start of dialysis. Recurrent fall. Objective: Patient has generalized anxiety and starts crying whenever someone tries to touch her leg. She has unknown fear of pain in the legs. General: Alert, Oriented x3, Cooperative HEENT: Atraumatic, PERRLA, EOMI, Normocephalic Oral: No Gingival or Mucosal Lesions/ Ulcerations Neck: Supple, No JVD, Negative Carotid Bruits Lungs: Air entry diminished in bilateral lung bases. No crepitation/rhonchi Cardiovascular: Regular rate, Regular Rhythm, Normal S1, Normal S2, No murmurs. Peripheral pulses diminished. Abdomen: Bowel Sounds Present, Soft, Non Tender, Non-Distended : No renal angle tenderness. No suprapubic tenderness. Extremities: No edema, Capillary Refill Less than 3 Seconds Skin: Pressure ulcer, unstageable, left heel and nonhealing wound on left medial and right medial lower leg. Musculoskeletal: Tenderness present on both lower legs. Paresthesia Neurological: Paresthesia in both lower leg, cranial nerves II-XII grossly intact, Deep Tendon Reflexes 2+/4 Psych/Mental Status: Emotional. Anxious Vitals/I&O's: Vital Signs Temp Pulse Resp BP Pulse Ox 98.4 F 90 18 161/58 H 96 01/04/21 15:00 01/04/21 15:00 01/04/21 15:00 01/04/21 15:00 01/04/21 15:00 Oxygen Flow Rate (L/min) 2 Oxygen Delivery Method Room Air Weight: 150 lb 5.684 oz Body Mass Index (BMI) 37.0 Finger Stick Blood Glucose 14 Intake and Output for Last 24 Hours 01/02/21 01/03/21 01/04/21 23:59 23:59 23:59 Intake Total 660 / 660 380 / 380 570 / 570 Output Total 0 / 0 2100 / 2100 Balance 660 / 660 380 / 380 -1530 / -1530 Laboratory Results 01/03/21 21:26: POC Glucose 128 H 01/04/21 05:40: Sodium 136, Potassium 4.1, Chloride 102, Carbon Dioxide 25.0, Anion Gap 9, BUN 27 H, Creatinine 3.65 H, Estim Creat Clear Calc 15.88, Est GFR (MDRD) Af Amer 16 L, Est GFR (MDRD) Non-Af 13 L, BUN/Creatinine Ratio 7.4 L, Glucose 96, Calcium 8.6 01/04/21 06:32: POC Glucose 101 01/04/21 11:45: POC Glucose 99 01/04/21 16:16: POC Glucose 141 H Current Medications Acetaminophen (Acetaminophen 325 Mg Tablet) 650 mg PO Q6H PRN PRN PRN Reason: Pain 1-10 or Fever Last Admin: 01/04/21 11:41 Dose: 650 mg Documented by: Albuterol Sulfate (Albuterol 2.5 Mg/3 Ml Vial.Neb.) 2.5 mg INHALATION Q4H PRN PRN PRN Reason: sob/wheezing Last Admin: 12/28/20 17:47 Dose: 2.5 mg Documented by: Aspirin (Aspirin 81 Mg Tab.Chew) 81 mg PO DAILY@0800 [facility] Last Admin: 01/04/21 09:17 Dose: 81 mg Documented by: Atorvastatin Calcium (Atorvastatin Calcium 40 Mg Tablet) 40 mg PO QHS [facility] Last Admin: 01/03/21 21:30 Dose: 40 mg Documented by: Collagenase (Collagenase 30gm Tube) 1 applic TOPICAL DAILY [facility]; Protocol Last Admin: 01/04/21 08:13 Dose: 1 applic Documented by: Dextrose (Dextrose 50%-Water 25 Gm/50 Ml Disp.Syrin) 0 gm IV X1 PRN; Protocol PRN Reason: Hypoglycemia Docusate Sodium (Docusate Sodium 100 Mg Capsule) 100 mg PO BID [facility] Last Admin: 01/04/21 09:22 Dose: 100 mg Documented by: Glucagon (Glucagon 1 Mg/Ml Syringe) 1 mg IM .X1 PRN PRN Reason: Hypoglycemia Heparin Sodium (Porcine) (Heparin Injection (Vial) 5,000 Unit/Ml Vial) 5,000 unit SC Q12 [facility] Last Admin: 01/04/21 09:19 Dose: 5,000 unit Documented by: Hydralazine HCl (Hydralazine 50 Mg Tablet) 50 mg PO TID [facility] Last Admin: 01/04/21 14:46 Dose: 50 mg Documented by: Sodium Chloride () 250 mls @ 15 mls/hr IV .[id number] PRN PRN Reason: Saline Flush Sodium Chloride () 250 mls @ 15 mls/hr IV .[id number] PRN PRN Reason: Additional IVPB Infusion Ferric Sodium Gluconate Complex 125 mg/ Sodium Chloride 110 mls @ 110 mls/hr IV DAILY [facility] Stop: 01/07/21 11:00 Last Infusion: 01/04/21 11:33 Dose: Infused Documented by: Insulin Human Lispro (Insulin Lispro 100 Unit/Ml Insuln.Pen) 0 unit SC ACHS [facility]; Protocol Last Admin: 01/04/21 16:18 Dose: Not Given Documented by: Ondansetron HCl (Ondansetron 4 Mg/2 Ml Vial) 4 mg IV Q8H PRN PRN PRN Reason: NAUSEA/VOMITING Oxycodone HCl (Oxycodone 5 Mg Tablet) 5 mg PO Q4H PRN PRN PRN Reason: Pain Score 6-10 Last Admin: 01/04/21 14:18 Dose: 5 mg Documented by: Polyethylene Glycol (Polyethylene Glycol 3350 17 Gm Packet) 17 gm PO DAILY [facility] Last Admin: 01/04/21 09:18 Dose: 17 gm Documented by: Sertraline HCl (Sertraline 50 Mg Tablet) 25 mg PO DAILY [facility] Last Admin: 01/04/21 09:17 Dose: 25 mg Documented by: Sevelamer Carbonate (Sevelamer Carbonate 800 Mg Tablet) 1,600 mg PO TIDCM [facility] Last Admin: 01/04/21 16:18 Dose: 1,600 mg Documented by: Sodium Chloride (0.9% Saline Lock 10 Ml Syringe) 10 - 40 ml IV UD PRN PRN Reason: SALINE FLUSH Last Admin: 01/02/21 22:42 Dose: 10 ml Documented by: STROKE Vital Signs/Narrative: Vital Signs Temp Pulse Resp BP BP Pulse Ox 01/04/21 15:00 98.4 F 90 18 161/58 H 96 01/04/21 14:59 83 01/04/21 14:46 88 157/64 H 01/04/21 13:47 36.6 F L 79 16 198/88 H 01/04/21 13:12 77 18 186/77 H 95 Medical Necessity - Tobacco Use Smoking Status: Former smoker Tobacco Use: Cigarettes Assessment/Plan All Active Problems Tinea pedis (Resolved) Blisters of multiple sites (Acute) End stage renal disease (Acute) Acute respiratory failure with hypoxia (Resolved) Community acquired pneumonia (Resolved) Leukocytosis (Resolved) 70-year-old female was admitted for abnormal lab and confusion bilateral lower leg wounds. 1. Left heel pressure ulcer, unstageable in bilateral medial lower leg, nonhealing ulcer due to end-stage kidney disease and peripheral arterial disease: Patient seen by wound nurse. Wound photo and wound nurse note reviewed. Dressing applied. PT and OT. Patient not febrile or acute change in status, hypoxia or tachypnea to warrant systemic antibiotic but local wound dressing to continue. PT and OT. Noninvasive vascular study shows moderate impairment of the arterial flow at the ankle level bilaterally as well as severe impairment at the digital level bilaterally. No evidence of DVT on venous duplex scan. My hospitalist colleague discussed with vascular surgeon Dr. Jhony Feliz who will see the patient as an outpatient. Patient on aspirin and statin for chronic peripheral arterial disease. 01/03: Dressing is being done. Discussed with the clinical case manager regarding precertification. 01/04: Waiting for pre-CERT 2. ESKD with new start of hemodialysis: This has been gradual loss of kidney function over the past few years. Patient has signs of uremia including fatigue anuric CF and chronic peripheral arterial disease evaluation. 3. Chronic anemia secondary to CKD/ESKD patient has not had any dark stool. Stool for occult blood ordered. Patient had tunneled dialysis catheter on 12/30. H&H is stable between 7 to 8 g over last 5 days. Serum iron 25, iron saturation 7.9% but normal is ferritin 75 mg. IV iron therapy ordered by science instructor. . HTN: Blood pressure is controlled. Lasix HCTZ and losartan are on hold. Continue hydralazine. 01/04: Blood pressure is in acceptable range. 4. DM 2, complicated diabetic nephropathy, neuropathy and peripheral arterial disease on a sliding scale insulin -Accu-Cheks AC at bedtime, make adjustments as necessary 5. Anxiety/depression -Stable -Continue with Zoloft DVT: Heparin 500 subcutaneous twice daily Awaiting precertification for placement. Inpatient E&M: [id number] Subs Hosp L2
[2021-01-04] MEDS: Atorvastatin Calcium 40 MG Tablet PO (21:06)
[2021-01-04 22:05] LABS: Bedside Glucose 117 mg/dL (70-110)
[2021-01-05] VITALS (12 sets, daily range): BP systolic 153–179; BP diastolic 58–74; PULSE 73–83; RESP 17–18; TEMP 36.6–37.1; O2SAT 92–97
[2021-01-05] MEDS: Acetaminophen 325 MG Tablet 650 MG PO ×3 (01:37→18:33)
[2021-01-05] MEDS: oxyCODONE 5 MG Tablet PO ×4 (01:37→18:33)
[2021-01-05] MEDS: hydrALAZINE 50 MG Tablet PO ×3 (06:12→21:40)
[2021-01-05 06:46] LABS: Bedside Glucose 97 mg/dL (70-110)
[2021-01-05] MEDS: SEVELAMER CARBONATE 800 MG TABLET 1600 MG PO ×3 (07:52→16:02)
[2021-01-05] MEDS: Aspirin 81 MG TAB.CHEW PO (07:52)
[2021-01-05] MEDS: Polyethylene Glycol 3350 17 GM PACKET PO (09:03)
[2021-01-05] MEDS: Heparin Injection (Vial) 5,000 UNIT/ML VIAL 5000 UNIT SC ×2 (09:04→21:41)
[2021-01-05] MEDS: Docusate Sodium 100 MG Capsule PO ×2 (09:04→21:40)
[2021-01-05] MEDS: Sertraline 50 MG Tablet 25 MG PO (09:04)
[2021-01-05] MEDS: Collagenase 30gm Tube 1 APPLIC TOPICAL (09:05)
--- NOTE | 2021-01-05 09:58 | CASEMGMT ---
RN CM NOTE: Call placed to [facility] and spoke w/Shanita. She states financial clearance is still pending. She confirms medical clearance has been obtained. She was provided w/boris RN CM contact # to call back if clearance is received today. She also has Paige Gilbert, [employer], contact # to call if clearance is received on Saturday. Germaine YEPEZ RN CM
--- NOTE | 2021-01-05 09:59 | CON.PCM_ITS ---
Problem List (1) Weakness Status: Acute (2) End stage renal disease Status: Acute (3) Anxiety and depression Status: Chronic (4) PVD (peripheral vascular disease) Status: Chronic Comment: severe MAGDALENA PERALTAHervebelkys (5) Left ventricular hypertrophy Status: Chronic Comment: Severe (6) Left atrial enlargement Status: Chronic (7) Pulmonary hypertension Status: Chronic (8) Tobacco dependence in remission Status: Chronic Comment: She quit smoking at 36 years of age (9) Pressure ulcer of left heel, unstageable Status: Chronic Comment: it is covered with an eschar and I can not stage at this time. (10) Obesity Status: Chronic (11) Claudication Status: Chronic Comment: MAGDALENA Ricci (12) Diabetes mellitus Status: Chronic Qualifiers: Diabetes mellitus type: type 2 Diabetes mellitus care home insulin use: with care home use Diabetes mellitus complication status: with circulatory complication Diabetes mellitus complication detail: with peripheral angiopathy without gangrene Qualified Code(s): E11.51 - Type 2 diabetes mellitus with diabetic peripheral angiopathy without gangrene; Z79.4 - penitentiary (current) use of insulin Comment: Also with end-stage renal disease (13) Artificial cardiac pacemaker Status: Chronic (14) Mitral valve prolapse Status: Inactive (15) Mitral valve regurgitation Status: Inactive (16) CHF (congestive heart failure) Status: Chronic (17) Hypertension Status: Chronic History of Present Illness Date of Consult: 01/05/21 Reason for Consult: weakness, ESRD Requesting physician: Dr. Madsen Primary care physician: Dr. Remigio Parks MD - History of Present Illness The patient is a 70 year old F with past medical history as below, presented to the ED 12/28/2020 as a direct admit from her PCP office secondary to a decrease in renal function, bilateral lower extremity wounds, and confusion. She has been following at the wound center for the chronic wounds. She has been having significant difficulty managing independently at home, unable to perform all ADLs. Patient has fistula to the RUE that has clotted off, it was placed sometime ago in anticipation of HD but up until now, she has not needed it. Patient had a recent vascular study that showed moderate impairment of the arterial flow at the ankle level bilaterally as well as severe impairment at the digital level bilaterally. Recommendations were to follow-up with Dr. Jhony Feliz as an outpatient, continue with aspirin and statin. Patient was admitted to the progressive care unit for further evaluation and management. Nephrology consulted and HD initiated. She has been tolerating it fairly well. Patient has also been getting IV iron therapy. Cindi is on Zoloft for her anxiety and depression. Plan is to be [facility] and continue with hemodialysis, however they are waiting on financial approval prior to her discharge. In the meantime, she is getting dialysis here in the hospital. Lasix, HCTZ, and losartan were all on hold. Patient is receiving oxycodone 5 mg every 4 hours as needed for pain, mostly to her legs. She also has Tylenol 650 mg every 6 hours as needed. Patient reports the pain in her legs never goes away, currently a 10 out of 10, when it is really bad she says it is a 15 out of 10. Oxycodone helps sometimes, but only minimally. Brings her pain level down 1-2 points. She does have pretty significant vascular disease and chronic lower extremity wounds. Discussed with wound nurse here at the hospital and she states her legs get discolored/purple hue to them often. Pain does go down when her legs are dependent. Cindi lives at home alone. She has a wheelchair but states it does not work well with her rugs. She calls some company for transport when she has appointments. Patient is active with [facility], her director case management is Yudelka Harrell. She has an aide daily for 1 hour through companions of [employer] and gets meals delivered from [employer]. Patient Problems: Chronic Problems PVD (peripheral vascular disease) (Chronic) severe BL LE's Anemia of chronic renal failure, stage 5 (Chronic) Anxiety and depression (Chronic) Left ventricular hypertrophy (Chronic) Severe Left atrial enlargement (Chronic) Pulmonary hypertension (Chronic) Noncompliance (Chronic) with medications, with physician follow up and with diet Tobacco dependence in remission (Chronic) She quit smoking at 36 years of age Pressure ulcer of left heel, unstageable (Chronic) it is covered with an eschar and I can not stage at this time. Obesity (Chronic) Claudication (Chronic) BL LE's Diabetes mellitus (Chronic) Also with end-stage renal disease Artificial cardiac pacemaker (Chronic) Cardiac conduction disorder (Chronic) CHF (congestive heart failure) (Chronic) Hypertension (Chronic) Chronic renal insufficiency (Chronic) Surgical History: cholecystectomy, pacemaker implantation - [employer], - Psychiatric History: Anxiety, Depression Home Medications: Ambulatory Orders Medication Instructions Recorded Losartan Potassium [Cozaar] 50 mg PO DAILY 04/06/15 Hydrochlorothiazide [Hctz] 12.5 mg PO DAILY #0 07/22/19 hydrALAZINE [Apresoline] 50 mg PO TID #120 tab 07/22/19 Albuterol Inhaler [Ventolin Hfa] 2 puff INHALATION Q4H PRN PRN #1 09/10/19 inhaler Insulin Aspart [Novolog Flexpen] 0 units SUBCUT TIDCM 09/10/19 Sertraline HCl 25 mg PO DAILY #30 tab 11/22/20 Furosemide [Lasix] 80 mg PO DAILY 01/01/21 Gabapentin [Neurontin] 200 mg PO TIDCM 01/01/21 Allergies Penicillins Allergy (Verified 10/04/20 10:10) Rash Paternal History Items: Heart Disease Maternal History Items: Diabetes - Social History Lives: Alone Smoking Status: Former smoker Tobacco Use: Cigarettes Alcohol: None Drugs: None Code Status: Full Code Review of Systems Constitutional: Reports: Weakness, Fatigue. Denies: Chills, Fever, Weight Change Eyes: Denies: Vision Change HEENT: Denies: Difficulty Swallowing, Head Aches, Sinus Congestion, Sinus Drainage, Sore Throat Cardiovascular: Denies: Chest Pain, Edema, Light Headedness, Orthopnea, Palpitations Respiratory: Denies: Cough, Shortness of Breath, Sputum production, Wheezing Gastrointestinal: Denies: Abdominal Pain, Constipation, Diarrhea, Nausea, Vomiting Genitourinary: Denies: Dysuria, Incontinence Musculoskeletal: Reports: Leg Pain. Denies: Joint Pain, Joint Tenderness Skin: Reports: Skin Changes, Wounds. Denies: Rash Neurological: Denies: Change in Speech, Focal weakness, Numbness, Tingling, Seizures Psychiatric: Reports: Anxiety, Depression. Denies: Homicidal Ideations, Suicidal Ideations Hematologic/ Lymphatic: Reports: Anemia, Easy Bruising. Denies: Easy Bleeding Physical Exam Subjective: Sitting up in recliner, watching TV. Appears fatigued. Says her pain is currently 10 out of 10 in her legs. Reports she is doing okay with dialysis. General: Alert, Oriented x3, Cooperative, No apparent distress HEENT: Atraumatic, Normocephalic Oral: Moist Mucosa Neck: Supple, Trachea Midline Lungs: Clear to auscultation, Diminished Cardiovascular: Regular rate, Regular Rhythm, Normal S1, Normal S2 Abdomen: Bowel Sounds Present, Soft, Non Tender, Obese Extremities: Diminished Peripheral Pulses, Edema, Tenderness Skin: No rashes, Ulcer/ Wound Musculoskeletal: No Tenderness to Palpation of Joints or Extremities Neurological: Cranial nerves II-XII grossly intact - Limited exam due to leg pain, - Psych/Mental Status: Appropriate, Flat Affect Objective: Vital Signs Temp Pulse Resp BP Pulse Ox 98.7 F 76 18 158/60 H 92 01/05/21 09:00 01/05/21 09:00 01/05/21 09:00 01/05/21 09:00 01/05/21 09:00 Oxygen Flow Rate (L/min) 2 Oxygen Delivery Method Room Air Weight: 67 kg Body Mass Index (BMI) 37.0 Finger Stick Blood Glucose 14 Intake and Output for Last 24 Hours 01/03/21 01/04/21 01/05/21 23:59 23:59 23:59 Intake Total 380 / 380 1270 / 1270 50 / 50 Output Total 0 / 0 2100 / 2100 Balance 380 / 380 -830 / -830 50 / 50 Assessment/Plan All Active Problems Tinea pedis (Resolved) Blisters of multiple sites (Acute) End stage renal disease (Acute) Weakness (Acute) Acute respiratory failure with hypoxia (Resolved) Community acquired pneumonia (Resolved) Leukocytosis (Resolved) 70-year-old female, new start hemodialysis, chronic lower extremity wounds in the setting of peripheral vascular disease, seen today for palliative care consultation secondary to her renal function and weakness. 1. Weakness: She is getting therapy, will be discharged to the [facility] for ongoing therapy once pre-CERT has been obtained and approval from insurance for hemodialysis in [place]. 2. ESRD: Following with nephrology, IV iron replacement, nephrotoxic meds are being held. Follow-up closely with nephrology. 3. Lower extremity pain: Vascular related, oxycodone not helping a whole lot. Her pain is likely ischemic elated, had vascular studies, plan is to follow-up with Dr. Feliz as an outpatient. She has an appointment for next week according to wound care nurse. Would recommending increasing the PRN oxycodone to 5-10 mg every 4 hours as needed. Ideally she would be on 10mg scheduled oxy or a long acting such as Methadone low dose, however nursing tells me she gets a little more confused when taking pain meds, but improves after HD. We will follow as outpt. Thank you for the opportunity to participate in this patient's care, please do not hesitate to contact [facility] with any further questions or concerns. Palliative direct line is [phone]. We will have RN follow up approximately 3 days after discharge to the [facility] and will discuss palliative services further at that time. It is unclear if she has decisional capacity at this point. Greater than 50% of F2F visit dedicated to education and counseling of palliative care services, medications, comorbid conditions and potential assistance with management, and plan of care moving forward. She is agreeable to have an RN or GENERAL CARGO CLERK visit out at the [facility] and we will go from there. Start time: 909 end time: 944 Start time: 1037 end time: 1056
--- NOTE | 2021-01-05 10:44 | PCM.PN.REN ---
Patient Problems: Active and Suspected Problems End stage renal disease (Acute) Weakness (Acute) Subjective: no new complaints - Physical Exam Vitals/I&O's: Vital Signs Temp Pulse Resp BP Pulse Ox 98.7 F 76 18 158/60 H 92 01/05/21 09:00 01/05/21 09:00 01/05/21 09:00 01/05/21 09:00 01/05/21 09:00 Oxygen Flow Rate (L/min) 2 Oxygen Delivery Method Room Air Weight: 67 kg Body Mass Index (BMI) 37.0 Finger Stick Blood Glucose 14 Intake and Output for Last 24 Hours 01/03/21 01/04/21 01/05/21 23:59 23:59 23:59 Intake Total 380 / 380 1270 / 1270 50 / 50 Output Total 0 / 0 2099 / 2099 Balance 380 / 380 -830 / -830 50 / 50 General: Alert, Oriented x3, Cooperative HEENT: Atraumatic, PERRLA, EOMI, Normocephalic Neck: Supple, No JVD, Negative Carotid Bruits Lungs: Clear to auscultation, Normal air movement Cardiovascular: Regular rate, No murmurs Abdomen: Bowel Sounds Present, Soft, Non Tender Extremities: No edema, Capillary Refill Less than 3 Seconds Skin: No rashes, No breakdown Musculoskeletal: No Tenderness to Palpation of Joints or Extremities Neurological: Cranial nerves II-XII grossly intact Psych/Mental Status: Normal Affect, Appropriate Laboratory Results 01/04/21 11:45: POC Glucose 99 01/04/21 16:16: POC Glucose 141 H 01/04/21 21:04: POC Glucose 117 H 01/05/21 06:38: POC Glucose 97 Current Medications Acetaminophen (Acetaminophen 325 Mg Tablet) 650 mg PO Q6H PRN PRN PRN Reason: Pain 1-10 or Fever Last Admin: 01/05/21 07:52 Dose: 650 mg Documented by: Albuterol Sulfate (Albuterol 2.5 Mg/3 Ml Vial.Neb.) 2.5 mg INHALATION Q4H PRN PRN PRN Reason: sob/wheezing Last Admin: 12/28/20 17:47 Dose: 2.5 mg Documented by: Aspirin (Aspirin 81 Mg Tab.Chew) 81 mg PO DAILY@0800 [facility] Last Admin: 01/05/21 07:52 Dose: 81 mg Documented by: Atorvastatin Calcium (Atorvastatin Calcium 40 Mg Tablet) 40 mg PO QHS [facility] Last Admin: 01/04/21 21:06 Dose: 40 mg Documented by: Collagenase (Collagenase 30gm Tube) 1 applic TOPICAL DAILY [facility]; Protocol Last Admin: 01/05/21 09:05 Dose: 1 applic Documented by: Dextrose (Dextrose 50%-Water 25 Gm/50 Ml Disp.Syrin) 0 gm IV X1 PRN; Protocol PRN Reason: Hypoglycemia Docusate Sodium (Docusate Sodium 100 Mg Capsule) 100 mg PO BID [facility] Last Admin: 01/05/21 09:04 Dose: 100 mg Documented by: Glucagon (Glucagon 1 Mg/Ml Syringe) 1 mg IM .X1 PRN PRN Reason: Hypoglycemia Heparin Sodium (Porcine) (Heparin Injection (Vial) 5,000 Unit/Ml Vial) 5,000 unit SC Q12 [facility] Last Admin: 01/05/21 09:04 Dose: 5,000 unit Documented by: Hydralazine HCl (Hydralazine 50 Mg Tablet) 50 mg PO TID [facility] Last Admin: 01/05/21 06:12 Dose: 50 mg Documented by: Sodium Chloride () 250 mls @ 15 mls/hr IV .[id number] PRN PRN Reason: Saline Flush Sodium Chloride () 250 mls @ 15 mls/hr IV .[id number] PRN PRN Reason: Additional IVPB Infusion Ferric Sodium Gluconate Complex 125 mg/ Sodium Chloride 110 mls @ 110 mls/hr IV DAILY [facility] Stop: 01/07/21 11:00 Last Admin: 01/05/21 09:39 Dose: 110 mls/hr Documented by: Insulin Human Lispro (Insulin Lispro 100 Unit/Ml Insuln.Pen) 0 unit SC ACHS [facility]; Protocol Last Admin: 01/05/21 06:39 Dose: Not Given Documented by: Ondansetron HCl (Ondansetron 4 Mg/2 Ml Vial) 4 mg IV Q8H PRN PRN PRN Reason: NAUSEA/VOMITING Oxycodone HCl (Oxycodone 5 Mg Tablet) 5 mg PO Q4H PRN PRN PRN Reason: Pain Score 6-10 Last Admin: 01/05/21 06:43 Dose: 5 mg Documented by: Polyethylene Glycol (Polyethylene Glycol 3350 17 Gm Packet) 17 gm PO DAILY [facility] Last Admin: 01/05/21 09:03 Dose: 17 gm Documented by: Sertraline HCl (Sertraline 50 Mg Tablet) 25 mg PO DAILY [facility] Last Admin: 01/05/21 09:04 Dose: 25 mg Documented by: Sevelamer Carbonate (Sevelamer Carbonate 800 Mg Tablet) 1,600 mg PO TIDCM [facility] Last Admin: 01/05/21 07:52 Dose: 1,600 mg Documented by: Sodium Chloride (0.9% Saline Lock 10 Ml Syringe) 10 - 40 ml IV UD PRN PRN Reason: SALINE FLUSH Last Admin: 01/02/21 22:42 Dose: 10 ml Documented by: Medical Necessity - Tobacco Use Smoking Status: Former smoker Tobacco Use: Cigarettes Assessment/Plan All Active Problems Tinea pedis (Resolved) Blisters of multiple sites (Acute) End stage renal disease (Acute) Weakness (Acute) Acute respiratory failure with hypoxia (Resolved) Community acquired pneumonia (Resolved) Leukocytosis (Resolved) 1. ESRD. The patient has been losing her renal function over time for the past few years. Her creatinine has increased from 4.7 in May 2020 up to 6.26 mg/dL The patient is displaying signs of uremia such as dysgeusia, fatigue and anorexia. Her serum albumin is already low at 2.8 g/dL. Tunneled dialysis catheter has been placed by Dr. Clayton [facility] schedule 2. Anemia in chronic kidney disease. Ferritin is only 75. Iron saturation is 7.9%. iron load 3. Hypertension. Goal blood pressure is less than 140/90 4. CKD?mineral bone disease. Calcium level is 8.3 and phosphorus level is 8.4. continue sevelamer with meals. Goal is to get phosphorus level below 5.5. I have been calling [employer] everyday. The answer i get is that the application is pending with [employer] and there is nothing [employer] can do about it until [employer] processes the application
[2021-01-05 11:21] LABS: Bedside Glucose 140 mg/dL (70-110)
--- NOTE | 2021-01-05 15:24 | PCM.PN.HOSP ---
Patient Problems: Active and Suspected Problems End stage renal disease (Acute) Weakness (Acute) Reason for Visit: Follow-up for ESRD on hemodialysis Objective: Patient does not have any acute symptoms. General: Alert, Oriented x3, Cooperative HEENT: Atraumatic, PERRLA, EOMI, Normocephalic Oral: No Gingival or Mucosal Lesions/ Ulcerations Neck: Supple, No JVD, Negative Carotid Bruits Lungs: Air entry diminished in bilateral lung bases. No crepitation/rhonchi Cardiovascular: Regular rate, Regular Rhythm, Normal S1, Normal S2, No murmurs. Peripheral pulses diminished. Abdomen: Bowel Sounds Present, Soft, Non Tender, Non-Distended : No renal angle tenderness. No suprapubic tenderness. Extremities: No edema, Capillary Refill Less than 3 Seconds Skin: Pressure ulcer, unstageable, left heel and nonhealing wound on left medial and right medial lower leg. Musculoskeletal: Tenderness present on both lower legs. Paresthesia Neurological: Paresthesia in both lower leg, cranial nerves II-XII grossly intact, Deep Tendon Reflexes 2+/4 Psych/Mental Status: Emotional. Anxious Vitals/I&O's: Vital Signs Temp Pulse Resp BP Pulse Ox 98.7 F 73 18 160/63 H 93 01/05/21 13:15 01/05/21 14:59 01/05/21 13:15 01/05/21 13:16 01/05/21 13:15 Oxygen Flow Rate (L/min) 2 Oxygen Delivery Method Room Air Weight: 147 lb 11.355 oz Body Mass Index (BMI) 37.0 Finger Stick Blood Glucose 14 Intake and Output for Last 24 Hours 01/03/21 01/04/21 01/05/21 23:59 23:59 23:59 Intake Total 380 / 380 1270 / 1270 560 / 560 Output Total 0 / 0 2100 / 2100 Balance 380 / 380 -830 / -830 560 / 560 Laboratory Results 01/04/21 16:16: POC Glucose 141 H 01/04/21 21:04: POC Glucose 117 H 01/05/21 06:38: POC Glucose 97 01/05/21 11:05: POC Glucose 140 H Current Medications Acetaminophen (Acetaminophen 325 Mg Tablet) 650 mg PO Q6H PRN PRN PRN Reason: Pain 1-10 or Fever Last Admin: 01/05/21 07:52 Dose: 650 mg Documented by: Albuterol Sulfate (Albuterol 2.5 Mg/3 Ml Vial.Neb.) 2.5 mg INHALATION Q4H PRN PRN PRN Reason: sob/wheezing Last Admin: 12/28/20 17:47 Dose: 2.5 mg Documented by: Aspirin (Aspirin 81 Mg Tab.Chew) 81 mg PO DAILY@0800 [facility] Last Admin: 01/05/21 07:52 Dose: 81 mg Documented by: Atorvastatin Calcium (Atorvastatin Calcium 40 Mg Tablet) 40 mg PO QHS [facility] Last Admin: 01/04/21 21:06 Dose: 40 mg Documented by: Collagenase (Collagenase 30gm Tube) 1 applic TOPICAL DAILY [facility]; Protocol Last Admin: 01/05/21 09:05 Dose: 1 applic Documented by: Dextrose (Dextrose 50%-Water 25 Gm/50 Ml Disp.Syrin) 0 gm IV X1 PRN; Protocol PRN Reason: Hypoglycemia Docusate Sodium (Docusate Sodium 100 Mg Capsule) 100 mg PO BID [facility] Last Admin: 01/05/21 09:04 Dose: 100 mg Documented by: Glucagon (Glucagon 1 Mg/Ml Syringe) 1 mg IM .X1 PRN PRN Reason: Hypoglycemia Heparin Sodium (Porcine) (Heparin Injection (Vial) 5,000 Unit/Ml Vial) 5,000 unit SC Q12 [facility] Last Admin: 01/05/21 09:04 Dose: 5,000 unit Documented by: Hydralazine HCl (Hydralazine 50 Mg Tablet) 50 mg PO TID [facility] Last Admin: 01/05/21 13:16 Dose: 50 mg Documented by: Sodium Chloride () 250 mls @ 15 mls/hr IV .[id number] PRN PRN Reason: Saline Flush Sodium Chloride () 250 mls @ 15 mls/hr IV .[id number] PRN PRN Reason: Additional IVPB Infusion Ferric Sodium Gluconate Complex 125 mg/ Sodium Chloride 110 mls @ 110 mls/hr IV DAILY [facility] Stop: 01/07/21 11:00 Last Infusion: 01/05/21 10:52 Dose: Infused Documented by: Insulin Human Lispro (Insulin Lispro 100 Unit/Ml Insuln.Pen) 0 unit SC ACHS [facility]; Protocol Last Admin: 01/05/21 11:09 Dose: Not Given Documented by: Ondansetron HCl (Ondansetron 4 Mg/2 Ml Vial) 4 mg IV Q8H PRN PRN PRN Reason: NAUSEA/VOMITING Oxycodone HCl (Oxycodone 5 Mg Tablet) 5 mg PO Q4H PRN PRN PRN Reason: Pain Score 6-10 Last Admin: 01/05/21 11:48 Dose: 5 mg Documented by: Polyethylene Glycol (Polyethylene Glycol 3350 17 Gm Packet) 17 gm PO DAILY [facility] Last Admin: 01/05/21 09:03 Dose: 17 gm Documented by: Sertraline HCl (Sertraline 50 Mg Tablet) 25 mg PO DAILY [facility] Last Admin: 01/05/21 09:04 Dose: 25 mg Documented by: Sevelamer Carbonate (Sevelamer Carbonate 800 Mg Tablet) 1,600 mg PO TIDCM [facility] Last Admin: 01/05/21 11:48 Dose: 1,600 mg Documented by: Sodium Chloride (0.9% Saline Lock 10 Ml Syringe) 10 - 40 ml IV UD PRN PRN Reason: SALINE FLUSH Last Admin: 01/02/21 22:42 Dose: 10 ml Documented by: STROKE Vital Signs/Narrative: Vital Signs Temp Pulse Resp BP Pulse Ox 01/05/21 14:59 73 01/05/21 13:16 77 160/63 H 01/05/21 13:15 98.7 F 77 18 160/63 H 93 Medical Necessity - Tobacco Use Smoking Status: Former smoker Tobacco Use: Cigarettes Assessment/Plan All Active Problems Tinea pedis (Resolved) Blisters of multiple sites (Acute) End stage renal disease (Acute) Weakness (Acute) Acute respiratory failure with hypoxia (Resolved) Community acquired pneumonia (Resolved) Leukocytosis (Resolved) 70-year-old female was admitted for abnormal lab and confusion bilateral lower leg wounds. 1. Left heel pressure ulcer, unstageable in bilateral medial lower leg, nonhealing ulcer due to end-stage kidney disease and peripheral arterial disease: Patient seen by wound nurse. Wound photo and wound nurse note reviewed. Dressing applied. PT and OT. Patient not febrile or acute change in status, hypoxia or tachypnea to warrant systemic antibiotic but local wound dressing to continue. PT and OT. Noninvasive vascular study shows moderate impairment of the arterial flow at the ankle level bilaterally as well as severe impairment at the digital level bilaterally. No evidence of DVT on venous duplex scan. My hospitalist colleague discussed with vascular surgeon Dr. Jhony Feliz who will see the patient as an outpatient. Patient on aspirin and statin for chronic peripheral arterial disease. 01/05 waiting for pre-CERT. Dressing to continue, wounds are superficial. 2. ESKD with new start of hemodialysis: This has been gradual loss of kidney function over the past few years. Patient has signs of uremia including fatigue anuric CF and chronic peripheral arterial disease evaluation. 3. Chronic anemia secondary to CKD/ESKD patient has not had any dark stool. Stool for occult blood ordered. Patient had tunneled dialysis catheter on 12/30. H&H is stable between 7 to 8 g over last 5 days. Serum iron 25, iron saturation 7.9% but normal is ferritin 75 mg. IV iron therapy ordered by labor relations officer. . HTN: Blood pressure is controlled. Lasix HCTZ and losartan are on hold. Continue hydralazine. 01/04: Blood pressure is in acceptable range. 4. DM 2, complicated diabetic nephropathy, neuropathy and peripheral arterial disease on a sliding scale insulin -Accu-Cheks AC at bedtime, make adjustments as necessary 5. Anxiety/depression -Stable -Continue with Zoloft DVT: Heparin 500 subcutaneous twice daily Awaiting precertification for placement. Inpatient E&M: 28251 Subs Hosp L2
--- NOTE | 2021-01-05 15:56 | CASEMGMT ---
Social Work SW placed call to [facility]. Precert has not been obtained at this time. Paris states that once financial approval is obtained with [facility], pt could come to [facility] under her Medicaid benefit and [facility] could continue to work on precert from the facility. However, pt cannot go to [facility] until [facility] has been granted financial approval and this is still pending. LORNA Cardozo
[2021-01-05 16:11] LABS: Bedside Glucose 131 mg/dL (70-110)
[2021-01-05] MEDS: Atorvastatin Calcium 40 MG Tablet PO (21:40)
[2021-01-05 21:50] LABS: Bedside Glucose 118 mg/dL (70-110)
[2021-01-06] VITALS (15 sets, daily range): BP systolic 144–167; BP diastolic 60–78; PULSE 77–99; RESP 16–18; TEMP 36.2–37.1; O2SAT 92–99
[2021-01-06] MEDS: hydrALAZINE 50 MG Tablet PO ×3 (05:50→21:42)
[2021-01-06 06:24] LABS: Absolute Lymphocyte Count 1.75 X10^3/uL (0.83-4.51); Absolute Neutrophil Count 11.8 X10^3/uL (2.0-7.7); Basophil# 0.06 X10^3/uL; Basophil% 0.4 % (0-1); Eosinophil# 0.23 X10^3/uL; Eosinophils% 1.5 % (0-5); Hematocrit 28.8 % (37-47); Hemoglobin 8.4 g/dL (12.0-15.0); Lymphocyte # 1.75 X10^3/ul (4.0); Lymphocyte % 11.3 % (19-41); Mean Corp Hgb Conc 29.2 g/dL (32-36); Mean Corpuscular Hgb 27.3 pg (27.0-32.0); Mean Corpuscular Volume 93.5 fL (81-99); Monocyte# 1.49 X10^3/uL; Monocyte% 9.6 % (0-10); NRBC Flagged by Analyzer 0 % (0-5); Neutrophil # 11.84 X10^3/uL (2.7-7.7); Neutrophil % 76.4 % (47-70); Platelet Count 293 K/mm3 (150-450); RBC Distribution Width CV 15.8 % (11.6-14.6); RBC Distribution Width SD 53.8 fl (35.1-43.9); Red Blood Count 3.08 M/mm3 (4.2-5.4); White Blood Count 15.5 K/mm3 (4.4-11.0)
[2021-01-06 07:01] LABS: Bedside Glucose 84 mg/dL (70-110)
[2021-01-06 07:10] LABS: Anion Gap 7 (5-15); BUN 22 mg/dL (7-18); BUN/Creat Ratio 6.2 RATIO (10-20); Calcium,Total 8.9 mg/dL (8.5-10.1); Chloride 100 mmol/L (98-107); Creatinine, Serum 3.54 mg/dL (0.55-1.02); EST Glomerular Filtration Rate 14 mL/min (>60); Est Glom Filt Rate - Afr Amer 17 mL/min (>60); Estimated Creatinine Clearance 16.57 ml/min; Glucose 82 mg/dL (74-106); Potassium 3.8 mmol/L (3.5-5.1); Sodium Level 132 mmol/L (136-145)
[2021-01-06] MEDS: Acetaminophen 325 MG Tablet 650 MG PO ×3 (08:44→21:06)
[2021-01-06] MEDS: oxyCODONE 5 MG Tablet PO ×3 (08:45→21:06)
--- NOTE | 2021-01-06 09:07 | PN.RENAL_ITS ---
Patient Problems: Active and Suspected Problems End stage renal disease (Acute) Weakness (Acute) Subjective: no new events - Physical Exam Vitals/I&O's: Vital Signs Temp Pulse Resp BP Pulse Ox 98.3 F 99 16 147/71 H 92 01/06/21 05:46 01/06/21 07:02 01/06/21 05:46 01/06/21 05:46 01/06/21 05:46 Oxygen Flow Rate (L/min) 2 Oxygen Delivery Method Room Air Weight: 69 kg Body Mass Index (BMI) 37.0 Finger Stick Blood Glucose 14 Intake and Output for Last 24 Hours 01/04/21 01/05/21 01/06/21 23:59 23:59 23:59 Intake Total 1270 / 1270 1080 / 1080 240 / 240 Output Total 2099 / 2099 Balance -830 / -830 1080 / 1080 240 / 240 General: Alert, Oriented x3, Cooperative HEENT: Atraumatic, PERRLA, EOMI, Normocephalic Neck: Supple, No JVD, Negative Carotid Bruits Lungs: Clear to auscultation, Normal air movement Cardiovascular: Regular rate, No murmurs Abdomen: Bowel Sounds Present, Soft, Non Tender Extremities: No edema, Capillary Refill Less than 3 Seconds Skin: No rashes, No breakdown Musculoskeletal: No Tenderness to Palpation of Joints or Extremities Neurological: Cranial nerves II-XII grossly intact Psych/Mental Status: Normal Affect, Appropriate Laboratory Results 01/05/21 11:05: POC Glucose 140 H 01/05/21 15:58: POC Glucose 131 H 01/05/21 21:32: POC Glucose 118 H 01/06/21 05:55: WBC 15.5 H, RBC 3.08 L, Hgb 8.4 L, Hct 28.8 L, MCV 93.5, MCH 27.3, MCHC 29.2 L, RDW Std Deviation 53.8 H, RDW Coeff of Robyn 15.8 H, Plt Count 293, MPV 10.0, Immature Gran % (Auto) 0.800, Neut % (Auto) 76.4 H, Lymph % (A uto) 11.3 L, Bea[place]gard % (Auto) 9.6, Eos % (Auto) 1.5, Baso % (Auto) 0.4, Absolute Neuts (auto) 11.8 H, Absolute Lymphs (auto) 1.75, Nucleated RBC % 0 01/06/21 05:55: Sodium 132 L, Potassium 3.8, Chloride 100, Carbon Dioxide 25.0, Anion Gap 7, BUN 22 H, Creatinine 3.54 H, Estim Creat Clear Calc 16.57, Est GFR (MDRD) Af Amer 17 L, Est GFR (MDRD) Non-Af 14 L, BUN/Creatinine Ratio 6.2 L, Glucose 82, Calcium 8.9 01/06/21 06:43: POC Glucose 84 Current Medications Acetaminophen (Acetaminophen 325 Mg Tablet) 650 mg PO Q6H PRN PRN PRN Reason: Pain 1-10 or Fever Last Admin: 01/06/21 08:44 Dose: 650 mg Documented by: Albuterol Sulfate (Albuterol 2.5 Mg/3 Ml Vial.Neb.) 2.5 mg INHALATION Q4H PRN PRN PRN Reason: sob/wheezing Last Admin: 12/28/20 17:47 Dose: 2.5 mg Documented by: Aspirin (Aspirin 81 Mg Tab.Chew) 81 mg PO DAILY@0800 [facility] Last Admin: 01/05/21 07:52 Dose: 81 mg Documented by: Atorvastatin Calcium (Atorvastatin Calcium 40 Mg Tablet) 40 mg PO QHS [facility] Last Admin: 01/05/21 21:40 Dose: 40 mg Documented by: Collagenase (Collagenase 30gm Tube) 1 applic TOPICAL DAILY [facility]; Protocol Last Admin: 01/05/21 09:05 Dose: 1 applic Documented by: Dextrose (Dextrose 50%-Water 25 Gm/50 Ml Disp.Syrin) 0 gm IV X1 PRN; Protocol PRN Reason: Hypoglycemia Docusate Sodium (Docusate Sodium 100 Mg Capsule) 100 mg PO BID [facility] Last Admin: 01/05/21 21:40 Dose: 100 mg Documented by: Glucagon (Glucagon 1 Mg/Ml Syringe) 1 mg IM .X1 PRN PRN Reason: Hypoglycemia Heparin Sodium (Porcine) (Heparin Injection (Vial) 5,000 Unit/Ml Vial) 5,000 unit SC Q12 [facility] Last Admin: 01/05/21 21:41 Dose: 5,000 unit Documented by: Hydralazine HCl (Hydralazine 50 Mg Tablet) 50 mg PO TID [facility] Last Admin: 01/06/21 05:50 Dose: 50 mg Documented by: Sodium Chloride () 250 mls @ 15 mls/hr IV .[id number] PRN PRN Reason: Saline Flush Sodium Chloride () 250 mls @ 15 mls/hr IV .[id number] PRN PRN Reason: Additional IVPB Infusion Ferric Sodium Gluconate Complex 125 mg/ Sodium Chloride 110 mls @ 110 mls/hr IV DAILY [facility] Stop: 01/07/21 11:00 Last Admin: 01/06/21 08:26 Dose: 110 mls/hr Documented by: Insulin Human Lispro (Insulin Lispro 100 Unit/Ml Insuln.Pen) 0 unit SC ACHS [facility]; Protocol Last Admin: 01/06/21 06:50 Dose: Not Given Documented by: Ondansetron HCl (Ondansetron 4 Mg/2 Ml Vial) 4 mg IV Q8H PRN PRN PRN Reason: NAUSEA/VOMITING Oxycodone HCl (Oxycodone 5 Mg Tablet) 5 mg PO Q4H PRN PRN PRN Reason: Pain Score 6-10 Last Admin: 01/06/21 08:45 Dose: 5 mg Documented by: Polyethylene Glycol (Polyethylene Glycol 3350 17 Gm Packet) 17 gm PO DAILY [facility] Last Admin: 01/05/21 09:03 Dose: 17 gm Documented by: Sertraline HCl (Sertraline 50 Mg Tablet) 25 mg PO DAILY [facility] Last Admin: 01/05/21 09:04 Dose: 25 mg Documented by: Sevelamer Carbonate (Sevelamer Carbonate 800 Mg Tablet) 1,600 mg PO TIDCM [facility] Last Admin: 01/05/21 16:02 Dose: 1,600 mg Documented by: Sodium Chloride (0.9% Saline Lock 10 Ml Syringe) 10 - 40 ml IV UD PRN PRN Reason: SALINE FLUSH Last Admin: 01/02/21 22:42 Dose: 10 ml Documented by: Medical Necessity - Tobacco Use Smoking Status: Former smoker Tobacco Use: Cigarettes Assessment/Plan All Active Problems Tinea pedis (Resolved) Blisters of multiple sites (Acute) End stage renal disease (Acute) Weakness (Acute) Acute respiratory failure with hypoxia (Resolved) Community acquired pneumonia (Resolved) Leukocytosis (Resolved) 1. ESRD. The patient has been losing her renal function over time for the past few years. Her creatinine has increased from 4.7 in May 2020 up to 6.26 mg/dL The patient is displaying signs of uremia such as dysgeusia, fatigue and anorexia. Her serum albumin is already low at 2.8 g/dL. Tunneled dialysis catheter has been placed by Dr. Clayton [facility] MWF schedule 2. Anemia in chronic kidney disease. Ferritin is only 75. Iron saturation is 7.9%. iron load 3. Hypertension. Goal blood pressure is less than 140/90 4. CKD?mineral bone disease. Calcium level is 8.3 and phosphorus level is 8.4. continue sevelamer with meals. Goal is to get phosphorus level below 5.5. application is pending with [employer] and there [facility]
--- NOTE | 2021-01-06 09:52 | NURSING ---
Pt is currently getting dialysis. will come back later today to change dressings.
[2021-01-06] MEDS: Heparin 10,000 UNITS/10 ML Vial 3500 UNITS IV (11:24)
[2021-01-06] MEDS: Heparin 10,000 UNITS/10 ML Vial IV (11:24)
[2021-01-06 11:31] LABS: Bedside Glucose 91 mg/dL (70-110)
--- NOTE | 2021-01-06 12:10 | DIALYSIS ---
HD x 3.5 hours complete. Tolerated tx well. Ran on 3k bath. UF of 3000ml. Used right chest wall dialysis catheter. Lumens closed with heparin per fill volume. Caps placed. Dressing is dry and intact. Report was given to REY Sheets.
--- NOTE | 2021-01-06 12:11 | CASEMGMT ---
Addendum entered by Vaishali Rivear 01/06/21 14:24: SW did let pt know that we are still waiting for precert for both dialysis and intermediate. Paris from [facility] called and states she got notification pt was authorized from 01/02-01/05 for SNF, it's 01/06. JACEK faxed therapy updates to Paris at [facility]. ILEANA Hogue Original Note: SW spoke w/Paris this morning at [facility], they still do not have precert. She states if precert is not attained but approval is attained for dialysis, they can take pt and work on precert there. She also states [facility] is not needed and they can get precert there, and there will be no liability for the pt. SW will continue to follow, awaiting precert for dialysis. ILEANA Hogue
[2021-01-06] MEDS: Aspirin 81 MG TAB.CHEW PO (12:19)
[2021-01-06] MEDS: Sertraline 50 MG Tablet 25 MG PO (12:19)
[2021-01-06] MEDS: Heparin Injection (Vial) 5,000 UNIT/ML VIAL 5000 UNIT SC ×2 (12:19→21:43)
[2021-01-06] MEDS: Docusate Sodium 100 MG Capsule PO ×2 (12:19→21:43)
[2021-01-06] MEDS: SEVELAMER CARBONATE 800 MG TABLET 1600 MG PO ×2 (12:20→16:31)
[2021-01-06] MEDS: Polyethylene Glycol 3350 17 GM PACKET PO (12:20)
[2021-01-06] MEDS: Collagenase 30gm Tube 1 APPLIC TOPICAL (12:20)
--- NOTE | 2021-01-06 14:06 | CASEMGMT ---
Addendum entered by Paige Gilbert 01/06/21 16:06: Call back to [facility] admissions to check on financial clearance and per Shanita, pt is still not clear yet. Shanita provided number for PCU in case she gets approval before she leaves today. Cristiana LE CM Original Note: Call to Aminah at [facility] and Shanita at [facility] admissions and both say that financial approval has not been obtained. CM to follow. Cristiana LE CM
[2021-01-06 16:20] LABS: Bedside Glucose 84 mg/dL (70-110)
--- NOTE | 2021-01-06 16:33 | PN_ITS ---
Patient Problems: Active and Suspected Problems End stage renal disease (Acute) Weakness (Acute) Reason for Visit: Follow-up for ESRD on hemodialysis. Objective: Patient complain of leg pain especially on left leg after the start of hemodialysis. Patient has diabetic neuropathy in both lower legs. Physical exam Patient does not have any acute symptoms. General: Alert, Oriented x3, Cooperative HEENT: Atraumatic, PERRLA, EOMI, Normocephalic Oral: No Gingival or Mucosal Lesions/ Ulcerations Neck: Supple, No JVD, Negative Carotid Bruits Lungs: Air entry diminished in bilateral lung bases. No crepitation/rhonchi Cardiovascular: Regular rate, Regular Rhythm, Normal S1, Normal S2, No murmurs. Peripheral pulses diminished. Abdomen: Bowel Sounds Present, Soft, Non Tender, Non-Distended : No renal angle tenderness. No suprapubic tenderness. Extremities: No edema, Capillary Refill Less than 3 Seconds Skin: Pressure ulcer, unstageable, left heel and nonhealing wound on left medial and right medial lower leg. Musculoskeletal: Tenderness present on both lower legs. Paresthesia and neuropathy Neurological: Paresthesia in both lower leg, cranial nerves II-XII grossly intact, Deep Tendon Reflexes 2+/4 Psych/Mental Status: Emotional. Anxious Vitals/I&O's: Vital Signs Temp Pulse Resp BP Pulse Ox 98.1 F 89 18 167/60 H 94 01/06/21 12:25 01/06/21 15:00 01/06/21 12:25 01/06/21 13:14 01/06/21 12:25 Oxygen Flow Rate (L/min) 2 Oxygen Delivery Method Nasal Cannula Weight: 152 lb 1.903 oz Body Mass Index (BMI) 37.0 Finger Stick Blood Glucose 14 Intake and Output for Last 24 Hours 01/04/21 01/05/21 01/06/21 23:59 23:59 23:59 Intake Total 1270 / 1270 1080 / 1080 710 / 710 Output Total 2099 / 2099 0 / 0 Balance -830 / -830 1080 / 1080 710 / 710 Laboratory Results 01/05/21 21:32: POC Glucose 118 H 01/06/21 05:55: WBC 15.5 H, RBC 3.08 L, Hgb 8.4 L, Hct 28.8 L, MCV 93.5, MCH 27.3, MCHC 29.2 L, RDW Std Deviation 53.8 H, RDW Coeff of Robyn 15.8 H, Plt Count 293, MPV 10.0, Immature Gran % (Auto) 0.800, Neut % (Auto) 76.4 H, Lymph % (Auto) 11.3 L, Stephenson % (Auto) 9.6, Eos % (Auto) 1.5, Baso % (Auto) 0.4, Absolute Neuts (auto) 11.8 H, Absolute Lymphs (auto) 1.75, Nucleated RBC % 0 01/06/21 05:55: Sodium 132 L, Potassium 3.8, Chloride 100, Carbon Dioxide 25.0, Anion Gap 7, BUN 22 H, Creatinine 3.54 H, Estim Creat Clear Calc 16.57, Est GFR (MDRD) Af Amer 17 L, Est GFR (MDRD) Non-Af 14 L, BUN/Creatinine Ratio 6.2 L, Glucose 82, Calcium 8.9 01/06/21 06:43: POC Glucose 84 01/06/21 11:22: POC Glucose 91 01/06/21 16:17: POC Glucose 84 Current Medications Acetaminophen (Acetaminophen 325 Mg Tablet) 650 mg PO Q6H PRN PRN PRN Reason: Pain 1-10 or Fever Last Admin: 01/06/21 14:54 Dose: 650 mg Documented by: Albuterol Sulfate (Albuterol 2.5 Mg/3 Ml Vial.Neb.) 2.5 mg INHALATION Q4H PRN PRN PRN Reason: sob/wheezing Last Admin: 12/28/20 17:47 Dose: 2.5 mg Documented by: Aspirin (Aspirin 81 Mg Tab.Chew) 81 mg PO DAILY@0800 [facility] Last Admin: 01/06/21 12:19 Dose: 81 mg Documented by: Atorvastatin Calcium (Atorvastatin Calcium 40 Mg Tablet) 40 mg PO QHS [facility] Last Admin: 01/05/21 21:40 Dose: 40 mg Documented by: Collagenase (Collagenase 30gm Tube) 1 applic TOPICAL DAILY [facility]; Protocol Last Admin: 01/06/21 12:20 Dose: 1 applic Documented by: Dextrose (Dextrose 50%-Water 25 Gm/50 Ml Disp.Syrin) 0 gm IV X1 PRN; Protocol PRN Reason: Hypoglycemia Docusate Sodium (Docusate Sodium 100 Mg Capsule) 100 mg PO BID [facility] Last Admin: 01/06/21 12:19 Dose: 100 mg Documented by: Glucagon (Glucagon 1 Mg/Ml Syringe) 1 mg IM .X1 PRN PRN Reason: Hypoglycemia Heparin Sodium (Porcine) (Heparin Injection (Vial) 5,000 Unit/Ml Vial) 5,000 unit SC Q12 [facility] Last Admin: 01/06/21 12:19 Dose: 5,000 unit Documented by: Hydralazine HCl (Hydralazine 50 Mg Tablet) 50 mg PO TID [facility] Last Admin: 01/06/21 13:14 Dose: 50 mg Documented by: Sodium Chloride () 250 mls @ 15 mls/hr IV .[id number] PRN PRN Reason: Saline Flush Sodium Chloride () 250 mls @ 15 mls/hr IV .[id number] PRN PRN Reason: Additional IVPB Infusion Ferric Sodium Gluconate Complex 125 mg/ Sodium Chloride 110 mls @ 110 mls/hr IV DAILY [facility] Stop: 01/07/21 11:00 Last Infusion: 01/06/21 09:30 Dose: Infused Documented by: Insulin Human Lispro (Insulin Lispro 100 Unit/Ml Insuln.Pen) 0 unit SC ACHS [facility]; Protocol Last Admin: 01/06/21 16:28 Dose: Not Given Documented by: Ondansetron HCl (Ondansetron 4 Mg/2 Ml Vial) 4 mg IV Q8H PRN PRN PRN Reason: NAUSEA/VOMITING Oxycodone HCl (Oxycodone 5 Mg Tablet) 5 mg PO Q4H PRN PRN PRN Reason: Pain Score 6-10 Last Admin: 01/06/21 14:54 Dose: 5 mg Documented by: Polyethylene Glycol (Polyethylene Glycol 3350 17 Gm Packet) 17 gm PO DAILY [facility] Last Admin: 01/06/21 12:20 Dose: 17 gm Documented by: Sertraline HCl (Sertraline 50 Mg Tablet) 25 mg PO DAILY [facility] Last Admin: 01/06/21 12:19 Dose: 25 mg Documented by: Sevelamer Carbonate (Sevelamer Carbonate 800 Mg Tablet) 1,600 mg PO TIDCM [facility] Last Admin: 01/06/21 16:31 Dose: 1,600 mg Documented by: Sodium Chloride (0.9% Saline Lock 10 Ml Syringe) 10 - 40 ml IV UD PRN PRN Reason: SALINE FLUSH Last Admin: 01/02/21 22:42 Dose: 10 ml Documented by: STROKE Vital Signs/Narrative: Vital Signs Pulse BP 01/06/21 15:00 89 01/06/21 13:14 78 167/60 H Medical Necessity - Tobacco Use Smoking Status: Former smoker Tobacco Use: Cigarettes Assessment/Plan All Active Problems Tinea pedis (Resolved) Blisters of multiple sites (Acute) End stage renal disease (Acute) Weakness (Acute) Acute respiratory failure with hypoxia (Resolved) Community acquired pneumonia (Resolved) Leukocytosis (Resolved) 70-year-old female was admitted for abnormal lab and confusion bilateral lower leg wounds. 1. Left heel pressure ulcer, unstageable in bilateral medial lower leg, nonhealing ulcer due to end-stage kidney disease and peripheral arterial disease: Patient seen by wound nurse. Wound photo and wound nurse note reviewed. Dressing applied. PT and OT. Patient not febrile or acute change in status, hypoxia or tachypnea to warrant systemic antibiotic but local wound dressing to continue. PT and OT. Noninvasive vascular study shows moderate impairment of the arterial flow at the ankle level bilaterally as well as severe impairment at the digital level bilaterally. No evidence of DVT on venous duplex scan. My hospitalist colleague discussed with vascular surgeon Dr. Jhony Feliz who will see the patient as an outpatient. Patient on aspirin and statin for chronic peripheral arterial disease. 01/05 waiting for pre-CERT. Dressing to continue, wounds are superficial. 01/06: Wound dressing to continue 2. ESKD with new start of hemodialysis: This has been gradual loss of kidney function over the past few years. Patient has signs of uremia including fatigue anuric CF and chronic peripheral arterial disease evaluation. 3. Chronic anemia secondary to CKD/ESKD patient has not had any dark stool. Stool for occult blood ordered. Patient had tunneled dialysis catheter on 12/30. H&H is stable between 7 to 8 g over last 5 days. Serum iron 25, iron saturation 7.9% but normal is ferritin 75 mg. IV iron therapy ordered by silo filler. 01/06: Hemoglobin 8.4. . HTN: Blood pressure is controlled. Lasix HCTZ and losartan are on hold. Continue hydralazine. 01/04: Blood pressure is in acceptable range. 4. DM 2, complicated diabetic nephropathy, neuropathy and peripheral arterial disease on a sliding scale insulin -Accu-Cheks AC at bedtime, make adjustments as necessary Glucose is controlled. 5. Anxiety/depression -Stable -Continue with Zoloft DVT: Heparin 500 subcutaneous twice daily Awaiting precertification for placement. Laboratory Results 01/05/21 21:32: POC Glucose 118 H 01/06/21 05:55: WBC 15.5 H, RBC 3.08 L, Hgb 8.4 L, Hct 28.8 L, MCV 93.5, MCH 27.3, MCHC 29.2 L, RDW Std Deviation 53.8 H, RDW Coeff of Robyn 15.8 H, Plt Count 293, MPV 10.0, Immature Gran % (Auto) 0.800, Neut % (Auto) 76.4 H, Lymph % (Auto) 11.3 L, Stephenson % (Auto) 9.6, Eos % (Auto) 1.5, Baso % (Auto) 0.4, Absolute Neuts (auto) 11.8 H, Absolute Lymphs (auto) 1.75, Nucleated RBC % 0 01/06/21 05:55: Sodium 132 L, Potassium 3.8, Chloride 100, Carbon Dioxide 25.0, Anion Gap 7, BUN 22 H, Creatinine 3.54 H, Estim Creat Clear Calc 16.57, Est GFR (MDRD) Af Amer 17 L, Est GFR (MDRD) Non-Af 14 L, BUN/Creatinine Ratio 6.2 L, Glucose 82, Calcium 8.9 01/06/21 06:43: POC Glucose 84 01/06/21 11:22: POC Glucose 91 01/06/21 16:17: POC Glucose 84 Inpatient E&M: 07179 Subs Hosp L2
--- NOTE | 2021-01-06 21:42 | NURSING ---
Pt's blood glucose taken. Armband not registering in glucometer. Blood glucose 92 at this time. No insulin given per sliding scale.
[2021-01-06] MEDS: Atorvastatin Calcium 40 MG Tablet PO (21:43)
[2021-01-06 22:00] LABS: Bedside Glucose 92 mg/dL (70-110)
[2021-01-07] VITALS (13 sets, daily range): BP systolic 148–182; BP diastolic 59–87; PULSE 78–88; RESP 16–18; TEMP 36.6; O2SAT 93–95
[2021-01-07] MEDS: oxyCODONE 5 MG Tablet PO ×4 (02:30→22:05)
[2021-01-07] MEDS: Acetaminophen 325 MG Tablet 650 MG PO (06:34)
[2021-01-07] MEDS: hydrALAZINE 50 MG Tablet PO ×3 (06:34→22:04)
--- NOTE | 2021-01-07 06:38 | NURSING ---
Pt's blood glucose taken. Armband not registering in glucometer. Blood glucose 87 at this time. No insulin given per sliding scale.
[2021-01-07 06:50] LABS: Bedside Glucose 87 mg/dL (70-110)
[2021-01-07 08:03] LABS: Anion Gap 6 (5-15); BUN 13 mg/dL (7-18); BUN/Creat Ratio 4.9 RATIO (10-20); Calcium,Total 8.7 mg/dL (8.5-10.1); Chloride 99 mmol/L (98-107); Creatinine, Serum 2.63 mg/dL (0.55-1.02); EST Glomerular Filtration Rate 19 mL/min (>60); Est Glom Filt Rate - Afr Amer 23 mL/min (>60); Estimated Creatinine Clearance 21.33 ml/min; Glucose 84 mg/dL (74-106); Potassium 3.6 mmol/L (3.5-5.1); Sodium Level 135 mmol/L (136-145)
[2021-01-07] MEDS: Aspirin 81 MG TAB.CHEW PO (08:48)
[2021-01-07] MEDS: SEVELAMER CARBONATE 800 MG TABLET 1600 MG PO ×3 (08:48→17:41)
[2021-01-07] MEDS: 0.9% Saline Lock 10 ML Syringe IV (10:41)
[2021-01-07] MEDS: Docusate Sodium 100 MG Capsule PO ×2 (10:51→22:04)
[2021-01-07] MEDS: Polyethylene Glycol 3350 17 GM PACKET PO (10:51)
[2021-01-07] MEDS: Heparin Injection (Vial) 5,000 UNIT/ML VIAL 5000 UNIT SC ×2 (10:51→22:04)
[2021-01-07] MEDS: Sertraline 50 MG Tablet 25 MG PO (10:52)
[2021-01-07 12:35] LABS: Bedside Glucose 103 mg/dL (70-110)
--- NOTE | 2021-01-07 12:50 | PN.RENAL_ITS ---
Patient Problems: Active and Suspected Problems End stage renal disease (Acute) Weakness (Acute) Subjective: no acute events - Physical Exam Vitals/I&O's: Vital Signs Temp Pulse Resp BP Pulse Ox 98 F 78 18 156/75 H 95 01/07/21 08:57 01/07/21 08:57 01/07/21 09:00 01/07/21 08:57 01/07/21 08:57 Oxygen Flow Rate (L/min) 2 Oxygen Delivery Method Room Air Weight: 66 kg Body Mass Index (BMI) 37.0 Finger Stick Blood Glucose 14 Intake and Output for Last 24 Hours 01/05/21 01/06/21 01/07/21 23:59 23:59 23:59 Intake Total 1080 / 1080 1070 / 1070 1010 / 1010 Output Total 0 / 0 Balance 1080 / 1080 1070 / 1070 1010 / 1010 General: Alert HEENT: Atraumatic Oral: Moist Mucosa Neck: Supple, No JVD Lungs: Clear to auscultation Cardiovascular: Regular rate, Regular Rhythm, Normal S1, Normal S2 Abdomen: Bowel Sounds Present, Soft, Non Tender Extremities: No clubbing, No cyanosis, No edema Musculoskeletal: No Tenderness to Palpation of Joints or Extremities Neurological: Cranial nerves II-XII grossly intact, Neuro grossly intact Laboratory Results 01/06/21 16:17: POC Glucose 84 01/06/21 21:41: POC Glucose 92 01/07/21 06:34: Sodium 135 L, Potassium 3.6, Chloride 99, Carbon Dioxide 30.0, Anion Gap 6, BUN 13, Creatinine 2.63 H, Estim Creat Clear Calc 21.33, Est GFR (MDRD) Af Amer 23 L, Est GFR (MDRD) Non-Af 19 L, BUN/Creatinine Ratio 4.9 L, Glucose 84, Calcium 8.7 01/07/21 06:36: POC Glucose 87 01/07/21 12:24: POC Glucose 103 Current Medications Acetaminophen (Acetaminophen 325 Mg Tablet) 650 mg PO Q6H PRN PRN PRN Reason: Pain 1-10 or Fever Last Admin: 01/07/21 06:34 Dose: 650 mg Documented by: Albuterol Sulfate (Albuterol 2.5 Mg/3 Ml Vial.Neb.) 2.5 mg INHALATION Q4H PRN PRN PRN Reason: sob/wheezing Last Admin: 12/28/20 17:47 Dose: 2.5 mg Documented by: Aspirin (Aspirin 81 Mg Tab.Chew) 81 mg PO DAILY@0800 [facility] Last Admin: 01/07/21 08:48 Dose: 81 mg Documented by: Atorvastatin Calcium (Atorvastatin Calcium 40 Mg Tablet) 40 mg PO QHS [facility] Last Admin: 01/06/21 21:43 Dose: 40 mg Documented by: Collagenase (Collagenase 30gm Tube) 1 applic TOPICAL DAILY [facility]; Protocol Last Admin: 01/07/21 10:35 Dose: Not Given Documented by: Dextrose (Dextrose 50%-Water 25 Gm/50 Ml Disp.Syrin) 0 gm IV X1 PRN; Protocol PRN Reason: Hypoglycemia Docusate Sodium (Docusate Sodium 100 Mg Capsule) 100 mg PO BID [facility] Last Admin: 01/07/21 10:51 Dose: 100 mg Documented by: Glucagon (Glucagon 1 Mg/Ml Syringe) 1 mg IM .X1 PRN PRN Reason: Hypoglycemia Heparin Sodium (Porcine) (Heparin Injection (Vial) 5,000 Unit/Ml Vial) 5,000 unit SC Q12 [facility] Last Admin: 01/07/21 10:51 Dose: 5,000 unit Documented by: Hydralazine HCl (Hydralazine 50 Mg Tablet) 50 mg PO TID [facility] Last Admin: 01/07/21 06:34 Dose: 50 mg Documented by: Sodium Chloride () 250 mls @ 15 mls/hr IV .[id number] PRN PRN Reason: Saline Flush Sodium Chloride () 250 mls @ 15 mls/hr IV .[id number] PRN PRN Reason: Additional IVPB Infusion Insulin Human Lispro (Insulin Lispro 100 Unit/Ml Insuln.Pen) 0 unit SC ACHS [facility]; Protocol Last Admin: 01/07/21 12:27 Dose: Not Given Documented by: Ondansetron HCl (Ondansetron 4 Mg/2 Ml Vial) 4 mg IV Q8H PRN PRN PRN Reason: NAUSEA/VOMITING Oxycodone HCl (Oxycodone 5 Mg Tablet) 5 mg PO Q4H PRN PRN PRN Reason: Pain Score 6-10 Last Admin: 01/07/21 08:46 Dose: 5 mg Documented by: Polyethylene Glycol (Polyethylene Glycol 3350 17 Gm Packet) 17 gm PO DAILY [facility] Last Admin: 01/07/21 10:51 Dose: 17 gm Documented by: Sertraline HCl (Sertraline 50 Mg Tablet) 25 mg PO DAILY [facility] Last Admin: 01/07/21 10:52 Dose: 25 mg Documented by: Sevelamer Carbonate (Sevelamer Carbonate 800 Mg Tablet) 1,600 mg PO TIDCM [facility] Last Admin: 01/07/21 12:28 Dose: 1,600 mg Documented by: Sodium Chloride (0.9% Saline Lock 10 Ml Syringe) 10 - 40 ml IV UD PRN PRN Reason: SALINE FLUSH Last Admin: 01/07/21 10:41 Dose: 10 ml Documented by: Medical Necessity - Tobacco Use Smoking Status: Former smoker Tobacco Use: Cigarettes Assessment/Plan All Active Problems Tinea pedis (Resolved) Blisters of multiple sites (Acute) End stage renal disease (Acute) Weakness (Acute) Acute respiratory failure with hypoxia (Resolved) Community acquired pneumonia (Resolved) Leukocytosis (Resolved) 1. ESRD. The patient has been losing her renal function over time for the past few years. Her creatinine has increased from 4.7 in May 2020 up to 6.26 mg/dL The patient is displaying signs of uremia such as dysgeusia, fatigue and anorexia. Her serum albumin is already low at 2.8 g/dL. Tunneled dialysis catheter has been placed by Dr. Clayton HD MWF schedule next HD session [place] 2. Anemia in chronic kidney disease. Ferritin is only 75. Iron saturation is 7.9%. iron load 3. Hypertension. Goal blood pressure is less than 140/90 4. CKD?mineral bone disease. continue sevelamer with meals. Goal is to get phosphorus level below 5.5. [facility] and there is nothing [facility] can do about [facility] until [facility]
--- NOTE | 2021-01-07 16:40 | PCM.PN.HOSP ---
Patient Problems: Active and Suspected Problems End stage renal disease (Acute) Weakness (Acute) Reason for Visit: Follow-up for ESRD on hemodialysis Objective: Seen and examined Blood pressure fluctuates. 152/72, 182/87. Leg pain is better. It gets worse during dialysis General: Alert, Oriented x3, Cooperative HEENT: Atraumatic, PERRLA, EOMI, Normocephalic Oral: No Gingival or Mucosal Lesions/ Ulcerations Neck: Supple, No JVD, Negative Carotid Bruits Lungs: Air entry diminished in bilateral lung bases. No crepitation/rhonchi Cardiovascular: Regular rate, Regular Rhythm, Normal S1, Normal S2, No murmurs Abdomen: Bowel Sounds Present, Soft, Non Tender, Non-Distended : No renal angle tenderness. No suprapubic tenderness. Extremities: No edema, Capillary Refill Less than 3 Seconds Skin: Bilateral leg superficial ulcer. Dressing is dry Musculoskeletal: No Tenderness to Palpation of Joints or Extremities Neurological: Cranial nerves II-XII grossly intact, Deep Tendon Reflexes 2+/4 and Symmetrical, Neuro grossly intact Psych/Mental Status: Normal Affect, Appropriate. Vitals/I&O's: Vital Signs Temp Pulse Resp BP Pulse Ox 98 F 84 18 182/87 H 95 01/07/21 08:57 01/07/21 15:37 01/07/21 09:00 01/07/21 15:20 01/07/21 08:57 Oxygen Flow Rate (L/min) 2 Oxygen Delivery Method Room Air Weight: 145 lb 8.081 oz Body Mass Index (BMI) 37.0 Finger Stick Blood Glucose 14 Intake and Output for Last 24 Hours 01/05/21 01/06/21 01/07/21 23:59 23:59 23:59 Intake Total 1080 / 1080 1070 / 1070 1570 / 1570 Output Total 0 / 0 Balance 1080 / 1080 1070 / 1070 1570 / 1570 Microbiology Past 72 Hours 01/07/21 13:00 Stool Stool Occult Blood (GIOVANY) - Final Laboratory Results 01/06/21 21:41: POC Glucose 92 01/07/21 06:34: Sodium 135 L, Potassium 3.6, Chloride 99, Carbon Dioxide 30.0, Anion Gap 6, BUN 13, Creatinine 2.63 H, Estim Creat Clear Calc 21.33, Est GFR (MDRD) Af Amer 23 L, Est GFR (MDRD) Non-Af 19 L, BUN/Creatinine Ratio 4.9 L, Glucose 84, Calcium 8.7 01/07/21 06:36: POC Glucose 87 01/07/21 12:24: POC Glucose 103 Current Medications Acetaminophen (Acetaminophen 325 Mg Tablet) 650 mg PO Q6H PRN PRN PRN Reason: Pain 1-10 or Fever Last Admin: 01/07/21 06:34 Dose: 650 mg Documented by: Albuterol Sulfate (Albuterol 2.5 Mg/3 Ml Vial.Neb.) 2.5 mg INHALATION Q4H PRN PRN PRN Reason: sob/wheezing Last Admin: 12/28/20 17:47 Dose: 2.5 mg Documented by: Aspirin (Aspirin 81 Mg Tab.Chew) 81 mg PO DAILY@0800 [facility] Last Admin: 01/07/21 08:48 Dose: 81 mg Documented by: Atorvastatin Calcium (Atorvastatin Calcium 40 Mg Tablet) 40 mg PO QHS [facility] Last Admin: 01/06/21 21:43 Dose: 40 mg Documented by: Collagenase (Collagenase 30gm Tube) 1 applic TOPICAL DAILY [facility]; Protocol Last Admin: 01/07/21 10:35 Dose: Not Given Documented by: Dextrose (Dextrose 50%-Water 25 Gm/50 Ml Disp.Syrin) 0 gm IV X1 PRN; Protocol PRN Reason: Hypoglycemia Docusate Sodium (Docusate Sodium 100 Mg Capsule) 100 mg PO BID [facility] Last Admin: 01/07/21 10:51 Dose: 100 mg Documented by: Glucagon (Glucagon 1 Mg/Ml Syringe) 1 mg IM .X1 PRN PRN Reason: Hypoglycemia Heparin Sodium (Porcine) (Heparin Injection (Vial) 5,000 Unit/Ml Vial) 5,000 unit SC Q12 [facility] Last Admin: 01/07/21 10:51 Dose: 5,000 unit Documented by: Hydralazine HCl (Hydralazine 50 Mg Tablet) 50 mg PO TID [facility] Last Admin: 01/07/21 15:20 Dose: 50 mg Documented by: Sodium Chloride () 250 mls @ 15 mls/hr IV .[id number] PRN PRN Reason: Saline Flush Sodium Chloride () 250 mls @ 15 mls/hr IV .[id number] PRN PRN Reason: Additional IVPB Infusion Insulin Human Lispro (Insulin Lispro 100 Unit/Ml Insuln.Pen) 0 unit SC ACHS [facility]; Protocol Last Admin: 01/07/21 12:27 Dose: Not Given Documented by: Ondansetron HCl (Ondansetron 4 Mg/2 Ml Vial) 4 mg IV Q8H PRN PRN PRN Reason: NAUSEA/VOMITING Oxycodone HCl (Oxycodone 5 Mg Tablet) 5 mg PO Q4H PRN PRN PRN Reason: Pain Score 6-10 Last Admin: 01/07/21 15:25 Dose: 5 mg Documented by: Polyethylene Glycol (Polyethylene Glycol 3350 17 Gm Packet) 17 gm PO DAILY [facility] Last Admin: 01/07/21 10:51 Dose: 17 gm Documented by: Sertraline HCl (Sertraline 50 Mg Tablet) 25 mg PO DAILY [facility] Last Admin: 01/07/21 10:52 Dose: 25 mg Documented by: Sevelamer Carbonate (Sevelamer Carbonate 800 Mg Tablet) 1,600 mg PO TIDCM [facility] Last Admin: 01/07/21 12:28 Dose: 1,600 mg Documented by: Sodium Chloride (0.9% Saline Lock 10 Ml Syringe) 10 - 40 ml IV UD PRN PRN Reason: SALINE FLUSH Last Admin: 01/07/21 10:41 Dose: 10 ml Documented by: STROKE Vital Signs/Narrative: Vital Signs Pulse BP 01/07/21 15:37 84 01/07/21 15:20 80 182/87 H Medical Necessity - Tobacco Use Smoking Status: Former smoker Tobacco Use: Cigarettes Assessment/Plan All Active Problems Tinea pedis (Resolved) Blisters of multiple sites (Acute) End stage renal disease (Acute) Weakness (Acute) Acute respiratory failure with hypoxia (Resolved) Community acquired pneumonia (Resolved) Leukocytosis (Resolved) 70-year-old female was admitted for abnormal lab and confusion bilateral lower leg wounds. 1. Left heel pressure ulcer, unstageable in bilateral medial lower leg, nonhealing ulcer due to end-stage kidney disease and peripheral arterial disease: Patient seen by wound nurse. Wound photo and wound nurse note reviewed. Dressing applied. PT and OT. Patient not febrile or acute change in status, hypoxia or tachypnea to warrant systemic antibiotic but local wound dressing to continue. PT and OT. Noninvasive vascular study shows moderate impairment of the arterial flow at the ankle level bilaterally as well as severe impairment at the digital level bilaterally. No evidence of DVT on venous duplex scan. My hospitalist colleague discussed with vascular surgeon Dr. Jhony Feliz who will see the patient as an outpatient. Patient on aspirin and statin for chronic peripheral arterial disease. 01/05 waiting for pre-CERT. Dressing to continue, wounds are superficial. 01/06: Wound dressing to continue 2. ESKD with new start of hemodialysis: This has been gradual loss of kidney function over the past few years. Patient has signs of uremia including fatigue anuric CF and chronic peripheral arterial disease evaluation. 3. Chronic anemia secondary to CKD/ESKD patient has not had any dark stool. Stool for occult blood ordered. Patient had tunneled dialysis catheter on 12/30. H&H is stable between 7 to 8 g over last 5 days. Serum iron 25, iron saturation 7.9% but normal is ferritin 75 mg. IV iron therapy ordered by breaking machine operator. 01/06: Hemoglobin 8.4. . HTN: Blood pressure is controlled. Lasix HCTZ and losartan are on hold. Continue hydralazine. 01/04: Blood pressure is in acceptable range. 01/05: Blood pressure is elevated. Resume losartan. 4. DM 2, complicated diabetic nephropathy, neuropathy and peripheral arterial disease on a sliding scale insulin -Accu-Cheks AC at bedtime, make adjustments as necessary Glucose is controlled. 5. Anxiety/depression -Stable -Continue with Zoloft DVT: Heparin 500 subcutaneous twice daily Awaiting precertification for placement. Microbiology Past 72 Hours 01/07/21 13:00 Stool Stool Occult Blood (GIOVANY) - Final Laboratory Results 01/06/21 21:41: POC Glucose 92 01/07/21 06:34: Sodium 135 L, Potassium 3.6, Chloride 99, Carbon Dioxide 30.0, Anion Gap 6, BUN 13, Creatinine 2.63 H, Estim Creat Clear Calc 21.33, Est GFR (MDRD) Af Amer 23 L, Est GFR (MDRD) Non-Af 19 L, BUN/Creatinine Ratio 4.9 L, Glucose 84, Calcium 8.7 01/07/21 06:36: POC Glucose 87 01/07/21 12:24: POC Glucose 103 Active Medications Acetaminophen (Acetaminophen 325 Mg Tablet) 650 mg PO Q6H PRN PRN PRN Reason: Pain 1-10 or Fever Last Admin: 01/07/21 06:34 Dose: 650 mg Documented by: Albuterol Sulfate (Albuterol 2.5 Mg/3 Ml Vial.Neb.) 2.5 mg INHALATION Q4H PRN PRN PRN Reason: sob/wheezing Last Admin: 12/28/20 17:47 Dose: 2.5 mg Documented by: Aspirin (Aspirin 81 Mg Tab.Chew) 81 mg PO DAILY@0800 [facility] Last Admin: 01/07/21 08:48 Dose: 81 mg Documented by: Atorvastatin Calcium (Atorvastatin Calcium 40 Mg Tablet) 40 mg PO QHS [facility] Last Admin: 01/06/21 21:43 Dose: 40 mg Documented by: Collagenase (Collagenase 30gm Tube) 1 applic TOPICAL DAILY [facility]; Protocol Last Admin: 01/07/21 10:35 Dose: Not Given Documented by: Dextrose (Dextrose 50%-Water 25 Gm/50 Ml Disp.Syrin) 0 gm IV X1 PRN; Protocol PRN Reason: Hypoglycemia Docusate Sodium (Docusate Sodium 100 Mg Capsule) 100 mg PO BID [facility] Last Admin: 01/07/21 10:51 Dose: 100 mg Documented by: Glucagon (Glucagon 1 Mg/Ml Syringe) 1 mg IM .X1 PRN PRN Reason: Hypoglycemia Heparin Sodium (Porcine) (Heparin Injection (Vial) 5,000 Unit/Ml Vial) 5,000 unit SC Q12 [facility] Last Admin: 01/07/21 10:51 Dose: 5,000 unit Documented by: Hydralazine HCl (Hydralazine 50 Mg Tablet) 50 mg PO TID [facility] Last Admin: 01/07/21 15:20 Dose: 50 mg Documented by: Sodium Chloride () 250 mls @ 15 mls/hr IV .[id number] PRN PRN Reason: Saline Flush Sodium Chloride () 250 mls @ 15 mls/hr IV .[id number] PRN PRN Reason: Additional IVPB Infusion Insulin Human Lispro (Insulin Lispro 100 Unit/Ml Insuln.Pen) 0 unit SC ACHS [facility]; Protocol Last Admin: 01/07/21 12:27 Dose: Not Given Documented by: Ondansetron HCl (Ondansetron 4 Mg/2 Ml Vial) 4 mg IV Q8H PRN PRN PRN Reason: NAUSEA/VOMITING Oxycodone HCl (Oxycodone 5 Mg Tablet) 5 mg PO Q4H PRN PRN PRN Reason: Pain Score 6-10 Last Admin: 01/07/21 15:25 Dose: 5 mg Documented by: Polyethylene Glycol (Polyethylene Glycol 3350 17 Gm Packet) 17 gm PO DAILY [facility] Last Admin: 01/07/21 10:51 Dose: 17 gm Documented by: Sertraline HCl (Sertraline 50 Mg Tablet) 25 mg PO DAILY [facility] Last Admin: 01/07/21 10:52 Dose: 25 mg Documented by: Sevelamer Carbonate (Sevelamer Carbonate 800 Mg Tablet) 1,600 mg PO TIDCM [facility] Last Admin: 01/07/21 12:28 Dose: 1,600 mg Documented by: Sodium Chloride (0.9% Saline Lock 10 Ml Syringe) 10 - 40 ml IV UD PRN PRN Reason: SALINE FLUSH Last Admin: 01/07/21 10:41 Dose: 10 ml Documented by: Inpatient E&M: [id number] Subs Hosp L2
[2021-01-07 17:51] LABS: Bedside Glucose 103 mg/dL (70-110)
[2021-01-07] MEDS: Gabapentin 100 MG Capsule 200 MG PO (17:51)
[2021-01-07] MEDS: Losartan Potassium 50 MG Tablet PO (17:51)
[2021-01-07] MEDS: Atorvastatin Calcium 40 MG Tablet PO (22:04)
[2021-01-07 22:21] LABS: Bedside Glucose 117 mg/dL (70-110)
[2021-01-08] VITALS (14 sets, daily range): BP systolic 137–180; BP diastolic 57–75; PULSE 71–84; RESP 15–16; TEMP 36.3–36.6; O2SAT 95–99
[2021-01-08] MEDS: hydrALAZINE 50 MG Tablet PO ×3 (04:16→21:34)
[2021-01-08 06:50] LABS: Bedside Glucose 84 mg/dL (70-110)
[2021-01-08] MEDS: Docusate Sodium 100 MG Capsule PO (09:07)
[2021-01-08] MEDS: SEVELAMER CARBONATE 800 MG TABLET 1600 MG PO ×3 (09:07→17:34)
[2021-01-08] MEDS: Aspirin 81 MG TAB.CHEW PO (09:07)
[2021-01-08] MEDS: Sertraline 50 MG Tablet 25 MG PO (09:08)
[2021-01-08] MEDS: oxyCODONE 5 MG Tablet PO ×3 (09:08→22:50)
[2021-01-08] MEDS: Losartan Potassium 50 MG Tablet PO (09:10)
[2021-01-08] MEDS: Gabapentin 100 MG Capsule 200 MG PO ×3 (09:10→17:34)
[2021-01-08] MEDS: Heparin Injection (Vial) 5,000 UNIT/ML VIAL 5000 UNIT SC ×2 (10:43→21:34)
[2021-01-08] MEDS: Collagenase 30gm Tube 1 APPLIC TOPICAL (10:44)
[2021-01-08 12:40] LABS: Bedside Glucose 130 mg/dL (70-110)
--- NOTE | 2021-01-08 15:27 | PCM.PN.HOSP ---
Patient Problems: Active and Suspected Problems End stage renal disease (Acute) Weakness (Acute) Reason for Visit: Follow-up for ESRD Objective: Heart rate and blood pressure controlled. Patient still complaining of leg pain. General: Alert, Oriented x3, Cooperative HEENT: Atraumatic, PERRLA, EOMI, Normocephalic Oral: No Gingival or Mucosal Lesions/ Ulcerations Neck: Supple, No JVD, Negative Carotid Bruits Lungs: Air entry diminished in bilateral lung bases. No crepitation/rhonchi Cardiovascular: Regular rate, Regular Rhythm, Normal S1, Normal S2, No murmurs Abdomen: Bowel Sounds Present, Soft, Non Tender, Non-Distended : No renal angle tenderness. No suprapubic tenderness. Extremities: No edema, Capillary Refill Less than 3 Seconds Skin: Mild superficial ulcer/bruise on right lower leg. Left heel ulcer unstageable, left medial ulcer, nonpressure ulcer, superficial Musculoskeletal: No Tenderness to Palpation of Joints or Extremities Neurological: Cranial nerves II-XII grossly intact, Deep Tendon Reflexes 2+/4 and Symmetrical, Neuro grossly intact Psych/Mental Status: Normal Affect, Appropriate. Vitals/I&O's: Vital Signs Temp Pulse Resp BP Pulse Ox 97.8 F 71 16 139/57 H 99 01/08/21 14:54 01/08/21 14:58 01/08/21 14:54 01/08/21 14:58 01/08/21 14:54 Oxygen Flow Rate (L/min) 2 Oxygen Delivery Method Room Air Weight: 143 lb 8.335 oz Body Mass Index (BMI) 37.0 Finger Stick Blood Glucose 14 Intake and Output for Last 24 Hours 01/06/21 01/07/21 01/08/21 23:59 23:59 23:59 Intake Total 1070 / 1070 2029 500 / 500 Output Total 0 / 0 Balance 1070 / 1070 2029 500 / 500 Microbiology Past 72 Hours 01/07/21 13:00 Stool Stool Occult Blood (GIOVANY) - Final Laboratory Results 01/07/21 17:35: POC Glucose 103 01/07/21 22:00: POC Glucose 117 H 01/08/21 06:33: POC Glucose 84 01/08/21 12:22: POC Glucose 130 H Current Medications Acetaminophen (Acetaminophen 325 Mg Tablet) 650 mg PO Q6H PRN PRN PRN Reason: Pain 1-10 or Fever Last Admin: 01/07/21 06:34 Dose: 650 mg Documented by: Albuterol Sulfate (Albuterol 2.5 Mg/3 Ml Vial.Neb.) 2.5 mg INHALATION Q4H PRN PRN PRN Reason: sob/wheezing Last Admin: 12/28/20 17:47 Dose: 2.5 mg Documented by: Aspirin (Aspirin 81 Mg Tab.Chew) 81 mg PO DAILY@0800 [facility] Last Admin: 01/08/21 09:07 Dose: 81 mg Documented by: Atorvastatin Calcium (Atorvastatin Calcium 40 Mg Tablet) 40 mg PO QHS [facility] Last Admin: 01/07/21 22:04 Dose: 40 mg Documented by: Collagenase (Collagenase 30gm Tube) 1 applic TOPICAL DAILY [facility]; Protocol Last Admin: 01/08/21 10:44 Dose: 1 applic Documented by: Dextrose (Dextrose 50%-Water 25 Gm/50 Ml Disp.Syrin) 0 gm IV X1 PRN; Protocol PRN Reason: Hypoglycemia Docusate Sodium (Docusate Sodium 100 Mg Capsule) 100 mg PO BID [facility] Last Admin: 01/08/21 09:07 Dose: 100 mg Documented by: Gabapentin (Gabapentin 100 Mg Capsule) 200 mg PO TIDCM [facility] Last Admin: 01/08/21 12:30 Dose: 200 mg Documented by: Glucagon (Glucagon 1 Mg/Ml Syringe) 1 mg IM .X1 PRN PRN Reason: Hypoglycemia Heparin Sodium (Porcine) (Heparin Injection (Vial) 5,000 Unit/Ml Vial) 5,000 unit SC Q12 [facility] Last Admin: 01/08/21 10:43 Dose: 5,000 unit Documented by: Hydralazine HCl (Hydralazine 50 Mg Tablet) 50 mg PO TID [facility] Last Admin: 01/08/21 14:58 Dose: 50 mg Documented by: Sodium Chloride () 250 mls @ 15 mls/hr IV .[id number] PRN PRN Reason: Saline Flush Sodium Chloride () 250 mls @ 15 mls/hr IV .[id number] PRN PRN Reason: Additional IVPB Infusion Insulin Human Lispro (Insulin Lispro 100 Unit/Ml Insuln.Pen) 0 unit SC ACHS [facility]; Protocol Last Admin: 01/08/21 12:24 Dose: Not Given Documented by: Losartan Potassium (Losartan Potassium 50 Mg Tablet) 50 mg PO DAILY [facility] Last Admin: 01/08/21 09:10 Dose: 50 mg Documented by: Ondansetron HCl (Ondansetron 4 Mg/2 Ml Vial) 4 mg IV Q8H PRN PRN PRN Reason: NAUSEA/VOMITING Oxycodone HCl (Oxycodone 5 Mg Tablet) 5 mg PO Q4H PRN PRN PRN Reason: Pain Score 6-10 Last Admin: 01/08/21 09:08 Dose: 5 mg Documented by: Polyethylene Glycol (Polyethylene Glycol 3350 17 Gm Packet) 17 gm PO DAILY [facility] Last Admin: 01/08/21 09:11 Dose: Not Given Documented by: Sertraline HCl (Sertraline 50 Mg Tablet) 25 mg PO DAILY [facility] Last Admin: 01/08/21 09:08 Dose: 25 mg Documented by: Sevelamer Carbonate (Sevelamer Carbonate 800 Mg Tablet) 1,600 mg PO TIDCM [facility] Last Admin: 01/08/21 12:31 Dose: 1,600 mg Documented by: Sodium Chloride (0.9% Saline Lock 10 Ml Syringe) 10 - 40 ml IV UD PRN PRN Reason: SALINE FLUSH Last Admin: 01/07/21 10:41 Dose: 10 ml Documented by: STROKE Vital Signs/Narrative: Vital Signs Temp Pulse Resp BP Pulse Ox 01/08/21 14:58 71 139/57 H 01/08/21 14:54 97.8 F 71 16 139/57 H 99 01/08/21 12:30 74 01/08/21 11:49 95 Medical Necessity - Tobacco Use Smoking Status: Former smoker Tobacco Use: Cigarettes Assessment/Plan All Active Problems Tinea pedis (Resolved) Blisters of multiple sites (Acute) End stage renal disease (Acute) Weakness (Acute) Acute respiratory failure with hypoxia (Resolved) Community acquired pneumonia (Resolved) Leukocytosis (Resolved) 70-year-old female was admitted for abnormal lab and confusion bilateral lower leg wounds. 1. Left heel pressure ulcer, unstageable in bilateral medial lower leg, nonhealing ulcer due to end-stage kidney disease and peripheral arterial disease: Patient seen by wound nurse. Wound photo and wound nurse note reviewed. Dressing applied. PT and OT. Patient not febrile or acute change in status, hypoxia or tachypnea to warrant systemic antibiotic but local wound dressing to continue. PT and OT. Noninvasive vascular study shows moderate impairment of the arterial flow at the ankle level bilaterally as well as severe impairment at the digital level bilaterally. No evidence of DVT on venous duplex scan. My hospitalist colleague discussed with vascular surgeon Dr. Jhony Feliz who will see the patient as an outpatient. Patient on aspirin and statin for chronic peripheral arterial disease. 01/05 waiting for pre-CERT. Dressing to continue, wounds are superficial. 01/06: Wound dressing to continue 01/08: Right lower leg is mild bruise/superficial ulcer, nonpressure. Left heel ulcer, unstageable, pressure ulcer wound bed blacK ESCHAR. Left medial leg ulcer nonpressure ulcer. 2. ESKD with new start of hemodialysis: This has been gradual loss of kidney function over the past few years. Patient has signs of uremia including fatigue anuric CF and chronic peripheral arterial disease evaluation. 3. Chronic anemia secondary to CKD/ESKD patient has not had any dark stool. Stool for occult blood ordered. Patient had tunneled dialysis catheter on 12/30. H&H is stable between 7 to 8 g over last 5 days. Serum iron 25, iron saturation 7.9% but normal is ferritin 75 mg. IV iron therapy ordered by optic fibre drawer. 01/06: Hemoglobin 8.4. . HTN: Blood pressure is controlled. Lasix HCTZ and losartan are on hold. Continue hydralazine. 01/04: Blood pressure is in acceptable range. 01/05: Blood pressure is elevated. Resume losartan. 4. DM 2, complicated diabetic nephropathy, neuropathy and peripheral arterial disease on a sliding scale insulin -Accu-Cheks AC at bedtime, make adjustments as necessary Glucose is controlled. 5. Anxiety/depression -Stable -Continue with Zoloft DVT: Heparin 500 subcutaneous twice daily Awaiting precertification for placement. Microbiology Past 72 Hours 01/07/21 13:00 Stool Stool Occult Blood (GIOVANY) - Final Laboratory Results 01/07/21 17:35: POC Glucose 103 01/07/21 22:00: POC Glucose 117 H 01/08/21 06:33: POC Glucose 84 01/08/21 12:22: POC Glucose 130 H Inpatient E&M: [id number] Subs Hosp L2
[2021-01-08 17:41] LABS: Bedside Glucose 114 mg/dL (70-110)
[2021-01-08] MEDS: Insulin Lispro 100 UNIT/ML INSULN.PEN SC (21:34)
[2021-01-08] MEDS: Atorvastatin Calcium 40 MG Tablet PO (21:34)
[2021-01-08 21:45] LABS: Bedside Glucose 163 mg/dL (70-110)
[2021-01-09] VITALS (14 sets, daily range): BP systolic 110–150; BP diastolic 53–94; PULSE 76–91; RESP 15–18; TEMP 36.4–37; O2SAT 94–96
[2021-01-09] MEDS: hydrALAZINE 50 MG Tablet PO ×3 (06:18→22:05)
[2021-01-09 06:56] LABS: Bedside Glucose 104 mg/dL (70-110)
[2021-01-09] MEDS: Heparin 10,000 UNITS/10 ML Vial 3500 UNITS IV (08:45)
--- NOTE | 2021-01-09 08:52 | CASEMGMT ---
JACEK spoke w/Paris at [facility], she did get authorization for pt Saturday through Saturday. Dialysis auth is still pending however. As per Paris, pt can come anytime with no pt liability, she will continue to work on updating authorization and will get a level of care if needed, SW needs to complete the PAS/RR however. This has been started already. Updates faxed to Paris at [facility], JACEK will continue to follow. ILEANA Hogue
[2021-01-09] MEDS: oxyCODONE 5 MG Tablet PO ×3 (09:25→18:42)
--- NOTE | 2021-01-09 09:25 | CASEMGMT ---
Call to Shanita at [facility] admissions and she states that [facility] to go to [facility] OP dialysis and Coleman at [facility] states the same. Nicki SW aware, voices understanding. Referral faxed again to [facility] and call to admissions to notify. Per Gabby, pt is already in their system from previous referral. CM to follow. Cristiana LE CM
--- NOTE | 2021-01-09 11:31 | CASEMGMT ---
Addendum entered by Vaishali Rivera 01/09/21 15:59: SW spoke w/Paris again, she thinks that they will be able to set up transport from [place] to [facility] but won't know for certain until there is a dialysis schedule and they have to actually set up the transport. SW spoke w/pt, explained to her that we had to switch dialysis centers as [facility] [place]. SW explained that we are now working on setting up dialysis in [place] as it is in network w/her insurance. SW explained that as of now, we still anticipate her being able to go to [place]. Pt states understanding. Pt then asked SW if she could bring her dog to the usp, she states she was in a [facility] before and was allowed to do so. SW explained that no, she cannot bring her dog to the usp. Her dog is with a friend at present. SW asked pt about completing LW/POA forms. Pt would be interested in doing this, states would put her friend from [employer] down as her POA. SW explained we will follow up w/her on this tomorrow. Pt states understanding. SW will continue to follow. ILEANA Hogue Original Note: SW called [place], spoke w/Paris to see if they can transport pt from [place] to the dialysis center in [place], [facility] at [address] [place] [address], [address] in [place]. SW explained pt's insurance denied her to go to [facility] here in [place] so now a new referral is being sent to [facility]. She anticipates this will be fine as insurance pays for transport, but will let SW know. ILEANA Hogue
--- NOTE | 2021-01-09 12:24 | DIALYSIS ---
HD x 3.5 hours complete. Tolerated tx well. Ran on 3k bath. UF of 3000ml. Used right chest wall dialysis catheter. Lumens closed with heparin per fill volume. Caps placed. Dressing is intact. Report was given to REY Lou.
[2021-01-09] MEDS: Heparin 10,000 UNITS/10 ML Vial IV (12:30)
--- NOTE | 2021-01-09 13:40 | PCM.PN.REN ---
Patient Problems: Active and Suspected Problems End stage renal disease (Acute) Weakness (Acute) Subjective: except foot discomfort has no other complaints - Physical Exam Vitals/I&O's: Vital Signs Temp Pulse Resp BP Pulse Ox 97.5 F L 84 18 145/74 H 95 01/09/21 12:23 01/09/21 12:23 01/09/21 12:23 01/09/21 12:23 01/09/21 09:10 Oxygen Flow Rate (L/min) 2 Oxygen Delivery Method Room Air Weight: 65.1 kg Body Mass Index (BMI) 37.0 Finger Stick Blood Glucose 14 Intake and Output for Last 24 Hours 01/07/21 01/08/21 01/09/21 23:59 23:59 23:59 Intake Total 2029 1095 / 1095 100 / 100 Balance 2029 1095 / 1095 100 / 100 General: Alert, Cooperative HEENT: Atraumatic Oral: Moist Mucosa Neck: Trachea Midline Lungs: Clear to auscultation, Normal air movement Cardiovascular: Regular rate, Regular Rhythm, Normal S1, Normal S2 Abdomen: Bowel Sounds Present, Soft Microbiology Past 72 Hours 01/07/21 13:00 Stool Stool Occult Blood (GIOVANY) - Final Laboratory Results 01/08/21 17:33: POC Glucose 114 H 01/08/21 21:32: POC Glucose 163 H 01/09/21 06:17: POC Glucose 104 Current Medications Acetaminophen (Acetaminophen 325 Mg Tablet) 650 mg PO Q6H PRN PRN PRN Reason: Pain 1-10 or Fever Last Admin: 01/07/21 06:34 Dose: 650 mg Documented by: Albuterol Sulfate (Albuterol 2.5 Mg/3 Ml Vial.Neb.) 2.5 mg INHALATION Q4H PRN PRN PRN Reason: sob/wheezing Last Admin: 12/28/20 17:47 Dose: 2.5 mg Documented by: Aspirin (Aspirin 81 Mg Tab.Chew) 81 mg PO DAILY@0800 [facility] Last Admin: 01/08/21 09:07 Dose: 81 mg Documented by: Atorvastatin Calcium (Atorvastatin Calcium 40 Mg Tablet) 40 mg PO QHS [facility] Last Admin: 01/08/21 21:34 Dose: 40 mg Documented by: Collagenase (Collagenase 30gm Tube) 1 applic TOPICAL DAILY [facility]; Protocol Last Admin: 01/08/21 10:44 Dose: 1 applic Documented by: Dextrose (Dextrose 50%-Water 25 Gm/50 Ml Disp.Syrin) 0 gm IV X1 PRN; Protocol PRN Reason: Hypoglycemia Docusate Sodium (Docusate Sodium 100 Mg Capsule) 100 mg PO BID [facility] Last Admin: 01/08/21 21:35 Dose: Not Given Documented by: Gabapentin (Gabapentin 100 Mg Capsule) 200 mg PO TIDCM [facility] Last Admin: 01/08/21 17:34 Dose: 200 mg Documented by: Glucagon (Glucagon 1 Mg/Ml Syringe) 1 mg IM .X1 PRN PRN Reason: Hypoglycemia Heparin Sodium (Porcine) (Heparin Injection (Vial) 5,000 Unit/Ml Vial) 5,000 unit SC Q12 [facility] Last Admin: 01/09/21 09:32 Dose: Not Given Documented by: Hydralazine HCl (Hydralazine 50 Mg Tablet) 50 mg PO TID [facility] Last Admin: 01/09/21 06:18 Dose: 50 mg Documented by: Sodium Chloride () 250 mls @ 15 mls/hr IV .[id number] PRN PRN Reason: Saline Flush Sodium Chloride () 250 mls @ 15 mls/hr IV .[id number] PRN PRN Reason: Additional IVPB Infusion Insulin Human Lispro (Insulin Lispro 100 Unit/Ml Insuln.Pen) 0 unit SC ACHS [facility]; Protocol Last Admin: 01/09/21 06:18 Dose: Not Given Documented by: Losartan Potassium (Losartan Potassium 50 Mg Tablet) 50 mg PO DAILY [facility] Last Admin: 01/08/21 09:10 Dose: 50 mg Documented by: Ondansetron HCl (Ondansetron 4 Mg/2 Ml Vial) 4 mg IV Q8H PRN PRN PRN Reason: NAUSEA/VOMITING Oxycodone HCl (Oxycodone 5 Mg Tablet) 5 mg PO Q4H PRN PRN PRN Reason: Pain Score 6-10 Last Admin: 01/09/21 09:25 Dose: 5 mg Documented by: Polyethylene Glycol (Polyethylene Glycol 3350 17 Gm Packet) 17 gm PO DAILY [facility] Last Admin: 01/08/21 09:11 Dose: Not Given Documented by: Sertraline HCl (Sertraline 50 Mg Tablet) 25 mg PO DAILY [facility] Last Admin: 01/08/21 09:08 Dose: 25 mg Documented by: Sevelamer Carbonate (Sevelamer Carbonate 800 Mg Tablet) 1,600 mg PO TIDCM [facility] Last Admin: 01/08/21 17:34 Dose: 1,600 mg Documented by: Sodium Chloride (0.9% Saline Lock 10 Ml Syringe) 10 - 40 ml IV UD PRN PRN Reason: SALINE FLUSH Last Admin: 01/07/21 10:41 Dose: 10 ml Documented by: Medical Necessity - Tobacco Use Smoking Status: Former smoker Tobacco Use: Cigarettes Assessment/Plan All Active Problems Tinea pedis (Resolved) Blisters of multiple sites (Acute) End stage renal disease (Acute) Weakness (Acute) Acute respiratory failure with hypoxia (Resolved) Community acquired pneumonia (Resolved) Leukocytosis (Resolved) ESRD?Saturday dialysis today. Awaiting placement in the dialysis unit. Right IJ TDC. Anemia of CKD?iron Hypertension?continue meds monitor CKD?MBD?continue Renvela monitor calcium phosphorus
--- NOTE | 2021-01-09 13:43 | NURSING ---
wound photo: right medial lower leg
--- NOTE | 2021-01-09 13:45 | NURSING ---
wound photo: right anterolateral lower leg
--- NOTE | 2021-01-09 13:46 | NURSING ---
wound photo: left medial lower leg
--- NOTE | 2021-01-09 13:47 | NURSING ---
wound photo: left heel
--- NOTE | 2021-01-09 14:03 | NURSING ---
Called and updated Dr Cary on wounds to bilateral lower legs and left heel. more ecchymosis noted again today. 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 Dr Cary will update nephrology as well.
[2021-01-09] MEDS: SEVELAMER CARBONATE 800 MG TABLET 1600 MG PO ×2 (14:25→17:26)
[2021-01-09] MEDS: Polyethylene Glycol 3350 17 GM PACKET PO (14:25)
[2021-01-09] MEDS: Gabapentin 100 MG Capsule 200 MG PO ×2 (14:26→17:25)
[2021-01-09] MEDS: Losartan Potassium 50 MG Tablet PO (14:26)
[2021-01-09] MEDS: Docusate Sodium 100 MG Capsule PO ×2 (14:26→22:05)
[2021-01-09] MEDS: Aspirin 81 MG TAB.CHEW PO (14:26)
[2021-01-09] MEDS: Sertraline 50 MG Tablet 25 MG PO (14:27)
[2021-01-09] MEDS: Collagenase 30gm Tube 1 APPLIC TOPICAL (14:28)
[2021-01-09 17:36] LABS: Bedside Glucose 125 mg/dL (70-110)
--- NOTE | 2021-01-09 18:39 | PCM.PN.HOSP ---
Patient Problems: Active and Suspected Problems End stage renal disease (Acute) Weakness (Acute) Reason for Visit: Follow-up on leg ulcers/ESRD Subjective: Patient was seen and examined. No new complains. Denies any fever or chills Objective: Physical exam: General: Alert, Oriented x3, Cooperative HEENT: Atraumatic, PERRLA, EOMI, Normocephalic Oral: No Gingival or Mucosal Lesions/ Ulcerations Neck: Supple, No JVD, Negative Carotid Bruits Lungs: Air entry diminished in bilateral lung bases. No crepitation/rhonchi Cardiovascular: Regular rate, Regular Rhythm, Normal S1, Normal S2, No murmurs Abdomen: Bowel Sounds Present, Soft, Non Tender, Non-Distended : No renal angle tenderness. No suprapubic tenderness. Extremities: No edema, Capillary Refill Less than 3 Seconds Skin: Mild superficial ulcer/bruise on right lower leg. Left heel ulcer unstageable, left medial ulcer, nonpressure ulcer, superficial Musculoskeletal: No Tenderness to Palpation of Joints or Extremities Neurological: Cranial nerves II-XII grossly intact, Deep Tendon Reflexes 2+/4 and Symmetrical, Neuro grossly intact Psych/Mental Status: Normal Affect, Appropriate. Vitals/I&O's: Vital Signs Temp Pulse Resp BP Pulse Ox 98.5 F 83 15 132/94 H 95 01/09/21 14:17 01/09/21 15:07 01/09/21 14:17 01/09/21 14:42 01/09/21 14:17 Oxygen Flow Rate (L/min) 2 Oxygen Delivery Method Room Air Weight: 65.1 kg Body Mass Index (BMI) 37.0 Finger Stick Blood Glucose 14 Intake and Output for Last 24 Hours 01/07/21 01/08/21 01/09/21 23:59 23:59 23:59 Intake Total 2029 1095 / 1095 780 / 780 Output Total 3000 / 3000 Balance 2029 1095 / 1095 -2220 / -2220 Microbiology Past 72 Hours 01/07/21 13:00 Stool Stool Occult Blood (GIOVANY) - Final Laboratory Results 01/08/21 21:32: POC Glucose 163 H 01/09/21 06:17: POC Glucose 104 01/09/21 17:19: POC Glucose 125 H Current Medications Acetaminophen (Acetaminophen 325 Mg Tablet) 650 mg PO Q6H PRN PRN PRN Reason: Pain 1-10 or Fever Last Admin: 01/07/21 06:34 Dose: 650 mg Documented by: Albuterol Sulfate (Albuterol 2.5 Mg/3 Ml Vial.Neb.) 2.5 mg INHALATION Q4H PRN PRN PRN Reason: sob/wheezing Last Admin: 12/28/20 17:47 Dose: 2.5 mg Documented by: Aspirin (Aspirin 81 Mg Tab.Chew) 81 mg PO DAILY@0800 [facility] Last Admin: 01/09/21 14:26 Dose: 81 mg Documented by: Atorvastatin Calcium (Atorvastatin Calcium 40 Mg Tablet) 40 mg PO QHS [facility] Last Admin: 01/08/21 21:34 Dose: 40 mg Documented by: Collagenase (Collagenase 30gm Tube) 1 applic TOPICAL DAILY [facility]; Protocol Last Admin: 01/09/21 14:28 Dose: 1 applic Documented by: Dextrose (Dextrose 50%-Water 25 Gm/50 Ml Disp.Syrin) 0 gm IV X1 PRN; Protocol PRN Reason: Hypoglycemia Docusate Sodium (Docusate Sodium 100 Mg Capsule) 100 mg PO BID [facility] Last Admin: 01/09/21 14:26 Dose: 100 mg Documented by: Gabapentin (Gabapentin 100 Mg Capsule) 200 mg PO TIDCM [facility] Last Admin: 01/09/21 17:25 Dose: 200 mg Documented by: Glucagon (Glucagon 1 Mg/Ml Syringe) 1 mg IM .X1 PRN PRN Reason: Hypoglycemia Heparin Sodium (Porcine) (Heparin Injection (Vial) 5,000 Unit/Ml Vial) 5,000 unit SC Q12 [facility] Last Admin: 01/09/21 09:32 Dose: Not Given Documented by: Hydralazine HCl (Hydralazine 50 Mg Tablet) 50 mg PO TID [facility] Last Admin: 01/09/21 14:42 Dose: 50 mg Documented by: Sodium Chloride () 250 mls @ 15 mls/hr IV .[id number] PRN PRN Reason: Saline Flush Sodium Chloride () 250 mls @ 15 mls/hr IV .[id number] PRN PRN Reason: Additional IVPB Infusion Insulin Human Lispro (Insulin Lispro 100 Unit/Ml Insuln.Pen) 0 unit SC ACHS [facility]; Protocol Last Admin: 01/09/21 17:24 Dose: Not Given Documented by: Losartan Potassium (Losartan Potassium 50 Mg Tablet) 50 mg PO DAILY [facility] Last Admin: 01/09/21 14:26 Dose: 50 mg Documented by: Ondansetron HCl (Ondansetron 4 Mg/2 Ml Vial) 4 mg IV Q8H PRN PRN PRN Reason: NAUSEA/VOMITING Oxycodone HCl (Oxycodone 5 Mg Tablet) 5 mg PO Q4H PRN PRN PRN Reason: Pain Score 6-10 Last Admin: 01/09/21 14:25 Dose: 5 mg Documented by: Polyethylene Glycol (Polyethylene Glycol 3350 17 Gm Packet) 17 gm PO DAILY [facility] Last Admin: 01/09/21 14:25 Dose: 17 gm Documented by: Sertraline HCl (Sertraline 50 Mg Tablet) 25 mg PO DAILY [facility] Last Admin: 01/09/21 14:27 Dose: 25 mg Documented by: Sevelamer Carbonate (Sevelamer Carbonate 800 Mg Tablet) 1,600 mg PO TIDCM [facility] Last Admin: 01/09/21 17:26 Dose: 1,600 mg Documented by: Sodium Chloride (0.9% Saline Lock 10 Ml Syringe) 10 - 40 ml IV UD PRN PRN Reason: SALINE FLUSH Last Admin: 01/07/21 10:41 Dose: 10 ml Documented by: STROKE Vital Signs/Narrative: Vital Signs Pulse BP 01/09/21 15:07 83 01/09/21 14:42 91 132/94 H Medical Necessity - Tobacco Use Smoking Status: Former smoker Tobacco Use: Cigarettes Assessment/Plan All Active Problems Tinea pedis (Resolved) Blisters of multiple sites (Acute) End stage renal disease (Acute) Weakness (Acute) Acute respiratory failure with hypoxia (Resolved) Community acquired pneumonia (Resolved) Leukocytosis (Resolved) 1. 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 Anemia of CKD/Iron deficiency anemia, Hb appears stable Stool for occult blood is negative 4. Hypertension, controlled, continue on Losartan 5. Type 2 DM, complicated by peripheral neuropathy/PAD Continue on ISS 6. Anxiety/depression, stable, continue on Zoloft 7. DVT PPx - Heparin SC Inpatient E&M: 45661 Subs Hosp L2
[2021-01-09] MEDS: Atorvastatin Calcium 40 MG Tablet PO (22:05)
[2021-01-09] MEDS: Heparin Injection (Vial) 5,000 UNIT/ML VIAL 5000 UNIT SC (22:06)
[2021-01-09 22:40] LABS: Bedside Glucose 124 mg/dL (70-110)
[2021-01-10] VITALS (12 sets, daily range): BP systolic 112–146; BP diastolic 43–59; PULSE 74–85; RESP 16–18; TEMP 36.8–37.3; O2SAT 90–97
[2021-01-10] MEDS: Acetaminophen 325 MG Tablet 650 MG PO (02:27)
[2021-01-10] MEDS: hydrALAZINE 50 MG Tablet PO ×2 (06:28→13:53)
[2021-01-10 06:46] LABS: Bedside Glucose 108 mg/dL (70-110)
[2021-01-10] MEDS: oxyCODONE 5 MG Tablet PO ×2 (07:18→13:05)
[2021-01-10] MEDS: SEVELAMER CARBONATE 800 MG TABLET 1600 MG PO ×2 (08:35→11:54)
[2021-01-10] MEDS: Gabapentin 100 MG Capsule 200 MG PO ×2 (08:35→11:54)
[2021-01-10] MEDS: Docusate Sodium 100 MG Capsule PO (08:35)
[2021-01-10] MEDS: Losartan Potassium 50 MG Tablet PO (08:36)
[2021-01-10] MEDS: Aspirin 81 MG TAB.CHEW PO (08:36)
[2021-01-10] MEDS: Heparin Injection (Vial) 5,000 UNIT/ML VIAL 5000 UNIT SC (08:37)
[2021-01-10] MEDS: Sertraline 50 MG Tablet 25 MG PO (08:37)
[2021-01-10] MEDS: Polyethylene Glycol 3350 17 GM PACKET PO (08:37)
[2021-01-10 09:11] LABS: Absolute Lymphocyte Count 2.21 X10^3/uL (0.83-4.51); Absolute Neutrophil Count 10.9 X10^3/uL (2.0-7.7); Basophil# 0.07 X10^3/uL; Basophil% 0.5 % (0-1); Eosinophil# 0.27 X10^3/uL; Eosinophils% 1.7 % (0-5); Hematocrit 28.6 % (37-47); Hemoglobin 8.2 g/dL (12.0-15.0); Lymphocyte # 2.21 X10^3/ul (4.0); Lymphocyte % 14.2 % (19-41); Mean Corp Hgb Conc 28.7 g/dL (32-36); Mean Corpuscular Hgb 26.7 pg (27.0-32.0); Mean Corpuscular Volume 93.2 fL (81-99); Mean Platelet Vol. 9.8 fl (6.2-12.0); Monocyte# 1.95 X10^3/uL; Monocyte% 12.6 % (0-10); NRBC Flagged by Analyzer 0 % (0-5); Neutrophil # 10.91 X10^3/uL (2.7-7.7); Neutrophil % 70.4 % (47-70); POSITIVE DIFFERENTIAL YES; Platelet Count 236 K/mm3 (150-450); RBC Distribution Width CV 16.2 % (11.6-14.6); RBC Distribution Width SD 55.3 fl (35.1-43.9); Red Blood Count 3.07 M/mm3 (4.2-5.4); White Blood Count 15.5 K/mm3 (4.4-11.0)
--- NOTE | 2021-01-10 09:15 | CASEMGMT ---
Call from Gabby at renal care and she states pt can start on with a chair time of 1245 at the [facility] renal [facility]. They request that pt arrive about an hour early to complete paperwork. Ron READ updated on all, voices understanding and is calling to verify that the [facility] can transport pt to that chair time. Pt updated on all by Tomas READ, voices understanding. Cristiana LE CM
[2021-01-10 09:17] LABS: Differential Indicated SCAN CRITERIA MET
[2021-01-10 09:34] LABS: Differential Comment SCANNED
[2021-01-10 09:39] LABS: Albumin, Serum 2.1 g/dL (3.2-5.0); BUN 16 mg/dL (7-18); BUN/Creat Ratio 4.8 RATIO (10-20); Calcium,Total 8.3 mg/dL (8.5-10.1); Chloride 99 mmol/L (98-107); Creatinine, Serum 3.34 mg/dL (0.55-1.02); EST Glomerular Filtration Rate 15 mL/min (>60); Est Glom Filt Rate - Afr Amer 18 mL/min (>60); Estimated Creatinine Clearance 16.57 ml/min; Glucose 134 mg/dL (74-106); Phosphorus 2.6 mg/dL (2.5-4.9); Potassium 4.1 mmol/L (3.5-5.1); Sodium Level 133 mmol/L (136-145)
--- NOTE | 2021-01-10 10:48 | NURSING ---
Pt being discharged to the [facility] today. will leave dressings in place since nursing will need to assess wounds on admission. REY Smyth aware.
[2021-01-10 11:35] LABS: Bedside Glucose 125 mg/dL (70-110)
--- NOTE | 2021-01-10 11:36 | TREXTCAR_ITS ---
- Diet 12/30/20 11:23 Diet: Renal - ConsCHO - Sal Cont Type of Dietary Supplement:: Vitaly Is pt able to select menu?: Yes Diet Comments: 120ml Nepro w/breakfast; Vitaly BID w/ lunch and dinner How many daily calories?: 1800 calorie - Routine Orders/Code Status Keep PO Greater than or Equal to (%): 94 Routine Lab Work: CBC - within 3 days, BMP - within 3 days Code Status: Full Code - Wound(s) right medial lower leg Wound Type: nonhealing wounds Dressing Change: Dry Sterile Dressing left medial lower leg Wound Type: nonhealing wound Dressing Change: Dry Sterile Dressing left lateral heel Wound Type: Pressure Injury Dressing Change: santyl with dry dressing L lateral heel Wound Type: Pressure Injury RIGHT SUBCLAVIAN Wound Type: Surgical Incision right buttock Wound Type: Skin Tear RIGHT FOOT Wound Type: nonhealing wound right anterolateral lower leg Wound Type: nonhealing wound Dressing Change: Dry Sterile Dressing - Therapies Physical Therapy: Eval and Treat Occupational Therapy: Eval and Treat - Allergies/Procedures Done in Hospital Allergies/Adverse Reactions: Allergies Penicillins Allergy (Verified 10/04/20 10:10) Rash Procedures: - - s/p tunneled dialysis catheter 12/30/20 - Type of Care/Length of Stay Estimated LOS: Convalescent Care Less Than 30 days Type of Care Needed: Skilled Rehab Potential: Good Prognosis: Good - Additional Orders/Day of Discharge Day of Discharge: 01/10/21 - Dietary and Speech Recommendations Dietitian Recommendations/Changes: Will continue 1800 calorie/consistent- carbohydrate/renal diet and ONS as ordered. Will continue 120mL Nepro w/ breakfast, Vitaly BID w/ lunch/dinner as currently ordered. Diet education as pt willing--not interested to date. - Follow Up Care Primary Care Physician: Remigio Parks MD [Primary Care Provider] - Please follow up with your Primary Care Physician in: in 1-2 weeks When: Tues/Thurs/Sat chair time at 1245 Please Follow Up With: Jhony Feliz MD When: in 1 week
--- NOTE | 2021-01-10 11:42 | DS.PCM_ITS ---
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 Anemia of CKD/Iron deficiency anemia - Secondary Discharge Diagnosis Chronic Problems: Chronic Problems PVD (peripheral vascular disease) (Chronic) severe BL LE's Anemia of chronic renal failure, stage 5 (Chronic) Anxiety and depression (Chronic) Left ventricular hypertrophy (Chronic) Severe Left atrial enlargement (Chronic) Pulmonary hypertension (Chronic) Noncompliance (Chronic) with medications, with physician follow up and with diet Tobacco dependence in remission (Chronic) She quit smoking at 36 years of age Pressure ulcer of left heel, unstageable (Chronic) it is covered with an eschar and I can not stage at this time. Obesity (Chronic) Claudication (Chronic) BL LE's Diabetes mellitus (Chronic) Also with end-stage renal disease Artificial cardiac pacemaker (Chronic) Cardiac conduction disorder (Chronic) CHF (congestive heart failure) (Chronic) Hypertension (Chronic) Chronic renal insufficiency (Chronic) Hospital Course and Treatment Imaging Results: Clinical Impression(s) from Imaging Studies Chest X-Ray 12/30/20 11:22 IMPRESSION: Small left pleural effusion with left basilar infiltration and/or atelectasis. The tip of the right-sided hemodialysis catheter is at the junction of the superior vena cava and right atrium. Electronically Signed: Jered Duque MD at 12:07 EDT , Service support , Consultations 12/28/20 12:17 Consult: Onc/Wound/assistant program director Routine Comment: Reason for Consult:: bilateral lower legs wound Comments:: followed by wound center Nephrology Operations: None Procedures: - - s/p tunneled dialysis catheter on 12/30/20 Summary of Care Provided: The patient is a 70 year old F with past medical history of CKD stage V, who was brought to the hospital with abnormal blood work and confusion. Patient however was not confused when she arrived to the hospital. She was found to have bilateral lower extremity wounds. BUN and creatinine were elevated. He follows with nephrology in the outpatient and has been prepared for dialysis. Unfort unately her right arm aVF is thrombosed. Was admitted with creatinine of 5.66, her previous creatinine was 4.7. Patient was started on emergent dialysis with tunneled dialysis catheter placed on 12/30/20 by general surgery. 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 Patient was seen by PT and OT and [facility] She was given sodium thiosulfate 25 g to be given during dialysis. She will be followed up by nephrology. Patient Problems: Active and Suspected Problems End stage renal disease (Acute) Weakness (Acute) Subjective: The day of discharge, patient was seen and examined. Denied any new complaints except for pain in her lower extremity. Objective: Physical exam: General: Alert, Oriented x3, Cooperative HEENT: Atraumatic, PERRLA, EOMI, Normocephalic Oral: No Gingival or Mucosal Lesions/ Ulcerations Neck: Supple, No JVD, Negative Carotid Bruits Lungs: Air entry diminished in bilateral lung bases. No crepitation/rhonchi Cardiovascular: Regular rate, Regular Rhythm, Normal S1, Normal S2, No murmurs Abdomen: Bowel Sounds Present, Soft, Non Tender, Non-Distended : No renal angle tenderness. No suprapubic tenderness. Extremities: No edema, Capillary Refill Less than 3 Seconds Skin: Mild superficial ulcer/bruise on right lower leg. Left heel ulcer unstageable, left medial ulcer, nonpressure ulcer, superficial Musculoskeletal: No Tenderness to Palpation of Joints or Extremities Neurological: Cranial nerves II-XII grossly intact, Deep Tendon Reflexes 2+/4 and Symmetrical, Neuro grossly intact Psych/Mental Status: Normal Affect, Appropriate. - Physical Exam Vitals/I&O's: Vital Signs Temp Pulse Resp BP Pulse Ox 98.5 F 74 16 112/43 L 92 01/10/21 08:50 01/10/21 08:50 01/10/21 08:50 01/10/21 08:50 01/10/21 10:07 Oxygen Flow Rate (L/min) 2 Oxygen Delivery Method Room Air Weight: 65.1 kg Body Mass Index (BMI) 37.0 Finger Stick Blood Glucose 14 Intake and Output for Last 24 Hours 01/08/21 01/09/21 01/10/21 23:59 23:59 23:59 Intake Total 1095 / 1095 1080 / 1080 340 / 340 Output Total 3000 / 3000 Balance 1095 / 1095 -1920 / -1920 340 / 340 Microbiology Past 72 Hours 01/10/21 10:00 Mucosa - Nose SARS-CoV-2 Antigen (Rapid) - Final 01/07/21 13:00 Stool Stool Occult Blood (GIOVANY) - Final Laboratory Results 01/09/21 17:19: POC Glucose 125 H 01/09/21 22:04: POC Glucose 124 H 01/10/21 06:27: POC Glucose 108 01/10/21 09:04: WBC 15.5 H, RBC 3.07 L, Hgb 8.2 L, Hct 28.6 L, MCV 93.2, MCH 26.7 L, MCHC 28.7 L, RDW Std Deviation 55.3 H, RDW Coeff of Robyn 16.2 H, Plt Count 236, MPV 9.8, Immature Gran % (Auto) 0.600, Neut % (Auto) 70.4 H, Lymph % (Auto) 14.2 L, [place] % (Auto) 12.6 H, Eos % (Auto) 1.7, Baso % (Auto) 0.5, Absolute Neuts (auto) 10.9 H, Absolute Lymphs (auto) 2.21, Nucleated RBC % 0, Differential Comment SCANNED, Diff Path Review January01/10/21 09:04: Sodium 133 L, Potassium 4.1, Chloride 99, Carbon Dioxide 30.0, BUN 16, Creatinine 3.34 H, Estim Creat Clear Calc 16.57, Est GFR (MDRD) Af Amer 18 L, Est GFR (MDRD) Non-Af 15 L, BUN/Creatinine Ratio 4.8 L, Glucose 134 H, Calcium 8.3 L, Phosphorus 2.6, Albumin 2.1 L 01/10/21 10:54: POC Glucose 125 H Current Medications Acetaminophen (Acetaminophen 325 Mg Tablet) 650 mg PO Q6H PRN PRN PRN Reason: Pain 1-10 or Fever Last Admin: 01/10/21 02:27 Dose: 650 mg Documented by: Albuterol Sulfate (Albuterol 2.5 Mg/3 Ml Vial.Neb.) 2.5 mg INHALATION Q4H PRN PRN PRN Reason: sob/wheezing Last Admin: 12/28/20 17:47 Dose: 2.5 mg Documented by: Aspirin (Aspirin 81 Mg Tab.Chew) 81 mg PO DAILY@0800 [facility] Last Admin: 01/10/21 08:36 Dose: 81 mg Documented by: Atorvastatin Calcium (Atorvastatin Calcium 40 Mg Tablet) 40 mg PO QHS [facility] Last Admin: 01/09/21 22:05 Dose: 40 mg Documented by: Collagenase (Collagenase 30gm Tube) 1 applic TOPICAL DAILY [facility]; Protocol Last Admin: 01/10/21 10:36 Dose: Not Given Documented by: Dextrose (Dextrose 50%-Water 25 Gm/50 Ml Disp.Syrin) 0 gm IV X1 PRN; Protocol PRN Reason: Hypoglycemia Docusate Sodium (Docusate Sodium 100 Mg Capsule) 100 mg PO BID [facility] Last Admin: 01/10/21 08:35 Dose: 100 mg Documented by: Gabapentin (Gabapentin 100 Mg Capsule) 200 mg PO TIDCM [facility] Last Admin: 01/10/21 08:35 Dose: 200 mg Documented by: Glucagon (Glucagon 1 Mg/Ml Syringe) 1 mg IM .X1 PRN PRN Reason: Hypoglycemia Heparin Sodium (Porcine) (Heparin Injection (Vial) 5,000 Unit/Ml Vial) 5,000 unit SC Q12 [facility] Last Admin: 01/10/21 08:37 Dose: 5,000 unit Documented by: Hydralazine HCl (Hydralazine 50 Mg Tablet) 50 mg PO TID [facility] Last Admin: 01/10/21 06:28 Dose: 50 mg Documented by: Sodium Chloride () 250 mls @ 15 mls/hr IV .[id number] PRN PRN Reason: Saline Flush Sodium Chloride () 250 mls @ 15 mls/hr IV .[id number] PRN PRN Reason: Additional IVPB Infusion Insulin Human Lispro (Insulin Lispro 100 Unit/Ml Insuln.Pen) 0 unit SC ACHS [facility]; Protocol Last Admin: 01/10/21 06:29 Dose: Not Given Documented by: Losartan Potassium (Losartan Potassium 50 Mg Tablet) 50 mg PO DAILY [facility] Last Admin: 01/10/21 08:36 Dose: 50 mg Documented by: Ondansetron HCl (Ondansetron 4 Mg/2 Ml Vial) 4 mg IV Q8H PRN PRN PRN Reason: NAUSEA/VOMITING Oxycodone HCl (Oxycodone 5 Mg Tablet) 5 mg PO Q4H PRN PRN PRN Reason: Pain Score 6-10 Last Admin: 01/10/21 07:18 Dose: 5 mg Documented by: Polyethylene Glycol (Polyethylene Glycol 3350 17 Gm Packet) 17 gm PO DAILY [facility] Last Admin: 01/10/21 08:37 Dose: 17 gm Documented by: Sertraline HCl (Sertraline 50 Mg Tablet) 25 mg PO DAILY [facility] Last Admin: 01/10/21 08:37 Dose: 25 mg Documented by: Sevelamer Carbonate (Sevelamer Carbonate 800 Mg Tablet) 1,600 mg PO TIDCM [facility] Last Admin: 01/10/21 08:35 Dose: 1,600 mg Documented by: Sodium Chloride (0.9% Saline Lock 10 Ml Syringe) 10 - 40 ml IV UD PRN PRN Reason: SALINE FLUSH Last Admin: 01/07/21 10:41 Dose: 10 ml Documented by: Discharge Diet: Low fat/ Low Cholesterol, 2000 mg Sodium Diet Discharge Activity: Return to Normal Activity Home Medications: Medications to take at Discharge Losartan Potassium [Cozaar] 50 mg PO DAILY 04/06/15 hydrALAZINE [Apresoline] 50 mg PO TID #120 tab 07/22/19 Albuterol Inhaler [Ventolin Hfa] 2 puff INHALATION Q4H PRN PRN #1 inhaler 09/10/19 Sertraline HCl 25 mg PO DAILY #30 tab 11/22/20 Gabapentin [Neurontin] 200 mg PO TIDCM 01/01/21 Acetaminophen [Tylenol Tablet] 650 mg PO Q6H PRN PRN tablet 01/10/21 Aspirin [Aspirin, Baby] 81 mg PO DAILY@0800 tab.chew 01/10/21 Atorvastatin Calcium [Lipitor] 40 mg PO QHS tablet 01/10/21 Collagenase [Santyl] 1 applic TOPICAL DAILY tube 01/10/21 Sodium Thiosulfate in Water [Sodium Thiosulfate 12.5 G/50Ml] 25 gm IV TUTHSA #12 vial 01/10/21 Following Prescriptions Were Given to Patient: Sodium Thiosulfate in Water [Sodium Thiosulfate 12.5 G/50Ml] 25 gm IV TUTHSA #12 vial Primary Care Physician: Remigio Parks MD [Primary Care Provider] - Please follow up with your Primary Care Physician in: in 1-2 weeks When: Tues/Thurs/Sat chair time at 1245 Please Follow Up With: Jhony Feliz MD When: in 1 week [facility] Minutes spent on discharge:: 40 Patient Condition:: Stable Medical Necessity - Tobacco Use Smoking Status: Former smoker Tobacco Use: Cigarettes Meaningful Use Info Meaningful Use Diagnoses (Choose all that apply): None applicable Inpatient E&M: 42873 Disch Hosp
--- NOTE | 2021-01-10 12:00 | CASEMGMT ---
Social Work Patient medically cleared for discharge today per doctor. Met with patient in room. Patient confirms to be agreeable to discharge today to the [facility] as previously planned. Patient request for patient friend, Adrienne to be updated on patient discharge plan. Telephone call to the [facility]. Patient is accepted and can transition today. PASRR completed. Telephone call to [facility]. Transportation set up for 2:30 on 01/10/2021 to the [facility]. Telephone call to Adrienne, no answer. Voicemail left. Telephone call to Yudelka Goyal ([phone]) with Yudelka GUARDADO updated on patient discharge. Yudelka request for discharge information to be faxed to [phone] for continuity of care. Information faxed. Waiting on discharge summary and signed medication list to fax patient chart to the [facility]. PLAN: [facility] today. Will continue to follow. Tomas COOPER, ILEANA
--- NOTE | 2021-01-10 12:17 | PHA.DC.MR ---
Pharmacy Service has performed discharge medication reconciliation for this patient. The patient's discharge medication list was reviewed for discrepancies and discrepancies were resolved. Home Medications Losartan Potassium [Cozaar] 50 mg PO DAILY 04/06/15 Hydrochlorothiazide [Hctz] 12.5 mg PO DAILY #0 07/22/19 hydrALAZINE [Apresoline] 50 mg PO TID #120 tab 07/22/19 Albuterol Inhaler [Ventolin Hfa] 2 puff INHALATION Q4H PRN PRN #1 inhaler 09/10/19 Insulin Aspart [Novolog Flexpen] 0 units SUBCUT TIDCM 09/10/19 Sertraline HCl 25 mg PO DAILY #30 tab 11/22/20 Furosemide [Lasix] 80 mg PO DAILY 01/01/21 Gabapentin [Neurontin] 200 mg PO TIDCM 01/01/21
--- NOTE | 2021-01-10 14:21 | CASEMGMT ---
Social Work Signed medication list obtained and [facility] to [facility]. Tomas COOPER, KIMMIES
[2021-01-11 13:50] LABS: Pathologist Review Reviewed
== END 2021-01-10 15:05 | disposition skilled nursing facility (03) | DRG 291 ==
PROVIDERS: Anesthesiology; Internal Medicine; Internal Medicine Nephrology; Surgery; Admitting Provider Family Medicine; PCP Internal Medicine; Visit Provider Internal Medicine
PROC: 0JH63XZ Insertion of Tunneled Vascular Access Device into Chest Subcutaneous Tissue and Fascia, Percutaneous Approach (ICD-10-PCS; principal; 2020-12-30 10:30)
DX: I13.2 Hypertensive heart and chronic kidney disease with heart failure and with stage 5 chronic kidney disease, or end stage renal disease (principal); N18.6 End stage renal disease; L97.919 Non-pressure chronic ulcer of unspecified part of right lower leg with unspecified severity; E11.22 Type 2 diabetes mellitus with diabetic chronic kidney disease; I50.9 Heart failure, unspecified; Z99.2 Dependence on renal dialysis; D50.9 Iron deficiency anemia, unspecified; D63.1 Anemia in chronic kidney disease; E11.42 Type 2 diabetes mellitus with diabetic polyneuropathy; E11.51 Type 2 diabetes mellitus with diabetic peripheral angiopathy without gangrene; E66.9 Obesity, unspecified; E83.59 Other disorders of calcium metabolism; F17.211 Nicotine dependence, cigarettes, in remission; F32.9 Major depressive disorder, single episode, unspecified; F41.9 Anxiety disorder, unspecified; I27.20 Pulmonary hypertension, unspecified; L89.620 Pressure ulcer of left heel, unstageable; G89.29 Other chronic pain; Z68.37 Body mass index [BMI] 37.0-37.9, adult; Z91.14 Patient's other noncompliance with medication regimen; Z79.4 Long term (current) use of insulin; Z79.899 Other long term (current) drug therapy
CPT/HCPCS: 11042; 36415; 71045; 76000; 80048; 80053; 80061; 80069; 81001; 82274; 82728; 82962; 83036; 83540; 83550; 84100; 85025; 85027; 85610; 85730; 86704; 86706; 87340; 87426; 90937; 93005; 93923; 93970; 94640; 97110; 97116; 97162; 97166; 97530; 97535; 97802; 97803; 99251; J7030; J7040; A4216; C1750; G0257; G0463; J2916

== ENCOUNTER 2021-01-03 13:41 | Outpatient (RCR) | payer MEDICARE, MEDICAID, SELFPAY ==
[2020-12-28 11:16] VITALS: BMI 37.0
[2020-12-29 00:41] VITALS: BP 179/70; PULSE 74; RESP 24; TEMP 37
== END 2021-01-27 23:59 ==
LOC: WC 13:41
PROVIDERS: PCP Internal Medicine; Referring Provider Podiatrist; Visit Provider Internal Medicine
DX: Z09 Encounter for follow-up examination after completed treatment for conditions other than malignant neoplasm (principal)

== ENCOUNTER → 2021-02-10 11:08 | Outpatient (CLI) | payer MEDICARE, MEDICAID, SELFPAY ==
[2020-12-30 07:21] VITALS: BMI 37.0
--- NOTE | 2021-02-10 11:14 | VDUE_ITS ---
Reason For Study: Pre op testing Right Arm Left Arm Right Cephalic Vein at the wrist measures 0.06 Left Cephalic Vein at the shoulder measures x 0.08 cm. 0.15 x 0.15 cm. Right Cephalic Vein in the forearm measures Left Cephalic Vein at mid bicep measures 0.07 x 0.06 cm. 0.09 x 0.08 cm. Right Cephalic Vein below antecub measures Left Cephalic Vein above antecub measures 0.07 x 0.07 cm. 0.06 x 0.06 cm. Thrombosed braachiocephalic fistula noted from Branch mid forearm that measures 0.20 x above forearm to mid bicep. 0.19 cm. Right Cephalic Vein at the shoulder measures Branch below antecube measures 0.17 x 0.17 0.25 x 0.27 cm. cm. Right Basilic Vein at the origin measures 0.46 Branch attaches to cephalic vein below x 0.40 cm. antecube. Right Basilic Vein mid bicep measures 0.41 x Left Cephalic Vein below antecub measures 0.40 cm. 0.22 x 0.21 cm. Right Basilic Vein above antecub measures 0.43 Left Cephalic Vein in the forearm measures x 0.41 cm. 0.25 x 0.25 cm. Right Brachial artery measures 0.40 x 0.42 cm Left Cephalic Vein at the wrist measures with a velocity of 76 cm/sec. 0.29 x 0.30 cm. Right Radial artery measures 0.18 x 0.18 cm Basilic vein at origin measures 0.49 x 0.50 with a velocity of 77.3 cm/sec. cm. Basilic vein at bicep measures 0.39 x 0.40 cm. Basilic vein above antecub measures 0.39 x 0.37 cm. Left Brachial artery measures 0.45 x 0.47 cm with a velocity of 89 cm/sec. Left Radial artery measures 0.19 x 0.18 cm with a velocity of 69.5 cm/sec. VL/Saphenous Vein Mapping, Bilat Interpretation Summary Within the right brachiocephalic arteriovenous fistula from the antecubital spa ce to the mid bicep Diminutive right cephalic vein of the forearm. Left cephalic vein is patent and compressible although borderline in diameter i n the forearm and very diminutive in the upper arm. Patent and compressible bilateral upper arm basilic veins Normal arterial flow bilateral brachial arteries. Small bilateral radial arteries Ordering Physician: Jhony Feliz Referring Physician: Remigio Parks Performed By: Paige White RVT ?
== END ==
PROVIDERS: PCP Internal Medicine; Referring Provider Surgery; Visit Provider Surgery
DX: Z01.818 Encounter for other preprocedural examination (principal); N18.6 End stage renal disease
CPT/HCPCS: 93970; 93985

== ENCOUNTER 2021-02-16 09:50 | Day surgery (SDC) | payer MEDICARE, MEDICAID, SELFPAY ==
[2020-12-30 07:21] VITALS: BMI 37.0
[2021-02-15 09:27] VITALS: BMI 29.8
[2021-02-16 10:16] VITALS: BP 121/76; PULSE 90; RESP 16; TEMP 36.3; O2SAT 98; BMI 29.8
[2021-02-16 10:35] LABS: Bedside Glucose 98 mg/dL (70-110)
--- NOTE | 2021-02-16 10:40 | PCM.HP.BLA ---
History and Physical Date of Admission: 02/16/21 Intake Vital Signs ? 02/15/2109:27 Height 4 ft 8 in Weight: 133 lb BMI 29.8 BP 88/62 L Blood Pressure Location Lt brachial Position Sitting Respiration 20 H Pulse 81 Pulse Oximetry (%) 99 Oxygen Delivery Method room air Intake Visit Reasons:?PVD Chief Complaint: dialysis cathetre removal and replacement [employer] Required: No Is patient in pain?: No Allergies Penicillins Allergy (Verified 10/04/20 10:10) Rash Medications losartan 50 mg PO DAILY 04/06/15 [History Confirmed 02/15/21] hydralazine 50 mg PO TID #120 tab 07/22/19 [Rx Confirmed 02/15/21] albuterol sulfate 2 puff INHALATION Q4H PRN PRN #1 inhaler 09/10/19 [Rx Confirmed 02/15/21] sertraline 25 mg PO DAILY #30 tab 11/22/20 [Rx Confirmed 02/15/21] gabapentin 200 mg PO TIDCM 01/01/21 [History Confirmed 02/15/21] acetaminophen 650 mg PO Q6H PRN PRN? tablet 01/10/21 [Rx Confirmed 02/15/21] aspirin 81 mg PO DAILY@0800? tab.chew 01/10/21 [Rx Confirmed 02/15/21] atorvastatin 40 mg PO QHS? tablet 01/10/21 [Rx Confirmed 02/15/21] collagenase clostridium histo. 1 applic TOPICAL DAILY? tube 01/10/21 [Rx Confirmed 02/15/21] sodium thiosulfate in water 25 gm IV TUTHSA #12 vial 01/10/21 [Rx] nutritional supplements ml PO 02/15/21 [History Confirmed 02/15/21] oxycodone 5 mg capsule 5 mg PO BID PRN 02/15/21 [History Confirmed 02/15/21] PFSH Medical History?(Updated 02/15/21 @ 09:46 by Genny Crenshaw) Anemia of chronic renal failure, stage 5 Anxiety and depression Artificial cardiac pacemaker Blisters of multiple sites Cardiac conduction disorder CHF (congestive heart failure) Chronic renal insufficiency Claudication Diabetes mellitus End stage renal disease Hypertension Left atrial enlargement Left ventricular hypertrophy Metabolic acidosis Mitral valve prolapse Mitral valve regurgitation Noncompliance Obesity Pressure ulcer of left heel, unstageable Pulmonary hypertension PVD (peripheral vascular disease) Tinea pedis Tobacco dependence in remission Weakness Surgical History?(Updated 02/15/21 @ 09:48 by Genny Crenshaw) S/P arteriovenous (AV) fistula creation S/P cardiac pacemaker procedure S/P dialysis catheter insertion Social History?(Updated 02/15/21 @ 09:49 by Genny Crenshaw) Smoking Status:? Former smoker alcohol intake:? current HPI HPI HPI: BLANCA ARCEO, is a 70 F who presents to the office today for nonfunctioning dialysis catheter.? The patient has a right-sided tunneled dialysis catheter which did not function during dialysis yesterday and they would like it replaced. ROS General General: Yes weight change, fatigue and weakness; No appetite, colon cancer or breast cancer HEENT HEENT: No difficulty swallowing, eye injury, eye surgery, swollen glands or hoarseness Endo Endocrine: Yes diabetes mellitus; No thyroid disease, thyroid cancer, Hair loss, heat intolerance or cold intolerance Skin Skin: No rash or changing moles Breast Breast: No left breast lump, right breast lump, nipple discharge, breast pain, abnormal mammogram, abnormal US or breast enlargement Musc Musculoskeletal: Yes arthritis; No back problems, rheumatoid arthritis, gout or joint pain Cardio Cardiovascular: Yes pacemaker, heart disease and high blood pressure; No murmur, atrial fibrillation, heart attack, heart stent, palpitations, shortness of breat with exertion or chest pain Psych Psychiatric: Yes depression and anxiety; No hearing voices Resp Respiratory: No shortness of breath, No sleep apnea, No cough, No COPD, Yes asthma, No emphysema and No wheezing Gastro Gastrointestinal: No abdominal pain, No nausea or vomiting, No diarrhea, No constipation, No blood in stool, No acid reflux, No hemorrhoids, No ulcers, No gallbladder problem and No black,tarry stools Luciano Hematologic: No blood thinners, No blood disorders, No bleeding, No anemia and No blood clots Neuro Neurologic: No system reviewed and no additional complaints, except as documented, No as per HPI, No abnormal gait, No abnormal hearing, No abnormal movements, No abnormal speech, No behavioral changes, No burning sensations, No confusion, No convulsions, No disequilibrium, No dizziness, No localized weakness, No frequent falls, No headache(s), No lack of coordination, No loss of vision, No memory loss, No numbness, No other visual disturbances, No radicular pain, No restless legs, No sensory deficit, No syncope, No tingling, No tremor(s), Yes weakness and No other Exam Const General: cooperative Orientation: alert and oriented x3 [facility] Head: normal to inspection Neck Neck: normal visual inspection and full ROM Chest Chest palpation & inspection: normal inspection of the chest Other: Right tunneled dialysis catheter in place Resp Effort & Inspection: normal respiratory effort Auscultation: clear to auscultation bilaterally Cardio Rate: regular rate Rhythm: regular rhythm GI Inspection: non-distended Palpation: soft and nontender Skin General: no rashes or lesions noted Neuro General: patient alert and patient oriented x3 Extrem General: full ROM Psych Appearance: grossly normal Mental Status: mental status grossly normal Assessment and Plan Assessment and Plan (1) Anemia of chronic renal failure, stage 5: ?Status:?Chronic (2) Chronic renal insufficiency: ?Status:?Chronic ?Qualifiers: ?Chronic kidney disease stage:?stage 5? Qualified Code(s):?N18.5 - Chronic kidney disease, stage 5 (3) S/P dialysis catheter insertion: ?Status:?Acute ?Comment: right chest ?Plan - Dr. Benji Clayton MD: The patient has a nonfunctioning right tunneled dialysis catheter.? I discussed removing the right tunneled dialysis catheter and placing a left tunneled dialysis catheter tomorrow in the operating room.? I discussed the risks with her including but not limited to bleeding, infection, pneumothorax, line infection or DVT.? The patient understands the risks and will have surgery tomorrow to remove the nonfunctioning catheter in place a new catheter on the left. Benji Clayton MD Pager: [facility] [address] [place] [address], [address] [place] [address] Office: I have re-examined the patient. There are no clinical changes since date of exam.
[2021-02-16] MEDS: Heparin 10,000 UNITS/10 ML Vial 10000 UNITS (11:18)
[2021-02-16] MEDS: Lidocaine 1% /Epi 1:100 (20ml) 20 ML Vial (11:20)
--- NOTE | 2021-02-16 11:39 | CT_ITS ---
STUDY: CT CHEST WITH CONTRAST REASON FOR EXAM: Female, 70 years old. Chest pain, difficult dialysis catheter placement RADIATION DOSAGE (If Supplied By Facility): CTDIvol = ( 15.55 ) mGy, DLP = ( 457.41 ) mGycm TECHNIQUE: Transaxial imaging was performed following intravenous administration of IV 100mL Isovue-370. Individualized dose optimization techniques were used for this CT. COMPARISON: Previous chest x-rays FINDINGS: There is an enlarged thyroid gland containing multiple nodules and calcifications consistent with goiter. Satisfactory appearance of a left subclavian pacemaker. Lung windows show diffuse interstitial edema without organized infiltrate. There are small bilateral pleural effusions and dependent atelectasis in the lung bases. There has been a remote CABG. Peripheral calcifications noted in the thoracic aorta without aneurysm or dissection. No filling defects noted within pulmonary artery branches. There is subtle low-density defect within the proximal and mid SVC. However, in the distal SVC leading into the right atrium, there is contrast. I suspect this does not represent a thrombus within the IVC but rather mixed unenhanced and enhanced blood. If there is strong clinical suspicion of an IVC clot, ultrasound would be recommended for more thorough evaluation. Sternal cerclage wires and vascular clips are present from a prior sternotomy and coronary artery bypass graft procedure (CABG). Scattered subcentimeter axillary and mediastinal lymph nodes. There are multi-level degenerative changes of the thoracic spine. There is induration of the subcutaneous fat CT/Chest WITH Contrast IMPRESSION: Interstitial edema with small bilateral pleural effusions and bibasilar atelectasis suggest CHF. No organized infiltrate Enlarged nodular thyroid gland with multiple calcifications suggesting goiter There is contrast noted within the mid and distal SVC and do not suspect a thrombus is present within the IVC. However, if thrombus is a strong clinical concern, recommend further evaluation with ultrasound Remote CABG Degenerative bony changes Electronically Signed: Adán Chaves MD at 12:52 EDT , Service support ,
[2021-02-16 11:45] VITALS: BP 121/76; BP 93/59; PULSE 84; RESP 14; TEMP 36.1; O2SAT 98
[2021-02-16 11:52] VITALS: BP 121/76; PULSE 87; RESP 14; O2SAT 98
[2021-02-16 11:55] VITALS: BP 121/76; PULSE 86; RESP 16; O2SAT 100
[2021-02-16 12:00] VITALS: BP 101/64; BP 121/76; PULSE 87; RESP 16; TEMP 36.4; O2SAT 100
--- NOTE | 2021-02-16 12:28 | PCM.OPRPT ---
Problems Associated Problem List Diagnoses (1) Chronic renal insufficiency: Report of Operation Date of Procedure: 02/16/21 Pre-Operative Diagnosis: Nonfunctioning right temporary dialysis catheter Post-Operative Diagnosis: Same Surgery/Procedure Performed:: 1. Removal of right chest tunneled dialysis catheter 2. Ultrasound and fluoroscopy guided placement of left tunneled chest dialysis catheter use utilizing left IJ Specimen's removed: Right dialysis catheter Description of Procedure: The patient was brought to the operating room and MAC anesthesia was induced. The right chest dialysis catheter entry site was prepped with Betadine. The sutures were cut and the traction was placed on the catheter until the cuff was exposed. Hemostat was used to break adhesions to the cuff and the catheter was removed. There was no bleeding. An OpSite was placed over the entry site. The left neck and chest was then prepped and draped in the usual sterile fashion. Ultrasound was used to localize the left IJ. The area overlying this was injected with local anesthetic. A small incision was made with a scalpel and a needle was used with ultrasound to access the left IJ. A guidewire was placed without resistance under fluoroscopy into the superior vena cava. Next a dilator was placed over the guidewire which did not follow with the curvature of the guidewire. It appeared to enter the left chest it was retracted and then placed over the guidewire. Next the peel-away sheath was placed in a similar fashion over the guidewire into the superior vena cava. The guidewire was removed and the peel-away sheath was capped. Next an incision was injected with local anesthetic and made in the left chest. The catheter was tunneled from the inferior incision to the superior incision with a cuff under the subcutaneous tissue. The catheter was placed through the peel-away sheath. There was some difficulty advancing this and an angled Glidewire was placed through one of the channels and the catheter was able to be guided over this Glidewire into the superior vena cava. The Glidewire was removed and the port was capped. Both of the catheters were aspirated and injected with saline. Both aspirated and injected well. Each of the catheters were injected with 2 cc of heparinized saline and then they were clamped and capped. The catheter was sutured to the skin using 3-0 nylon suture The superior neck incision site was closed with interrupted 3-0 Vicryl sutures. Dressing was applied over the entry site and Steri-Strips were placed over the incision and dressings were placed. The patient was taken for a stat CT following surgery to rule out any injury from placement of the catheter. Grafts/Implants Used: Tunneled cuffed temporary dialysis catheter in the left IJ
--- NOTE | 2021-02-16 12:32 | EX.PCM.DISCH ---
Discharge Instructions Procedure Port-A-Cath Diet Discharge Diet: Light diet - advance as tolerated (Pain medication may cause nausea. You should typically eat light foods as you take your pain medication.) Activity Discharge Activity: Return to Normal Activity and May Shower (with your bandage in place in 1-2 days after surgery. DO NOT SHOWER WHEN YOUR PORT IS ACCESSED.) May shower in (days): 2 Lifting Restrictions: 10 lbs for 1 week Dressing / Incision Call your doctor if your incision/area has: Continuous Slow Oozing, Sudden Increased Bleeding, Increased Pain/ Swelling, Increased Redness, Foul Smelling Discharge and Swelling at the incision site Call your doctor if you observe: Fever of 101 or Higher Change Dressing in: 2 days Cleanse incision/area with: Soap & Water Follow Up Care Please Follow Up With: Jhony Feliz MD When: as scheduled previously Test Results: Test results from this visit will be discussed in further detail at your follow-up appointment, if applicable. Discharge Plan Admission Attending Provider: Benji Clayton Primary Care Provider: Remigio Parks Discharge Orders/Prescriptions Prescriptions: No Action nutritional supplements Liquid 120 ml PO DAILY RF: 0 oxycodone 5 mg capsule 5 mg PO BID RF: 0 losartan 50 MG tablet 50 mg PO SUMOWEFR RF: 0 albuterol sulfate 1 INHALER inhaler 2 puff inhalation Q4H PRN PRN (Reason: Wheezing) Qty: 1 RF: 0 sertraline 25 MG tablet 25 mg PO DAILY Qty: 30 RF: 0 gabapentin 100 MG capsule 300 mg PO BID RF: 0 atorvastatin 40 MG tablet 40 mg PO QHS RF: 0 acetaminophen 325 MG tablet 650 mg PO Q6H PRN PRN (Reason: Pain 1-10 Or Fever) RF: 0 aspirin 81 MG tablet,chewable 81 mg PO DAILY@0800 RF: 0 hydralazine 50 MG tablet 50 mg PO BID RF: 0 Referrals / Follow Up: Remigio Parks MD [Primary Care Provider] - Disposition Disposition (needs filled in before D/C Order can be placed): Assisted Living
--- NOTE | 2021-02-16 13:23 | SUR.PHASEII ---
report called to the [facility]
[2021-02-16 13:24] VITALS: BP 117/81; BP 121/76; PULSE 86; RESP 16; TEMP 36.3; O2SAT 95
--- NOTE | 2021-02-16 13:29 | SUR.PHASEII ---
pPT. READY FOR DISCHARGE CALLED [facility] NO ANSWER LEFT VOICEMAIL.
== END 2021-02-16 14:15 | disposition home or self-care (01) ==
LOC: SDC 09:52 → AC 09:53
PROVIDERS: PCP Internal Medicine; Referring Provider Surgery; Visit Provider Surgery
PROC: (CPT 36561; principal; 2021-02-16 11:15)
DX: T82.41XA Breakdown (mechanical) of vascular dialysis catheter, initial encounter (principal); I13.2 Hypertensive heart and chronic kidney disease with heart failure and with stage 5 chronic kidney disease, or end stage renal disease; N18.5 Chronic kidney disease, stage 5; D63.1 Anemia in chronic kidney disease; E11.22 Type 2 diabetes mellitus with diabetic chronic kidney disease; E11.51 Type 2 diabetes mellitus with diabetic peripheral angiopathy without gangrene; I50.9 Heart failure, unspecified; E66.9 Obesity, unspecified; Z68.29 Body mass index [BMI] 29.0-29.9, adult; Z99.2 Dependence on renal dialysis; Z95.1 Presence of aortocoronary bypass graft; Z79.82 Long term (current) use of aspirin; Z79.899 Other long term (current) drug therapy; Z87.891 Personal history of nicotine dependence
CPT/HCPCS: 00532; 36561; 36589; 71260; 76000; 82962; J7040; Q9967; A4216; C1769

== ENCOUNTER 2021-03-04 23:03 | Emergency (ER) | payer MEDICARE, MEDICAID, SELFPAY ==
[2021-03-04 23:05] VITALS: BP 104/57; PULSE 110; RESP 20; TEMP 36.9; O2SAT 98; BMI 68.5
--- NOTE | 2021-03-04 23:27 | CT_ITS ---
STUDY: CT BRAIN WITHOUT CONTRAST REASON FOR EXAM: Female, 70 years old patient with headache after falling out of bed. RADIATION DOSAGE (If Supplied By Facility): CTDIvol = ( 44.99 ) mGy, DLP = ( 779.24 ) mGycm TECHNIQUE: Transaxial CT imaging of the brain was performed without administration of intravenous contrast material. Multiplanar reformations are submitted for interpretation. Individualized dose optimization techniques were used for this CT. COMPARISON: CT of the head dated 03/24/2015. FINDINGS: There is a right paramedian anterior frontal scalp contusion and hematoma. Patient has bilateral ocular proptosis. Normal calvarium. There is mild cerebral atrophy with widening of the extra-axial spaces and ventricular dilatation. There are areas of decreased attenuation within the white matter tracts of the supratentorial brain, consistent with microvascular disease changes. Normal basal ganglia and thalami. Normal brainstem. There is mild cerebellar atrophy. There is no intracranial hemorrhage. There is moderately severe atherosclerotic calcification of the intracranial arteries. Normal visualized paranasal sinuses. CT/Brain/Head without Contrast IMPRESSION: 1. Chronic involutional changes of the brain. 2. No CT evidence of acute intracranial hemorrhage. Electronically Signed: Susanne Rosen MD at 0:15 EDT , Service support ,
--- NOTE | 2021-03-04 23:27 | RAD_ITS ---
STUDY: X-RAY - LUMBAR SPINE REASON FOR EXAM: Female, 70 years old patient with low back pain after injury. TECHNIQUE: 3 view(s) of the lumbar spine were obtained. COMPARISON: None FINDINGS: The patient is status post sternotomy. Patient has intracardiac pacemaker. There is an exaggerated lumbar lordosis. There is no substantial scoliosis. There is a normal alignment of the vertebrae. There is diffuse demineralization with multi-level endplate spondylosis. Normal disc space heights. There is no demonstrated fracture. There is multilevel degenerative arthropathy of the facet joints. There is atherosclerotic calcification of the abdominal aorta, iliac arteries, and splenic artery without a demonstrated aneurysm. RAD/Lumbar Spine 2 or 3 Views IMPRESSION: 1. 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 2. No evidence for acute compression or displaced fracture. Electronically Signed: Susanne Rosen MD at 0:09 EDT , Service support ,
--- NOTE | 2021-03-04 23:30 | EDS_ITS ---
HPI History of Present Illness Chief Complaint: Head Injury Informant: patient and SNF Onset/Context/Timing Onset: Today Mechanism/Context: Fall Quality of Pain: Dull Location: Head, back Worsened by: Nothing Relieved by: Nothing Associated Symptoms Associated Symptoms: Negative for Parasthesias, Weakness and Loss of consciousness Narrative Narrative: Patient presents after a fall that occurred today. Patient fell out of bed. Patient hit her head. Patient denies any loss of consciousness. Patient complains of mild low back pain. Patient denies any paresthesias or weakness. Patient describes her pain as dull. Patient states nothing makes it better nothing makes it worse. Patient denies any neck pain. Patient denies any bowel or bladder changes. Patient denies any saddle anesthesia. [facility] Medical History Anemia of chronic renal failure, stage 5 Anxiety and depression Artificial cardiac pacemaker Blisters of multiple sites Cardiac conduction disorder Cardiomegaly CHF (congestive heart failure) Chronic renal insufficiency Claudication Dependence on renal dialysis Diabetes mellitus Dietary restriction End stage renal disease Former smoker Hypertension Left atrial enlargement Left ventricular hypertrophy Metabolic acidosis Mitral valve prolapse Mitral valve regurgitation Noncompliance Obesity Pressure ulcer of left heel, unstageable Pulmonary hypertension PVD (peripheral vascular disease) Tinea pedis Tobacco dependence in remission Uses wheelchair Weakness Home Medications losartan 50 mg PO SUMOWEFR 04/06/15 [History Last Taken 07/18/19] albuterol sulfate 2 puff INHALATION Q4H PRN PRN #1 inhaler 09/10/19 [Rx Last Taken Unknown] sertraline 25 mg PO DAILY #30 tab 11/22/20 [Rx Last Taken Unknown] acetaminophen 650 mg PO Q6H PRN PRN tablet 01/10/21 [Rx Last Taken Unknown] aspirin 81 mg PO DAILY@0800 tab.chew 01/10/21 [Rx Last Taken Unknown] atorvastatin 40 mg PO QHS tablet 01/10/21 [Rx Last Taken Unknown] hydralazine 50 mg PO TID 02/15/21 [History Last Taken Unknown] nutritional supplements 120 ml PO DAILY 02/15/21 [History Last Taken Unknown] oxycodone 5 mg capsule 5 mg PO BID 02/15/21 [History Last Taken Unknown] Bisa-Lax (bisacodyl) 10 mg DAILY 03/04/21 [History Last Taken Unknown] Allergy/AdvReac Type Severity Reaction Status Date / Time Penicillins Allergy Rash Verified 03/04/21 23:08 Surgical History History of History of heart valve repair Hx laparoscopic cholecystectomy S/P arteriovenous (AV) fistula creation S/P cardiac pacemaker procedure S/P dialysis catheter insertion Social History Smoking Status: Former smoker alcohol intake: current ROS ROS ED Constitutional Constitutional ED: Denies chills or fever(s) Eyes Eyes: Denies blurry vision or change in vision ENT ENT ED: Denies rhinorrhea or sore throat Cardiovascular Cardiovascular: Denies chest pain or palpitations Respiratory/Chest Respiratory/Chest: Denies cough or dyspnea Gastrointestinal Gastrointestinal: Denies nausea or vomiting Genitourinary Genitourinary ED: Denies dysuria or hematuria Musculoskeletal Musculoskeletal: Reports back pain; Denies neck pain Integumentary Denies abscess or rash Neurologic Neurologic: Denies paresthesias or weakness Allergic/Immunologic Allergic/Immunologic ED: Denies mouth swelling or urticaria EXAM Physical Exam Const Vital Signs: 03/04/21 23:05 03/04/21 23:13 Temperature 98.5 F Temperature Source Temporal Pulse Rate 110 H Respiratory Rate 20 H Respiratory Effort Normal Respiratory Pattern Normal Blood Pressure 104/57 L Blood Pressure Mean 72 Pulse Ox 98 Oxygen Delivery Method Room Air Positive well nourished and well developed General Appearance ED: well developed HEENT tenderness Neck full ROM General: Negative for tenderness Resp normal respiratory effort Cardio regular rhythm Rate: regular rate GI normal to inspection, nondistended, normoactive bowel sounds, non-tender and non-distended Palpation: soft Back/Spine Back/Spine Narrative: There is some mild lumbar spine and paraspinal tenderness. There is no bony crepitance or step-off. There is no edema or ecchymosis. Range of motion was limited in all motion secondary to pain. Neuro CN's II-XII intact bilaterally, moves all extremities and no focal motor deficits Sensorium / Orientation: alert MDM MDM MDM Narrative Medical decision making narrative: X-rays of the lumbar spine were obtained. There are 3 views. On my interpretation, there is no acute fracture, spondylolisthesis, or spondylolysis. There are some degenerative changes noted. Radiologist also interpreted the x-rays and agrees. CT scan of the brain was obtained. There is no acute intracranial abnormality. There is no bleeding or stroke noted. This was interpreted by the radiologist and reviewed by myself. Patient was advised of her findings. Patient will be discharged back to the [facility] care facility. Patient was instructed to follow-up with her primary care physician in 5 to 7 days. Patient was given head injury instructions. Patient appeared to understand and was agreeable with the plan. All questions were answered. Radiography Diagnostic Testing: Radiology Impression Lumbar Spine X-Ray 03/04/21 23:27 IMPRESSION: 1. 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 2. No evidence for acute compression or displaced fracture. Electronically Signed: Susanne Rosen MD at 0:09 EDT , Service support , Discharge Plan Triage Chief Complaint: Head Injury ED Provider: Imtiaz Judge Dx/Rx/DC Orders Clinical Impression: Closed head injury, Lumbar contusion Instructions: ED Soft Tissue Contusion, ED Head Injury (Adult) Prescriptions: No Action nutritional supplements Liquid 120 ml PO DAILY RF: 0 oxycodone 5 mg capsule 5 mg PO BID RF: 0 losartan 50 MG tablet 50 mg PO SUMOWEFR RF: 0 albuterol sulfate 1 INHALER inhaler 2 puff inhalation Q4H PRN PRN (Reason: Wheezing) Qty: 1 RF: 0 sertraline 25 MG tablet 25 mg PO DAILY Qty: 30 RF: 0 atorvastatin 40 MG tablet 40 mg PO QHS RF: 0 acetaminophen 325 MG tablet 650 mg PO Q6H PRN PRN (Reason: Pain 1-10 Or Fever) RF: 0 aspirin 81 MG tablet,chewable 81 mg PO DAILY@0800 RF: 0 hydralazine 50 MG tablet 50 mg PO TID RF: 0 Bisa-Lax (bisacodyl) 10 mg DAILY RF: 0 Primary Care Provider: Jacob Murphy Referrals: Jacob Murphy MD [Primary Care Provider] - 3-5 Days Disposition Disposition[facility] Discharge Location: [facility]
[2021-03-05 00:35] VITALS: BP 140/74; PULSE 109; RESP 16; O2SAT 98
== END 2021-03-05 01:03 | disposition skilled nursing facility (03) ==
PROVIDERS: Emergency Provider Emergency Medicine; PCP Family Medicine
DX: S09.90XA Unspecified injury of head, initial encounter (principal); S30.0XXA Contusion of lower back and pelvis, initial encounter; W06.XXXA Fall from bed, initial encounter; E66.9 Obesity, unspecified; Z79.82 Long term (current) use of aspirin; Z87.891 Personal history of nicotine dependence; Z95.0 Presence of cardiac pacemaker
CPT/HCPCS: 70450; 72100; 99284